=== PATIENT | male | born 1980 ===

== ENCOUNTER → 2020-05-09 08:34 | Outpatient (BNVA) | payer OTHER, SELFPAY | PROVIDERS: PCP Internal Medicine; Referring Provider Internal Medicine; Visit Provider Nurse Practitioner Gerontology | DX: E11.9 Type 2 diabetes mellitus without complications (principal); I10 Essential (primary) hypertension; E78.5 Hyperlipidemia, unspecified; E55.9 Vitamin D deficiency, unspecified; E66.01 Morbid (severe) obesity due to excess calories; Z79.4 Long term (current) use of insulin | CPT/HCPCS: 99213 ==

== ENCOUNTER 2020-05-10 13:53 | Outpatient (REF) | payer OTHER, SELFPAY | END 2020-05-10 13:54 | disposition home or self-care (01) | LOC: HO.LAB 13:53 | PROVIDERS: Visit Provider Internal Medicine | DX: Z20.828 Contact with and (suspected) exposure to other viral communicable diseases (principal) | CPT/HCPCS: 87635 ==

== ENCOUNTER 2020-05-15 15:30 | Outpatient (REF) | payer OTHER, SELFPAY ==
--- NOTE | 2020-05-15 16:27 | XR_ITS ---
EXAMINATION: XR CHEST CLINICAL INFORMATION: Bronchitis. COMPARISON: None TECHNIQUE: 2 views of the chest were obtained. FINDINGS: No significant abnormality is noted involving the heart, lungs, mediastinum, bony thorax or soft tissues. XR/XR chest 2V IMPRESSION: Unremarkable chest examination.
== END 2020-05-15 15:31 | disposition home or self-care (01) ==
LOC: HO.XRAY 15:30
PROVIDERS: PCP Internal Medicine; Visit Provider Hospitalist
DX: J40 Bronchitis, not specified as acute or chronic (principal); E55.9 Vitamin D deficiency, unspecified; E11.9 Type 2 diabetes mellitus without complications; I10 Essential (primary) hypertension
CPT/HCPCS: 71046; 99214

== ENCOUNTER → 2020-06-01 09:56 | Outpatient (BNVA) | payer OTHER, SELFPAY | PROVIDERS: PCP Internal Medicine; Referring Provider Internal Medicine; Visit Provider Hospitalist | DX: J45.40 Moderate persistent asthma, uncomplicated (principal); G47.33 Obstructive sleep apnea (adult) (pediatric); E66.01 Morbid (severe) obesity due to excess calories; Z68.42 Body mass index [BMI] 45.0-49.9, adult; R09.1 Pleurisy; Z99.89 Dependence on other enabling machines and devices; Z23 Encounter for immunization | CPT/HCPCS: 90686; 99212 ==

== ENCOUNTER 2020-06-14 09:43 | Outpatient (REF) | payer OTHER, SELFPAY ==
[2020-06-14 10:32] LABS: Estimated Average Glucose 171 mg/dL; Hemoglobin A1c % 7.6 %
[2020-06-14 11:04] LABS: Vitamin D 25-OH Total 29.9 ng/mL (>30)
== END 2020-06-14 09:44 | disposition home or self-care (01) ==
LOC: HO.LAB 09:43
PROVIDERS: PCP Internal Medicine; Visit Provider Nurse Practitioner Gerontology
DX: E55.9 Vitamin D deficiency, unspecified (principal); E11.9 Type 2 diabetes mellitus without complications; Z79.4 Long term (current) use of insulin
CPT/HCPCS: 82306; 83036

== ENCOUNTER 2020-07-26 09:34 | Outpatient (REF) | payer OTHER, SELFPAY ==
[2020-07-26 10:50] LABS: Hematocrit 44.2 % (42-52); Hemoglobin 13.9 g/dl (14.0-18.0); Mean Corpuscular HGB Conc 31.4 g/dl (31.0-36.0); Mean Corpuscular Hemoglobin 25.2 pg (27.0-33.0); Mean Corpuscular Volume 80.2 fL (80-98); Mean Platelet Volume 10.9 fL (9.4-12.4); Platelet Count 352 X10*3/uL (160-400); Red Blood Count 5.51 X10*6/uL (4.60-5.80); Red Cell Distribution Width 13.8 % (11.0-16.0); White Blood Count 10.3 X10*3/uL (4.8-10.8)
[2020-07-26 11:15] LABS: Iron 64 mcg/dL (45-160); Percent Iron Saturation 19 % (15-50); Total Iron Binding Capacity 344 mcg/dL (228-428); Unsaturated Iron Binding 280 ug/dL
[2020-07-26 11:37] LABS: Ferritin 228 ng/mL (20-250)
== END 2020-07-26 09:35 | disposition home or self-care (01) ==
LOC: HO.LAB 09:34
PROVIDERS: PCP Internal Medicine; Visit Provider Internal Medicine Gastroenterology
DX: D50.9 Iron deficiency anemia, unspecified (principal)
CPT/HCPCS: 36415; 82728; 83540; 85027

== ENCOUNTER → 2020-08-07 13:51 | Outpatient (BNVA) | payer OTHER, SELFPAY | PROVIDERS: PCP Internal Medicine; Visit Provider Internal Medicine Gastroenterology ==

== ENCOUNTER 2020-08-30 10:56 | Outpatient (REF) | payer OTHER, SELFPAY | END 2020-08-30 10:57 | disposition home or self-care (01) | LOC: HO.LAB 10:56 | PROVIDERS: Visit Provider Internal Medicine | DX: Z20.822 Contact with and (suspected) exposure to COVID-19 (principal) | CPT/HCPCS: 36415; C9803; U0003; U0005 ==

== ENCOUNTER → 2020-09-01 10:38 | Outpatient (BNVA) | payer OTHER, SELFPAY | PROVIDERS: PCP Internal Medicine; Visit Provider Hospitalist ==

== ENCOUNTER 2020-11-01 09:29 | Outpatient (REF) | payer OTHER, SELFPAY ==
[2020-11-01 10:32] LABS: Glucose Urine UA 250 MG/DL (NEG); Leukocyte Esterase Urine NEG (NEG); Nitrite Urine NEG (NEG); Specific Gravity - Urine 1.025 (1.005-1.025); Urine Blood NEG (NEG); Urine Ketones NEG (NEG); Urine Protein TRACE MG/DL (NEG-TRACE)
[2020-11-01 10:36] LABS: Appearance Urine CLEAR; Color Urine YELLOW
[2020-11-01 10:46] LABS: RBC Urine 0 /HPF (0); Squamous Epithelial Cell Urine 2+ /LPF; WBC Urine 0-2 /HPF (0-4)
[2020-11-01 11:09] LABS: Estimated Average Glucose 154 mg/dL
[2020-11-01 11:14] LABS: Basophils Percent Auto 0.3 % (0-2); Eosinophils Absolute Auto 0.3 X10*3/uL (0.0-0.4); Eosinophils Percent Auto 3.1 % (0-4); Hematocrit 43.9 % (42-52); Hemoglobin 13.5 g/dl (14.0-18.0); Imm Gran Abs Auto 0.04 X10*3/uL (0.00-0.03); Imm Gran Pct Auto 0.4 % (0.0-0.4); Immature Retic Fraction 19.2 % (2.3-13.4); Lymphocytes Absolute Auto 1.7 X10*3/uL (1.2-4.9); Lymphocytes Percent Auto 18.9 % (20-40); MANUAL DIFF FLAG SCAN; Mean Corpuscular HGB Conc 30.8 g/dl (31.0-36.0); Mean Corpuscular Hemoglobin 24.7 pg (27.0-33.0); Mean Corpuscular Volume 80.4 fL (80-98); Mean Platelet Volume 11.4 fL (9.4-12.4); Monocytes Absolute Auto 0.8 X10*3/uL (0.1-1.2); Monocytes Percent Auto 8.3 % (2-11); Neutrophils Absolute Auto 6.3 X10*3/uL (2.0-8.3); PLT CLUMP 1; Red Blood Count 5.46 X10*6/uL (4.60-5.80); Red Cell Distribution Width 13.8 % (11.0-16.0); Retic HGB Equivalent 29.9 pg (30.0-35.0); Reticulocyte Percent 1.9 % (0.5-1.8); Reticulocytes Absolute 0.105 X10*6/uL (0.026-0.095); SCAN SMEAR FLAG 1
[2020-11-01 11:33] LABS: White Blood Count 9.1 X10*3/uL (4.8-10.8)
[2020-11-01 11:34] LABS: Platelet Count 270 X10*3/uL (160-400); SLIDE REVIEW VERIFIED
[2020-11-01 11:47] LABS: Vitamin B12 266 pg/mL (200-900)
[2020-11-01 12:01] LABS: Alanine Aminotransferase 24 U/L (0-40); Alkaline Phosphatase 68 U/L (39-117); Anion Gap 15 (12-20); Aspartate Amino Transferase 16 U/L (5-37); Bilirubin Total 0.3 mg/dL (0.0-1.0); Blood Urea Nitrogen 15 mg/dL (9-16); Calcium 9.1 mg/dL (8.4-10.2); Carbon Dioxide 24 mmol/L (22-29); Chloride 105 mmol/L (96-108); Cholesterol 153 mg/dL; Estimated Glomerular Filt Rate > 60; Glucose Random 109 mg/dL (60-115); HDL Cholesterol 38 mg/dL; Iron 35 mcg/dL (45-160); LDL Cholesterol Calculated 97 mg/dl; Percent Iron Saturation 10 % (15-50); Potassium 4.6 mmol/L (3.3-5.1); Sodium 139 mmol/L (135-145); Total Iron Binding Capacity 337 mcg/dL (228-428); Total Protein 7.2 g/dL (6.5-8.0); Triglycerides 93 mg/dL; Unsaturated Iron Binding 302 ug/dL
[2020-11-01 12:22] LABS: Ferritin 173 ng/mL (20-250); Free T4 (Free Thyroxine) 0.88 ng/dL (0.71-1.85); Thyroid Stimulating Hormone 0.68 uIU/mL (0.32-4.0)
== END 2020-11-01 09:30 | disposition home or self-care (01) ==
LOC: HO.LAB 09:29
PROVIDERS: PCP Internal Medicine; Visit Provider Internal Medicine
DX: E78.00 Pure hypercholesterolemia, unspecified (principal); E78.5 Hyperlipidemia, unspecified; E11.9 Type 2 diabetes mellitus without complications; D50.9 Iron deficiency anemia, unspecified; R30.0 Dysuria; Z79.4 Long term (current) use of insulin
CPT/HCPCS: 36415; 80053; 80061; 81001; 82607; 82728; 82746; 83036; 83540; 84439; 84443; 85025; 85045

== ENCOUNTER → 2020-11-17 08:51 | Outpatient (BNVA) | payer OTHER, SELFPAY | PROVIDERS: PCP Internal Medicine; Visit Provider Nurse Practitioner Gerontology | DX: E11.9 Type 2 diabetes mellitus without complications (principal); E78.5 Hyperlipidemia, unspecified; E55.9 Vitamin D deficiency, unspecified; E66.01 Morbid (severe) obesity due to excess calories; Z68.43 Body mass index [BMI] 50.0-59.9, adult; I10 Essential (primary) hypertension; Z79.4 Long term (current) use of insulin; Z87.891 Personal history of nicotine dependence; Z71.3 Dietary counseling and surveillance | CPT/HCPCS: 82947; 99212 ==

== ENCOUNTER → 2021-01-31 08:23 | Outpatient (BNVA) | payer OTHER, SELFPAY | PROVIDERS: Visit Provider Nurse Practitioner Gerontology | DX: E11.9 Type 2 diabetes mellitus without complications (principal); E78.5 Hyperlipidemia, unspecified; E55.9 Vitamin D deficiency, unspecified; E66.01 Morbid (severe) obesity due to excess calories; I10 Essential (primary) hypertension; Z79.4 Long term (current) use of insulin; Z68.43 Body mass index [BMI] 50.0-59.9, adult | CPT/HCPCS: 82947; 99212 ==

== ENCOUNTER → 2021-02-08 11:13 | Outpatient (BNVA) | payer OTHER, SELFPAY | PROVIDERS: PCP Internal Medicine; Referring Provider Internal Medicine; Visit Provider Internal Medicine Gastroenterology ==

== ENCOUNTER 2021-03-02 12:48 | Outpatient (REF) | payer OTHER, SELFPAY ==
--- NOTE | 2021-03-02 16:49 | PFT_ITS ---
Forced vital capacity and FEV1 are both slightly decreased. [id number] and MVV also slightly decreased. Post bronchodilator therapy, there is a slight improvement in [id number]. Total lung capacity, slightly decreased. Residual volume is normal. Diffusion capacity normal. CONCLUSION: Mild degree of restrictive pulmonary disorder is noted. The patient probably has a very mild degree of obstructive airway disorder involving smaller airways with some improvement after bronchodilator therapy. Clinical correlation is recommended. MD JANUARY [place]/MODL / [id number]
== END 2021-03-02 12:49 | disposition home or self-care (01) ==
LOC: HO.RESP 12:48
PROVIDERS: PCP Internal Medicine; Visit Provider Hospitalist
DX: J45.40 Moderate persistent asthma, uncomplicated (principal); R06.00 Dyspnea, unspecified
CPT/HCPCS: 94060; 94727; 94729; 99212

== ENCOUNTER → 2021-05-07 11:09 | Outpatient (BNVA) | payer OTHER, SELFPAY | PROVIDERS: PCP Internal Medicine; Referring Provider Internal Medicine; Visit Provider Internal Medicine Gastroenterology | DX: D50.8 Other iron deficiency anemias (principal); E53.8 Deficiency of other specified B group vitamins; E66.01 Morbid (severe) obesity due to excess calories; Z68.43 Body mass index [BMI] 50.0-59.9, adult | CPT/HCPCS: 99212 ==

== ENCOUNTER → 2021-05-29 07:17 | Outpatient (BNVA) | payer OTHER, SELFPAY | PROVIDERS: PCP Internal Medicine; Visit Provider Nurse Practitioner Gerontology | DX: E11.9 Type 2 diabetes mellitus without complications (principal); E78.5 Hyperlipidemia, unspecified; E55.9 Vitamin D deficiency, unspecified; E66.01 Morbid (severe) obesity due to excess calories; I10 Essential (primary) hypertension; Z68.43 Body mass index [BMI] 50.0-59.9, adult; Z79.4 Long term (current) use of insulin | CPT/HCPCS: 82947; 99212 ==

== ENCOUNTER 2021-06-20 08:08 | Outpatient (REF) | payer OTHER, SELFPAY ==
[2021-06-20 08:16] LABS: MANUAL DIFF FLAG NO
[2021-06-20 08:38] LABS: Basophils Percent Auto 0.4 % (0-2); Eosinophils Absolute Auto 0.3 X10*3/uL (0.0-0.4); Eosinophils Percent Auto 3.3 % (0-4); Hematocrit 43.6 % (42.0-52.0); Hemoglobin 13.9 g/dl (14.0-18.0); Imm Gran Abs Auto 0.03 X10*3/uL (0.00-0.03); Imm Gran Pct Auto 0.3 % (0.0-0.4); Immature Retic Fraction 16.3 % (2.3-13.4); Lymphocytes Absolute Auto 1.9 X10*3/uL (1.2-4.9); Lymphocytes Percent Auto 21.3 % (20-40); Mean Corpuscular HGB Conc 31.9 g/dl (31.0-36.0); Mean Corpuscular Hemoglobin 25.2 pg (27.0-33.0); Mean Corpuscular Volume 79.1 fL (80.0-98.0); Mean Platelet Volume 10.5 fL (9.4-12.4); Monocytes Absolute Auto 0.6 X10*3/uL (0.1-1.2); Monocytes Percent Auto 6.7 % (2-11); Neutrophils Absolute Auto 6.2 x10*3/uL (2.0-8.3); Platelet Count 335 X10*3/uL (160-400); Red Blood Count 5.51 X10*6/uL (4.60-5.80); Red Cell Distribution Width 13.8 % (11.0-16.0); Retic HGB Equivalent 28.9 pg (30.0-35.0); Reticulocyte Percent 1.7 % (0.5-1.8); Reticulocytes Absolute 0.092 X10*6/uL (0.026-0.095); White Blood Count 9.1 X10*3/uL (4.8-10.8)
[2021-06-20 09:02] LABS: Iron 36 mcg/dL (45-160); Percent Iron Saturation 10 % (15-50); Total Iron Binding Capacity 348 mcg/dL (228-428); Unsaturated Iron Binding 312 ug/dL
[2021-06-20 09:03] LABS: Alanine Aminotransferase 20 U/L (0-40); Albumin Level 4.1 g/dL (3.5-5.0); Alkaline Phosphatase 67 U/L (39-117); Aspartate Amino Transferase 12 U/L (5-37); Bilirubin Direct < 0.2 mg/dL (0.0-0.5); Bilirubin Total 0.3 mg/dL (0.0-1.0); Total Protein 7.3 g/dL (6.5-8.0)
[2021-06-20 09:35] LABS: Folate 9.9 ng/mL (> or = 4.0); Vitamin B12 287 pg/mL (200-900)
[2021-06-20 09:54] LABS: Ferritin 193 ng/mL (20-250)
[2021-06-24 23:56] LABS: FIB-ALT 17 U/L (9-46); FIB-Alpha-2-Macroglobulin 120 mg/dL (106-279); FIB-Apolipoprotein A1 107 mg/dL (94-176); FIB-GGT 27 U/L (3-95); FIB-Haptoglobin 301 mg/dL (43-212); FIB-Total Bilirubin 0.3 mg/dL (0.2-1.2); Liver Fibrosis Score 0.05; Liver Fibrosis Stage F0; Nec Inflam Act Grade A0; Nec Inflam Act Score 0.04
== END 2021-06-20 08:09 | disposition home or self-care (01) ==
LOC: HO.LAB 08:08
PROVIDERS: PCP Internal Medicine; Referring Provider Nurse Practitioner Gerontology; Visit Provider Internal Medicine Gastroenterology
DX: E66.01 Morbid (severe) obesity due to excess calories (principal); Z68.43 Body mass index [BMI] 50.0-59.9, adult; E53.8 Deficiency of other specified B group vitamins; D50.8 Other iron deficiency anemias
CPT/HCPCS: 36415; 80076; 81596; 82607; 82728; 82746; 83540; 85025; 85045

== ENCOUNTER → 2021-09-06 11:12 | Outpatient (BNVA) | payer OTHER, SELFPAY | PROVIDERS: PCP Internal Medicine; Visit Provider Hospitalist | DX: J45.40 Moderate persistent asthma, uncomplicated (principal); J31.0 Chronic rhinitis; G47.33 Obstructive sleep apnea (adult) (pediatric) | CPT/HCPCS: 99212 ==

== ENCOUNTER 2021-11-10 05:17 | Emergency (ER) | payer OTHER, SELFPAY ==
[2021-11-10 05:29] VITALS: BP 144/76; PULSE 68; RESP 16; TEMP 36.2; O2SAT 98; BMI 59.0
--- NOTE | 2021-11-10 05:51 | ED_ITS ---
HPI - Headache General Chief Complaint: Headache Stated Complaint: Migraine Time Seen by Provider: 11/10/21 05:45 Source: patient Mode of arrival: ambulatory Limitations: no limitations History of Present Illness HPI Narrative: Patient comes to the emergency room complaining of 5 days of a headache And photophobia. Patient states that he has no history of migraines, has been taking ibuprofen and Tylenol without any relief. Mild nausea, no vomiting or diarrhea, no fever chills. No neck pain or neck stiffness. Patient denies any head trauma. Related Data Home Medications Medication Instructions Recorded Confirmed doxepin 75 mg capsule 75 mg PO BEDTIME 04/17/20 05/07/21 duloxetine 30 mg capsule,delayed 30 mg PO QAM 04/17/20 05/29/21 release hydroxyzine HCl 25 mg tablet 25 mg PO TID 04/17/20 05/29/21 trazodone 100 mg tablet 100 - 200 mg PO BEDTIME 04/17/20 05/29/21 lancets 28 gauge #100 ea 05/09/20 05/29/21 Previous Rx's Medication Instructions Recorded fluticasone propionate 50 1 spray INTRANASAL DAILY #16 ml 09/01/20 mcg/actuation nasal spray,suspension montelukast 10 mg tablet 10 mg PO BEDTIME 30 Days #30 tab 09/01/20 (Singulair) clonazepam 0.5 mg tablet 0.5 mg PO DAILY #14 tab 11/27/20 cpap #1 ea 11/27/20 aspirin 81 mg chewable tablet 1 tab PO DAILY 90 Days #90 tab 12/05/20 Shower Chair #1 ea 12/07/20 detachable shower Head #1 ea 12/07/20 flash glucose scanning reader #1 ea 01/31/21 (FreeStyle Spenser 2 [place]) flash glucose sensor (FreeStyle #2 ea 01/31/21 Spenser 2 Sensor) cane #1 ea 03/07/21 Quad cane #1 ea 03/09/21 albuterol sulfate 2.5 mg (3 mL) INHALATION Q8H PRN 06/05/21 #150 ml empagliflozin 25 mg tablet 25 mg PO QAM #30 tab 06/27/21 (Jardiance) ferrous sulfate 324 mg (65 mg 324 mg PO BID #60 tab 07/01/21 iron) tablet,delayed release atorvastatin 10 mg tablet 10 mg PO BEDTIME #30 tab 07/06/21 irbesartan 150 1 tab PO DAILY #90 tab 07/06/21 mg-hydrochlorothiazide 12.5 mg tablet cholecalciferol (vitamin D3) 25 25 mcg PO DAILY #30 tab 07/10/21 mcg (1,000 unit) tablet (Vitamin D3) insulin glargine 100 unit/mL (3 34 unit (0.34 mL) SUBCUT QPM #15 ml 07/18/21 mL) subcutaneous pen (Lantus Solostar U-100 Insulin) pen needle, diabetic 32 gauge x 1 ea SUBCUT DAILY #30 ea 08/10/21 (BD Ultra-Fine Yanely Pen Needle) fluocinonide 0.05 % topical 1 appl TOPICAL BID 7 Days #30 g 08/19/21 ointment metformin 500 mg tablet 1,000 mg PO BID #120 tab 08/20/21 tramadol 50 mg tablet 50 mg PO Q8H PRN 30 Days #90 tab 08/30/21 fluticasone 232 mcg-salmeterol 14 1 inh INHALATION BID #1 insert 10/04/21 mcg/actuation breath activated powdr sennosides 8.6 mg-docusate sodium 2 tab-cap PO BEDTIME 30 Days #60 10/12/21 50 mg tablet (Senna-S) tab hydrocortisone 2.5 % topical cream 1 appl [place] BID-QID PRN #30 g 10/18/21 with perineal applicator (Proctosol HC) famotidine 20 mg tablet 20 mg PO BEDTIME 30 Days #30 tab 10/19/21 triamcinolone acetonide 0.5 % 1 appl TOPICAL DAILY 15 Days #15 g 10/19/21 topical ointment dulaglutide 3 mg/0.5 mL 3 mg (0.5 mL) SUBCUT QWEEK 28 Days 11/06/21 subcutaneous pen injector #2 ml (Trulicity) gabapentin 300 mg capsule 600 mg PO BEDTIME #180 cap 11/06/21 ketorolac 10 mg tablet 10 mg PO TID PRN #7 tab 11/10/21 metoclopramide HCl 5 mg tablet 5 mg PO DAILY #7 tab 11/10/21 (Reglan) Allergies Allergy/AdvReac Type Severity Reaction Status Date / Time Flexeril AdvReac Mild nausea, Verified 11/10/21 05:29 sleepiness glipizide AdvReac Mild hypoglycemi Verified 11/10/21 05:29 a Review of Systems Review of Systems: Constitutional : No Weight loss, No Fever, No Chills, No Night Sweats, No Fatigue, No Malaise ENT/Mouth : No Hearing loss, No Ear Pain, No Nasal Congestion, No Sinus Pain, No Hoarseness, No sore throat, No Rhinorrhea, No Swallowing Difficulty Eyes: No Eye Pain, No Swelling, No Redness, No Foreign Body, No Discharge, No Vision Changes, complaining of photophobia Cardiovascular : No Chest Pain, No SOB, No Dyspnea on Exertion, No Orthopnea, No Edema, No Palpitations Respiratory : No Cough, No Sputum, No Wheezing, No Smoke Exposure, No Dyspnea Gastrointestinal : No Nausea, No Vomiting, No Diarrhea, No Constipation, No abdominal Pain, No Hematochezia, No Melena Genitourinary : no irregular bleeding, No Dysuria, No Urinary Frequency, No Hematuria, No Urinary Incontinence, No Urgency, No Flank Pain, No Urinary Flow Changes, No Hesitancy Musculoskeletal : No joint pain, No Myalgias, No Joint Swelling Skin : No Skin Lesions, No rash Neuro : No Weakness, No Numbness, No Paresthesias, No Loss of Consciousness, No Dizziness, complaining Headache Psych : No Anxiety/Panic, No Depression, No SI/HI/AH/VH, No Social Issues, Heme/Lymph: No Bruising, No Bleeding,No Lymphadenopathy Endocrine : No Polyuria, No Polydipsia, No Temperature Intolerance [facility] Past Medical History Medical History Asthma Back pain with sciatica Chronic rhinitis Depression Essential hypertension Hemorrhoids History of colon polyps Hyperlipidemia LDL goal <100 Obesity Obesity due to excess calories SHERRI (obstructive sleep apnea) Peripheral neuropathy Proteinuria Vitamin D deficiency Surgical History History of esophagogastroduodenoscopy (EGD) Hx of colonoscopy Loculated empyema Loculated pleural effusion Family History Family History Father Cirrhosis Diabetes Mother Colon cancer, Onset Age: 83 Brother Prostate cancer CVA (cerebral vascular accident) Social History Social History (Updated 09/06/21 @ 11:23 by Lakisha Pascual [facility]) Household Members: Family Housing: Apartment Alcohol intake: never Patient Tobacco Use Status: Former Tobacco user Tobacco use type: Cigarette Years Smoked: 8yrs e-Cigarette/Vaping Use: Never Used Second Hand Smoke Exposure: No Advance Directives: No Advance Directives Information Provided: Yes service: No Current occupational status: disabled Cognitive needs: No Hearing needs: No Vision needs: No Physical Exam Vital Signs: Vital Signs: Last Vital Signs Temp 97.2 F 11/10/21 05:29 Pulse 68 11/10/21 05:29 Resp 16 11/10/21 05:29 BP 144/76 H 11/10/21 05:29 Pulse Ox 98 11/10/21 05:29 BMI result Body Mass Index 59.0 Const: Other: Appearance: Alert. Oriented X3. No acute distress. Well-appearing, morbidly obese Eyes: Pupils equal, round and reactive to light. ENT: Pharynx normal. Neck: Normal inspection. Neck supple. No lymph nodes noted. No crepitus, patient has normal flexion and extension and rotation, no stiffness, no pain with movement. CVS: Normal heart rate and rhythm. Pulses normal. Normal S1 and S2 Respiratory: No respiratory distress. Breath sounds normal. No Wheezing. No rales Abdomen: Soft and nontender. No rigidity. No distention. Skin: Skin warm and dry. Normal skin color. Normal skin turgor. Extremities: No lower extremity edema. No Lacerations. No Rash Neuro: Oriented X 3. No motor deficit. No sensory deficit. Moving all extremities. No slurred speech. CN 2 through 12 grossly intact Psych: calm, cooperative, normal affect Course Course Course Narrative: Patient is getting now IV fluids, Toradol, Benadryl and Reglan. At this time, 634,IV line was established, Medication being given. Sign out given to Dr. Lin. Discharge Plan Discharge Clinical Impression: Migraine Patient Disposition: Home, Self-Care Instructions: Migraine Headache (ED) Additional Instructions: Please follow-up with your primary care physician tomorrow. If you have any worsening or new symptoms, please return to the emergency room or call 911 Prescriptions: New ketorolac 10 mg tablet 10 mg PO TID PRN (Reason: pain) Qty: 7 0RF Rx Instructions: Do not use NSAIDs with this medication, only Tylenol if needed metoclopramide HCl [Reglan] 5 mg tablet 5 mg PO DAILY Qty: 7 0RF Rx Instructions: Take together with Toradol p.r.n. severe headache No Action aspirin 81 mg tablet,chewable 1 tab PO DAILY 90 Days Qty: 90 3RF (DME) Shower Chair Misc See Rx Instructions .ROUTE .MEDSUPPLY Qty: 1 0RF Rx Instructions: As directed (DME) detachable shower Head See Rx Instructions .Route .MEDSUPPLY Qty: 1 0RF Rx Instructions: As directed (DME) cane Device See Rx Instructions .ROUTE .MEDSUPPLY Qty: 1 0RF Rx Instructions: As directed HEAVY DUTY (DME) Quad cane See Rx Instructions .Route .MEDSUPPLY Qty: 1 0RF Rx Instructions: As directed albuterol sulfate 2.5 mg /3 mL (0.083 %) solution for nebulization 2.5 mg inhalation Q8H PRN (Reason: for wheezing) Qty: 150 11RF Jardiance 25 mg tablet 25 mg PO QAM Qty: 30 5RF atorvastatin 10 mg tablet 10 mg PO BEDTIME Qty: 30 6RF irbesartan-hydrochlorothiazide 150-12.5 mg tablet 1 tab PO DAILY Qty: 90 3RF cholecalciferol (vitamin D3) [Vitamin D3] 25 mcg (1,000 unit) tablet 25 mcg PO DAILY Qty: 30 5RF Lantus Solostar U-100 Insulin 100 unit/mL (3 mL) insulin pen 34 unit subcut QPM Qty: 15 6RF pen needle, diabetic [BD Ultra-Fine Yanely Pen Needle] 32 gauge x 5/32 needle 1 ea subcut DAILY Qty: 30 11RF fluocinonide 0.05 % ointment 1 appl topical BID 7 Days Qty: 30 0RF metformin 500 mg tablet 1,000 mg PO BID Qty: 120 3RF tramadol 50 mg tablet 50 mg PO Q8H PRN (Reason: pain) 30 Days Qty: 90 1RF fluticasone propion-salmeterol 232-14 mcg/actuation aerosol powdr breath activated 1 inh inhalation BID Qty: 1 11RF hydrocortisone [Proctosol HC] 2.5 % cream with perineal applicator 1 appl WA BID-QID PRN (Reason: hemorrhoids) Qty: 30 1RF famotidine 20 mg tablet 20 mg PO BEDTIME 30 Days Qty: 30 3RF triamcinolone acetonide 0.5 % ointment 1 appl topical DAILY 15 Days Qty: 15 2RF Trulicity 3 mg/0.5 mL pen injector 3 mg subcut QWEEK 28 Days Qty: 2 4RF gabapentin 300 mg capsule 600 mg PO BEDTIME Qty: 180 1RF clonazepam 0.5 mg tablet 0.5 mg PO DAILY Qty: 14 0RF Rx Instructions: psychiatry is giving rx (DME) cpap See Rx Instructions .Route .MEDSUPPLY Qty: 1 0RF Rx Instructions: As directed sennosides-docusate sodium [Senna-S] 8.6-50 mg tablet 2 tab-cap PO BEDTIME 30 Days Qty: 60 8RF (DME) lancets 28 gauge misc See Rx Instructions ea topical TID-QID Qty: 100 0RF Rx Instructions: As directed hydroxyzine HCl 25 mg tablet 25 mg PO TID 0RF trazodone 100 mg tablet 100 - 200 mg PO BEDTIME 0RF duloxetine 30 mg capsule,delayed release(DR/EC) 30 mg PO QAM 0RF doxepin 75 mg capsule 75 mg PO BEDTIME 0RF fluticasone propionate 50 mcg/actuation spray,suspension 1 spray intranasal DAILY Qty: 16 11RF montelukast [Singulair] 10 mg tablet 10 mg PO BEDTIME 30 Days Qty: 30 11RF ferrous sulfate 324 mg (65 mg iron) tablet,delayed release (DR/EC) 324 mg PO BID Qty: 60 4RF (DME) FreeStyle Spneser 2 [place] Misc See Rx Instructions .ROUTE .MEDSUPPLY Qty: 1 0RF Rx Instructions: As directed (DME) FreeStyle Spenser 2 Sensor Kit See Rx Instructions .ROUTE .MEDSUPPLY Qty: 2 11RF Rx Instructions: every 2 weeks
[2021-11-10] MEDS: diphenhydrAMINE HCL 50 MG/ML VIAL 25 MG IVPUSH (06:27)
[2021-11-10] MEDS: 0.9 % Sodium Chloride 1,000 ML 999 ML IVCONT (06:27)
[2021-11-10] MEDS: Metoclopramide HCl 10 MG/2 ML VIAL IVPUSH (06:28)
[2021-11-10] MEDS: Ketorolac Tromethamine 30 MG/ML VIAL IVPUSH (06:28)
[2021-11-10 07:14] VITALS: BP 105/48; PULSE 61; RESP 16; TEMP 525.5; TEMP 978; O2SAT 98
== END 2021-11-10 08:07 | disposition home or self-care (01) ==
PROVIDERS: Emergency Provider Emergency Medicine
DX: G43.909 Migraine, unspecified, not intractable, without status migrainosus (principal); H53.143 Visual discomfort, bilateral; Z87.891 Personal history of nicotine dependence; Z79.899 Other long term (current) drug therapy
CPT/HCPCS: 96361; 96374; 96375; 99284; 99285; J1200; J1885; J2765

== ENCOUNTER → 2021-11-27 07:21 | Outpatient (BNVA) | payer OTHER, SELFPAY | PROVIDERS: PCP Internal Medicine; Visit Provider Nurse Practitioner Gerontology | DX: E11.9 Type 2 diabetes mellitus without complications (principal); E78.5 Hyperlipidemia, unspecified; E66.01 Morbid (severe) obesity due to excess calories; I10 Essential (primary) hypertension; Z79.4 Long term (current) use of insulin; Z68.43 Body mass index [BMI] 50.0-59.9, adult; Z79.84 Long term (current) use of oral hypoglycemic drugs | CPT/HCPCS: 82947; 99212 ==

== ENCOUNTER → 2022-01-03 11:42 | Outpatient (BNVA) | payer OTHER, SELFPAY | PROVIDERS: PCP Internal Medicine; Visit Provider Internal Medicine Gastroenterology | DX: D50.8 Other iron deficiency anemias (principal); K59.00 Constipation, unspecified; K64.9 Unspecified hemorrhoids; E53.8 Deficiency of other specified B group vitamins; E66.01 Morbid (severe) obesity due to excess calories; Z68.43 Body mass index [BMI] 50.0-59.9, adult | CPT/HCPCS: 99212 ==

== ENCOUNTER 2022-01-16 08:46 | Outpatient (REF) | payer OTHER, SELFPAY ==
[2022-01-16 09:04] LABS: MANUAL DIFF FLAG NO
[2022-01-16 10:32] LABS: Basophils Percent Auto 0.4 % (0-2); Eosinophils Absolute Auto 0.2 X10*3/uL (0.0-0.4); Eosinophils Percent Auto 2.8 % (0-4); Hematocrit 44.9 % (42.0-52.0); Imm Gran Abs Auto 0.03 X10*3/uL (0.00-0.03); Imm Gran Pct Auto 0.4 % (0.0-0.4); Immature Retic Fraction 13.2 % (2.3-13.4); Lymphocytes Absolute Auto 2.1 X10*3/uL (1.2-4.9); Mean Corpuscular HGB Conc 31.2 g/dl (31.0-36.0); Mean Platelet Volume 10.8 fL (9.4-12.4); Monocytes Absolute Auto 0.5 X10*3/uL (0.1-1.2); Monocytes Percent Auto 6.4 % (2-11); Neutrophils Absolute Auto 5.3 x10*3/uL (2.0-8.3); Platelet Count 332 X10*3/uL (160-400); Red Blood Count 5.61 X10*6/uL (4.60-5.80); Retic HGB Equivalent 31.5 pg (30.0-35.0); Reticulocyte Percent 1.5 % (0.5-1.8); Reticulocytes Absolute 0.084 X10*6/uL (0.026-0.095); White Blood Count 8.2 X10*3/uL (4.8-10.8)
[2022-01-16 10:44] LABS: Estimated Average Glucose 137 mg/dL; Hemoglobin A1c % 6.4 %
[2022-01-16 10:59] LABS: Alanine Aminotransferase 22 U/L (0-40); Albumin Level 4.1 g/dL (3.5-5.0); Alkaline Phosphatase 71 U/L (39-117); Anion Gap 14 (12-20); Aspartate Amino Transferase 15 U/L (5-37); Bilirubin Total 0.4 mg/dL (0.0-1.0); Blood Urea Nitrogen 15 mg/dL (9-16); Carbon Dioxide 26 mmol/L (22-29); Chloride 103 mmol/L (96-108); Cholesterol 122 mg/dL; Estimated Glomerular Filt Rate > 60; Glucose Fasting 105 mg/dL (60-99); HDL Cholesterol 34 mg/dL; Iron 71 mcg/dL (45-160); LDL Cholesterol Calculated 74 mg/dl; Percent Iron Saturation 20 % (15-50); Potassium 4.6 mmol/L (3.3-5.1); Sodium 138 mmol/L (135-145); Total Iron Binding Capacity 349 mcg/dL (228-428); Total Protein 7.4 g/dL (6.5-8.0); Triglycerides 74 mg/dL; Unsaturated Iron Binding 278 ug/dL
[2022-01-16 11:03] LABS: Creatinine Urine 100.85 mg/dL; Microalbum/Creatinine Ratio Ur 23.7 ug/mg cr
[2022-01-16 11:25] LABS: Ferritin 191 ng/mL (20-250); Free T4 (Free Thyroxine) 0.91 ng/dL (0.71-1.85)
[2022-01-16 11:34] LABS: Folate 6.7 ng/mL (> or = 4.0); Vitamin B12 246 pg/mL (200-900)
[2022-01-18 01:32] LABS: LDL Cholesterol Direct 80 mg/dL (<100)
== END 2022-01-16 08:47 | disposition home or self-care (01) ==
LOC: HO.LAB 08:46
PROVIDERS: Absent Provider Internal Medicine; PCP Internal Medicine; Visit Provider Nurse Practitioner Gerontology
DX: E11.65 Type 2 diabetes mellitus with hyperglycemia (principal); D50.8 Other iron deficiency anemias; I10 Essential (primary) hypertension; E78.00 Pure hypercholesterolemia, unspecified; E78.5 Hyperlipidemia, unspecified; E55.9 Vitamin D deficiency, unspecified
CPT/HCPCS: 36415; 80053; 80061; 82043; 82306; 82607; 82728; 82746; 83036; 83540; 83721; 84439; 84443; 85025; 85045

== ENCOUNTER → 2022-03-13 09:42 | Outpatient (REF) | payer OTHER, SELFPAY ==
--- NOTE | ~2022-03-13 | XR_ITS ---
EXAMINATION: XR CHEST CLINICAL INFORMATION: Chest pain COMPARISON: None TECHNIQUE: 2 views of the chest were obtained. FINDINGS: No significant abnormality is noted involving the heart, lungs, mediastinum, bony thorax or soft tissues. XR/XR chest 2V IMPRESSION: Unremarkable chest examination.
--- NOTE | 2022-03-13 09:48 | ECG_ITS ---
Test Reason : copd Blood Pressure : / mmHG Vent. Rate : 074 BPM Atrial Rate : 074 BPM P-R Int : 132 ms QRS Dur : 110 ms QT Int : 370 ms P-R-T Axes : 062 -40 013 degrees QTc Int : 410 ms Normal sinus rhythm Left axis deviation Abnormal ECG When compared with ECG of 22-JUL-2017 17:29, QRS axis Shifted left Referred By: Aiden Ambriz Electronically Signed By:MAR CASIANO
== END ==
LOC: HO.CARD 09:42
PROVIDERS: PCP Internal Medicine; Visit Provider Hospitalist
DX: R07.9 Chest pain, unspecified (principal); J44.9 Chronic obstructive pulmonary disease, unspecified; J45.40 Moderate persistent asthma, uncomplicated
CPT/HCPCS: 71046; 93005; 99212

== ENCOUNTER → 2022-04-19 11:20 | Outpatient (BNVA) | payer OTHER, SELFPAY | PROVIDERS: PCP Internal Medicine; Visit Provider Dietitian, Registered | DX: E66.01 Morbid (severe) obesity due to excess calories (principal); Z68.43 Body mass index [BMI] 50.0-59.9, adult; E11.9 Type 2 diabetes mellitus without complications; Z71.3 Dietary counseling and surveillance | CPT/HCPCS: 97803 ==

== ENCOUNTER → 2022-06-27 11:47 | Outpatient (BNVA) | payer OTHER, SELFPAY | PROVIDERS: PCP Internal Medicine; Visit Provider Internal Medicine Gastroenterology | DX: K59.00 Constipation, unspecified (principal); K64.9 Unspecified hemorrhoids; E53.8 Deficiency of other specified B group vitamins; D50.8 Other iron deficiency anemias | CPT/HCPCS: 99212 ==

== ENCOUNTER 2022-07-31 14:28 | Outpatient (REF) | payer OTHER, SELFPAY ==
[2022-07-31 15:04] LABS: COVID-19 Test Negative (Negative); IDNOW Serial# BCCEAD1C
== END 2022-07-31 14:29 | disposition home or self-care (01) ==
LOC: HO.LAB 14:28
PROVIDERS: Visit Provider Internal Medicine
DX: Z20.822 Contact with and (suspected) exposure to COVID-19 (principal)
CPT/HCPCS: 87635; C9803

== ENCOUNTER 2022-08-01 12:18 | Outpatient (REF) | payer OTHER, SELFPAY ==
[2022-08-01 13:23] LABS: Influenza A PCR NEGATIVE (Negative); Influenza B PCR NEGATIVE (Negative); Resp Syncy Virus RNA Qual PCR NEGATIVE (Negative); SARS COV2 PCR INHOUSE NEGATIVE (Negative)
== END 2022-08-01 12:19 | disposition home or self-care (01) ==
LOC: HO.LAB 12:18
PROVIDERS: PCP Internal Medicine; Visit Provider Internal Medicine
DX: Z20.822 Contact with and (suspected) exposure to COVID-19 (principal)
CPT/HCPCS: 0241U; C9803

== ENCOUNTER → 2022-08-05 10:26 | Outpatient (BNVA) | payer OTHER, SELFPAY | PROVIDERS: PCP Internal Medicine; Visit Provider Hospitalist | DX: J45.40 Moderate persistent asthma, uncomplicated (principal); J31.0 Chronic rhinitis; G47.33 Obstructive sleep apnea (adult) (pediatric) | CPT/HCPCS: 99212 ==

== ENCOUNTER → 2022-08-20 08:56 | Outpatient (BNVA) | payer OTHER, SELFPAY | PROVIDERS: PCP Internal Medicine; Visit Provider Dietitian, Registered | DX: E66.01 Morbid (severe) obesity due to excess calories (principal); Z68.43 Body mass index [BMI] 50.0-59.9, adult | CPT/HCPCS: 97803 ==

== ENCOUNTER → 2022-10-28 10:35 | Outpatient (BNVA) | payer OTHER, SELFPAY | PROVIDERS: PCP Internal Medicine; Visit Provider Hospitalist | DX: J45.40 Moderate persistent asthma, uncomplicated (principal); J31.0 Chronic rhinitis; G47.33 Obstructive sleep apnea (adult) (pediatric) | CPT/HCPCS: 99212 ==

== ENCOUNTER → 2022-11-20 09:39 | Outpatient (BNVA) | payer OTHER, SELFPAY | PROVIDERS: PCP Internal Medicine; Visit Provider Dietitian, Registered | DX: E66.01 Morbid (severe) obesity due to excess calories (principal); Z68.43 Body mass index [BMI] 50.0-59.9, adult | CPT/HCPCS: 97803 ==

== ENCOUNTER 2022-12-11 09:12 | Outpatient (REF) | payer OTHER, SELFPAY ==
[2022-12-11 09:35] LABS: MANUAL DIFF FLAG NO
[2022-12-11 09:47] LABS: Basophils Percent Auto 0.5 % (0-2); Eosinophils Absolute Auto 0.3 X10*3/uL (0.0-0.4); Eosinophils Percent Auto 4.7 % (0-4); Hematocrit 44.8 % (42.0-52.0); Hemoglobin 14.3 g/dl (14.0-18.0); Imm Gran Abs Auto 0.03 X10*3/uL (0.00-0.03); Imm Gran Pct Auto 0.5 % (0.0-0.4); Immature Retic Fraction 22.1 % (2.3-13.4); Lymphocytes Absolute Auto 1.8 X10*3/uL (1.2-4.9); Lymphocytes Percent Auto 32.3 % (20-40); Mean Corpuscular HGB Conc 31.9 g/dl (31.0-36.0); Mean Corpuscular Hemoglobin 25.5 pg (27.0-33.0); Mean Platelet Volume 10.2 fL (9.4-12.4); Monocytes Absolute Auto 0.6 X10*3/uL (0.1-1.2); Neutrophils Absolute Auto 2.8 x10*3/uL (2.0-8.3); Platelet Count 253 X10*3/uL (160-400); Red Cell Distribution Width 13.4 % (11.0-16.0); Retic HGB Equivalent 31.1 pg (30.0-35.0); Reticulocyte Percent 1.7 % (0.5-1.8); Reticulocytes Absolute 0.094 X10*6/uL (0.026-0.095); White Blood Count 5.5 X10*3/uL (4.8-10.8)
[2022-12-11 10:37] LABS: Alanine Aminotransferase 64 U/L (0-40); Albumin Level 4.2 g/dL (3.5-5.0); Alkaline Phosphatase 63 U/L (39-117); Anion Gap 12 (12-20); Aspartate Amino Transferase 37 U/L (5-37); Bilirubin Total 0.5 mg/dL (0.0-1.0); Blood Urea Nitrogen 12 mg/dL (9-16); Calcium 9.7 mg/dL (8.4-10.2); Carbon Dioxide 28 mmol/L (22-29); Chloride 103 mmol/L (96-108); Cholesterol 131 mg/dL; Estimated Glomerular Filt Rate > 60; Glucose Random 110 mg/dL (60-115); HDL Cholesterol 26 mg/dL; Iron 42 mcg/dL (45-160); LDL Cholesterol Calculated 70 mg/dl; Percent Iron Saturation 14 % (15-50); Potassium 4.9 mmol/L (3.3-5.1); Sodium 138 mmol/L (135-145); Total Iron Binding Capacity 309 mcg/dL (228-428); Total Protein 7.4 g/dL (6.5-8.0); Triglycerides 179 mg/dL; Unsaturated Iron Binding 267 ug/dL
[2022-12-11 11:01] LABS: Estimated Average Glucose 143 mg/dL; Hemoglobin A1c % 6.6 %
[2022-12-11 11:06] LABS: Creatinine Urine 101.35 mg/dL
[2022-12-11 11:07] LABS: Ferritin 210 ng/mL (20-250); Folate 13.4 ng/mL (> or = 4.0); Free T4 (Free Thyroxine) 0.89 ng/dL (0.71-1.85); Thyroid Stimulating Hormone 1.28 uIU/mL (0.32-4.0); Vitamin B12 340 pg/mL (200-900)
== END 2022-12-11 09:13 | disposition home or self-care (01) ==
LOC: HO.LAB 09:12
PROVIDERS: PCP Internal Medicine; Visit Provider Internal Medicine
DX: E11.65 Type 2 diabetes mellitus with hyperglycemia (principal); E78.00 Pure hypercholesterolemia, unspecified
CPT/HCPCS: 36415; 80053; 80061; 82607; 82728; 82746; 83036; 83540; 84439; 84443; 85025; 85045

== ENCOUNTER 2022-12-12 12:25 | Emergency (ER) | payer OTHER, SELFPAY ==
[2022-12-12 12:34] VITALS: BP 147/76; PULSE 87; RESP 16; TEMP 36.8; O2SAT 97; BMI 57.0
--- NOTE | 2022-12-12 12:35 | ED_ITS ---
HPI - General Adult General Chief complaint: Headache Stated complaint: Migraine/Syncope/SOB Time Seen by Provider: 12/12/22 13:13 Source: patient Mode of arrival: ambulatory Limitations: no limitations History of Present Illness HPI narrative: 42-year-old male who presents emergency department for evaluation of headache. The patient states that the headache was present when he woke up 3 days prior. He states the headache is been constant since onset. The headache is 6/10 at its worst. He had associated nausea with no vomiting. He had photophobia and phonophobia. He had no change in his vision. He denied lightheadedness, dizziness, numbness or weakness. He denied fever, chills, rhinorrhea, sore throat, cough, chest pain, shortness of breath The patient had a similar headache in the past MCV in the emergency department on 11/10/2021 diagnosed with migraines treated with Toradol and Reglan. Related Data Home Medications Medication Instructions Recorded Confirmed doxepin 75 mg capsule 75 mg PO BEDTIME 04/17/20 02/20/22 duloxetine 30 mg capsule,delayed 30 mg PO QAM 04/17/20 02/20/22 release hydroxyzine HCl 25 mg tablet 25 mg PO TID 04/17/20 02/20/22 lancets 28 gauge #100 ea 05/09/20 02/20/22 cholecalciferol (vitamin D3) 25 25 mcg PO DAILY 06/27/22 mcg (1,000 unit) tablet Previous Rx's Medication Instructions Recorded fluticasone propionate 50 1 spray intranasal DAILY #16 mL 09/01/20 mcg/actuation nasal spray,suspension cpap #1 ea 11/27/20 Shower Chair #1 ea 12/07/20 detachable shower Head #1 ea 12/07/20 flash glucose scanning reader #1 ea 01/31/21 (FreeStyle Spenser 2 [place]) cane #1 ea 03/07/21 Quad cane #1 ea 03/09/21 fluocinonide 0.05 % topical 1 appl topical BID 7 days #30 grams 08/19/21 ointment hydrocortisone 2.5 % topical cream 1 appl LA BID-QID PRN hemorrhoids 10/18/21 with perineal applicator #30 grams (Proctosol HC) triamcinolone acetonide 0.5 % 1 appl topical DAILY 15 days #15 10/19/21 topical ointment grams gabapentin 300 mg capsule 600 mg PO BEDTIME #180 caps 04/22/22 albuterol sulfate 2.5 mg/3 mL 2.5 mg (3 mL) inhalation Q8H PRN 05/02/22 (0.083 %) solution for nebulization for wheezing #150 mL bisacodyl 5 mg tablet,delayed 10 mg PO ONCE colon prep 2 days #4 06/27/22 release (Dulcolax (bisacodyl)) tabs polyethylene glycol 3350 17 17 g PO DAILY Colon prep 1 day 06/27/22 gram/dose oral powder (Miralax) #238 grams irbesartan 150 1 tab PO DAILY #90 tabs 06/29/22 mg-hydrochlorothiazide 12.5 mg tablet clonazepam 0.5 mg tablet 0.5 mg PO DAILY #14 tabs 07/23/22 flash glucose sensor (FreeStyle #2 ea 08/28/22 Spenser 2 Sensor kit) insulin glargine 100 unit/mL (3 34 unit (0.34 mL) subcut QPM #15 mL 08/28/22 mL) subcutaneous pen (Lantus Solostar U-100 Insulin) metformin 500 mg tablet 1,000 mg PO BID #360 tabs 08/28/22 pen needle, diabetic 32 gauge x 1 ea subcut DAILY #30 ea 08/28/2232 (BD Ultra-Fine Yanely Pen Needle) famotidine 20 mg tablet 20 mg PO BEDTIME 30 days #30 tabs 08/30/22 tramadol 50 mg tablet 50 mg PO Q8H PRN pain 30 days #90 09/20/22 tabs trazodone 100 mg tablet 100 - 200 mg PO BEDTIME #60 tabs 09/20/22 sennosides 8.6 mg-docusate sodium 2 tab-cap PO BEDTIME 30 days #60 09/27/22 50 mg tablet (Senna-S) tabs atorvastatin 10 mg tablet 10 mg PO BEDTIME #90 tabs 10/03/22 ferrous sulfate 324 mg (65 mg 324 mg PO BID #60 tabs 10/03/22 iron) tablet,delayed release fluticasone 232 mcg-salmeterol 14 1 inh inhalation BID #1 insert 10/25/22 mcg/actuation breath activated powdr roflumilast 250 mcg tablet 250 mcg PO DAILY 30 days #30 tabs 10/28/22 (Daliresp) montelukast 10 mg tablet 10 mg PO BEDTIME 30 days #30 tabs 11/14/22 (Singulair) empagliflozin 25 mg tablet 25 mg PO QAM #90 tabs 11/19/22 (Jardiance) benzonatate 200 mg capsule 200 mg PO BID PRN for cough #60 11/20/22 caps dulaglutide 3 mg/0.5 mL 3 mg (0.5 mL) subcut QWEEK 30 days 11/27/22 subcutaneous pen injector #2 mL diphenhydramine HCl 25 mg capsule 50 mg PO Q6H PRN Headache, nausea, 12/12/22 vomiting #20 caps metoclopramide HCl 10 mg tablet 10 mg PO Q6H PRN nausea and 12/12/22 (Reglan) vomiting #14 tabs Allergies Allergy/AdvReac Type Severity Reaction Status Date / Time Flexeril AdvReac Mild nausea, Verified 10/28/22 10:55 sleepiness glipizide AdvReac Mild hypoglycemi Verified 10/28/22 10:55 a Review of Systems Review of Systems: Yes all other systems are reviewed and are negative [facility] Past Medical History [facility] Narrative: Social history: He denies tobacco use. He states he drinks alcohol every 2 months, he denies drug use. Medical History Asthma Back pain with sciatica Bronchitis Depression Essential hypertension Hemorrhoids History of colon polyps Hyperlipidemia LDL goal <100 Migraine Obesity Obesity due to excess calories SHERRI (obstructive sleep apnea) Peripheral neuropathy Pharyngitis Proteinuria Vitamin B12 deficiency Vitamin D deficiency Surgical History History of esophagogastroduodenoscopy (EGD) Hx of colonoscopy Loculated empyema Loculated pleural effusion Family History Family History Father Cirrhosis Diabetes Mother Colon cancer, Onset Age: 83 Brother Prostate cancer CVA (cerebral vascular accident) Social History Social History Household Members: Family Housing: Apartment Alcohol intake: current Alcohol intake frequency: holidays/special occasions only Patient Tobacco Use Status: Former Tobacco user Tobacco use type: Cigarette Years Smoked: quit 2017 Smoked in Last 30 Days: No e-Cigarette/Vaping Use: Never Used Second Hand Smoke Exposure: No Use of substances other than those prescribed or required for medical reasons: No Advance Directives: No Advance Directives Information Provided: No service: No Current occupational status: disabled Cognitive needs: No Hearing needs: No Vision needs: No Physical Exam ED Vital Signs: Vital Signs - 24 hr 12/12/22 12:34 12/12/22 13:17 12/12/22 14:16 Temperature 98.3 F 98.1 F Pulse Rate 87 64 77 Respiratory Rate 16 18 18 Blood Pressure 147/76 H 113/60 115/77 Pulse Oximetry 97 96 Oxygen Delivery Method Room Air Room Air Room Air BMI result Body Mass Index 57.0 Const Other: Awake, alert, male patient, very pleasant cooperative, no distress, elevated BMI 51.0 Course Course Course Narrative: This is a rapid medical exam. Deferred additional HPI, ROS, PE to primary provider. 42 yo with history of migraines, HTN, anemia, SHERRI, DM with OSMAN x 6 days with dizziness, nausea, photophobia unrelieved with motrin/tylenol at home. Had labs yesterday in the system. Will hold on labs. VSS Medications Administered Discontinued Medications Generic Name Dose Route Start Last Admin Trade Name Freq PRN Reason Stop Dose Admin Acetaminophen 975 mg 12/12/22 13:27 12/12/22 13:34 Acetaminophen 325 Mg Tablet PO 12/12/22 13:28 975 mg ONCE STA Administration Aspirin 325 mg 12/12/22 13:27 12/12/22 13:34 Aspirin 325 Mg Tablet PO 12/12/22 13:28 325 mg ONCE ONE Administration Diphenhydramine HCl 50 mg 12/12/22 13:27 12/12/22 13:33 Diphenhydramine Hcl 25 Mg Capsule PO 12/12/22 13:28 50 mg ONCE ONE Administration Metoclopramide HCl 10 mg 12/12/22 13:27 12/12/22 13:34 Metoclopramide Hcl 10 Mg Tablet PO 12/12/22 13:28 10 mg ONCE ONE Administration Medical Decision Making Medical Decision Making MDM Narrative: 42-year-old male who presents emergency department for evaluation of headache x6 days. The patient woke up with a headache. The headache is been constant and is 6/10 at its worst, the patient had associated nausea, photophobia, phonophobia. He had no other concerning systemic symptoms. He has had similar headaches in the past. He was here October 2022 with similar headache and was treated with Toradol and Reglan. I ordered Reglan 10 mg, Benadryl 50 mg, Tylenol 975 mg an aspirin 324 mg orally. 1543: Patient states that his pain is resolved. The patient will be started on regular and 10 mg, Benadryl 50 mg and Excedrin migraine 2 tabs every 6 hours as needed for migraine headaches. Differential Diagnosis Differential diagnosis includes but is not limited to migraine headache, nonspecific headache, subarachnoid hemorrhage Discharge Plan Discharge Clinical Impression: Migraine Qualifiers: Migraine type: without aura Status migrainosus presence: without status migrainosus Intractability: not intractable Qualified Code(s): G43.009 - Migraine without aura, not intractable, without status migrainosus Patient Disposition: Home, Self-Care Instructions: Migraine Headache (ED) Additional Instructions: Your symptoms are consistent with a migraine. I want you to take the following 3 medications together every 6 hours as needed for headache, nausea or vomiting. Reglan (metoclopramide) in 10 mg, 1 pill Benadryl 25 mg, 2 pills Excedrin migraine, 2 pills. After you take these medications, lie down in a dark quiet room and try to fall asleep. These medications will make you sleepy, do not drive or work after taking these medications. Follow-up with your doctor in 2 days. Please return to the emergency department if your symptoms get worse or if you develop any symptoms that are concerning to you. Prescriptions: New metoclopramide HCl [Reglan] 10 mg tablet 10 mg PO Q6H PRN (Reason: nausea and vomiting) Qty: 14 0RF diphenhydramine HCl 25 mg capsule 50 mg PO Q6H PRN (Reason: Headache, nausea, vomiting) Qty: 20 0RF No Action (DME) Shower Chair Misc See Rx Instructions .ROUTE .MEDSUPPLY Qty: 1 0RF Rx Instructions: As directed (DME) detachable shower Head See Rx Instructions .Route .MEDSUPPLY Qty: 1 0RF Rx Instructions: As directed (DME) cane Device See Rx Instructions .ROUTE .MEDSUPPLY Qty: 1 0RF Rx Instructions: As directed HEAVY DUTY (DME) Quad cane See Rx Instructions .Route .MEDSUPPLY Qty: 1 0RF Rx Instructions: As directed fluocinonide 0.05 % ointment 1 appl topical BID 7 Days Qty: 30 0RF hydrocortisone [Proctosol HC] 2.5 % cream with perineal applicator 1 appl LA BID-QID PRN (Reason: hemorrhoids) Qty: 30 1RF triamcinolone acetonide 0.5 % ointment 1 appl topical DAILY 15 Days Qty: 15 2RF gabapentin 300 mg capsule 600 mg PO BEDTIME Qty: 180 2RF albuterol sulfate 2.5 mg /3 mL (0.083 %) solution for nebulization 2.5 mg inhalation Q8H PRN (Reason: for wheezing) Qty: 150 11RF irbesartan-hydrochlorothiazide 150-12.5 mg tablet 1 tab PO DAILY Qty: 90 3RF clonazepam 0.5 mg tablet 0.5 mg PO DAILY Qty: 14 0RF Rx Instructions: psychiatry is giving rx (DME) FreeStyle Spenser 2 Sensor Kit See Rx Instructions .ROUTE .MEDSUPPLY Qty: 2 11RF Rx Instructions: every 2 weeks Lantus Solostar U-100 Insulin 100 unit/mL (3 mL) insulin pen 34 unit subcut QPM Qty: 15 3RF Rx Instructions: Further refills to pcp. metformin 500 mg tablet 1,000 mg PO BID Qty: 360 1RF pen needle, diabetic [BD Ultra-Fine Yanely Pen Needle] 32 gauge x 5/32 needle 1 ea subcut DAILY Qty: 30 3RF famotidine 20 mg tablet 20 mg PO BEDTIME 30 Days Qty: 30 3RF sennosides-docusate sodium [Senna-S] 8.6-50 mg tablet 2 tab-cap PO BEDTIME 30 Days Qty: 60 8RF atorvastatin 10 mg tablet 10 mg PO BEDTIME Qty: 90 2RF ferrous sulfate 324 mg (65 mg iron) tablet,delayed release (DR/EC) 324 mg PO BID Qty: 60 4RF fluticasone propion-salmeterol 232-14 mcg/actuation aerosol powdr breath activated 1 inh inhalation BID Qty: 1 11RF montelukast [Singulair] 10 mg tablet 10 mg PO BEDTIME 30 Days Qty: 30 11RF Jardiance 25 mg tablet 25 mg PO QAM Qty: 90 0RF Rx Instructions: Further refills to pcp. benzonatate 200 mg capsule 200 mg PO BID PRN (Reason: for cough) Qty: 60 0RF dulaglutide 3 mg/0.5 mL pen injector 3 mg subcut QWEEK 30 Days Qty: 2 11RF Rx Instructions: Further refills to pcp. (DME) cpap See Rx Instructions .Route .MEDSUPPLY Qty: 1 0RF Rx Instructions: As directed tramadol 50 mg tablet 50 mg PO Q8H PRN (Reason: pain) 30 Days Qty: 90 1RF trazodone 100 mg tablet 100 - 200 mg PO BEDTIME Qty: 60 4RF (DME) lancets 28 gauge misc See Rx Instructions topical TID-QID Qty: 100 Rx Instructions: As directed hydroxyzine HCl 25 mg tablet 25 mg PO TID duloxetine 30 mg capsule,delayed release(DR/EC) 30 mg PO QAM doxepin 75 mg capsule 75 mg PO BEDTIME fluticasone propionate 50 mcg/actuation spray,suspension 1 spray intranasal DAILY Qty: 16 11RF (DME) FreeStyle Spenser 2 [place] Misc See Rx Instructions .ROUTE .MEDSUPPLY Qty: 1 0RF Rx Instructions: As directed cholecalciferol (vitamin D3) 25 mcg (1,000 unit) tablet 25 mcg PO DAILY bisacodyl [Dulcolax (bisacodyl)] 5 mg tablet,delayed release (DR/EC) 10 mg PO ONCE 2 Days Qty: 4 0RF Rx Instructions: Take 2 tablets at 12 pm daily starting 2 days before colonoscopy appointment polyethylene glycol 3350 [Miralax] 17 gram/dose powder 17 g PO DAILY 1 Days Qty: 238 0RF Rx Instructions: Mix Miralax with 64 oz(8 cups) of Crystal light. Take 2 tablets of Dulcolax qt 12 pm. Wait to have your 1st bowel movement, then begin drinking Miralax. Drink a glass of Miralax every 10-15 minutes until you are finished. You will drink at least another 4 cups of clear liquid of your choice over the next 2 hours. Please drink as many clear liquids as possible You may have clear liquids up to four hours before your procedure roflumilast [Daliresp] 250 mcg tablet 250 mcg PO DAILY 30 Days Qty: 30 11RF Print Language: Scottish
[2022-12-12 13:17] VITALS: BP 113/60; PULSE 64; RESP 18; TEMP 36.7; O2SAT 96
--- NOTE | 2022-12-12 13:28 | PC.NURSE ---
Alert and oriented, mostly russian speaking. arrived fro home stating he had had a headache for 6 days. has tried excedrin for the first 3 days with no relief. Denies chest pain or sob. States only pain he has is in his head and that he had the same headache 8 months ago and was diagnosed with migraines.
[2022-12-12] MEDS: diphenhydrAMINE HCL 25 MG CAPSULE 50 MG PO (13:33)
[2022-12-12] MEDS: Metoclopramide HCl 10 MG TABLET PO (13:34)
[2022-12-12] MEDS: Aspirin 325 MG TABLET PO (13:34)
[2022-12-12] MEDS: Acetaminophen 325 MG TABLET 975 MG PO (13:34)
[2022-12-12 14:16] VITALS: BP 115/77; PULSE 77; RESP 18
--- NOTE | 2022-12-12 16:08 | PC.NURSE ---
Reviewed discharge information with patient who verbalized understanding
== END 2022-12-12 16:05 | disposition home or self-care (01) ==
PROVIDERS: Emergency Provider Emergency Medicine Emergency Medical Services; PCP Internal Medicine
DX: G43.909 Migraine, unspecified, not intractable, without status migrainosus (principal); R55 Syncope and collapse; R06.02 Shortness of breath; Z79.899 Other long term (current) drug therapy; Z87.891 Personal history of nicotine dependence
CPT/HCPCS: 99283; 99284

== ENCOUNTER 2022-12-18 07:24 | Emergency (ER) | payer OTHER, SELFPAY ==
--- NOTE | ~2022-12-18 | CT_ITS ---
EXAMINATION: CT HEAD WITHOUT CONTRAST CLINICAL INFORMATION: Headache COMPARISON: None available. TECHNIQUE: Contiguous axial imaging was performed from the skull base to vertex without intravenous administration of contrast. This CT examination was performed using dose optimization techniques as appropriate, variously including the following: *Automated exposure control *Adjustment of mA and/or kV according to patient size (this includes techniques or standardized protocols for targeted exams where dose is matched to indication/reason for exam; i.e. extremities or head) *Use of iterative reconstruction technique DLP: 819 mGy-cm FINDINGS: No intracranial hemorrhage is identified. No abnormal extra-axial fluid collection. No abnormal mass effect or midline structure shift. The ventricles, sulci, and cisterns appear unremarkable. Garcia-white matter interface is maintained. Visualized paranasal sinuses and mastoid air cells unremarkable. Pterygoid plates intact. Temporomandibular joints appear unremarkable. CT/CT head/brain wo IV con IMPRESSION: No acute intracranial pathology.
[2022-12-18 07:26] VITALS: BP 147/93; PULSE 89; RESP 18; TEMP 36.8; O2SAT 97; BMI 57.0
--- NOTE | 2022-12-18 07:55 | ED.HA ---
HPI - Headache General Chief Complaint: Headache Stated Complaint: Headache Time Seen by Provider: 12/18/22 07:41 Source: patient and old records reviewed History of Present Illness HPI Narrative: Patient complains of daily headaches for the past 2 weeks. He states he has a history of several migraines prior to this but has never had headaches daily. He was seen here 2 weeks ago and treated with diphenhydramine, metoclopramide, acetaminophen with temporary improvement. He was discharged with similar regimen which he states has been helping for several hours at a time but the headaches return. He describes it as a general frontal headache. No neck pain. He states he has been having fevers in the evenings with temperatures of 38 0.9 degrees C. Some nausea without vomiting. No photophobia He has never had brain imaging. He denies any respiratory symptoms such as cough or dyspnea. No abdominal pain. No diarrhea. No rash or skin infections. Related Data Home Medications Medication Instructions Recorded Confirmed doxepin 75 mg capsule 75 mg PO BEDTIME 04/17/20 02/20/22 duloxetine 30 mg capsule,delayed 30 mg PO QAM 04/17/20 02/20/22 release hydroxyzine HCl 25 mg tablet 25 mg PO TID 04/17/20 02/20/22 lancets 28 gauge #100 ea 05/09/20 02/20/22 cholecalciferol (vitamin D3) 25 25 mcg PO DAILY 06/27/22 mcg (1,000 unit) tablet Previous Rx's Medication Instructions Recorded fluticasone propionate 50 1 spray intranasal DAILY #16 mL 09/01/20 mcg/actuation nasal spray,suspension cpap #1 ea 11/27/20 Shower Chair #1 ea 12/07/20 detachable shower Head #1 ea 12/07/20 flash glucose scanning reader #1 ea 01/31/21 (FreeStyle Spenser 2 [place]) cane #1 ea 03/07/21 Quad cane #1 ea 03/09/21 fluocinonide 0.05 % topical 1 appl topical BID 7 days #30 grams 08/19/21 ointment hydrocortisone 2.5 % topical cream 1 appl SD BID-QID PRN hemorrhoids 10/18/21 with perineal applicator #30 grams (Proctosol HC) triamcinolone acetonide 0.5 % 1 appl topical DAILY 15 days #15 10/19/21 topical ointment grams gabapentin 300 mg capsule 600 mg PO BEDTIME #180 caps 04/22/22 albuterol sulfate 2.5 mg/3 mL 2.5 mg (3 mL) inhalation Q8H PRN 05/02/22 (0.083 %) solution for nebulization for wheezing #150 mL bisacodyl 5 mg tablet,delayed 10 mg PO ONCE colon prep 2 days #4 06/27/22 release (Dulcolax (bisacodyl)) tabs polyethylene glycol 3350 17 17 g PO DAILY Colon prep 1 day 06/27/22 gram/dose oral powder (Miralax) #238 grams irbesartan 150 1 tab PO DAILY #90 tabs 06/29/22 mg-hydrochlorothiazide 12.5 mg tablet clonazepam 0.5 mg tablet 0.5 mg PO DAILY #14 tabs 07/23/22 flash glucose sensor (FreeStyle #2 ea 08/28/22 Spenser 2 Sensor kit) insulin glargine 100 unit/mL (3 34 unit (0.34 mL) subcut QPM #15 mL 08/28/22 mL) subcutaneous pen (Lantus Solostar U-100 Insulin) metformin 500 mg tablet 1,000 mg PO BID #360 tabs 08/28/22 pen needle, diabetic 32 gauge x 1 ea subcut DAILY #30 ea 08/28/2232 (BD Ultra-Fine Yanely Pen Needle) famotidine 20 mg tablet 20 mg PO BEDTIME 30 days #30 tabs 08/30/22 tramadol 50 mg tablet 50 mg PO Q8H PRN pain 30 days #90 09/20/22 tabs trazodone 100 mg tablet 100 - 200 mg PO BEDTIME #60 tabs 09/20/22 sennosides 8.6 mg-docusate sodium 2 tab-cap PO BEDTIME 30 days #60 09/27/22 50 mg tablet (Senna-S) tabs atorvastatin 10 mg tablet 10 mg PO BEDTIME #90 tabs 10/03/22 ferrous sulfate 324 mg (65 mg 324 mg PO BID #60 tabs 10/03/22 iron) tablet,delayed release fluticasone 232 mcg-salmeterol 14 1 inh inhalation BID #1 insert 10/25/22 mcg/actuation breath activated powdr roflumilast 250 mcg tablet 250 mcg PO DAILY 30 days #30 tabs 10/28/22 (Daliresp) montelukast 10 mg tablet 10 mg PO BEDTIME 30 days #30 tabs 11/14/22 (Singulair) empagliflozin 25 mg tablet 25 mg PO QAM #90 tabs 11/19/22 (Jardiance) benzonatate 200 mg capsule 200 mg PO BID PRN for cough #60 11/20/22 caps dulaglutide 3 mg/0.5 mL 3 mg (0.5 mL) subcut QWEEK 30 days 11/27/22 subcutaneous pen injector #2 mL diphenhydramine HCl 25 mg capsule 50 mg PO Q6H PRN Headache, nausea, 12/12/22 vomiting #20 caps metoclopramide HCl 10 mg tablet 10 mg PO Q6H PRN nausea and 12/12/22 (Reglan) vomiting #14 tabs sumatriptan succinate 50 mg tablet 50 mg PO .QD prn PRN migraine 12/17/22 headache #10 tabs uafkolcrqv-vgszlztdxzsct-plctujlt 1 cap PO TID PRN pain #20 caps 12/18/22 50 mg-300 mg-40 mg capsule (Fioricet) Allergies Allergy/AdvReac Type Severity Reaction Status Date / Time Flexeril AdvReac Mild nausea, Verified 10/28/22 10:55 sleepiness glipizide AdvReac Mild hypoglycemi Verified 10/28/22 10:55 a Review of Systems Constitutional: Comments: Intermittent fevers as mentioned Eyes: Comments: No photophobia or vision changes Cardiovascular: Comments: No chest pain Respiratory: Comments: No dyspnea or cough Gastrointestinal: Comments: Nausea with the headache. No vomiting. No diarrhea. No abdominal pain Genitourinary: Comments: No urinary symptoms Integumentary/Breasts: Comments: No skin changes Neurologic: Comments: No focal weakness PMFSH Past Medical History Medical History Asthma Back pain with sciatica Bronchitis Depression Essential hypertension Hemorrhoids History of colon polyps Hyperlipidemia LDL goal <100 Migraine Obesity Obesity due to excess calories SHERRI (obstructive sleep apnea) Peripheral neuropathy Pharyngitis Proteinuria Vitamin B12 deficiency Vitamin D deficiency Surgical History History of esophagogastroduodenoscopy (EGD) Hx of colonoscopy Loculated empyema Loculated pleural effusion Family History Family History Father Cirrhosis Diabetes Mother Colon cancer, Onset Age: 83 Brother Prostate cancer CVA (cerebral vascular accident) Social History Social History Household Members: Family Housing: Apartment Alcohol intake: current Alcohol intake frequency: holidays/special occasions only Patient Tobacco Use Status: Former Tobacco user Tobacco use type: Cigarette Years Smoked: quit 2017 e-Cigarette/Vaping Use: Never Used Second Hand Smoke Exposure: No Advance Directives: No Advance Directives Information Provided: No service: No Current occupational status: disabled Cognitive needs: No Hearing needs: No Vision needs: No Physical Exam Vital Signs: Vital Signs: Last Vital Signs Temp 98.3 F 12/18/22 07:26 Pulse 89 12/18/22 07:26 Resp 18 12/18/22 07:26 BP 147/93 H 12/18/22 07:26 Pulse Ox 97 12/18/22 07:26 O2 Del Method Room Air 12/18/22 07:26 BMI result Body Mass Index 57.0 Const: Other: Awake and alert. No acute distress. Vital signs stable here in the emergency department, afebrile. Blood pressure 147/93 with normal heart rate HEENT: Other: Normocephalic atraumatic. Nontender. Eyes: Other: Pupils equal round reactive to light without photophobia Neck: Other: Neck nontender. Full range of motion without meningismus. Resp: Other: Clear and equal bilaterally without wheezes rales rhonchi. No respiratory distress Cardio: Other: Regular rate and rhythm without murmurs rubs or gallops GI: Other: Soft nontender nondistended Skin: Other: Warm pink and dry without obvious rash Neuro: Other: Nonfocal neuro exam Medications Administered Discontinued Medications Generic Name Dose Route Start Last Admin Trade Name Freq PRN Reason Stop Dose Admin Diphenhydramine HCl 50 mg 12/18/22 07:50 12/18/22 08:18 Diphenhydramine Hcl 50 Mg/Ml Vial IVPUSH 12/18/22 07:51 50 mg ONCE ONE Administration Sodium Chloride 1,000 mls @ 999 mls/hr 12/18/22 08:00 12/18/22 08:19 Ns IV 12/18/22 09:00 999 mls/hr .Q1H1M ROBE Administration Ketorolac Tromethamine 30 mg 12/18/22 07:50 12/18/22 08:18 Ketorolac Tromethamine 15 Mg/Ml Vial IVPUSH 12/18/22 07:51 30 mg ONCE ONE Administration Metoclopramide HCl 10 mg 12/18/22 07:50 12/18/22 08:18 Metoclopramide Hcl 10 Mg/2 Ml Vial IVPUSH 12/18/22 07:51 10 mg ONCE ONE Administration Medical Decision Making Medical Decision Making [facility] Narrative: Patient with new pattern of daily headaches. Also with intermittent fevers. He has no signs or symptoms of meningitis or encephalitis. Headaches could be secondary to the fever. Fever with multiple potential etiologies of. Patient has no respiratory symptoms so unlikely to be viral URI but could certainly be a viral syndrome. Will repeat blood work today. Will add on CT scan as he has never had brain imaging. Urinalysis, thyroid studies. Treat with IV fluids, IV Toradol, IV metoclopramide, IV diphenhydramine. Await results 09:13. CT scan is normal. Blood work shows normal CBC. Chemistries are normal with the exception of glucose which is 180. Patient is feeling better on reassessment. I explained the results to him. He feels reassured. I will send a prescription for Fioricet. His PCP is also prescribed sumatriptan but the pharmacy is been out of stock. He thinks they will have a today. In the meantime the prescription for Fioricet should cover him should his headaches recur. Lab Data 12/18/22 08:03 12/18/22 08:03 Labs: Lab Results 12/18/22 12/18/22 12/18/22 Range/Units 08:03 08:03 08:09 WBC 6.8 (4.8-10.8) X10*3/uL RBC 5.46 (4.60-5.80) X10*6/uL Hgb 14.1 (14.0-18.0) g/dl Hct 44.8 (42.0-52.0) % MCV 82.1 (80.0-98.0) fL MCH 25.8 L (27.0-33.0) pg MCHC 31.5 (31.0-36.0) g/dl RDW 13.7 (11.0-16.0) % Plt Count 237 (160-400) X10*3/uL MPV 10.3 (9.4-12.4) fL Immature Gran % (Auto) 0.4 (0.0-0.4) % Neut % (Auto) 44.6 L (45-73) % Lymph % (Auto) 44.1 H (20-40) % Irwin % (Auto) 7.5 (2-11) % Eos % (Auto) 2.7 (0-4) % Baso % (Auto) 0.7 (0-2) % Lymph # (Auto) 3.0 (1.2-4.9) X10*3/uL [place] # (Auto) 0.5 (0.1-1.2) X10*3/uL Eos # (Auto) 0.2 (0.0-0.4) X10*3/uL Baso # (Auto) 0.1 (0.0-0.2) X10*3/uL Abs Immat Gran (auto) 0.03 (0.00-0.03) X10*3/uL Absolute Neuts (auto) 3.0 (2.0-8.3) x10*3/uL Absolute Nucleated RBC 0.000 (0.0-0.012) X10*3/uL Nucleated RBC % (auto) 0.0 (0.0-0.2) /100WBC Smear Tech's Comments VERIFIED Sodium 139 (135-145) mmol/L Potassium 4.4 (3.3-5.1) mmol/L Chloride 103 (96-108) mmol/L Carbon Dioxide 27 (22-29) mmol/L Anion Gap 13 (12-20) BUN 14 (9-16) mg/dL Creatinine 0.86 (0.5-1.4) mg/dL Estim Creat Clear Calc 169.1 Estimated GFR > 60 Random Glucose 180 H (60-115) mg/dL Calcium 9.4 (8.4-10.2) mg/dL Total Bilirubin 0.5 (0.0-1.0) mg/dL AST 31 (5-37) U/L ALT 64 H (0-40) U/L Alkaline Phosphatase 67 (39-117) U/L Total Protein 7.2 (6.5-8.0) g/dL Albumin 3.9 (3.5-5.0) g/dL TSH 1.00 (0.32-4.0) uIU/mL Urine Color Yellow Urine Appearance Clear Urine pH 6.0 (5.0-9.0) Ur Specific [place] >= 1.030 H (1.005-1.025) Urine Protein Negative (Neg-Trace) mg/dL Urine Glucose (UA) >=1000 H (Negative) mg/dL Urine Ketones Negative (Negative) mg/dL Urine Blood Negative (Negative) Urine Nitrite Negative (Negative) Ur Leukocyte Esterase Negative (Negative) Urine RBC 0-2 (0-2) /HPF Urine WBC 0-5 (0-5) /HPF Ur Squamous Epith Cells 3-5 (0-2) /HPF Urine Bacteria None Seen (None Seen) Hyaline Casts 0-2 (0-2) /LPF Discharge Plan Discharge Clinical Impression: Migraine Patient Disposition: Home, Self-Care Instructions: Migraine Headache (ED) Prescriptions: New uejkcziaff-abnalpexcbisb-pljq [Fioricet] 50-300-40 mg capsule 1 cap PO TID PRN (Reason: pain) Qty: 20 0RF No Action (DME) Shower Chair Misc See Rx Instructions .ROUTE .MEDSUPPLY Qty: 1 0RF Rx Instructions: As directed (DME) detachable shower Head See Rx Instructions .Route .MEDSUPPLY Qty: 1 0RF Rx Instructions: As directed (DME) cane Device See Rx Instructions .ROUTE .MEDSUPPLY Qty: 1 0RF Rx Instructions: As directed HEAVY DUTY (DME) Quad cane See Rx Instructions .Route .MEDSUPPLY Qty: 1 0RF Rx Instructions: As directed fluocinonide 0.05 % ointment 1 appl topical BID 7 Days Qty: 30 0RF hydrocortisone [Proctosol HC] 2.5 % cream with perineal applicator 1 appl SD BID-QID PRN (Reason: hemorrhoids) Qty: 30 1RF triamcinolone acetonide 0.5 % ointment 1 appl topical DAILY 15 Days Qty: 15 2RF gabapentin 300 mg capsule 600 mg PO BEDTIME Qty: 180 2RF albuterol sulfate 2.5 mg /3 mL (0.083 %) solution for nebulization 2.5 mg inhalation Q8H PRN (Reason: for wheezing) Qty: 150 11RF irbesartan-hydrochlorothiazide 150-12.5 mg tablet 1 tab PO DAILY Qty: 90 3RF clonazepam 0.5 mg tablet 0.5 mg PO DAILY Qty: 14 0RF Rx Instructions: psychiatry is giving rx (DME) FreeStyle Spenser 2 Sensor Kit See Rx Instructions .ROUTE .MEDSUPPLY Qty: 2 11RF Rx Instructions: every 2 weeks Lantus Solostar U-100 Insulin 100 unit/mL (3 mL) insulin pen 34 unit subcut QPM Qty: 15 3RF Rx Instructions: Further refills to pcp. metformin 500 mg tablet 1,000 mg PO BID Qty: 360 1RF pen needle, diabetic [BD Ultra-Fine Yanely Pen Needle] 32 gauge x 5/32 needle 1 ea subcut DAILY Qty: 30 3RF famotidine 20 mg tablet 20 mg PO BEDTIME 30 Days Qty: 30 3RF sennosides-docusate sodium [Senna-S] 8.6-50 mg tablet 2 tab-cap PO BEDTIME 30 Days Qty: 60 8RF atorvastatin 10 mg tablet 10 mg PO BEDTIME Qty: 90 2RF ferrous sulfate 324 mg (65 mg iron) tablet,delayed release (DR/EC) 324 mg PO BID Qty: 60 4RF fluticasone propion-salmeterol 232-14 mcg/actuation aerosol powdr breath activated 1 inh inhalation BID Qty: 1 11RF montelukast [Singulair] 10 mg tablet 10 mg PO BEDTIME 30 Days Qty: 30 11RF Jardiance 25 mg tablet 25 mg PO QAM Qty: 90 0RF Rx Instructions: Further refills to pcp. benzonatate 200 mg capsule 200 mg PO BID PRN (Reason: for cough) Qty: 60 0RF dulaglutide 3 mg/0.5 mL pen injector 3 mg subcut QWEEK 30 Days Qty: 2 11RF Rx Instructions: Further refills to pcp. sumatriptan succinate 50 mg tablet 50 mg PO .QD prn PRN (Reason: migraine headache) Qty: 10 0RF metoclopramide HCl [Reglan] 10 mg tablet 10 mg PO Q6H PRN (Reason: nausea and vomiting) Qty: 14 0RF diphenhydramine HCl 25 mg capsule 50 mg PO Q6H PRN (Reason: Headache, nausea, vomiting) Qty: 20 0RF (DME) cpap See Rx Instructions .Route .MEDSUPPLY Qty: 1 0RF Rx Instructions: As directed tramadol 50 mg tablet 50 mg PO Q8H PRN (Reason: pain) 30 Days Qty: 90 1RF trazodone 100 mg tablet 100 - 200 mg PO BEDTIME Qty: 60 4RF (DME) lancets 28 gauge misc See Rx Instructions topical TID-QID Qty: 100 Rx Instructions: As directed hydroxyzine HCl 25 mg tablet 25 mg PO TID duloxetine 30 mg capsule,delayed release(DR/EC) 30 mg PO QAM doxepin 75 mg capsule 75 mg PO BEDTIME fluticasone propionate 50 mcg/actuation spray,suspension 1 spray intranasal DAILY Qty: 16 11RF (DME) FreeStyle Spenser 2 [place] Misc See Rx Instructions .ROUTE .MEDSUPPLY Qty: 1 0RF Rx Instructions: As directed cholecalciferol (vitamin D3) 25 mcg (1,000 unit) tablet 25 mcg PO DAILY bisacodyl [Dulcolax (bisacodyl)] 5 mg tablet,delayed release (DR/EC) 10 mg PO ONCE 2 Days Qty: 4 0RF Rx Instructions: Take 2 tablets at 12 pm daily starting 2 days before colonoscopy appointment polyethylene glycol 3350 [Miralax] 17 gram/dose powder 17 g PO DAILY 1 Days Qty: 238 0RF Rx Instructions: Mix Miralax with 64 oz(8 cups) of Crystal light. Take 2 tablets of Dulcolax qt 12 pm. Wait to have your 1st bowel movement, then begin drinking Miralax. Drink a glass of Miralax every 10-15 minutes until you are finished. You will drink at least another 4 cups of clear liquid of your choice over the next 2 hours. Please drink as many clear liquids as possible You may have clear liquids up to four hours before your procedure roflumilast [Daliresp] 250 mcg tablet 250 mcg PO DAILY 30 Days Qty: 30 11RF
[2022-12-18 08:13] LABS: Basophils Absolute Auto 0.1 X10*3/uL (0.0-0.2); Basophils Percent Auto 0.7 % (0-2); Eosinophils Absolute Auto 0.2 X10*3/uL (0.0-0.4); Eosinophils Percent Auto 2.7 % (0-4); Hematocrit 44.8 % (42.0-52.0); Hemoglobin 14.1 g/dl (14.0-18.0); Imm Gran Abs Auto 0.03 X10*3/uL (0.00-0.03); Imm Gran Pct Auto 0.4 % (0.0-0.4); Lymphocytes Percent Auto 44.1 % (20-40); MANUAL DIFF FLAG SCAN; Mean Corpuscular HGB Conc 31.5 g/dl (31.0-36.0); Mean Corpuscular Hemoglobin 25.8 pg (27.0-33.0); Mean Corpuscular Volume 82.1 fL (80.0-98.0); Mean Platelet Volume 10.3 fL (9.4-12.4); Monocytes Absolute Auto 0.5 X10*3/uL (0.1-1.2); Monocytes Percent Auto 7.5 % (2-11); Neutrophils Percent Auto 44.6 % (45-73); Platelet Count 237 X10*3/uL (160-400); Red Blood Count 5.46 X10*6/uL (4.60-5.80); Red Cell Distribution Width 13.7 % (11.0-16.0); SCAN SMEAR FLAG 1; White Blood Count 6.8 X10*3/uL (4.8-10.8)
[2022-12-18] MEDS: Ketorolac Tromethamine 15 MG/ML VIAL 30 MG IVPUSH (08:18)
[2022-12-18] MEDS: Metoclopramide HCl 10 MG/2 ML VIAL IVPUSH (08:18)
[2022-12-18] MEDS: diphenhydrAMINE HCL 50 MG/ML VIAL IVPUSH (08:18)
[2022-12-18] MEDS: 0.9 % Sodium Chloride 1,000 ML 999 ML IV (08:19)
[2022-12-18 08:22] LABS: Appearance Urine Clear; Color Urine Yellow; Glucose Urine UA >=1000 mg/dL (Negative); Leukocyte Esterase Urine Negative (Negative); Nitrite Urine Negative (Negative); Specific Gravity - Urine >= 1.030 (1.005-1.025); UMIC TRIGGER UACC YES; Urine Blood Negative (Negative); Urine Ketones Negative (Negative); Urine Protein Negative (Neg-Trace)
[2022-12-18 08:27] LABS: Bacteria Urine None Seen (None Seen); Hyaline Casts Urine 0-2 /LPF (0-2); RBC Urine 0-2 /HPF (0-2); WBC Urine 0-5 /HPF (0-5)
[2022-12-18 08:34] LABS: Alanine Aminotransferase 64 U/L (0-40); Albumin Level 3.9 g/dL (3.5-5.0); Alkaline Phosphatase 67 U/L (39-117); Anion Gap 13 (12-20); Aspartate Amino Transferase 31 U/L (5-37); Bilirubin Total 0.5 mg/dL (0.0-1.0); Blood Urea Nitrogen 14 mg/dL (9-16); Calcium 9.4 mg/dL (8.4-10.2); Carbon Dioxide 27 mmol/L (22-29); Chloride 103 mmol/L (96-108); Creatinine Clr Calc Pharmacy 169.1; Estimated Glomerular Filt Rate > 60; Glucose Random 180 mg/dL (60-115); Potassium 4.4 mmol/L (3.3-5.1); Sodium 139 mmol/L (135-145); Total Protein 7.2 g/dL (6.5-8.0)
[2022-12-18 08:39] LABS: SLIDE REVIEW VERIFIED
== END 2022-12-18 10:06 | disposition home or self-care (01) ==
PROVIDERS: Emergency Provider Emergency Medicine; PCP Internal Medicine
DX: G43.909 Migraine, unspecified, not intractable, without status migrainosus (principal); E11.9 Type 2 diabetes mellitus without complications; I10 Essential (primary) hypertension; E78.5 Hyperlipidemia, unspecified; Z79.4 Long term (current) use of insulin; Z79.02 Long term (current) use of antithrombotics/antiplatelets; Z79.899 Other long term (current) drug therapy
CPT/HCPCS: 36415; 70450; 80053; 81001; 84443; 85025; 96374; 96375; 99283; 99284; J1200; J1885; J2765

== ENCOUNTER 2022-12-24 09:08 | Outpatient (REF) | payer OTHER, SELFPAY ==
--- NOTE | ~2022-12-24 | XR_ITS ---
EXAMINATION: XR cervical spine 2V CLINICAL INFORMATION: Pain COMPARISON: None TECHNIQUE: 4 views of the cervical spine were obtained. FINDINGS: The cervical spine is visualized to the level of C6-C7 on the lateral view. Loss of the usual cervical spine lordosis which may be due to positioning or muscle spasm. Vertebral body heights are maintained. Disc space heights appear maintained. Lateral masses of C1 are well aligned on C2. Visualized portion of the dens is intact. No prevertebral soft tissue swelling. XR/XR cervical spine 2V IMPRESSION: Loss of the usual cervical spine lordosis which may be due to positioning or muscle spasm.
== END 2022-12-24 09:09 | disposition home or self-care (01) ==
LOC: HO.XRAY 09:08
PROVIDERS: PCP Internal Medicine; Visit Provider Nurse Practitioner Family
DX: M54.2 Cervicalgia (principal)
CPT/HCPCS: 72040

== ENCOUNTER → 2023-01-02 11:12 | Outpatient (BNVA) | payer OTHER, SELFPAY | PROVIDERS: Visit Provider Internal Medicine Gastroenterology | DX: K21.9 Gastro-esophageal reflux disease without esophagitis (principal); D50.8 Other iron deficiency anemias; E53.8 Deficiency of other specified B group vitamins | CPT/HCPCS: 99212 ==

== ENCOUNTER → 2023-01-09 10:58 | Outpatient (BNVA) | payer OTHER, SELFPAY | PROVIDERS: PCP Internal Medicine; Visit Provider Hospitalist | DX: J45.40 Moderate persistent asthma, uncomplicated (principal); J31.0 Chronic rhinitis; G47.33 Obstructive sleep apnea (adult) (pediatric) | CPT/HCPCS: 99212 ==

== ENCOUNTER 2023-01-27 11:00 | Outpatient (RCR) | payer OTHER, SELFPAY ==
--- NOTE | 2023-01-24 15:16 | MHC.PT.EP ---
[facility] [place] Office [place] Office [place] Office [address] [place] [place] [address] [phone] F: [phone] F: [phone] F: [phone] F: [phone] Physical Therapy Plan of Care Date of Evaluation: Date of Surgery: NA Diagnosis: CERVICALGIA Assessment: Pt IS 42 YO RHD M REFERRED TO PT FROM [facility] WITH CERVICALGIA. PRESENTS WITH C/O NECK PAIN STARTING WITH MIGRAINE. HAS HAD CT AND CERV XRAY (BOTH NEGATIVE). Pt WITH LIMITED CERVICAL ROM AND DECREASED UPPER BODY STRENGTH. SHOULD BENEFIT FROM PT TO ADDRESS THESE ISSUES Frequency and Duration: The patient will be seen 2X/WK X 6 WKS Short Term Goals: 1. INCREASED POSTURE AWARENESS AND AWARENESS NECK CARE 2. DECREASED END RANGE PAIN REPORTED WITH CERV ROM Alf Goals: 1. DECREASED NECK PAIN AT LEAST 50% WITH ADLS 2. I HEP WITH DC EX PLAN Treatment Plan: Modalities to reduce pain, spasms and effusion. Manual therapy to restore motion and function. Therapeutic exercise to improve strength and flexibility. Neuromuscular re-education for posture and balance. Therapeutic activities to return to functional activities of daily living. Electronically signed by: MIESHA GUEVARA PT Please sign and return to therapist. Thank you for your referral.
--- NOTE | 2023-02-25 13:47 | MHC.PT.DC ---
[facility] [place] Office [place] Office [place] Office [address] [place] [address] [phone] F: [phone] F: [phone] F: [phone] F: [phone] Physical Therapy Discharge Report Diagnosis: CERVICALGIA Date of Surgery: NA Date of Evaluation: 01/24/23 Date of Discharge: 02/25/2023 Treatments to Date: 2 Cancellations to Date: No Shows to Date: 4 Discharge Status: Pt did not follow up with any further treatment. Discharge Summary: Pt participated in 2 treatment sessions, and did not return for next 4 scheduled appointments. F/U call with pt reveals he did not think therapy was helping so he did not return. Recommend D/C at this time due to non-compliance with attendance policy, and f/u with MD. Electronically signed by: Please sign and return to therapist. Thank you for your referral.
== END 2023-02-25 13:54 | disposition home or self-care (01) ==
LOC: HO.PT 11:00
PROVIDERS: PCP Internal Medicine; Visit Provider Nurse Practitioner Family
DX: M54.2 Cervicalgia (principal)
CPT/HCPCS: 97110; 97140; 97161

== ENCOUNTER 2023-03-31 11:11 | Outpatient (AMB) | payer OTHER, SELFPAY ==
--- NOTE | 2023-03-31 11:57 | AM.OFFVISNUR ---
Intake Intake Visit Reasons: TB Allergies Flexeril Adverse Reaction (Mild, Verified 01/09/23 11:16) nausea, sleepiness glipizide Adverse Reaction (Mild, Verified 01/09/23 11:16) hypoglycemia Office Meds tuberculin PPD 5 tub. unit/0.1 mL intradermal injection solution Performing Provider: Nereida Llanos MD [facility] Administered by: Lisa Martínez RN on 03/31/23 11:57 Dose Route Admin Location Dispensed Lot Number Expiration Date NDC [employer] 0.1 mL intradermal right forearm 0.1 mL [id number] 05/19/23 38059-614-24 [employer] Coding Assessment & Plan Assessment & Plan Orders: Orders AMB PPD Planted Today Z11.1 - Encounter for screening for respiratory tuberculosis
== END 2023-03-31 11:59 | disposition home or self-care (01) ==
PROVIDERS: PCP Internal Medicine; Visit Provider Internal Medicine
DX: Z11.1 Encounter for screening for respiratory tuberculosis (principal)
CPT/HCPCS: 86580

== ENCOUNTER 2023-04-11 07:20 | Day surgery (SDC) | payer OTHER, SELFPAY ==
[2023-04-04 12:36] VITALS: BP 133/66; PULSE 82; RESP 20; O2SAT 96; BMI 57.0
--- NOTE | 2023-04-10 13:13 | HO.ANESPROP2 ---
Documented by User: Lela Figueroa NP 04/10/23 13:15 HPI - Anesthesia Eval Consult details Narrative: 43yo M for Colonoscopy Anxiety r/t anesthesia. Seen by Dr Lindsay in [facility] Active Problems Active Problems: All Active Problems (Updated 12/24/22 @ 09:04 by SERGE De Guzman) Migraine (Acute) Cervicalgia (Acute) GERD (gastroesophageal reflux disease) (Acute) Annual physical exam (Acute) Generalized anxiety disorder (Acute) Psoriasis (Acute) Constipation (Acute) Hemorrhoids (Acute) Vitamin B 12 deficiency (Acute) Type 2 diabetes mellitus with hyperglycemia (Acute) Annual physical exam (Acute) Eczema (Acute) Elbow pain, right (Acute) Dysuria (Acute) SHERRI (obstructive sleep apnea) (Acute) Obesity (Acute) Iron deficiency anemia (Acute) Back pain with sciatica (Acute) Pleurisy (Acute) Asthma (Acute) Hyperlipidemia LDL goal <100 (Acute) Essential hypertension (Acute) Vitamin D deficiency (Acute) Obesity due to excess calories (Acute) Past Medical History Medical History Pharyngitis Migraine Vitamin B12 deficiency Obesity due to excess calories Peripheral neuropathy Obesity History of colon polyps Asthma Bronchitis Depression Back pain with sciatica Proteinuria Hemorrhoids SHERRI (obstructive sleep apnea) Hyperlipidemia LDL goal <100 Essential hypertension Vitamin D deficiency Family History Family History Father Cirrhosis Diabetes Mother Colon cancer, Onset Age: 83 Brother Prostate cancer CVA (cerebral vascular accident) Surgical History Surgical History Hx of colonoscopy History of esophagogastroduodenoscopy (EGD) Loculated pleural effusion Loculated empyema Social History Social History Household Members: Family Housing: Apartment Are you a primary memory care program resident to a significant other at home: No Do you presently have visiting nurse or other home services: No Alcohol intake: current Alcohol intake frequency: does not drink Patient Tobacco Use Status: Former Tobacco user Quit Date: 2016 Tobacco use type: Cigarette Years Smoked: 6 e-Cigarette/Vaping Use: Never Used Second Hand Smoke Exposure: No Use of substances other than those prescribed or required for medical reasons: No Have you been hit, kicked, punched, or otherwise hurt by someone within the past year? If so, by whom?: No Are you DNR?: No Advance Directives: No (spouse is primary contact) Advance Directives Information Provided: Yes Advance Directives on File: No Recently lost weight without trying: No Nutrition Risks: No Nutritional Risk Poor oral hygiene: No (one crown-upper left) service: No Current occupational status: disabled Cognitive needs: Yes (cane) Hearing needs: No Vision needs: Yes (glasses) Meds Allergies Allergy/AdvReac Type Severity Reaction Status Date / Time Flexeril AdvReac Mild nausea, Verified 04/11/23 08:08 sleepiness glipizide AdvReac Mild hypoglycemi Verified 04/11/23 08:08 a Home Medications Medication Instructions Recorded Confirmed Last Taken Type doxepin 75 mg capsule 75 mg PO BEDTIME 04/17/20 04/03/23 Unknown History duloxetine 30 mg capsule,delayed 30 mg PO QAM 04/17/20 04/03/23 04/11/23 History release hydroxyzine HCl 25 mg tablet 25 mg PO TID 04/17/20 04/03/23 Unknown History lancets 28 gauge #100 ea 05/09/20 01/02/23 Unknown History insulin glargine 100 unit/mL (3 30 unit subcut QPM 04/04/23 04/04/23 Unknown History mL) subcutaneous pen (Lantus Solostar U-100 Insulin) Exam Exam Date and Time: April 10, 2023 1313 Height,Weight and Vital Signs: Height 5 ft 8 in Weight 170.097 kg Last Vital Signs Pulse 82 04/04/23 12:36 Resp 20 04/04/23 12:36 BP 133/66 04/04/23 12:36 Pulse Ox 96 04/04/23 12:36 O2 Del Method Room Air 04/04/23 12:36 Pertinent Lab Results Pertinent Lab Results: Laboratory Tests 12/18/22 08:03 WBC 6.8 Hgb 14.1 Hct 44.8 Plt Count 237 Sodium 139 Potassium 4.4 Chloride 103 Carbon Dioxide 27 BUN 14 Creatinine 0.86 Assessment and Plan Assessment Anesthesia Assessment: Chart Reviewed Documented by User: Denny Lindsay MD 04/11/23 08:33 [facility] Past Medical History Medical History Pharyngitis Migraine Vitamin B12 deficiency Obesity due to excess calories Peripheral neuropathy Obesity History of colon polyps Asthma Bronchitis Depression Back pain with sciatica Proteinuria Hemorrhoids SHERRI (obstructive sleep apnea) Hyperlipidemia LDL goal <100 Essential hypertension Vitamin D deficiency Family History Family History Father Cirrhosis Diabetes Mother Colon cancer, Onset Age: 83 Brother Prostate cancer CVA (cerebral vascular accident) Family history of problems with anesthesia: No Surgical History Surgical History Hx of colonoscopy History of esophagogastroduodenoscopy (EGD) Loculated pleural effusion Loculated empyema History of Problems with Anesthesia: No Social History Social History Household Members: Family Housing: Apartment Are you a primary memory care program resident to a significant other at home: No Do you presently have visiting nurse or other home services: No Alcohol intake: current Alcohol intake frequency: does not drink Patient Tobacco Use Status: Former Tobacco user Quit Date: 2016 Tobacco use type: Cigarette Years Smoked: 6 e-Cigarette/Vaping Use: Never Used Second Hand Smoke Exposure: No Use of substances other than those prescribed or required for medical reasons: No Have you been hit, kicked, punched, or otherwise hurt by someone within the past year? If so, by whom?: No Are you DNR?: No Advance Directives: No (spouse is primary contact) Advance Directives Information Provided: Yes Advance Directives on File: No Recently lost weight without trying: No Nutrition Risks: No Nutritional Risk Poor oral hygiene: No (one crown-upper left) service: No Current occupational status: disabled Cognitive needs: Yes (cane) Hearing needs: No Vision needs: Yes (glasses) Meds Allergies Allergy/AdvReac Type Severity Reaction Status Date / Time Flexeril AdvReac Mild nausea, Verified 04/11/23 08:08 sleepiness glipizide AdvReac Mild hypoglycemi Verified 04/11/23 08:08 a Home Medications Medication Instructions Recorded Confirmed Last Taken Type doxepin 75 mg capsule 75 mg PO BEDTIME 04/17/20 04/03/23 Unknown History duloxetine 30 mg capsule,delayed 30 mg PO QAM 04/17/20 04/03/23 04/11/23 History release hydroxyzine HCl 25 mg tablet 25 mg PO TID 04/17/20 04/03/23 Unknown History lancets 28 gauge #100 ea 05/09/20 01/02/23 Unknown History insulin glargine 100 unit/mL (3 30 unit subcut QPM 04/04/23 04/04/23 Unknown History mL) subcutaneous pen (Lantus Solostar U-100 Insulin) Exam Airway Mallampati Class: III TM Dist: <=3cm Neck ROM: Full Loose/Missing/Broken Teeth: No Heart: ok Lungs: ok Assessment and Plan Assessment Anesthesia Assessment: Anesthesia Plan Discussed Final Anesthetic Review Family History of Problems with Anesthesia: No History of Problems with Anesthesia: No NPO: Yes ASA Class: III Final Preanesthetic Review: No Changes in Pt Med Stat, Meds/Allgs Chart Reviewed, Consent Obtained/Reviewed and Anes Risks/Benef Reviewed Patient Risk: High Procedure Risk: Low Anesthetic Plan Anesthetic Plan: GA, MAC: and Agree w/ Assess. and Plan Disposition: Standard PACU
[2023-04-11 07:49] VITALS: BP 145/86; PULSE 82; RESP 18; TEMP 36.7; O2SAT 96
[2023-04-11] MEDS: Lactated Ringers 1,000 ML 100 ML IVCONT (07:49)
[2023-04-11 07:53] LABS: Glucose, Whole Blood 123 mg/dL (60-115)
--- NOTE | 2023-04-11 08:27 | MHC.SHP ---
Pre-Procedural Eval Section A Date of Service: 04/11/23 Section B Chief Complaint: Other iron deficiency anemias Relevant Family History (Specify if Yes): No Relevant Social History: None Present Medications: see Short Stay Collaborative assessment Medical History: Significant History (Pharyngitis Migraine Vitamin B12 deficiency Obesity due to excess calories Peripheral neuropathy Obesity History of colon polyps Asthma Bronchitis Depression Back pain with sciatica Proteinuria Hemorrhoids SHERRI (obstructive sleep apnea) Hyperlipidemia LDL goal <100 Essential hypertension Vitamin D de) History of Previous Operations: Relevant previous surgery/procedure and date(s) (Hx of colonoscopy History of esophagogastroduodenoscopy (EGD) Loculated pleural effusion Loculated empyema) Allergies: Allergies Allergy/AdvReac Type Severity Reaction Status Date / Time Flexeril AdvReac Mild nausea, Verified 04/11/23 08:08 sleepiness glipizide AdvReac Mild hypoglycemi Verified 04/11/23 08:08 a Review of Systems Sugical H&P ROS: Negative: Constitution, Cardiovascular, Respiratory, Neurological, Psychiatric, Hem-Onc, Allergic/Immunologic, Gastrointestinal, Genitourinary, Musculoskeletal, Integumentary, Endocrine and Eyes/Ears/Nose/Throat Exam Surgical H&P Exam: Normal: HEENT, Normal: Heart, Normal: Lungs, Normal: Extremities, Normal: Abdomen, Normal: Skin and Normal: Neurological Plan Diagnosis/Plan: Unchanged I have reviewed the history and physical and performed a pertinent physical examination on my patient. No changes have occurred unless specified. Time Spent With Patient Time: Total time managing care of this patient today ____ minutes.
--- NOTE | 2023-04-11 08:28 | P.OP_ITS ---
Operative Note Operative Note Date of Service: 04/11/23 Narrative: Operative Information Procedure Description: Colonoscopy Indication: screening, hx of colon polyps Anesthesia: MAC COLONOSCOPY Instrument: Olympus variable stiffness pediatric scope 190L Colonoscopy Monitoring: Vital signs and clinical assessment, continuous EKG monitoring, Pulse oximetry, Carbon Dioxide monitoring and blood pressure monitoring were done throughout the procedure. Colon withdrawal time was 10 minutes. Procedure: The patient was placed in the left lateral decubitis position and pre-procedure medications were administered. After a digital rectal examination of the ano-rectum, the video colonoscope was inserted into the rectum and advanced through the colon to the cecum/TI. The colonoscope was slowly withdrawn in a retrograde panoramic fashion and the colon mucosa was carefully examined including a retroflexed view of the rectum. Findings and interventions are described below. Procedure Difficulty: easy Findings: Terminal Ileum-normal Cecum:normal Ascending Colon: normal Transverse Colon -normal Descending Colon:normal Sigmoid Colon: normal Rectum: Retroflexion with small internal hemorrhoids, grade I Anorectum - normal Colon preparation: [place] Bowel Preparation Scale Right colon; 1-2 Transverse colon: 2 Left colon; 2 (0 = Unprepared colon segment with mucosa not seen due to solid stool that cannot be cleared. 1 = Portion of mucosa of the colon segment seen, but other areas of the colon segment not well seen due to staining, residual stool and/or opaque liquid. 2 = Minor amount of residual staining, small fragments of stool and/or opaque liquid, but mucosa of colon segment seen well. 3 = Entire mucosa of colon segment seen well with no residual staining, small fragments of stool or opaque liquid) Impression and Post Procedure Diagnosis: internal hemorrhoids Plan: High fiber diet leaflet Avoid straining at stool, epsom salts and sitz bath, anusol supps or cream Repeat Colonoscopy in 3-4 years due to prior hx of polyps and fair right sided prep or earlier if clinically indicated Above findings were reviewed with the patient and relevant handouts were provided if indicated.
[2023-04-11 09:25] VITALS: BP 125/63; PULSE 75; RESP 16; TEMP 36.7; O2SAT 95
[2023-04-11 09:38] VITALS: BP 126/58; PULSE 75; RESP 18; TEMP 36.6; O2SAT 97
== END 2023-04-11 10:09 | disposition home or self-care (01) ==
PROVIDERS: PCP Internal Medicine; Visit Provider Internal Medicine Gastroenterology
PROC: 0DJD8ZZ Inspection of Lower Intestinal Tract, Via Natural or Artificial Opening Endoscopic (ICD-10-PCS; CPT 45378; principal; 2023-04-11 08:30)
DX: Z12.11 Encounter for screening for malignant neoplasm of colon (principal); Z86.010 Personal history of colon polyps; Z80.0 Family history of malignant neoplasm of digestive organs; K64.0 First degree hemorrhoids; D50.8 Other iron deficiency anemias; I10 Essential (primary) hypertension; E11.9 Type 2 diabetes mellitus without complications; J45.909 Unspecified asthma, uncomplicated; E78.5 Hyperlipidemia, unspecified; E53.8 Deficiency of other specified B group vitamins; K29.50 Unspecified chronic gastritis without bleeding; G62.9 Polyneuropathy, unspecified; J02.9 Acute pharyngitis, unspecified; G43.909 Migraine, unspecified, not intractable, without status migrainosus; E66.01 Morbid (severe) obesity due to excess calories; Z68.43 Body mass index [BMI] 50.0-59.9, adult; Z79.51 Long term (current) use of inhaled steroids; Z79.1 Long term (current) use of non-steroidal anti-inflammatories (NSAID); Z79.4 Long term (current) use of insulin; Z79.899 Other long term (current) drug therapy; Z99.89 Dependence on other enabling machines and devices; Z88.8 Allergy status to other drugs, medicaments and biological substances; Z87.891 Personal history of nicotine dependence
CPT/HCPCS: 45378; 82947; J3010

== ENCOUNTER → 2023-04-11 07:20 | Outpatient (BNV) | payer OTHER, SELFPAY | PROVIDERS: PCP Internal Medicine; Visit Provider Internal Medicine Gastroenterology | DX: Z12.11 Encounter for screening for malignant neoplasm of colon (principal); Z86.010 Personal history of colon polyps; K64.0 First degree hemorrhoids | CPT/HCPCS: 45378 ==

== ENCOUNTER 2023-04-24 09:51 | Outpatient (AMB) | payer OTHER, SELFPAY ==
--- NOTE | 2023-04-24 09:54 | A.OFFVIS_ITS ---
Intake Vital Signs 04/24/23 10:05 Height 5 ft 8 in Weight 375 lb BMI 57.0 BP 107/53 L Blood Pressure Location Lt brachial Position Sitting Pulse 72 Intake Visit Reasons: S/P [place]; Dr. Hernandez Intake Note: Patient follow up for Colonoscopy results. Patient denies any GI issues. Building Components Designer Required: Yes Building Components Designer Name: [facility] Interpeter Allergies Flexeril Adverse Reaction (Mild, Verified 05/16/23 14:51) nausea, sleepiness glipizide Adverse Reaction (Mild, Verified 05/16/23 14:51) hypoglycemia Medication List - Last Reconciled 04/24/23 by Janell Hernandez MD albuterol sulfate 2.5 mg (3 mL) inhalation Q8H PRN atorvastatin 10 mg PO BEDTIME azelastine 2 sprays intranasal BID 30 days benzonatate 200 mg PO BID PRN [id number] 50-300-40 mg (Fioricet) 1 cap PO TID PRN cane As directed HEAVY DUTY cholecalciferol (vitamin D3) 25 mcg PO DAILY clonazepam 0.5 mg PO DAILY [cpap As directed] [detachable shower Head As directed] doxepin 75 mg PO BEDTIME dulaglutide 3 mg (0.5 mL) subcut QWEEK 30 days duloxetine 30 mg PO QAM empagliflozin (Jardiance) 25 mg PO QAM famotidine 20 mg PO BEDTIME 90 days flash glucose scanning reader (FreeStyle Spenser 2 [place]) As directed flash glucose sensor (FreeStyle Spenser 2 Sensor kit) every 2 weeks fluocinonide 0.05% 1 appl topical BID 7 days fluticasone propion-salmeterol 232-14 mcg/actuation 1 inh inhalation BID fluticasone propionate 50 mcg/actuation 1 spray intranasal DAILY fluticasone propionate 50 mcg/actuation 2 sprays intranasal DAILY 30 days gabapentin 600 mg (2 x 300 mg) PO BEDTIME hydrocortisone 2.5% (Proctosol HC) 1 appl [place] BID-QID PRN hydroxyzine HCl 25 mg PO TID ibuprofen 600 mg PO Q8H PRN insulin glargine (Lantus Solostar U-100 Insulin) 30 units subcut QPM irbesartan-hydrochlorothiazide 150-12.5 mg 1 tab PO DAILY lancets As directed metformin 1,000 mg (2 x 500 mg) PO BID methocarbamol 500 mg PO TID PRN montelukast (Singulair) 10 mg PO BEDTIME 30 days pen needle, diabetic (BD Ultra-Fine Yanely Pen Needle) 1 ea subcut DAILY polyethylene glycol 3350 (Miralax) 17 grams PO DAILY 1 day [Quad cane As directed] roflumilast (Daliresp) 250 mcg PO DAILY 30 days sennosides-docusate sodium 8.6-50 mg (Senna-S) 2 tab-caps (2 x 8.6-50 mg) PO BEDTIME 30 days Shower Chair As directed sumatriptan succinate 50 mg PO .QD prn PRN tramadol 50 mg PO Q8H PRN 30 days trazodone 100 - 200 mg (1 - 2 x 100 mg) PO BEDTIME triamcinolone acetonide 0.5% 1 appl topical DAILY 15 days HPI S/P [place]; Dr. Hernandez HPI Details GI CLINIC VISIT FOR THIS 43-YEAR-OLD BURMESE-SPEAKING MALE FOR FOLLOW- UP OF IRON DEFICIENCY ANEMIA. ? CHRONIC ILLNESSES:?He has morbid obesity, DM, asthma and SHERRI. He is planning to do weight management surgery. ? He had to go to [place] and now has to start all over with Bariatric Surgery Clinic. ?LABS IN [facility]: On 08/16/19 REVIEWED showed mild anemia with microcytosis and hypochromia, nl plt count and RDW. INR was 1.4 in 07/06, ? 05/18/19 Iron studies showed iron of 38, TIBC 328, iron sat 12%, ? Past labs showed Negative celiac panel and Normal LFTs ? IMAGING STUDIES:?Abd CT on 05/27/19 showed: ? No evidence for acute abdominal or pelvic inflammatory or infectious processes. ? Grade 1 anterolisthesis of L5 in relation to S1 secondary to bilateral L5 pars defects. ?ENDOSCOPIC STUDIES: 04/11/23 [address] LOPEZ: internal hemorrhoids Plan: High fiber diet leaflet Avoid straining at stool, epsom salts and sitz bath, anusol supps or cream Repeat Colonoscopy in 3-4 years due to prior hx of polyps and fair right sided prep or earlier if clinically indicated 07/23/2019 EGD AND COLONOSCOPY SHOWED: ? STOMACH: Mild gastritis with erosions ? DUODENUM: Normal ? Colonoscopy Findings: ? Four polyps removed ? Small hemorrhoids on retroflexed exam. ? Plan:? Repeat Colonoscopy interval based on path results - in 3-5 years if ? polyps are adenomatous and due to positive FH of colon polyps and cancer. ?BIOPSIES SHOWED: ? A. Stomach, biopsies: Gastric mucosa with mild chronic, inactive gastritis; ? negative for Helicobacter pylori organisms; negative for intestinal metaplasia; negative for dysplasia. ? B. Small bowel, biopsies: Small bowel mucosa within normal limits; no active inflammation; no granulomas; negative for malignancy. ? C. Colon, transverse polyp, polypectomy: Fragments of tubular adenoma. ? D. Colon, descending polyps, polypectomy: Fragments of tubular adenoma and fragments of hyperplastic polyp. ? E. Rectum, polyp, polypectomy: Fragments of tubular adenoma. ? LETTER WAS SENT TO THE PATIENT ADVISING REPEAT COLONOSCOPY IN 3 YEARS. ? TODAY'S VISIT ? [facility] Measuring Machine OperatorRocio Colonoscopy results reviewed and FU colon advised in 3-4 yrs Having a OSMAN for the past 1 month. Denies abd pain, constipation or diarrhea, Stool are dark due to oral iron PAST VISITS: Lab results reviewed - anemia has improved. Has been doing well. ? Not planning to FU with bariatric surgery due to anxiety about having Gastric Bypass surgery at present. ? Taking iron pills once a day. ? Stool is dark due to iron - takes an iron tablet once a day. ? Patient denies rectal bleeding ? Mom had colon cancer at age 83 yrs. ? A brother and a sister had colon polyps removed in their 50's. ? Weight gain of 30 lbs over the past year. ?PAST GI HISTORY BY REVIEW OF MEDICAL RECORDS: Seen on 09/01/19: ? Assessments ? 1. Iron deficiency anemia, unspecified iron deficiency anemia type - D50.9 (Primary) ? 2. History of adenomatous polyp of colon - Z86.010 ? 3. Family history of colon cancer - Z80.0 ? 4. Body mass index (BMI) 60.0-69.9, adult - Z68.44 ? 5. Morbid (severe) obesity due to excess calories - E66.01 ? 6. Chronic gastritis without bleeding, unspecified gastritis type - K29.50 ? 39 year old morbidly obese male with htn, hyperlipidemia, Type 2 DM, asthma, SHERRI on CPAP with iron def anemia without significant upper of lower GI symptoms. Pt is at average risk for colon cancer (positive FH of colon cancer in his mother at an advanced age). Evaluation with EGD and Colonoscopy has completed and findings as noted above ? Morbid (severe) obesity due to excess calories ? Notes: Pt is scheduled to see the Emt B on 12/10/19 and plans to return to Bariatric Surgery clinic after endoscopic evaluation is completed. ? Treatment ? 1. Iron deficiency anemia, unspecified iron deficiency anemia type ? LAB: LIVER PROFILE ? LAB: FERRITIN ? LAB: CBC w/o DIFF ? LAB: PROTHROMBIN TIME (PT, INR) ? 2. History of adenomatous polyp of colon ? Notes: 07/23/19 three to four adenomatous polyps were removed during colonoscopy and repeat colonoscopy is advised in 3 yrs - action set in [facility]. ? 3. Chronic gastritis without bleeding, unspecified gastritis type ? Start Famotidine Tablet, 20 mg, 1 tablet at bedtime, Orally, once a day, 30 days, 30 Tablet, Refills 3 ? Follow Up ? 3 Months- have labs checked 1 week before appt (Reason: FU of iorn def anemia and obesity PFSH Medical History Pharyngitis Migraine Vitamin B12 deficiency Obesity due to excess calories Peripheral neuropathy Obesity History of colon polyps Asthma Bronchitis Depression Back pain with sciatica Proteinuria Hemorrhoids SHERRI (obstructive sleep apnea) Hyperlipidemia LDL goal <100 Essential hypertension Vitamin D deficiency Surgical History Hx of colonoscopy History of esophagogastroduodenoscopy (EGD) Loculated pleural effusion Loculated empyema Family History Father Cirrhosis Diabetes Mother Colon cancer, Onset Age: 83 Brother Prostate cancer CVA (cerebral vascular accident) Social History (Updated 05/16/23 @ 15:38 by Nereida Llanos MD) Household Members: Family Housing: Apartment Are you a primary home care provider to a significant other at home: No Do you presently have visiting nurse or other home services: No Alcohol intake: current Alcohol intake frequency: does not drink Patient Tobacco Use Status: Former Tobacco user Quit Date: 2016 Tobacco use type: Cigarette Years Smoked: 6- stopped 2016 e-Cigarette/Vaping Use: Never Used Second Hand Smoke Exposure: No service: No Current occupational status: disabled Cognitive needs: Yes (cane) Hearing needs: No Vision needs: Yes (glasses) Review of Systems Const All systems reviewed & are unremarkable except as noted in HPI and below Physical Exam Vital Signs: Last Vital Signs Pulse 72 04/24/23 10:05 BP 107/53 L 04/24/23 10:05 BMI result Body Mass Index 57.0 Const General: healthy appearing and no acute distress Nutritional Appearance: obese (morbidly obese) Orientation/consciousness: patient oriented x3 Limitations: language barrier HEENT Head: Yes normal to inspection Ears: hearing grossly normal bilaterally Mouth: Normal oral and palatal mucosa present Eyes Sclerae: sclerae normal Pupils: Equal, round and reactive pupils present Neck Neck: Yes normal visual inspection Chest Chest palpation & inspection: normal inspection of the chest Resp Effort & Inspection: normal respiratory effort Auscultation: clear to auscultation bilaterally Cardio Palpation: normal PMI Rate: regular rate Rhythm: regular rhythm Heart sounds: S1 normal heart sound present, S2 normal heart sound present and no murmurs GI Palpation (GI): Soft to palpation, nontender and No hepatosplenomegaly present Auscultation: normal bowel sounds Rectal Exam - Male: Yes deferred Skin General skin exam: no rashes or lesions noted Neuro General: patient oriented x3, gait normal and moves all extremities Cranial nerves: Yes Equal, round and reactive pupils present Psych Appearance: grossly normal Mental Status: mental status grossly normal Assessment & Plan Assessment & Plan (1) GERD (gastroesophageal reflux disease): Code(s): K21.9 - Gastro-esophageal reflux disease without esophagitis (2) Constipation: Code(s): K59.00 - Constipation, unspecified (3) Hemorrhoids: Code(s): K64.9 - Unspecified hemorrhoids (4) Vitamin B 12 deficiency: Code(s): E53.8 - Deficiency of other specified B group vitamins (5) Iron deficiency anemia: Code(s): D50.9 - Iron deficiency anemia, unspecified Qualifiers: Iron deficiency anemia type: inadequate dietary iron intake Qualified Code(s): D50.8 - Other iron deficiency anemias (6) Vitamin D deficiency: Code(s): E55.9 - Vitamin D deficiency, unspecified Plan 43 year old morbidly obese male with htn, hyperlipidemia, Type 2 DM, asthma, SHERRI on CPAP with iron def anemia without significant upper or lower GI symptoms. Pt is at average risk for colon cancer (positive FH of colon cancer in his mother at an advanced age). Evaluation with EGD and Colonoscopy was completed and findings as noted above Morbid (severe) obesity due to excess calories Recent labs show resolution of anemia.? Patient was advised to stop taking iron supplements and have repeat labs in 3 months. Notes: Not planning to FU with bariatric surgery due to anxiety about having Gastric Bypass surgery at present. Patient was advised to continue working on losing weight. 04/11/23 colonoscopy was performed by Dr. Lopez and results as noted above.? Repeat Colonoscopy in 3-4 years due to prior hx of polyps and fair right sided prep or earlier if clinically indicated (Pt was advised to bring his CPAP machine for the procedure (he has anxiety about anesthesia and does not want to be intubated since his had complications from GA) Follow-up appointment in the GI clinic in 6 months Coding Level of Care Code Est Pt Level 4 (40213) Diagnoses GERD (gastroesophageal reflux disease) K21.9 Constipation K59.00 Hemorrhoids K64.9 Vitamin B 12 deficiency E53.8 Iron deficiency anemia secondary to inadequate dietary iron intake D50.8 Iron deficiency anemia type: inadequate dietary iron intake Vitamin D deficiency E55.9 Time Spent (min) 22
[2023-04-24 10:05] VITALS: BP 107/53; PULSE 72; BMI 57.0
== END 2023-04-24 10:21 | disposition home or self-care (01) ==
PROVIDERS: PCP Internal Medicine; Visit Provider Internal Medicine Gastroenterology
DX: K21.9 Gastro-esophageal reflux disease without esophagitis (principal); K59.00 Constipation, unspecified; K64.9 Unspecified hemorrhoids; E53.8 Deficiency of other specified B group vitamins; D50.8 Other iron deficiency anemias; E55.9 Vitamin D deficiency, unspecified
CPT/HCPCS: 99214

== ENCOUNTER → 2023-04-24 09:51 | Outpatient (BNVA) | payer OTHER, SELFPAY | PROVIDERS: PCP Internal Medicine; Visit Provider Internal Medicine Gastroenterology | DX: D50.9 Iron deficiency anemia, unspecified (principal); E66.01 Morbid (severe) obesity due to excess calories; K21.9 Gastro-esophageal reflux disease without esophagitis; K59.00 Constipation, unspecified; K64.9 Unspecified hemorrhoids; E11.9 Type 2 diabetes mellitus without complications; G47.33 Obstructive sleep apnea (adult) (pediatric); E53.8 Deficiency of other specified B group vitamins; E55.9 Vitamin D deficiency, unspecified; Z68.43 Body mass index [BMI] 50.0-59.9, adult; Z79.4 Long term (current) use of insulin; Z99.89 Dependence on other enabling machines and devices | CPT/HCPCS: 99212 ==

== ENCOUNTER 2023-04-25 10:43 | Outpatient (AMB) | payer OTHER, SELFPAY ==
[2023-04-25 11:16] VITALS: PULSE 73; O2SAT 97; BMI 57.0
--- NOTE | 2023-04-25 11:16 | MHC.OFFVIS ---
Intake Vital Signs 04/25/23 11:16 Height 5 ft 8 in Weight 374 lb 12.573 oz BMI 57.0 Pulse 73 Pulse Source Pulse Oximeter Pulse Oximetry (%) 97 Oxygen Delivery Method Room Air Intake Visit Reasons: Asthma Collar Tacker Required: No Allergies Flexeril Adverse Reaction (Mild, Verified 04/25/23 11:17) nausea, sleepiness glipizide Adverse Reaction (Mild, Verified 04/25/23 11:17) hypoglycemia HPI HPI Comments History of Present Illness Details The patient is a 43-year-old gentleman known asthma in addition to obstructive sleep apnea on CPAP and morbid obesity. He states that he was in his usual state health until about 5 days ago when he started developing worsening cough and congestion. He went to see his primary care doctor with prescribed Augmentin. The patient has not been any better. He has complaints of shortness of breath and frequent coughing with mucus. He is concerned because he has been admitted in the past with pneumonia. He has not been using his nebulizer. He has been using his short-acting beta agonists MDI several times a day. It is only socially helpful. He denies any fevers or chills. No one else is sick at home. He starting to feel better. He is using his CPAP every night for more than 4 hours a night. The CPAP therapy is effective and beneficial. He needs to get new supplies. Will resend order to his [employer]. 08/05/2022 the patient is here for a pulmonary follow-up visit. Recently he had a trip to [place]. There he was exposed to COVID-19. He did test for COVID-19 multiple times any was negative. He had some difficulty breathing. He came back to the [facility]. He tested again for COVID 19 and also the flu last week. The patient also started a Z-Jamarcus and also prednisone. He is starting to feel better although he still has a cough. Sometimes difficult to expectorate. He is always concerned because he had a very traumatic admission to the hospital with severe pneumonia. He has been using his nebulizer twice a day and with the prednisone his symptoms are improving. He also continues uses CPAP. The CPAP therapy continues to be affecting beneficial. He did get a bill on lines from his [employer] company. I did recommend that he get in touch with the [employer] company and not to reply to any e-mail messages that may not be realistic. Otherwise CPAP therapy has been affecting beneficial. He does use the cpap more than 4 hours a night. 10/28/2022 the patient is here for a pulmonary follow-up visit. The patient overall is doing well. He has been doing better at this time. He had another bout of worsening cough and likely viral syndrome. He did require to take his inhalers more often and has been reluctant to use the prednisone because of his weight gain. He had multiple courses the prednisone back in July when he was very sick with his asthma. At this point he does have chronic bronchitis does bring up phlegm on a regular basis. With his need for prednisone will be a good candidate for Daliresp. I will send Daliresp to the pharmacy to see if this helps to decrease his need for prednisone and improve his chronic bronchitis. She he continues uses CPAP at nighttime. He is getting supplies regularly. He did get the new dream station 2 machine from [employer] finally. He can always bring it in to the next visit for us to be able to adjusted for him accordingly. Otherwise follow-up in 6 months if he has any issues, which call. If he wants to increase the Daliresp from 250-500 mcg he can always call neck in someone at that point as well. 01/09/2023 the patient is here for pulmonary follow-up visit. The patient overall is doing well. Although he started having severe headaches. He ended up going to the ER because of severe headaches. The only difference was that his CPAP machine was changed to a new 1. We did look at the data and download the machine. His AHI was slightly elevated at 5.4. His mean pressure was 9 cm. Therefore we treat the machine a little bit to allow him to have a higher minimum pressure in a lower maximum pressure to minimize on the pressure a. The patient also is having significant sinus congestion which I believe this was going on with the headaches. Therefore will start her on fluticasone and Astelin nasal spray. He also knows to use saline rinses at nighttime before putting on the CPAP to see if this helps. If this is not helpful we can try some pseudoephedrine to see if this helps decrease the congestion. Hopefully he tolerates it without needing the Sudafed however. He also needs a chinstrap that will help minimize on the air leakage and also minimize on the apneic episodes and minimize on the pressure needed to treat his sleep apnea. The patient will come back in a couple but couple months 04/25/2023 the patient is here for a pulmonary follow-up visit. Overall the patient is doing much better. He continues on his respiratory therapy with good effect. Has not required any prednisone which is reassuring. Typically does not use his rescue inhaler more than twice a week. The patient feels that he is doing well on the AirDuo inhaler. In regards the CPAP the CPAP therapy continues to be affecting beneficial. He does uses CPAP the whole night more than 4 hours. He does feel rested in the morning. Cardiovascular alonso he is stable which is reassuring. He is also working on weight loss which is also helping his overall health. He is doing this with lifestyle changes. Will continue with current respiratory medications. His Daliresp for the reason was not approved will go ahead and send it again to the pharmacy. He should stand now daily basis. [facility] Medical History Pharyngitis Migraine Vitamin B12 deficiency Obesity due to excess calories Peripheral neuropathy Obesity History of colon polyps Asthma Bronchitis Depression Back pain with sciatica Proteinuria Hemorrhoids SHERRI (obstructive sleep apnea) Hyperlipidemia LDL goal <100 Essential hypertension Vitamin D deficiency Surgical History Hx of colonoscopy History of esophagogastroduodenoscopy (EGD) Loculated pleural effusion Loculated empyema Family History Father Cirrhosis Diabetes Mother Colon cancer, Onset Age: 83 Brother Prostate cancer CVA (cerebral vascular accident) Social History Household Members: Family Housing: Apartment Are you a primary aged or disabled carer to a significant other at home: No Do you presently have visiting nurse or other home services: No Alcohol intake: current Alcohol intake frequency: does not drink Patient Tobacco Use Status: Former Tobacco user Quit Date: 2016 Tobacco use type: Cigarette Years Smoked: 6 e-Cigarette/Vaping Use: Never Used Second Hand Smoke Exposure: No service: No Current occupational status: disabled Cognitive needs: Yes (cane) Hearing needs: No Vision needs: Yes (glasses) Review of Systems Const Denies fatigue, Denies headache(s) and Reports weight loss Eyes Denies blurry vision ENT Reports Normal hearing present, Denies headache(s), Reports nasal congestion, Reports nasal discharge and Reports nasal obstruction Card Denies chest pain, Denies irregular heart rhythm, Denies dyspnea and Reports dyspnea on exertion Resp Denies chest congestion, Reports cough, Denies dyspnea, Reports dyspnea on exertion and Reports wheezing GI Denies constipation and Denies diarrhea Denies dysuria and Denies urinary frequency Musc Reports muscle cramps, Denies muscle weakness, Denies numbness and Denies tingling Neuro Reports Normal hearing present, Denies Abnormal speech present, Denies headache(s), Denies numbness and Denies tingling Psych Reports abnormal sleep pattern and Denies depression Endo Denies fatigue Gianfranco/Lymph Denies easy bruising Aller/Immun Reports wheezing Physical Exam Vital Signs: Last Vital Signs Pulse 73 04/25/23 11:16 Pulse Ox 97 04/25/23 11:16 Oxygen Delivery Method Room Air 04/25/23 11:16 BMI result Body Mass Index 57.0 Const General: healthy appearing and no acute distress Orientation/consciousness: patient oriented x3 HEENT Head: Yes normal to inspection Ears: hearing grossly normal bilaterally Eyes Sclerae: sclerae normal Pupils: Equal, round and reactive pupils present Neck Neck: Yes normal visual inspection Chest Chest palpation & inspection: normal inspection of the chest Resp Effort & Inspection: normal respiratory effort Auscultation: no crackles, no rales, no rhonchi, no wheezes and diminished lung sounds Cardio Palpation: normal PMI Rate: regular rate Rhythm: regular rhythm Heart sounds: S1 normal heart sound present, S2 normal heart sound present and no murmurs GI Palpation (GI): Soft to palpation, nontender and No hepatosplenomegaly present Auscultation: normal bowel sounds Rectal Exam - Male: Yes deferred Skin General skin exam: no rashes or lesions noted Neuro General: patient oriented x3, gait normal and moves all extremities Cranial nerves: Yes Equal, round and reactive pupils present and Yes Normal hearing present Speech: No Abnormal speech present Psych Appearance: grossly normal Mental Status: mental status grossly normal Assessment & Plan Assessment & Plan (1) Asthma: Comment: PFT restrictive March 2019 Code(s): J45.909 - Unspecified asthma, uncomplicated Qualifiers: Asthma complication type: unspecified Asthma persistence: persistent Asthma severity: moderate Qualified Code(s): J45.40 - Moderate persistent asthma, uncomplicated (2) SHERRI (obstructive sleep apnea): Comment: Continue with the CPAP every night and benefits from this more than 4 hours a night Code(s): G47.33 - Obstructive sleep apnea (adult) (pediatric) (3) Chronic rhinitis: Code(s): J31.0 - Chronic rhinitis Plan Continue respitaory therapy with Airduo continuen Daliresp 500mcg Continue APAP, p10. Has his new Respironics Dreamstation 2, adjusted APAP 7-12 Nasal rinsing Allergy therapy: singulair continue Fluticasone daily continue Astelin weight management F/U 6-8 months Coding Level of Care Code Est Pt Level 4 (08933) Diagnoses Moderate persistent asthma, unspecified whether complicated J45.40 Asthma complication type: unspecified Asthma persistence: persistent Asthma severity: moderate SHERRI (obstructive sleep apnea) G47.33 Chronic rhinitis J31.0 Time Spent (min) 16
== END 2023-04-25 11:31 | disposition home or self-care (01) ==
PROVIDERS: PCP Internal Medicine; Visit Provider Hospitalist
DX: J45.40 Moderate persistent asthma, uncomplicated (principal); G47.33 Obstructive sleep apnea (adult) (pediatric); J31.0 Chronic rhinitis
CPT/HCPCS: 99214

== ENCOUNTER → 2023-04-25 10:43 | Outpatient (BNVA) | payer OTHER, SELFPAY | PROVIDERS: PCP Internal Medicine; Visit Provider Hospitalist | DX: J45.40 Moderate persistent asthma, uncomplicated (principal); J31.0 Chronic rhinitis; G47.33 Obstructive sleep apnea (adult) (pediatric) | CPT/HCPCS: 99212 ==

== ENCOUNTER 2023-05-16 14:40 | Outpatient (AMB) | payer OTHER, SELFPAY ==
[2023-05-16 14:51] VITALS: BP 145/90; PULSE 85; O2SAT 98; BMI 55.5
--- NOTE | 2023-05-16 14:51 | A.OFFPC_ITS ---
Vital Signs 05/16/23 14:51 05/16/23 15:32 Height 5 ft 8 in Weight 365 lb BMI 55.5 BP 145/90 H 110/70 Blood Pressure Location Lt brachial Lt brachial Position Sitting Sitting Pulse 85 Pulse Source Pulse Oximeter Pulse Oximetry (%) 98 Oxygen Delivery Method Room Air Intake Visit Reasons: PE Allergies Flexeril Adverse Reaction (Mild, Verified 05/16/23 14:51) nausea, sleepiness glipizide Adverse Reaction (Mild, Verified 05/16/23 14:51) hypoglycemia Medication List - Last Reconciled 05/16/23 by Nereida Llanos MD albuterol sulfate 2.5 mg (3 mL) inhalation Q8H PRN atorvastatin 10 mg PO BEDTIME azelastine 2 sprays intranasal BID 30 days cane As directed HEAVY DUTY cholecalciferol (vitamin D3) 25 mcg PO DAILY clonazepam 0.5 mg PO DAILY [cpap As directed] [detachable shower Head As directed] doxepin 75 mg PO BEDTIME dulaglutide 3 mg (0.5 mL) subcut QWEEK 30 days duloxetine 30 mg PO QAM empagliflozin (Jardiance) 25 mg PO QAM famotidine 20 mg PO BEDTIME 90 days flash glucose scanning reader ([employer] Spenser 2 [place]) As directed flash glucose sensor ([employer]Style Spenser 2 Sensor kit) every 2 weeks fluocinonide 0.05% 1 appl topical BID 7 days fluticasone propion-salmeterol 232-14 mcg/actuation 1 inh inhalation BID fluticasone propionate 50 mcg/actuation 2 sprays intranasal DAILY 30 days gabapentin 600 mg (2 x 300 mg) PO BEDTIME hydrocortisone 2.5% (Proctosol HC) [address] BID-QID PRN hydroxyzine HCl 25 mg PO TID ibuprofen 600 mg PO Q8H PRN insulin glargine (Lantus Solostar U-100 Insulin) 30 units subcut QPM irbesartan-hydrochlorothiazide 150-12.5 mg 1 tab PO DAILY lancets As directed metformin 1,000 mg (2 x 500 mg) PO BID methocarbamol 500 mg PO TID PRN montelukast (Singulair) 10 mg PO BEDTIME 30 days pen needle, diabetic (BD Ultra-Fine Yanely Pen Needle) 1 ea subcut DAILY polyethylene glycol 3350 (Miralax) 17 grams PO DAILY 1 day [Quad cane As directed] roflumilast (Daliresp) 250 mcg PO DAILY 30 days sennosides-docusate sodium 8.6-50 mg (Senna-S) 2 tab-caps (2 x 8.6-50 mg) PO BEDTIME 30 days Shower Chair As directed sumatriptan succinate 50 mg PO .QD prn PRN tramadol 50 mg PO Q8H PRN 30 days trazodone 100 - 200 mg (1 - 2 x 100 mg) PO BEDTIME triamcinolone acetonide 0.5% 1 appl topical DAILY 15 days Tobacco use date assessed: 09/20/22 Dental Screening Dental Screen Date: 05/16/23 Did you have a dental visit in the last 12 months?: Yes Did you have a dental problem in the last 6 months where you did not have access to dental care?: No Was dental information given to patient?: Patient has dentist HPI PE HPI Details [age] Year old morbidly obese male with diabetes mellitus controlled sleep apnea asthma hypercholesterolemia Lindsay anxiety disorder GERD coming in for physical exam. Last seen in December 2022. Patient's colonoscopy is up-to-date March 2023. Flu shot . Patient follows up with Pulmonary continuing with Erin Crump as for the sleep apnea continue with APAP 7-12 Singulair Flonase Astelin patient also follows up with Gastroenterology post colonoscopy. Cindy [id number] interpret [facility] Medical History Pharyngitis Migraine Vitamin B12 deficiency Obesity due to excess calories Peripheral neuropathy Obesity History of colon polyps Asthma Bronchitis Depression Back pain with sciatica Proteinuria Hemorrhoids SHERRI (obstructive sleep apnea) Hyperlipidemia LDL goal <100 Essential hypertension Vitamin D deficiency Surgical History Hx of colonoscopy History of esophagogastroduodenoscopy (EGD) Loculated pleural effusion Loculated empyema Family History Father Cirrhosis Diabetes Mother Colon cancer, Onset Age: 83 Brother Prostate cancer CVA (cerebral vascular accident) Social History (Updated 05/16/23 @ 15:38 by Nereida Llanos MD) Household Members: Family Housing: Apartment Are you a primary career development counselor to a significant other at home: No Do you presently have visiting nurse or other home services: No Alcohol intake: never Patient Tobacco Use Status: Former Tobacco user Quit Date: 2016 Tobacco use type: Cigarette Years Smoked: 6- stopped 2016 e-Cigarette/Vaping Use: Never Used Second Hand Smoke Exposure: No service: No Current occupational status: disabled Cognitive needs: Yes (cane) Hearing needs: No Vision needs: Yes (glasses) Questionnaire PHQ-9 Over the last 2 weeks, how often have you been bothered by any of the following problems? 1. Little interest or pleasure in doing things: not at all 2. Feeling down, depressed, or hopeless: not at all 3. Trouble falling or staying asleep, or sleeping too much: not at all 4. Feeling tired or having little energy: not at all 5. Poor appetite or overeating: not at all 6. Feeling bad about yourself - or that you are a failure or have let yourself or your family down: not at all 7. Trouble concentrating on things, such as reading the newspaper or watching television: not at all 8. Moving or speaking so slowly that other people could have noticed. Or the opposite - being so fidgety or restless that you have been moving around a lot more than usual: not at all 9. Thoughts that you would be better off or of hurting yourself in some way: not at all Total score: 0 Depression Screening Interpretation: Negative Depression Screening Done: Yes Source: Developed by Drs. Ambrosio Rivas, Lanette Escobedo, Vinayak Marks and colleagues, with an educational joselyn from [employer]. Thrive Questionnaire Date Thrive assessed: 09/20/22 AUDIT C Alcohol Use Questionnaire (AUDIT-C) 1. How often do you have a drink containing alcohol?: Never 2. How many drinks containing alcohol do you have on a typical day when you are drinking?: 1 or 2 (none) 3. How often do you have six or more drinks on one occasion?: Never Total Score: 0 MARK ANTHONY-7 AMB Questionnaire MARK ANTHONY-7 Date MARK ANTHONY - 7 assessed: 09/20/22 Source: Developed by Drs. Ambrosio Rivas, Vinayak Quick and colleagues, with an educational joselyn from [employer]. Review of Systems Const Denies poor appetite and Denies weakness Eyes Denies no additional complaints ENT Reports Normal hearing present, Denies dizziness, Denies nasal congestion, Denies tinnitus and Denies sore throat Card Denies chest pain, Denies syncope, Denies rapid heart rate and Denies dyspnea Resp Denies cough and Denies dyspnea GI Denies change in stool character, Reports constipation, Denies diarrhea, Denies nausea and Denies vomiting Denies dysuria and Denies urinary frequency Neuro Reports Normal hearing present, Denies confusion, Denies dizziness, Denies syncope and Denies weakness Psych Denies confusion Physical exam (Primary Care) Vital Signs: Last Vital Signs Pulse 85 05/16/23 14:51 BP 145/90 H 05/16/23 14:51 Pulse Ox 98 05/16/23 14:51 Oxygen Delivery Method Room Air 05/16/23 14:51 BMI result Body Mass Index 55.5 Tobacco/Smoking Status: Tobacco use Status Tobacco use date assessed 09/20/22 05/16/23 14:52 Patient Tobacco Use Status Former Tobacco user 05/16/23 14:52 Tobacco use type Cigarette 05/16/23 14:52 e-Cigarette/Vaping Use Never Used 05/16/23 14:52 PHQ-9: PHQ-9 Score PHQ-9: Total score 0 05/16/23 15:04 Depression Screening Interpretation: Negative Thrive Assessment: Date of Thrive Assessment Date Thrive assessed 09/20/22 05/16/23 14:52 Const General: alert and awake; No confusion Orientation/consciousness: No confusion HENME Head: Yes normocephalic Ears: external ears normal and TM's normal bilaterally Face and sinus: Yes normal facial exam Mouth: moist mucous membranes Throat: Yes tonsils normal Eyes Conjunctivae: conjunctivae normal Pupils: Equal, round and reactive pupils present and Pupil accommodation reflex normal Direct Ophthalmoscopy: normal light reflex Neck Neck: No lymphadenopathy Thyroid: Thyroid normal Chest Chest palpation & inspection: normal inspection of the chest Resp Effort & Inspection: normal respiratory effort and no audible wheezes Auscultation: clear to auscultation bilaterally, no crackles, no wheezes and lung sounds not diminished Cardio Rate: regular rate Rhythm: regular rhythm Peripheral pulses: radial pulses present and dorsalis pedis present GI Other: visual negative Palpation (GI): no masses Auscultation: normal bowel sounds and normoactive bowel sounds Rectal Exam - Male: Yes deferred Male General Exam: Yes normal external exam Skin General skin exam: no rashes or lesions noted Rashes: no rashes Neuro General: deep tendon reflexes 2+ bilaterally and No confusion Cranial nerves: Yes Equal, round and reactive pupils present, Yes Midline tongue present, Yes Normal hearing present and Yes Ability to bilaterally elevate shoulders present Cognition (Neuro): normal cognition Gait exam (Neuro): Normal gait present Motor exam (neuro): 5/5 motor strength present throughout Deep tendon reflexes (DTR's): Right brachioradialis reflex intensity grade: 2+, Left brachioradialis reflex intensity grade: 2+, Right patellar reflex intensity grade: 2+ and Left patellar reflex intensity grade: 2+ Extrem Other: pedal pulses good pin prick good General: No edema Results AMB Hemoglobin A1c AMB Hemoglobin A1c 6.4 % Last Edit by CHEO Varghese on 05/16/23 15:04 Results Reviewed Results Reviewed: Laboratory Last Values Hgb A1c (Clinic) 6.4 % (4.0-6.0) H 05/16/23 14:52 Assessment and Plan Assessment & Plan (1) Type 2 diabetes mellitus with hyperglycemia: Comment: EYE and LASIK Code(s): E11.65 - Type 2 diabetes mellitus with hyperglycemia Plan: Decrease the amount of carbohydrate intake, pasta, bread, rice and potatoes are all sugar and that is aside from all the sweet stuff, remember that fruits are good but they are Sweet also. Hemoglobin A1c goal of less than 6.5. Patient takes Trulicity 3 mg once a week Jardiance 25 mg once a day Lantus 30 units once a day metformin a 1000 mg twice a day (2) Annual physical exam: Code(s): Z00.00 - Encounter for general adult medical examination without abnormal findings (3) SHERRI (obstructive sleep apnea): Comment: Continue with the CPAP every night and benefits from this more than 4 hours a night Code(s): G47.33 - Obstructive sleep apnea (adult) (pediatric) Plan: Continue to use the CPAP more than 4 hours a night and benefits from this (4) Obesity: Code(s): E66.9 - Obesity, unspecified Qualifiers: Obesity type: due to excess calories Obesity classification: adult class 3 (BMI >= 40) Serious obesity comorbidity presence: with serious comorbidity Body mass index: BMI 50.0-59.9 Qualified Code(s): E66.01 - Morbid (severe) obesity due to excess calories; Z68.43 - Body mass index [BMI] 50.0- 59.9, adult Plan: Diet and exercise (5) Asthma: Comment: PFT restrictive March 2019 Code(s): J45.909 - Unspecified asthma, uncomplicated Qualifiers: Asthma severity: moderate Asthma persistence: persistent Asthma complication type: unspecified Qualified Code(s): J45.40 - Moderate persistent asthma, uncomplicated Plan: Patient follows up with Pulmonary on albuterol placed on AirDuo, Dupixent and montelukast (6) Hyperlipidemia LDL goal <100: Code(s): E78.5 - Hyperlipidemia, unspecified Plan: Avoid fried foods, chicken skin, eggs, butter margarine, pastries and meat. Be it pork or beef they have a lot of cholesterol on atorvastatin 10 mg once a day LDL goal of less than 100 and triglyceride of less than 1/5 (7) Essential hypertension: Code(s): I10 - Essential (primary) hypertension Plan: Continue with blood pressure medication. Decrease salt intake and exercise continue with irbesartan hydrochlorothiazide 150/12.5 mg once a day (8) Generalized anxiety disorder: Code(s): F41.1 - Generalized anxiety disorder Plan: Continue with medication (9) GERD (gastroesophageal reflux disease): Code(s): K21.9 - Gastro-esophageal reflux disease without esophagitis Plan: Avoid the foods that causes that usually spicy foods, tomato products, juices, coffee, soda and foods that your sensitive to. After eating do not lie down, allow 3-4 hours before in lie down. And keep the head of bed above 30 degrees to avoid the acid from going up. Orders: Orders AMB Hemoglobin A1c Today E11.65 - Type 2 diabetes mellitus with hyperglycemia Referrals Dermatology Referral L40.9 - Psoriasis, unspecified Medications: New betamethasone dipropionate 0.05% 1 appl topical BID PRN 45 grams 0RF skin irritation L40.9 - Psoriasis, unspecified Refilled clonazepam psychiatry is giving rx 0.5 mg PO DAILY 14 tabs 0RF L40.9 - Psoriasis, unspecified Coding Level of Care Code Est Pt Prev Care 40-64y(93674) Diagnoses Type 2 diabetes mellitus with hyperglycemia E11.65 Annual physical exam Z00.00 SHERRI (obstructive sleep apnea) G47.33 Class 3 severe obesity due to excess calories with serious comorbidity and body mass index (BMI) of 50.0 to 59.9 in adult E66.01; Z68.43 Obesity type: due to excess calories Obesity classification: adult class 3 (BMI >= 40) Serious obesity comorbidity presence: with serious comorbidity Body mass index: BMI 50.0-59.9 Moderate persistent asthma, unspecified whether complicated J45.40 Asthma severity: moderate Asthma persistence: persistent Asthma complication type: unspecified Hyperlipidemia LDL goal <100 E78.5 Essential hypertension I10 Generalized anxiety disorder F41.1 GERD (gastroesophageal reflux disease) K21.9 Additional Codes PHQ-9 - 51507 - PHQ-9 Billing: ([id number])
[2023-05-16 15:32] VITALS: BP 110/70
== END 2023-05-16 16:07 | disposition home or self-care (01) ==
PROVIDERS: Visit Provider Internal Medicine
DX: Z00.00 Encounter for general adult medical examination without abnormal findings (principal); E11.65 Type 2 diabetes mellitus with hyperglycemia; E66.01 Morbid (severe) obesity due to excess calories; Z68.43 Body mass index [BMI] 50.0-59.9, adult; G47.33 Obstructive sleep apnea (adult) (pediatric); J45.40 Moderate persistent asthma, uncomplicated; E78.5 Hyperlipidemia, unspecified; I10 Essential (primary) hypertension; F41.1 Generalized anxiety disorder; K21.9 Gastro-esophageal reflux disease without esophagitis
CPT/HCPCS: 83036; 99396

== ENCOUNTER 2023-06-16 16:15 | Outpatient (REF) | payer OTHER, SELFPAY ==
[2023-06-16 17:04] LABS: Influenza A PCR NEGATIVE (Negative); Influenza B PCR NEGATIVE (Negative); Resp Syncy Virus RNA Qual PCR NEGATIVE (Negative); SARS COV2 PCR INHOUSE NEGATIVE (Negative)
== END 2023-06-16 16:16 | disposition home or self-care (01) ==
LOC: HO.LAB 16:15
PROVIDERS: PCP Internal Medicine; Visit Provider Internal Medicine
DX: Z11.52 Encounter for screening for COVID-19 (principal); R09.89 Other specified symptoms and signs involving the circulatory and respiratory systems
CPT/HCPCS: 0241U

== ENCOUNTER 2023-06-19 11:04 | Outpatient (AMB) | payer OTHER, SELFPAY ==
[2023-06-19 11:26] VITALS: BP 110/74; PULSE 86; O2SAT 96; BMI 56.1
--- NOTE | 2023-06-19 11:26 | A.OFFVIS_ITS ---
Intake Vital Signs 06/19/23 11:26 Height 5 ft 8 in Weight 369 lb BMI 56.1 BP 110/74 Pulse 86 Pulse Oximetry (%) 96 Intake Visit Reasons: asthma Allergies Flexeril Adverse Reaction (Mild, Verified 06/19/23 11:30) nausea, sleepiness glipizide Adverse Reaction (Mild, Verified 06/19/23 11:30) hypoglycemia HPI HPI Comments History of Present Illness Details The patient is a 43-year-old gentleman known asthma in addition to obstructive sleep apnea on CPAP and morbid obesity. He states that he was in his usual state health until about 5 days ago when he started developing worsening cough and congestion. He went to see his primary care doctor with prescribed Augmentin. The patient has not been any better. He has complaints of shortness of breath and frequent coughing with mucus. He is concerned because he has been admitted in the past with pneumonia. He has not been using his nebulizer. He has been using his short-acting beta agonists MDI several times a day. It is only socially helpful. He denies any fevers or chills. No one else is sick at home. He starting to feel better. He is using his CPAP every night for more than 4 jesse rs a night. The CPAP therapy is effective and beneficial. He needs to get new supplies. Will resend order to his [facility]. 04/25/2023 the patient is here for a pulm onary follow-up visit. Overall the patient is doing much better. He continues on his respiratory therapy with good effect. Has not required any prednisone which is reassuring. Typically does not use his rescue inhaler more than twice a week. The patient feels that he is doing well on the AirDuo inhaler. In regards the CPAP the CPAP therapy continues to be affecting beneficial. He does uses CPAP the whole night more than 4 hours. He does feel rested in the morning. Cardiovascular alonso he is stable which is reassuring. He is also working on weight loss which is also helping his overall health. He is doing this with lifestyle changes. Will continue with current respiratory medications. His Daliresp for the reason was not approved will go ahead and send it again to the pharmacy. He should stand now daily basis. 06/19/2023 the patient is here for sick visit. Apparently he was in his usual state health until that he was exposed to a sick contact. He did call because of increasing chest tightness coughing it and chest congestion. He was given a course of azithromycin and also prednisone. Although after several days he was not seen any significant improvement. Now he has a cough that is been had he moderate severity. Affecting sleep. Hard to expectorate. His respiratory exam is fairly clear although diminished. Does have some post exhalation coughing. Will go ahead and place him on another course of prednisone and try him on doxycycline instead. He when he does need his cough suppressant therapy so will provide with cough suppressants in order for him to be able to avoid the coughing spells while he recovers from likely a viral syndrome. He will continue with scar Respiratory therapy. Also continues with the CPAP at nighttime. If the patient is no better he will have an x-ray next week. Otherwise will follow-up in the spring. [facility] Medical History Pharyngitis Migraine Vitamin B12 deficiency Obesity due to excess calories Peripheral neuropathy Obesity History of colon polyps Asthma Bronchitis Depression Back pain with sciatica Proteinuria Hemorrhoids SHERRI (obstructive sleep apnea) Hyperlipidemia LDL goal <100 Essential hypertension Vitamin D deficiency Surgical History Hx of colonoscopy History of esophagogastroduodenoscopy (EGD) Loculated pleural effusion Loculated empyema Family History Father Cirrhosis Diabetes Mother Colon cancer, Onset Age: 83 Brother Prostate cancer CVA (cerebral vascular accident) Social History (Updated 05/16/23 @ 15:38 by Nereida Llanos MD) Household Members: Family Housing: Apartment Are you a primary healthcare social worker to a significant other at home: No Do you presently have visiting nurse or other home services: No Alcohol intake: current Alcohol intake frequency: does not drink Patient Tobacco Use Status: Former Tobacco user Quit Date: 2016 Tobacco use type: Cigarette Years Smoked: 6- stopped 2016 e-Cigarette/Vaping Use: Never Used Second Hand Smoke Exposure: No service: No Current occupational status: disabled Cognitive needs: Yes (cane) Hearing needs: No Vision needs: Yes (glasses) Review of Systems Const Denies fatigue, Denies headache(s) and Reports weight loss Eyes Denies blurry vision ENT Reports Normal hearing present, Denies headache(s), Reports nasal congestion, Reports nasal discharge and Reports nasal obstruction Card Denies chest pain, Denies irregular heart rhythm, Denies dyspnea and Reports dyspnea on exertion Resp Denies chest congestion, Reports cough, Denies dyspnea, Reports dyspnea on exertion and Reports wheezing GI Denies constipation and Denies diarrhea Denies dysuria and Denies urinary frequency Musc Reports muscle cramps, Denies muscle weakness, Denies numbness and Denies tingling Neuro Reports Normal hearing present, Denies Abnormal speech present, Denies headache(s), Denies numbness and Denies tingling Psych Reports abnormal sleep pattern and Denies depression Endo Denies fatigue Gianfranco/Lymph Denies easy bruising Aller/Immun Reports wheezing Physical Exam Vital Signs: Last Vital Signs Pulse 86 06/19/23 11:26 BP 110/74 06/19/23 11:26 Pulse Ox 96 06/19/23 11:26 BMI result Body Mass Index 56.1 Const General: healthy appearing and no acute distress Orientation/consciousness: patient oriented x3 HEENT Head: Yes normal to inspection Ears: hearing grossly normal bilaterally Eyes Sclerae: sclerae normal Pupils: Equal, round and reactive pupils present Neck Neck: Yes normal visual inspection Chest Chest palpation & inspection: normal inspection of the chest Resp Effort & Inspection: normal respiratory effort and Actively coughing Quality: actively coughing Auscultation: no crackles, no rales, no rhonchi, no wheezes and diminished lung sounds Cardio Palpation: normal PMI Rate: regular rate Rhythm: regular rhythm Heart sounds: S1 normal heart sound present, S2 normal heart sound present and no murmurs GI Palpation (GI): Soft to palpation, nontender and No hepatosplenomegaly present Auscultation: normal bowel sounds Rectal Exam - Male: Yes deferred Skin General skin exam: no rashes or lesions noted Neuro General: patient oriented x3, gait normal and moves all extremities Cranial nerves: Yes Equal, round and reactive pupils present and Yes Normal hearing present Speech: No Abnormal speech present Psych Appearance: grossly normal Mental Status: mental status grossly normal Assessment & Plan Assessment & Plan (1) Asthma: Comment: PFT restrictive March 2019 Code(s): J45.909 - Unspecified asthma, uncomplicated Qualifiers: Asthma complication type: with acute exacerbation Asthma persistence: persistent Asthma severity: moderate Qualified Code(s): J45.41 - Moderate persistent asthma with (acute) exacerbation (2) SHERRI (obstructive sleep apnea): Comment: Continue with the CPAP every night and benefits from this more than 4 hours a night Code(s): G47.33 - Obstructive sleep apnea (adult) (pediatric) (3) Chronic rhinitis: Code(s): J31.0 - Chronic rhinitis Plan start Doxycycline start Prednisone start cough medicine Continue respitaory therapy with Airduo continuen Daliresp 500mcg Continue APAP, p10. Has his new Respironics Dreamstation 2, adjusted APAP 7-12 Nasal rinsing Allergy therapy: singulair continue Fluticasone daily continue Astelin weight management F/U 6-8 months Orders: Orders XR chest 2V Today J45.909 - Unspecified asthma, uncomplicated Medications: New codeine-guaifenesin 10-100 mg/5 mL 10 mL PO Q6H 10 days PRN 300 mL 0RF cough doxycycline hyclate 100 mg PO BID 10 days 20 caps 0RF prednisone PO daily; Take 3 tabs daily x 5 days, then 2 tabs daily x 5 days, 1 tab x 5 days 15 days 30 tabs 0RF Coding Level of Care Code Est Pt Level 4 (69434) Diagnoses Moderate persistent asthma with acute exacerbation J45.41 Asthma complication type: with acute exacerbation Asthma persistence: persistent Asthma severity: moderate SHERRI (obstructive sleep apnea) G47.33 Chronic rhinitis J31.0 Time Spent (min) 16
== END 2023-06-19 11:40 | disposition home or self-care (01) ==
PROVIDERS: PCP Internal Medicine; Visit Provider Hospitalist
DX: J45.41 Moderate persistent asthma with (acute) exacerbation (principal); G47.33 Obstructive sleep apnea (adult) (pediatric); J31.0 Chronic rhinitis
CPT/HCPCS: 99214

== ENCOUNTER → 2023-06-19 11:04 | Outpatient (BNVA) | payer OTHER, SELFPAY | PROVIDERS: PCP Internal Medicine; Visit Provider Hospitalist | DX: J45.41 Moderate persistent asthma with (acute) exacerbation (principal); J31.0 Chronic rhinitis; G47.33 Obstructive sleep apnea (adult) (pediatric); E66.01 Morbid (severe) obesity due to excess calories; Z87.891 Personal history of nicotine dependence; Z68.43 Body mass index [BMI] 50.0-59.9, adult; Z99.89 Dependence on other enabling machines and devices | CPT/HCPCS: 99212 ==

== ENCOUNTER 2023-08-19 14:06 | Outpatient (AMB) | payer OTHER, SELFPAY ==
[2023-08-19 14:08] VITALS: BP 128/80; PULSE 96; O2SAT 98; BMI 55.0
--- NOTE | 2023-08-19 14:08 | MHC.PC.OV ---
Vital Signs 08/19/23 14:08 Height 5 ft 8 in Weight 362 lb BMI 55.0 BP 128/80 Blood Pressure Location Lt brachial Position Sitting Pulse 96 Pulse Source Pulse Oximeter Pulse Oximetry (%) 98 Oxygen Delivery Method Room Air Intake Visit Reasons: DM Intake Note: Patient is here to follow up on DM Radar Repairer Required: Yes Radar Repairer Language: Kenyan Allergies Flexeril Adverse Reaction (Mild, Verified 08/19/23 14:08) nausea, sleepiness glipizide Adverse Reaction (Mild, Verified 08/19/23 14:08) hypoglycemia Tobacco use date assessed: 08/19/23 Dental Screening Dental Screen Date: 08/19/23 Did you have a dental visit in the last 12 months?: Yes Did you have a dental problem in the last 6 months where you did not have access to dental care?: No Was dental information given to patient?: Patient has dentist HPI DM HPI Details 43-year-old morbidly obese male with a history of diabetes mellitus obstructive sleep apnea asthma hypercholesterolemia hypertension GERD and generalized anxiety disorder last seen in April 2023. Patient is up-to-date with colonoscopy March 2023 and was advised to follow-up in 3-4 years. Review of the notes has seen the eye doctor recently and no diabetic retinopathy but has some cataracts forming patient did get the COVID shot. Patient also follows up with Pulmonary for the asthma had an exacerbation and was prescribed doxycycline and prednisone. Has sleep apnea and continue to use this APAP MELISA [id number] interpret [facility] Medical History Pharyngitis Migraine Vitamin B12 deficiency Obesity due to excess calories Peripheral neuropathy Obesity History of colon polyps Asthma Bronchitis Depression Back pain with sciatica Proteinuria Hemorrhoids SHERRI (obstructive sleep apnea) Hyperlipidemia LDL goal <100 Essential hypertension Vitamin D deficiency Surgical History Hx of colonoscopy History of esophagogastroduodenoscopy (EGD) Loculated pleural effusion Loculated empyema Family History Father Cirrhosis Diabetes Mother Colon cancer, Onset Age: 83 Brother Prostate cancer CVA (cerebral vascular accident) Social History (Updated 05/16/23 @ 15:38 by Nereida Llanos MD) Household Members: Family Housing: Apartment Are you a primary professional healthcare representative to a significant other at home: No Do you presently have visiting nurse or other home services: No Alcohol intake: never Patient Tobacco Use Status: Former Tobacco user Quit Date: 2016 Tobacco use type: Cigarette Years Smoked: 6- stopped 2016 e-Cigarette/Vaping Use: Never Used Second Hand Smoke Exposure: No service: No Current occupational status: disabled Cognitive needs: Yes (cane) Hearing needs: No Vision needs: Yes (glasses) Questionnaire Thrive Questionnaire Date Thrive assessed: 08/19/23 I am a: Patient What is your living situation today?: I have a steady place to live Within the past 12 months, did the food you bought not last and you didn't have the money to get more?: Never true Within the past 12 months, did you worry whether your food would run out before you got money to buy more?: Never true Do you have trouble paying for medicines?: No Do you have trouble getting transportation to medical appointments?: No Do you have trouble paying your heating and electricity bill?: No Do you have trouble taking care of your child, family member or friend?: No Do you have trouble with day-to-day activities such as bathing, preparing meals, shopping, managing finances, etc.?: No Are you currently unemployed and looking for a job?: No Are you interested in more education?: No Please select the resources that you would like help with: None THRIVE Score: 0 AUDIT C Alcohol Use Questionnaire (AUDIT-C) 1. How often do you have a drink containing alcohol?: Never 2. How many drinks containing alcohol do you have on a typical day when you are drinking?: 1 or 2 (none) 3. How often do you have six or more drinks on one occasion?: Never Total Score: 0 MARK ANTHONY-7 AMB Questionnaire MARK ANTHONY-7 Date MARK ANTHONY - 7 assessed: 08/19/23 Source: Developed by Drs. Ambrosio Rivas, Lanette Escobedo, Vinayak Marks and colleagues, with an educational joselyn from [employer] Physical exam (Primary Care) Vital Signs: Last Vital Signs Pulse 96 08/19/23 14:08 BP 128/80 08/19/23 14:08 Pulse Ox 98 08/19/23 14:08 Oxygen Delivery Method Room Air 08/19/23 14:08 BMI result Body Mass Index 55.0 Tobacco/Smoking Status: Tobacco use Status Tobacco use date assessed 08/19/23 08/19/23 14:10 Patient Tobacco Use Status Former Tobacco user 08/19/23 14:10 Tobacco use type Cigarette 08/19/23 14:10 e-Cigarette/Vaping Use Never Used 08/19/23 14:10 Thrive Assessment: Date of Thrive Assessment Date Thrive assessed 08/19/23 08/19/23 14:10 Const General: alert and awake HENMT Head: Yes normocephalic Ears: external ears normal and TM's normal bilaterally Face and sinus: Yes normal facial exam Mouth: moist mucous membranes Throat: Yes tonsils normal Eyes Conjunctivae: conjunctivae normal Pupils: Equal, round and reactive pupils present and Pupil accommodation reflex normal Direct Ophthalmoscopy: normal light reflex Neck Neck: No lymphadenopathy Thyroid: Thyroid normal Chest Chest palpation & inspection: normal inspection of the chest Resp Effort & Inspection: normal respiratory effort and no audible wheezes Auscultation: clear to auscultation bilaterally, no crackles, no wheezes and lung sounds not diminished Cardio Rate: regular rate Rhythm: regular rhythm Peripheral pulses: radial pulses present and dorsalis pedis present GI Palpation (GI): no masses Auscultation: normal bowel sounds and normoactive bowel sounds Rectal Exam - Male: Yes deferred Skin General skin exam: no rashes or lesions noted Rashes: no rashes Neuro General: deep tendon reflexes 2+ bilaterally Cranial nerves: Yes Equal, round and reactive pupils present, Yes Midline tongue present and Yes Ability to bilaterally elevate shoulders present Cognition (Neuro): normal cognition Gait exam (Neuro): Normal gait present Motor exam (neuro): 5/5 motor strength present throughout Deep tendon reflexes (DTR's): Right brachioradialis reflex intensity grade: 2+, Left brachioradialis reflex intensity grade: 2+, Right patellar reflex intensity grade: 2+ and Left patellar reflex intensity grade: 2+ Extrem General: No edema Results AMB Hemoglobin A1c AMB Hemoglobin A1c 6.3 % Last Edit by CHEO Dumont on 08/19/23 14:25 Assessment and Plan Assessment & Plan (1) SHERRI (obstructive sleep apnea): Comment: Continue with the CPAP every night and benefits from this more than 4 hours a night Code(s): G47.33 - Obstructive sleep apnea (adult) (pediatric) Plan: Continue to use the CPAP/APAP four hours a night and benefits from this (2) Type 2 diabetes mellitus with hyperglycemia: Comment: YOHANA and MURIEL Code(s): E11.65 - Type 2 diabetes mellitus with hyperglycemia Plan: Decrease the amount of carbohydrate intake, pasta, bread, rice and potatoes are all sugar and that is aside from all the sweet stuff, remember that fruits are good but they are Sweet also. Hemoglobin A1c goal of less than 6.5. Patient takes Trulicity at 3 mg once a week Jardiance 25 mg once a day Lantus at 30 units once a day metformin a 1000 mg twice a day (3) GERD (gastroesophageal reflux disease): Code(s): K21.9 - Gastro-esophageal reflux disease without esophagitis Plan: Avoid the foods that causes that usually spicy foods, tomato products, juices, coffee, soda and foods that your sensitive to. After eating do not lie down, allow 3-4 hours before in lie down. And keep the head of bed above 30 degrees to avoid the acid from going up. (4) Essential hypertension: Code(s): I10 - Essential (primary) hypertension Plan: Continue with blood pressure medication. Decrease salt intake and exercise patient is on irbesartan hydrochlorothiazide 150/12.5 (5) Hyperlipidemia LDL goal <100: Code(s): E78.5 - Hyperlipidemia, unspecified Plan: Avoid fried foods, chicken skin, eggs, butter margarine, pastries and meat. Be it pork or beef they have a lot of cholesterol LDL goal of less than 100 and triglyceride of less than 150. Patient's last blood work was November 2022. (6) Asthma: Comment: PFT restrictive March 2019 Code(s): J45.909 - Unspecified asthma, uncomplicated Qualifiers: Asthma complication type: with acute exacerbation Asthma persistence: persistent Asthma severity: moderate Qualified Code(s): J45.41 - Moderate persistent asthma with (acute) exacerbation Plan: Patient follows up with Pulmonary had an exacerbation at that time and was given an antibiotic and steroids. Otherwise presently continue with the inhalers (7) Obesity due to excess calories: Code(s): E66.09 - Other obesity due to excess calories Qualifiers: Body mass index: BMI 50.0-59.9 Obesity classification: adult class 3 (BMI >= 40) Serious obesity comorbidity presence: with serious comorbidity Qualified Code(s): E66.01 - Morbid (severe) obesity due to excess calories; Z68.43 - Body mass index [BMI] 50.0-59.9, adult Plan: Continue with diet and exercise noted weight loss (8) Cataract: Code(s): H26.9 - Unspecified cataract Plan: Patient follows up with Ophthalmology and will continue to monitor Orders: Orders AMB Hemoglobin A1c Today E11.65 - Type 2 diabetes mellitus with hyperglycemia Referrals Dermatology Referral L20.84 - Intrinsic (allergic) eczema Coding Level of Care Code Est Pt Level 4 (93563) Diagnoses SHERRI (obstructive sleep apnea) G47.33 Type 2 diabetes mellitus with hyperglycemia E11.65 GERD (gastroesophageal reflux disease) K21.9 Essential hypertension I10 Hyperlipidemia LDL goal <100 E78.5 Moderate persistent asthma with acute exacerbation J45.41 Asthma complication type: with acute exacerbation Asthma persistence: persistent Asthma severity: moderate Class 3 severe obesity due to excess calories with serious comorbidity and body mass index (BMI) of 50.0 to 59.9 in adult E66.01; Z68.43 Body mass index: BMI 50.0-59.9 Obesity classification: adult class 3 (BMI >= 40) Serious obesity comorbidity presence: with serious comorbidity Cataract H26.9
== END 2023-08-19 14:42 | disposition home or self-care (01) ==
PROVIDERS: PCP Internal Medicine; Visit Provider Internal Medicine
DX: E11.65 Type 2 diabetes mellitus with hyperglycemia (principal); E66.01 Morbid (severe) obesity due to excess calories; Z68.43 Body mass index [BMI] 50.0-59.9, adult; G47.33 Obstructive sleep apnea (adult) (pediatric); K21.9 Gastro-esophageal reflux disease without esophagitis; I10 Essential (primary) hypertension; E78.5 Hyperlipidemia, unspecified; J45.41 Moderate persistent asthma with (acute) exacerbation; H26.9 Unspecified cataract
CPT/HCPCS: 83036; 99214

== ENCOUNTER 2023-09-18 10:17 | Outpatient (AMB) | payer OTHER, SELFPAY ==
--- NOTE | 2023-09-18 10:23 | MHC.OFFVIS ---
Intake Vital Signs 09/18/23 10:28 Height 5 ft 9 in Weight 364 lb BMI 53.7 BP 117/55 L Blood Pressure Location Lt brachial Position Sitting Pulse 75 Intake Visit Reasons: Constipation Intake Note: Patient follow up for Constipation. Patient last week he was with Nauseas and abdominal pain. Today he complain about having smelly burping with some bad taste and after he become with diarrhea. Raker Buffing Wheel Required: Yes Raker Buffing Wheel Name: [facility] Accompanied by: Self / Same As Patient Allergies Flexeril Adverse Reaction (Mild, Verified 09/18/23 10:22) nausea, sleepiness glipizide Adverse Reaction (Mild, Verified 09/18/23 10:22) hypoglycemia Medication List - Last Reconciled 09/18/23 by Janell Hernandez MD albuterol sulfate 2.5 mg (3 mL) inhalation Q8H PRN atorvastatin 10 mg PO BEDTIME azelastine 2 sprays intranasal BID 30 days betamethasone dipropionate 0.05% 1 appl topical BID PRN cane As directed HEAVY DUTY cholecalciferol (vitamin D3) 25 mcg PO DAILY clonazepam 0.5 mg PO DAILY codeine-guaifenesin 10-100 mg/5 mL 10 mL PO Q6H PRN 10 days [cpap As directed] [detachable shower Head As directed] doxepin 75 mg PO BEDTIME doxycycline hyclate 100 mg PO BID 10 days dulaglutide 3 mg (0.5 mL) subcut QWEEK 30 days duloxetine 30 mg PO QAM empagliflozin (Jardiance) 25 mg PO QAM famotidine 20 mg PO BEDTIME 90 days flash glucose scanning reader (FreeStyle Spenser 2 Deridder) As directed flash glucose sensor (FreeStyle Spenser 2 Sensor kit) every 2 weeks fluocinonide 0.05% 1 appl topical BID 7 days fluticasone propion-salmeterol 232-14 mcg/actuation 1 inh inhalation BID fluticasone propionate 50 mcg/actuation 2 sprays intranasal DAILY 30 days gabapentin 600 mg (2 x 300 mg) PO BEDTIME hydrocortisone 2.5% (Proctosol HC) 1 appl [place] BID-QID PRN hydroxyzine HCl 25 mg PO TID ibuprofen 600 mg PO Q8H PRN insulin glargine (Lantus Solostar U-100 Insulin) 30 units subcut QPM irbesartan-hydrochlorothiazide 150-12.5 mg 1 tab PO DAILY lancets As directed metformin 1,000 mg (2 x 500 mg) PO BID methocarbamol 500 mg PO TID PRN montelukast (Singulair) 10 mg PO BEDTIME 30 days pen needle, diabetic (BD Ultra-Fine Yanely Pen Needle) 1 ea subcut DAILY polyethylene glycol 3350 (Miralax) 17 grams PO DAILY 1 day [Quad cane As directed] roflumilast (Daliresp) 250 mcg PO DAILY 30 days sennosides-docusate sodium 8.6-50 mg (Senna-S) 2 tab-caps (2 x 8.6-50 mg) PO BEDTIME 30 days Shower Chair As directed sumatriptan succinate 50 mg PO .QD prn PRN tramadol 50 mg PO Q8H PRN 30 days trazodone 100 - 200 mg (1 - 2 x 100 mg) PO BEDTIME triamcinolone acetonide 0.5% 1 appl topical DAILY 15 days HPI Constipation HPI Details GI CLINIC VISIT FOR THIS 43-YEAR-OLD SLOVENIAN-SPEAKING MALE FOR FOLLOW-UP OF IRON DEFICIENCY ANEMIA. ? CHRONIC ILLNESSES:?He has morbid obesity, DM, asthma and SHERRI. He is planning to do weight management surgery. ? He had to go to [place] and now has to start all over with Bariatric Surgery Clinic. ?LABS IN [facility]: On 08/16/19 REVIEWED showed mild anemia with microcytosis and hypochromia, nl plt count and RDW. INR was 1.4 in 07/06, ? 05/18/19 Iron studies showed iron of 38, TIBC 328, iron sat 12%, ? Past labs showed Negative celiac panel and Normal LFTs ? IMAGING STUDIES:?Abd CT on 05/27/19 showed: ? No evidence for acute abdominal or pelvic inflammatory or infectious processes. ? Grade 1 anterolisthesis of L5 in relation to S1 secondary to bilateral L5 pars defects. ?ENDOSCOPIC STUDIES: 04/11/[address] LOPEZ: internal hemorrhoids Plan: High fiber diet leaflet Avoid straining at stool, epsom salts and sitz bath, anusol supps or cream Repeat Colonoscopy in 3-4 years due to prior hx of polyps and fair right sided prep or earlier if clinically indicated 07/23/2019 EGD AND COLONOSCOPY SHOWED:? STOMACH: Mild gastritis with erosions ? DUODENUM: Normal ? Colonoscopy Findings: ? Four polyps removed ? Small hemorrhoids on retroflexed exam. ? Plan:? Repeat Colonoscopy interval based on path results - in 3-5 years if ? polyps are adenomatous and due to positive FH of colon polyps and cancer. ?BIOPSIES SHOWED: ? A. Stomach, biopsies: Gastric mucosa with mild chronic, inactive gastritis; ? negative for Helicobacter pylori organisms; negative for intestinal metaplasia; negative for dysplasia. ? B. Small bowel, biopsies: Small bowel mucosa within normal limits; no active inflammation; no granulomas; negative for malignancy. ? C. Colon, transverse polyp, polypectomy: Fragments of tubular adenoma. ? D. Colon, descending polyps, polypectomy: Fragments of tubular adenoma and fragments of hyperplastic polyp. ? E. Rectum, polyp, polypectomy: Fragments of tubular adenoma. ? LETTER WAS SENT TO THE PATIENT ADVISING REPEAT COLONOSCOPY IN 3 YEARS. ? 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 Patient last week he was with Nauseas and abdominal pain - thinks he had a virus. Today he complain about having smelly burping with some strong taste and odor and would have diarrhea in the evening - 2-3 episodes in the past few months. Denies recent changes in his diet. Usually has rice, beans with either chicken or pork. Pt has lost 40 lbs over the past 4-5 years ? PAST VISITS: Colonoscopy results reviewed and FU colon advised in 3-4 yrs Having a OSMAN for the past 1 month. Denies abd pain, constipation or diarrhea, Stool are dark due to oral iron Lab results reviewed - anemia has improved. Has been doing well. ? Not planning to FU with bariatric surgery due to anxiety about having Gastric Bypass surgery at present. ? Taking iron pills once a day. ? Stool is dark due to iron - takes an iron tablet once a day. ? Patient denies rectal bleeding ? Mom had colon cancer at age 83 yrs. ? A brother and a sister had colon polyps removed in their 50's. ? Weight gain of 30 lbs over the past year. ?PAST GI HISTORY BY REVIEW OF MEDICAL RECORDS: Seen on 09/01/19: ? Assessments ? 1. Iron deficiency anemia, unspecified iron deficiency anemia type - D50.9 (Primary) ? 2. History of adenomatous polyp of colon - Z86.010 ? 3. Family history of colon cancer - Z80.0 ? 4. Body mass index (BMI) 60.0-69.9, adult - Z68.44 ? 5. Morbid (severe) obesity due to excess calories - E66.01 ? 6. Chronic gastritis without bleeding, unspecified gastritis type - K29.50 ? 39 year old morbidly obese male with htn, hyperlipidemia, Type 2 DM, asthma, SHERRI on CPAP with iron def anemia without significant upper of lower GI symptoms. Pt is at average risk for colon cancer (positive FH of colon cancer in his mother at an advanced age). Evaluation with EGD and Colonoscopy has completed and findings as noted above ? Morbid (severe) obesity due to excess calories ? Notes: Pt is scheduled to see the [employer] [facility] [employer] [facility] on 12/10/19 and plans to return to Bariatric Surgery clinic after endoscopic evaluation is completed. ? Treatment ? 1. Iron deficiency anemia, unspecified iron deficiency anemia type ? LAB: LIVER PROFILE ? LAB: FERRITIN ? LAB: CBC w/o DIFF ? LAB: PROTHROMBIN TIME (PT, INR) ? 2. History of adenomatous polyp of colon ? Notes: 07/23/19 three to four adenomatous polyps were removed during colonoscopy and repeat colonoscopy is advised in 3 yrs - action set in [facility]. ? 3. Chronic gastritis without bleeding, unspecified gastritis type ? Start Famotidine Tablet, 20 mg, 1 tablet at bedtime, Orally, once a day, 30 days, 30 Tablet, Refills 3 ? Follow Up ? 3 Months- have labs checked 1 week before appt (Reason: FU of iorn def anemia and obesity [facility] Medical History Pharyngitis Migraine Vitamin B12 deficiency Obesity due to excess calories Peripheral neuropathy Obesity History of colon polyps Asthma Bronchitis Depression Back pain with sciatica Proteinuria Hemorrhoids SHERRI (obstructive sleep apnea) Hyperlipidemia LDL goal <100 Essential hypertension Vitamin D deficiency Surgical History Hx of colonoscopy History of esophagogastroduodenoscopy (EGD) Loculated pleural effusion Loculated empyema Family History Father Cirrhosis Diabetes Mother Colon cancer, Onset Age: 83 Brother Prostate cancer CVA (cerebral vascular accident) Social History Household Members: Family Housing: Apartment Are you a primary patient care technician to a significant other at home: No Do you presently have visiting nurse or other home services: No Alcohol intake: never Patient Tobacco Use Status: Former Tobacco user Quit Date: 2016 Tobacco use type: Cigarette Years Smoked: 6- stopped 2016 e-Cigarette/Vaping Use: Never Used Second Hand Smoke Exposure: No service: No Current occupational status: disabled Cognitive needs: Yes (cane) Hearing needs: No Vision needs: Yes (glasses) Review of Systems Const All systems reviewed & are unremarkable except as noted in HPI and below Physical Exam Vital Signs: Last Vital Signs Pulse 75 09/18/23 10:28 BP 117/55 L 09/18/23 10:28 BMI result Body Mass Index 53.7 Const General: healthy appearing and no acute distress Nutritional Appearance: obese Orientation/consciousness: patient oriented x3 Limitations: language barrier HEENT Head: Yes normal to inspection Ears: hearing grossly normal bilaterally Eyes Sclerae: sclerae normal Pupils: Equal, round and reactive pupils present Neck Neck: Yes normal visual inspection Chest Chest palpation & inspection: normal inspection of the chest Resp Effort & Inspection: normal respiratory effort Auscultation: clear to auscultation bilaterally Cardio Palpation: normal PMI Rate: regular rate Rhythm: regular rhythm Heart sounds: S1 normal heart sound present, S2 normal heart sound present and no murmurs GI Palpation (GI): Soft to palpation, nontender and No hepatosplenomegaly present Auscultation: normal bowel sounds Rectal Exam - Male: Yes deferred Skin General skin exam: no rashes or lesions noted Neuro General: patient oriented x3, gait normal and moves all extremities Cranial nerves: Yes Equal, round and reactive pupils present Psych Appearance: grossly normal Mental Status: mental status grossly normal Assessment & Plan Assessment & Plan (1) GERD (gastroesophageal reflux disease): Code(s): K21.9 - Gastro-esophageal reflux disease without esophagitis (2) Constipation: Code(s): K59.00 - Constipation, unspecified (3) Hemorrhoids: Code(s): K64.9 - Unspecified hemorrhoids (4) Vitamin B 12 deficiency: Code(s): E53.8 - Deficiency of other specified B group vitamins (5) Vitamin D deficiency: Code(s): E55.9 - Vitamin D deficiency, unspecified (6) Abdominal bloating: Code(s): R14.0 - Abdominal distension (gaseous) Plan 43 year old morbidly obese male with htn, hyperlipidemia, Type 2 DM, asthma, SHERRI on CPAP with iron def anemia without significant upper or lower GI symptoms. Pt is at average risk for colon cancer (positive FH of colon cancer in his mother at an advanced age). Evaluation with EGD and Colonoscopy was completed and findings as noted above Morbid (severe) obesity due to excess calories Recent labs show resolution of anemia.? Patient was advised to stop taking iron supplements and have repeat labs in 3 months. Notes: Not planning to FU with bariatric surgery due to anxiety about having Gastric Bypass surgery at present. Patient was advised to continue working on losing weight. 04/11/23 colonoscopy was performed by Dr. Lopez and results as noted above.? Repeat Colonoscopy in 3-4 years due to prior hx of polyps and fair right sided prep or earlier if clinically indicated (Pt was advised to bring his CPAP machine for the procedure (he has anxiety about anesthesia and does not want to be intubated since his had complications from GA) 09/18/23 Patient last week he was with Nauseas and abdominal pain - thinks he had a virus. Today he complain about having smelly burping with some strong taste and odor and would have diarrhea in the evening - 2-3 episodes in the past few months. Denies recent changes in his diet. Usually has rice, beans with either chicken or pork. Pt has lost 40 lbs over the past 4-5 years Pt was advised to schedule an Abd US and increase Famotidine to twice a day. Follow-up appointment in the GI clinic in 3 months Orders: Orders US abdomen complete Today R14.0 - Abdominal distension (gaseous) Medications: Changed From famotidine 20 mg PO BEDTIME 90 days 90 tabs 3RF K21.9 - Gastro-esophageal reflux disease without esophagitis To famotidine 20 mg PO BID 90 days 180 tabs 3RF K21.9 - Gastro-esophageal reflux disease without esophagitis Coding Level of Care Code Est Pt Level 4 (17419) Diagnoses GERD (gastroesophageal reflux disease) K21.9 Constipation K59.00 Hemorrhoids K64.9 Vitamin B 12 deficiency E53.8 Vitamin D deficiency E55.9 Abdominal bloating R14.0 Time Spent (min) 22
[2023-09-18 10:28] VITALS: BP 117/55; PULSE 75; BMI 53.7
== END 2023-09-18 10:54 | disposition home or self-care (01) ==
PROVIDERS: PCP Internal Medicine; Visit Provider Internal Medicine Gastroenterology
DX: K21.9 Gastro-esophageal reflux disease without esophagitis (principal); K59.00 Constipation, unspecified; K64.9 Unspecified hemorrhoids; E53.8 Deficiency of other specified B group vitamins; E55.9 Vitamin D deficiency, unspecified; R14.0 Abdominal distension (gaseous)
CPT/HCPCS: 99214

== ENCOUNTER → 2023-09-18 10:17 | Outpatient (BNVA) | payer OTHER, SELFPAY | PROVIDERS: PCP Internal Medicine; Visit Provider Internal Medicine Gastroenterology | DX: K59.00 Constipation, unspecified (principal); K21.9 Gastro-esophageal reflux disease without esophagitis; K64.9 Unspecified hemorrhoids; E53.8 Deficiency of other specified B group vitamins; E55.9 Vitamin D deficiency, unspecified; R14.0 Abdominal distension (gaseous) | CPT/HCPCS: 99212 ==

== ENCOUNTER 2023-10-09 09:04 | Outpatient (REF) | payer OTHER, SELFPAY ==
--- NOTE | ~2023-10-09 | US_ITS ---
EXAMINATION: US ABDOMEN COMPLETE CLINICAL INFORMATION: Abdominal distension (gaseous). COMPARISON: CT abdomen and pelvis 05/27/2019. Ultrasound abdomen limited 05/07/2017. TECHNIQUE: Real-time imaging of the abdominal viscera. FINDINGS: PANCREAS: Largely obscured by overlapping bowel gas. ABDOMINAL AORTA: The proximal, mid, and distal segments are normal in caliber. INFERIOR VENA CAVA: Visualized portions are normal. LIVER: There is hepatomegaly, with a longitudinal span of 22.0 cm. The liver contour is normal. There is diffuse increased liver parenchymal echogenicity. No focal hepatic lesion. There is no intrahepatic biliary duct dilatation seen. GALLBLADDER: Normal. The gallbladder is physiologically distended without evidence of stones, sludge, polyps, wall thickening or pericholecystic fluid. COMMON BILE DUCT: Normal in caliber measuring 0.3 cm in diameter. RIGHT KIDNEY: Normal. No hydronephrosis. No renal calculi or focal parenchymal lesions. The kidney measures 13.0 cm in maximum dimension. LEFT KIDNEY: Normal. No hydronephrosis. No renal calculi or focal parenchymal lesions. The kidney measures 12.8 cm in maximum dimension. SPLEEN: No focal finding. The spleen measures 13.1 cm in maximum dimension. FREE FLUID: None. US/US abdomen complete IMPRESSION: 1. There is hepatosplenomegaly. 2. There is generalized increase in hepatic echotexture, consistent with fatty infiltration or hepatocellular disease. Please correlate clinically. No focal hepatic mass or intrahepatic biliary dilatation is seen. 3. Technically limited ultrasound examination of the pancreas.
== END 2023-10-09 09:05 | disposition home or self-care (01) ==
LOC: HO.US 09:04
PROVIDERS: PCP Internal Medicine; Visit Provider Internal Medicine Gastroenterology
DX: R14.0 Abdominal distension (gaseous) (principal)
CPT/HCPCS: 76700

== ENCOUNTER 2023-10-20 14:52 | Outpatient (AMB) | payer OTHER, SELFPAY ==
--- NOTE | 2023-10-20 15:10 | A.OFFVIS_ITS ---
Intake Vital Signs 10/20/23 15:12 Height 5 ft 9 in Weight 360 lb BMI 53.2 BP 132/72 Blood Pressure Location Rt brachial Position Sitting Respiration 16 Pulse 74 Pulse Source Pulse Oximeter Pulse Oximetry (%) 96 Oxygen Delivery Method Room Air Intake Visit Reasons: INP-Migraines- CONF Intake Note: Pt presents for new pt evaluation for migraines. Pt reports he has been seen twice in ED for headaches that can last up to a month. He states they are temporal headaches and the pain is constant. Allergies Flexeril Adverse Reaction (Mild, Verified 10/23/23 10:11) nausea, sleepiness glipizide Adverse Reaction (Mild, Verified 10/23/23 10:11) hypoglycemia Medication List - Last Reconciled 10/20/23 by SERGE Chandra albuterol sulfate 2.5 mg (3 mL) inhalation Q8H PRN alprazolam 0.25 - 0.5 mg orally 1 tab 30 minutes prior to MRI, may repeat ix's 1; 1 day atorvastatin 10 mg PO BEDTIME azelastine 2 sprays intranasal BID 30 days betamethasone dipropionate 0.05% 1 appl topical BID PRN cane As directed HEAVY DUTY cholecalciferol (vitamin D3) 25 mcg PO DAILY clonazepam 0.5 mg PO DAILY [cpap As directed] [detachable shower Head As directed] doxepin 75 mg PO BEDTIME dulaglutide 3 mg (0.5 mL) subcut QWEEK 30 days duloxetine 30 mg PO QAM empagliflozin (Jardiance) 25 mg PO QAM famotidine 20 mg PO BID 90 days flash glucose scanning reader (FreeStyle Spenser 2 Elmer) As directed flash glucose sensor (FreeStyle Spenser 2 Sensor kit) every 2 weeks fluocinonide 0.05% 1 appl topical BID 7 days fluticasone propion-salmeterol 232-14 mcg/actuation 1 inh inhalation BID fluticasone propionate 50 mcg/actuation 2 sprays intranasal DAILY 30 days gabapentin 600 mg (2 x 300 mg) PO BEDTIME hydrocortisone 2.5% (Proctosol HC) 1 appl VT BID-QID PRN hydroxyzine HCl 25 mg PO TID ibuprofen 600 mg PO Q8H PRN insulin glargine (Lantus Solostar U-100 Insulin) 30 units (0.3 mL) subcut QPM irbesartan-hydrochlorothiazide 150-12.5 mg 1 tab PO DAILY lancets As directed metformin 1,000 mg (2 x 500 mg) PO BID methocarbamol 500 mg PO TID PRN montelukast (Singulair) 10 mg PO BEDTIME 30 days pen needle, diabetic (BD Ultra-Fine Yanely Pen Needle) 1 ea subcut DAILY polyethylene glycol 3350 (Miralax) 17 grams PO DAILY 1 day [Quad cane As directed] rizatriptan 5 - 10 mg (0.5 - 1 x 10 mg) PO Q2H PRN 21 days roflumilast (Daliresp) 250 mcg PO DAILY 30 days sennosides-docusate sodium 8.6-50 mg (Senna-S) 2 tab-caps (2 x 8.6-50 mg) PO BEDTIME 30 days Shower Chair As directed tramadol 50 mg PO Q8H PRN 30 days trazodone 100 - 200 mg (1 - 2 x 100 mg) PO BEDTIME triamcinolone acetonide 0.5% 1 appl topical DAILY 15 days HPI HPI Comments History of Present Illness Details Right-handed 43-yr-old male presents for new pt evaluation of headache. Pt reports he started having headache approx 1.5 years ago. He had had 3 headcahe attacks, which lasted apporx 1 month, the last attack lasted the radha gest. Pt was told the headaches are migraine. He denies any preceding infections or accidents. Pt reports PMH is significant for: diabetes, MARK ANTHONY, psoriasis, vit B12 def, JESUS MANUEL, obesity, HTN, HLD, vit d def, asthma, SHERRI on CPAP. Pertinent denials include: recent weight changes, vision changes, history of neck injuries, neck pain, leg cramps, h/o seizure d/o, clotting d/o. Headache questionnaire: Previous work-up? Head CT- unremarkable. Typical headache characteristics: Prodrome symptoms? None Aura? Denies Pain intensity? 4-5/10 Location, quality, characteristics? Pressure in Bilateral eyes and frontal/temporal regions. Associated symptoms? photopnphobia, phonophobia, difficulty concentrating, activity intolerance. Focal weakness, Parethesias, Autonomic s/s? Denies red, watery eyes, rhin orhea, facial weakness, facial redness. Postdrome? Unsure Triggers? No known triggers Any positional, valsalva, exertional, sexual activity triggers? denies Time of day? Wakes up w/ the headache Duration and Frequency? Has had 3 attacks, each lasting 1 month. How does headache impact your life? He is able to work, but not to his full capacity. Current acute medication use/interventions: Excedrin and Sumatriptan 50mg- not very effective. Benadryl- helps some. Current preventative medication use: None Non-pharmacological interventions: ice helps Family history of migraine or other headache disorder? Denies PFSH Medical History Pharyngitis Migraine Vitamin B12 deficiency Obesity due to excess calories Peripheral neuropathy Obesity History of colon polyps Asthma Bronchitis Depression Back pain with sciatica Proteinuria Hemorrhoids SHERRI (obstructive sleep apnea) Hyperlipidemia LDL goal <100 Essential hypertension Vitamin D deficiency Surgical History Hx of colonoscopy History of esophagogastroduodenoscopy (EGD) Loculated pleural effusion Loculated empyema Family History Father Cirrhosis Diabetes Mother Colon cancer, Onset Age: 83 Brother Prostate cancer CVA (cerebral vascular accident) Social History Household Members: Family Housing: Apartment Are you a primary medicare nurse to a significant other at home: No Do you presently have visiting nurse or other home services: No Alcohol intake: current Alcohol intake frequency: does not drink Patient Tobacco Use Status: Former Tobacco user Quit Date: 2016 Tobacco use type: Cigarette Years Smoked: 6- stopped 2016 e-Cigarette/Vaping Use: Never Used Second Hand Smoke Exposure: No service: No Current occupational status: disabled Cognitive needs: Yes (cane) Hearing needs: No Vision needs: Yes (glasses) Physical Exam Vital Signs: Last Vital Signs Pulse 74 10/20/23 15:12 Resp 16 10/20/23 15:12 BP 132/72 10/20/23 15:12 Pulse Ox 96 10/20/23 15:12 Oxygen Delivery Method Room Air 10/20/23 15:12 BMI result Body Mass Index 53.2 Const Orientation/consciousness: patient oriented x3 HEENT Other: No palpable scalp tenderness. Head: Yes normocephalic Resp Effort & Inspection: normal respiratory effort and able to speak in complete sentences Neuro Other: Mildly limited cervical ROM w/ negative Spurling test. DTRs dulled throughout. General: patient oriented x3 Cranial nerves: Yes CN's II-XII intact bilaterally Cognition (Neuro): normal cognition Gait exam (Neuro): Normal gait present Motor exam (neuro): 5/5 motor strength present throughout Coordination: [id number] test normal, tandem gait normal and Romberg test negative Pupils: Normal pupillary reactivity/response: bilateral Psych Appearance: grossly normal Mental Status: mental status grossly normal Speech and movement: Normal speech and movement present Affect: normal affect Attitude: cooperative Thought process: Normal thought process present Assessment & Plan Assessment & Plan (1) New onset headache: Code(s): R51.9 - Headache, unspecified (2) Generalized anxiety disorder: Code(s): F41.1 - Generalized anxiety disorder (3) Obesity due to excess calories: Code(s): E66.09 - Other obesity due to excess calories Qualifiers: Body mass index: BMI 50.0-59.9 Obesity classification: adult class 3 (BMI >= 40) Serious obesity comorbidity presence: with serious comorbidity Qualified Code(s): E66.01 - Morbid (severe) obesity due to excess calories; Z68 .43 - Body mass index [BMI] 50.0-59.9, adult Plan Pt advised to undergo Brain MRI w/wo to assess for intracranial secondary etiologies of new headache that is atypical for migraine headache (new onset headache w/ 3 attacks lasting approx 1 month each would not be typical for new onset migraine). Patient requests Open MRI w/ pre-medication for claustrophobia. Check labs. For overall headache management: Discussed importance of good self-care, including but not limited to maintaining a healthy diet, adequate fluid intake, adequate sleep, and engaging in regular physical activity. For headache triggers: Track headaches. For acute headache treatment: Discussed importance of taking acute medications at the first sign of headache. Trial Rizatriptan prn. May take w/ Tylenol or Ibuprofen or Naproxen. Hold Sumatriptan- not fully effective, Hold Excedrin. Previous acute migraine medication trials: Indomethacin prn- not effective. Acute migraine medication contraindications: None at this time. For headache prevention medication: Hold starting preventative tx at this time. Pt advised to notify clinic if he develops any headache s/s- and will reconsider. Previous migraine prevention medication trials: None Migraine prevention medication contraindications: BBs d/t asthma dx. Follow-up upon review of above and in clinic follow-up in 4-6 months or sooner prn. Orders: Orders MR head/brain wo/w con 10/20/23 R51.9 - Headache, unspecified, I10 - Essential (primary) hypertension, E78.5 - Hyperlipidemia, unspecified PATY Reflex Titer and Pattern 10/23/23 R51.9 - Headache, unspecified, E53.8 - Deficiency of other specified B group vitamins, E11.65 - Type 2 diabetes mellitus with hyperglycemia, E66.9 - Obesity, unspecified, D50.9 - Iron deficiency anemia, unspecified, I10 - Essential (primary) hypertension, E55.9 - Vitamin D deficiency, unspecified Rheumatoid Factor 10/23/23 R51.9 - Headache, unspecified, E53.8 - Deficiency of other specified B group vitamins, E11.65 - Type 2 diabetes mellitus with hyperglycemia, E66.9 - Obesity, unspecified, D50.9 - Iron deficiency anemia, unspecified, I10 - Essential (primary) hypertension, E55.9 - Vitamin D deficiency, unspecified Vitamin A 10/23/23 R51.9 - Headache, unspecified, E53.8 - Deficiency of other specified B group vitamins, E11.65 - Type 2 diabetes mellitus with hyperglycemia, E66.9 - Obesity, unspecified, D50.9 - Iron deficiency anemia, unspecified, I10 - Essential (primary) hypertension, E55.9 - Vitamin D deficiency, unspecified Vitamin B1 10/23/23 R51.9 - Headache, unspecified, E53.8 - Deficiency of other specified B group vitamins, E11.65 - Type 2 diabetes mellitus with hyperglycemia, E66.9 - Obesity, unspecified, D50.9 - Iron deficiency anemia, unspecified, I10 - Essential (primary) hypertension, E55.9 - Vitamin D deficiency, unspecified Vitamin B2 (Riboflavin) 10/23/23 R51.9 - Headache, unspecified, E53.8 - Deficiency of other specified B group vitamins, E11.65 - Type 2 diabetes mellitus with hyperglycemia, E66.9 - Obesity, unspecified, D50.9 - Iron deficiency anemia, unspecified, I10 - Essential (primary) hypertension, E55.9 - Vitamin D deficiency, unspecified Vitamin B3 (Niacin) 10/23/23 R51.9 - Headache, unspecified, E53.8 - Deficiency of other specified B group vitamins, E11.65 - Type 2 diabetes mellitus with hyperglycemia, E66.9 - Obesity, unspecified, D50.9 - Iron deficiency anemia, unspecified, I10 - Essential (primary) hypertension, E55.9 - Vitamin D deficiency, unspecified Vitamin B5 (Pantothenic Acid) 10/23/23 R51.9 - Headache, unspecified, E53.8 - Deficiency of other specified B group vitamins, E11.65 - Type 2 diabetes mellitus with hyperglycemia, E66.9 - Obesity, unspecified, D50.9 - Iron deficiency anemia, unspecified, I10 - Essential (primary) hypertension, E55.9 - Vitamin D deficiency, unspecified Vitamin E 10/23/23 R51.9 - Headache, unspecified, E53.8 - Deficiency of other specified B group vitamins, E11.65 - Type 2 diabetes mellitus with hyperglycemia, E66.9 - Obesity, unspecified, D50.9 - Iron deficiency anemia, unspecified, I10 - Essential (primary) hypertension, E55.9 - Vitamin D deficiency, unspecified CRP High Sensitivity 10/23/23 R51.9 - Headache, unspecified, E53.8 - Deficiency of other specified B group vitamins, E11.65 - Type 2 diabetes mellitus with hyperglycemia, E66.9 - Obesity, unspecified, D50.9 - Iron deficiency anemia, unspecified, I10 - Essential (primary) hypertension, E55.9 - Vitamin D deficiency, unspecified Erythrocyte Sedimentation Rate 10/23/23 R51.9 - Headache, unspecified, E53.8 - Deficiency of other specified B group vitamins, E11.65 - Type 2 diabetes mellitus with hyperglycemia, E66.9 - Obesity, unspecified, D50.9 - Iron deficiency anemia, unspecified, I10 - Essential (primary) hypertension, E55.9 - Vitamin D deficiency, unspecified Vitamin B6 10/23/23 R51.9 - Headache, unspecified, E53.8 - Deficiency of other specified B group vitamins, E11.65 - Type 2 diabetes mellitus with hypergly cemia, E66.9 - Obesity, unspecified, D50.9 - Iron deficiency anemia, unspecified, I10 - Essential (primary) hypertension, E55.9 - Vitamin D deficiency, unspecified Vitamin C 10/23/23 R51.9 - Headache, unspecified, E53.8 - Deficiency of other specified B group vitamins, E11.65 - Type 2 diabetes mellitus with hyperglycemia, E66.9 - Obesity, unspecified, D50.9 - Iron deficiency anemia, unspecified, I10 - Essential (primary) hypertension, E55.9 - Vitamin D deficiency, unspecified Vitamin D 25-OH (D2 and D3) 10/23/23 R51.9 - Headache, unspecified, E53.8 - Deficiency of other specified B group vitamins, E11.65 - Type 2 diabetes mellitus with hyperglycemia, E66.9 - Obesity, unspecified, D50.9 - Iron deficiency anemia, unspecified, I10 - Essential (primary) hypertension, E55.9 - Vitamin D deficiency, unspecified Vitamin K1 10/23/23 R51.9 - Headache, unspecified, E53.8 - Deficiency of other specified B group vitamins, E11.65 - Type 2 diabetes mellitus with hyperglycemia, E66.9 - Obesity, unspecified, D50.9 - Iron deficiency anemia, unspecified, I10 - Essential (primary) hypertension, E55.9 - Vitamin D deficienc y, unspecified Medications: New alprazolam 0.25 - 0.5 mg orally 1 tab 30 minutes prior to MRI, november repeat ix's 1; 4 tabs 0RF 1 day rizatriptan max 2 tabs per day or 4 tabs per week 5 - 10 mg (0.5 - 1 x 10 mg) PO Q2H PRN 12 tabs 3RF migraine headache 21 days Discontinued roflumilast Discontinued Reason: Doctor's Order 250 mcg PO DAILY 30 days 30 tabs 11RF J44.9 - Chronic obstructive pulmonary disease, unspecified Coding Level of Care Code New Pt Level 4 (88144) Diagnoses New onset headache R51.9 Generalized anxiety disorder F41.1 Class 3 severe obesity due to excess calories with serious comorbidity and body mass index (BMI) of 50.0 to 59.9 in adult E66.01; Z68.43 Body mass index: BMI 50.0-59.9 Obesity classification: adult class 3 (BMI >= 40) Serious obesity comorbidity presence: with serious comorbidity
[2023-10-20 15:12] VITALS: BP 132/72; PULSE 74; RESP 16; O2SAT 96; BMI 53.2
== END 2023-10-20 16:35 | disposition home or self-care (01) ==
PROVIDERS: PCP Internal Medicine; Visit Provider Nurse Practitioner Family
DX: R51.9 Headache, unspecified (principal); F41.1 Generalized anxiety disorder; E66.01 Morbid (severe) obesity due to excess calories; Z68.43 Body mass index [BMI] 50.0-59.9, adult
CPT/HCPCS: 99204

== ENCOUNTER → 2023-10-20 14:52 | Outpatient (BNVA) | payer OTHER, SELFPAY | PROVIDERS: PCP Internal Medicine; Visit Provider Nurse Practitioner Family | DX: R51.9 Headache, unspecified (principal); F41.1 Generalized anxiety disorder; E66.09 Other obesity due to excess calories; Z68.43 Body mass index [BMI] 50.0-59.9, adult | CPT/HCPCS: 99202 ==

== ENCOUNTER 2023-10-23 09:35 | Outpatient (REF) | payer OTHER, SELFPAY ==
[2023-10-23 10:52] LABS: Erythrocyte Sedimentation Rate 9 MM/HR (0-15)
[2023-10-23 11:03] LABS: Rheumatoid Factor < 13.0 IU/mL (<15.0)
[2023-10-25 17:13] LABS: Anti Nuclear Antibody Screen NEGATIVE (NEGATIVE)
[2023-10-28 02:18] LABS: Vitamin K1 195 pg/mL (130-1500)
[2023-10-28 16:14] LABS: Nicotinamide <20 ng/mL; Vit B3 - Nicotinic Acid <20 ng/mL
[2023-10-28 16:39] LABS: Alpha-Tocopherol 9.8 mg/L (5.7-19.9); Beta-Gamma Tocopherol 1.8 mg/L (<=4.3)
[2023-10-28 17:02] LABS: Vitamin B2 (Riboflavin) 39.1 nmol/L (6.2-39.0)
[2023-10-28 18:49] LABS: Vitamin B5 (Pantothenic Acid) <40 ng/mL (<275)
[2023-10-28 20:43] LABS: Vitamin A 43 mcg/dL (38-98)
[2023-10-29 15:59] LABS: Vitamin B6 7.8 ng/mL (2.1-21.7)
[2023-10-30 11:03] LABS: Vitamin C 0.8 mg/dL (0.2-2.1)
[2023-10-30 14:37] LABS: Vitamin B1 12 nmol/L (8-30)
[2023-11-02 14:39] LABS: Vitamin D 25-OH, D2 <4 ng/mL; Vitamin D 25-OH, D3 33 ng/mL; Vitamin D 25-OH, Total 33 ng/mL (30-100)
== END 2023-10-23 09:36 | disposition home or self-care (01) ==
LOC: HO.LAB 09:35
PROVIDERS: PCP Internal Medicine; Visit Provider Nurse Practitioner Family
DX: E55.9 Vitamin D deficiency, unspecified (principal); D50.8 Other iron deficiency anemias; K64.9 Unspecified hemorrhoids; K52.9 Noninfective gastroenteritis and colitis, unspecified; K59.00 Constipation, unspecified; K21.9 Gastro-esophageal reflux disease without esophagitis; R14.0 Abdominal distension (gaseous); R51.9 Headache, unspecified; E53.8 Deficiency of other specified B group vitamins; E11.65 Type 2 diabetes mellitus with hyperglycemia; E66.9 Obesity, unspecified; D50.9 Iron deficiency anemia, unspecified; I10 Essential (primary) hypertension; Z79.899 Other long term (current) drug therapy
CPT/HCPCS: 36415; 82180; 82306; 84207; 84252; 84425; 84446; 84590; 84591; 84597; 85652; 86038; 86141; 86431; 99212

== ENCOUNTER 2023-10-23 10:04 | Outpatient (AMB) | payer OTHER, SELFPAY ==
--- NOTE | 2023-10-23 10:12 | MHC.OFFVIS ---
Intake Vital Signs 10/23/23 10:13 Height 5 ft 9 in Weight 352 lb BMI 52.0 BP 116/61 Blood Pressure Location Lt brachial Position Sitting Pulse 83 Intake Visit Reasons: 6 month f/u Intake Note: Patient follow up for abdominal bloating and US results. Patient cc: a lot of burping with diarrhea every week and he is loosing weight, abdominal discomfort with bloating, denies any other GI issues. Retail Stock Clerk Required: Yes Retail Stock Clerk Name: [facility] interpeter Accompanied by: Self / Same As Patient Allergies Flexeril Adverse Reaction (Mild, Verified 10/23/23 10:11) nausea, sleepiness glipizide Adverse Reaction (Mild, Verified 10/23/23 10:11) hypoglycemia Medication List - Last Reconciled 10/23/23 by Janell Hernandez MD albuterol sulfate 2.5 mg (3 mL) inhalation Q8H PRN alprazolam 0.25 - 0.5 mg orally 1 tab 30 minutes prior to MRI, november repeat ix's 1; 1 day atorvastatin 10 mg PO BEDTIME azelastine 2 sprays intranasal BID 30 days betamethasone dipropionate 0.05% 1 appl topical BID PRN cane As directed HEAVY DUTY cholecalciferol (vitamin D3) 25 mcg PO DAILY clonazepam 0.5 mg PO DAILY [cpap As directed] [detachable shower Head As directed] doxepin 75 mg PO BEDTIME dulaglutide 3 mg (0.5 mL) subcut QWEEK 30 days duloxetine 30 mg PO QAM empagliflozin (Jardiance) 25 mg PO QAM famotidine 20 mg PO BID 90 days flash glucose scanning reader (FreeStyle Spenser 2 Meredith) As directed flash glucose sensor (FreeStyle Spenser 2 Sensor kit) every 2 weeks fluocinonide 0.05% 1 appl topical BID 7 days fluticasone propion-salmeterol 232-14 mcg/actuation 1 inh inhalation BID fluticasone propionate 50 mcg/actuation 2 sprays intranasal DAILY 30 days gabapentin 600 mg (2 x 300 mg) PO BEDTIME hydrocortisone 2.5% (Proctosol HC) 1 appl RI BID-QID PRN hydroxyzine HCl 25 mg PO TID ibuprofen 600 mg PO Q8H PRN insulin glargine (Lantus Solostar U-100 Insulin) 30 units (0.3 mL) subcut QPM irbesartan-hydrochlorothiazide 150-12.5 mg 1 tab PO DAILY lancets As directed metformin 1,000 mg (2 x 500 mg) PO BID methocarbamol 500 mg PO TID PRN montelukast (Singulair) 10 mg PO BEDTIME 30 days pen needle, diabetic (BD Ultra-Fine Yanely Pen Needle) 1 ea subcut DAILY polyethylene glycol 3350 (Miralax) 17 grams PO DAILY 1 day [Quad cane As directed] rizatriptan 5 - 10 mg (0.5 - 1 x 10 mg) PO Q2H PRN 21 days roflumilast (Daliresp) 250 mcg PO DAILY 30 days sennosides-docusate sodium 8.6-50 mg (Senna-S) 2 tab-caps (2 x 8.6-50 mg) PO BEDTIME 30 days Shower Chair As directed tramadol 50 mg PO Q8H PRN 30 days trazodone 100 - 200 mg (1 - 2 x 100 mg) PO BEDTIME triamcinolone acetonide 0.5% 1 appl topical DAILY 15 days HPI 6 month f/u HPI Details GI CLINIC VISIT FOR THIS 43-YEAR-OLD MONGOLIAN-SPEAKING MALE FOR FOLLOW-UP OF ABD BLOATING AND DIARRHEA. PATIENT HAD IRON-DEFICIENCY ANEMIA WHICH HAS RESOLVED.. ? CHRONIC ILLNESSES:?He has morbid obesity, DM, asthma and SHERRI. He is planning to do weight management surgery. ? He had to go to [place] and now has to start all over with Bariatric Surgery Clinic. ?LABS IN [facility]: On 08/16/19 REVIEWED showed mild anemia with microcytosis and hypochromia, nl plt count and RDW. INR was 1.4 in 07/06, ? 05/18/19 Iron studies showed iron of 38, TIBC 328, iron sat 12%, ? Past labs showed Negative celiac panel and Normal LFTs ? IMAGING STUDIES:?Abd CT on 05/27/19 showed: ? No evidence for acute abdominal or pelvic inflammatory or infectious processes. ? Grade 1 anterolisthesis of L5 in relation to S1 secondary to bilateral L5 pars defects. ?ENDOSCOPIC STUDIES: 04/11/23 COL[address] WAS PERORMED BY [address] LOPEZ: internal hemorrhoids Plan: High fiber diet leaflet Avoid straining at stool, epsom salts and sitz bath, anusol supps or cream Repeat Colonoscopy in 3-4 years due to prior hx of polyps and fair right sided prep or earlier if clinically indicated 07/23/2019 EGD AND COLONOSCOPY SHOWED:? STOMACH: Mild gastritis with erosions? DUODENUM: Normal ? Colonoscopy Findings: ? Four polyps removed ? Small hemorrhoids on retroflexed exam. ? Plan:? Repeat Colonoscopy interval based on path results - in 3-5 years if ? polyps are adenomatous and due to positive FH of colon polyps and cancer. ?BIOPSIES SHOWED: ? A. Stomach, biopsies: Gastric mucosa with mild chronic, inactive gastritis; ? negative for Helicobacter pylori organisms; negative for intestinal metaplasia; negative for dysplasia. ? B. Small bowel, biopsies: Small bowel mucosa within normal limits; no active inflammation; no granulomas; negative for malignancy. ? C. Colon, transverse polyp, polypectomy: Fragments of tubular adenoma. ? D. Colon, descending polyps, polypectomy: Fragments of tubular adenoma and fragments of hyperplastic polyp. ? E. Rectum, polyp, polypectomy: Fragments of tubular adenoma. ? LETTER WAS SENT TO THE PATIENT ADVISING REPEAT COLONOSCOPY IN 3 YEARS. ? TODAY'S VISIT [facility] Cover CreaserAlbertina Patient follow up for abdominal bloating and US results. Patient cc: a lot of burping with diarrhea every week and he is loosing weight, abdominal discomfort with bloating, denies any other GI issues. Having symptoms of bloating and diarrhea for a week. Has diarrhea in the afternoon and is better the next morning. Stopped eating meat and pork and taking salads. Tried other foods and continues to have the same symptoms Wakes up with bloating Has a lot of burping. After 3-4 hrs he notes watery diarrhea 6-7 times in a day Takes coffee in the morning if he does not have bloating. Takes cheese once a week and ice cream once a month. Denies diarrhea with milk products. Went to [place] in Jun and symptoms started around then - unable to recall if symptoms started before the trip or after. 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 Patient last week he was with Nauseas and abdominal pain - thinks he had a virus. Today he complain about having smelly burping with some strong taste and odor and would have diarrhea in the evening - 2-3 episodes in the past few months. Denies recent changes in his diet. Usually has rice, beans with either chicken or pork. Pt has lost 50 lbs over the past 4-5 years ? Colonoscopy results reviewed and FU colon advised in 3-4 yrs Having a OSMAN for the past 1 month. Denies abd pain, constipation or diarrhea, Stool are dark due to oral iron Lab results reviewed - anemia has improved. Has been doing well. ? Not planning to FU with bariatric surgery due to anxiety about having Gastric Bypass surgery at present. ? Taking iron pills once a day. ? Stool is dark due to iron - takes an iron tablet once a day. ? Patient denies rectal bleeding ? Mom had colon cancer at age 83 yrs. ? A brother and a sister had colon polyps removed in their 50's. ? Weight gain of 30 lbs over the past year. ?PAST GI HISTORY BY REVIEW OF MEDICAL RECORDS: Seen on 09/01/19: ? Assessments ? 1. Iron deficiency anemia, unspecified iron deficiency anemia type - D50.9 (Primary) ? 2. History of adenomatous polyp of colon - Z86.010 ? 3. Family history of colon cancer - Z80.0 ? 4. Body mass index (BMI) 60.0-69.9, adult - Z68.44 ? 5. Morbid (severe) obesity due to excess calories - E66.01 ? 6. Chronic gastritis without bleeding, unspecified gastritis type - K29.50 ? 39 year old morbidly obese male with htn, hyperlipidemia, Type 2 DM, asthma, SHERRI on CPAP with iron def anemia without significant upper of lower GI symptoms. Pt is at average risk for colon cancer (positive FH of colon cancer in his mother at an advanced age). Evaluation with EGD and Colonoscopy has completed and findings as noted above ? Morbid (severe) obesity due to excess calories ? Notes: Pt is scheduled to see the Glue Mounter Operator on 12/10/19 and plans to return to Bariatric Surgery clinic after endoscopic evaluation is completed. ? Treatment ? 1. Iron deficiency anemia, unspecified iron deficiency anemia type ? LAB: LIVER PROFILE ? LAB: FERRITIN ? LAB: CBC w/o DIFF ? LAB: PROTHROMBIN TIME (PT, INR) ? 2. History of adenomatous polyp of colon ? Notes: 07/23/19 three to four adenomatous polyps were removed during colonoscopy and repeat colonoscopy is advised in 3 yrs - action set in [facility]W. ? 3. Chronic gastritis without bleeding, unspecified gastritis type ? Start Famotidine Tablet, 20 mg, 1 tablet at bedtime, Orally, once a day, 30 days, 30 Tablet, Refills 3 ? Follow Up ? 3 Months- have labs checked 1 week before appt (Reason: FU of iorn def anemia and obesity PFSH Medical History Pharyngitis Migraine Vitamin B12 deficiency Obesity due to excess calories Peripheral neuropathy Obesity History of colon polyps Asthma Bronchitis Depression Back pain with sciatica Proteinuria Hemorrhoids SHERRI (obstructive sleep apnea) Hyperlipidemia LDL goal <100 Essential hypertension Vitamin D deficiency Surgical History Hx of colonoscopy History of esophagogastroduodenoscopy (EGD) Loculated pleural effusion Loculated empyema Family History Father Cirrhosis Diabetes Mother Colon cancer, Onset Age: 83 Brother Prostate cancer CVA (cerebral vascular accident) Social History Household Members: Family Housing: Apartment Are you a primary aged or disabled care worker to a significant other at home: No Do you presently have visiting nurse or other home services: No Alcohol intake: current Alcohol intake frequency: does not drink Patient Tobacco Use Status: Former Tobacco user Quit Date: 2016 Tobacco use type: Cigarette Years Smoked: 6- stopped 2016 e-Cigarette/Vaping Use: Never Used Second Hand Smoke Exposure: No service: No Current occupational status: disabled Cognitive needs: Yes (cane) Hearing needs: No Vision needs: Yes (glasses) Review of Systems Const All systems reviewed & are unremarkable except as noted in HPI and below Physical Exam Vital Signs: Last Vital Signs Pulse 83 10/23/23 10:13 BP 116/61 10/23/23 10:13 BMI result Body Mass Index 52.0 Const General: no acute distress Nutritional Appearance: obese Orientation/consciousness: patient oriented x3 Limitations: language barrier HEENT Head: Yes normal to inspection Ears: hearing grossly normal bilaterally Eyes Sclerae: sclerae normal Pupils: Equal, round and reactive pupils present Neck Neck: Yes normal visual inspection Chest Chest palpation & inspection: normal inspection of the chest Resp Effort & Inspection: normal respiratory effort Auscultation: clear to auscultation bilaterally Cardio Palpation: normal PMI Rate: regular rate Rhythm: regular rhythm Heart sounds: S1 normal heart sound present, S2 normal heart sound present and no murmurs GI Palpation (GI): Soft to palpation, nontender and No hepatosplenomegaly present Auscultation: normal bowel sounds Rectal Exam - Male: Yes deferred Skin General skin exam: no rashes or lesions noted Neuro General: patient oriented x3, gait normal and moves all extremities Cranial nerves: Yes Equal, round and reactive pupils present Psych Appearance: grossly normal Mental Status: mental status grossly normal Assessment & Plan Assessment & Plan (1) Vitamin D deficiency: Code(s): E55.9 - Vitamin D deficiency, unspecified (2) Iron deficiency anemia: Code(s): D50.9 - Iron deficiency anemia, unspecified Qualifiers: Iron deficiency anemia type: inadequate dietary iron intake Qualified Code(s): D50.8 - Other iron deficiency anemias (3) Vitamin B 12 deficiency: Code(s): E53.8 - Deficiency of other specified B group vitamins (4) Hemorrhoids: Code(s): K64.9 - Unspecified hemorrhoids (5) Constipation: Code(s): K59.00 - Constipation, unspecified (6) GERD (gastroesophageal reflux disease): Code(s): K21.9 - Gastro-esophageal reflux disease without esophagitis (7) Abdominal bloating: Code(s): R14.0 - Abdominal distension (gaseous) (8) Chronic diarrhea: Code(s): K52.9 - Noninfective gastroenteritis and colitis, unspecified Plan 43 year old morbidly obese male with htn, hyperlipidemia, Type 2 DM, asthma, SHERRI on CPAP with iron def anemia without significant upper or lower GI symptoms. Pt is at average risk for colon cancer (positive FH of colon cancer in his mother at an advanced age). Evaluation with EGD and Colonoscopy was completed and findings as noted above Morbid (severe) obesity due to excess calories Recent labs show resolution of anemia.? Patient was advised to stop taking iron supplements and have repeat labs in 3 months. Notes: Not planning to FU with bariatric surgery due to anxiety about having Gastric Bypass surgery at present. Patient was advised to continue working on losing weight. 04/11/23 colonoscopy was performed by Dr. Lopez and results as noted above.? Repeat Colonoscopy in 3-4 years due to prior hx of polyps and fair right sided prep or earlier if clinically indicated (Pt was advised to bring his CPAP machine for the procedure (he has anxiety about anesthesia and does not want to be intubated since his had complications from GA) 09/18/23 Patient last week he was with Nauseas and abdominal pain - thinks he had a virus. Today he complain about having smelly burping with some strong taste and odor and would have diarrhea in the evening - 2-3 episodes in the past few months. Denies recent changes in his diet. Usually has rice, beans with either chicken or pork. Pt has lost 50 lbs over the past 4-5 years Pt was advised to schedule an Abd US and increase Famotidine to twice a day. 10/23/23 Having symptoms of bloating and diarrhea for a week. Has diarrhea in the afternoon and is better the next morning. Denies diarrhea with milk products. Went to [place] in Jun and symptoms started around then - unable to recall if symptoms started before the trip or after. Pt advised to have H pylori breath test and stool studies to check for infectious diarrhea Follow-up appointment in the GI clinic in 6 weeks Orders: Orders H Pylori Breath Test Today GI Panel Today K52.9 - Noninfective gastroenteritis and colitis, unspecified Fecal Fat Qualitative Today K52.9 - Noninfective gastroenteritis and colitis, unspecified Lactoferrin, Fecal, Quant. Today K52.9 - Noninfective gastroenteritis and colitis, unspecified Coding Level of Care Code Est Pt Level 4 (86884) Diagnoses Vitamin D deficiency E55.9 Iron deficiency anemia secondary to inadequate dietary iron intake D50.8 Iron deficiency anemia type: inadequate dietary iron intake Vitamin B 12 deficiency E53.8 Hemorrhoids K64.9 Constipation K59.00 GERD (gastroesophageal reflux disease) K21.9 Abdominal bloating R14.0 Chronic diarrhea K52.9 Time Spent (min) 21
[2023-10-23 10:13] VITALS: BP 116/61; PULSE 83; BMI 52.0
== END 2023-10-23 11:53 | disposition home or self-care (01) ==
PROVIDERS: PCP Internal Medicine; Visit Provider Internal Medicine Gastroenterology
DX: E55.9 Vitamin D deficiency, unspecified (principal); D50.8 Other iron deficiency anemias; E53.8 Deficiency of other specified B group vitamins; K64.9 Unspecified hemorrhoids; K59.00 Constipation, unspecified; K21.9 Gastro-esophageal reflux disease without esophagitis; R14.0 Abdominal distension (gaseous); K52.9 Noninfective gastroenteritis and colitis, unspecified
CPT/HCPCS: 99214

== ENCOUNTER 2023-10-23 10:36 | Outpatient (REF) | payer OTHER, SELFPAY ==
[2023-10-26 12:45] LABS: H Pylori Breath Test Negative (Negative)
== END 2023-10-23 10:37 | disposition home or self-care (01) ==
LOC: HO.LNP 10:36
PROVIDERS: Visit Provider Internal Medicine Gastroenterology
DX: K52.9 Noninfective gastroenteritis and colitis, unspecified (principal); Z11.0 Encounter for screening for intestinal infectious diseases
CPT/HCPCS: 83013

== ENCOUNTER 2023-11-10 10:48 | Outpatient (AMB) | payer OTHER, SELFPAY ==
[2023-11-10 10:54] VITALS: PULSE 72; O2SAT 97; BMI 51.8
--- NOTE | 2023-11-10 10:54 | MHC.OFFVIS ---
Vital Signs 11/10/23 10:54 Height 5 ft 9 in Weight 350 lb 12.087 oz BMI 51.8 Pulse 72 Pulse Source Pulse Oximeter Pulse Oximetry (%) 97 Oxygen Delivery Method Room Air Intake Visit Reasons: asthma:6 month f/u Supervisor Personnel Clerks Required: No Allergies Flexeril Adverse Reaction (Mild, Verified 11/10/23 10:56) nausea, sleepiness glipizide Adverse Reaction (Mild, Verified 11/10/23 10:56) hypoglycemia HPI Comments Details: The patient is a 43-year-old gentleman known asthma in addition to obstructive sleep apnea on CPAP and morbid obesity. He states that he was in his usual state health until about 5 days ago when he started developing worsening cough and congestion. He went to see his primary care doctor with prescribed Augmentin. The patient has not been any better. He has complaints of shortness of breath and frequent coughing with mucus. He is concerned because he has been admitted in the past with pneumonia. He has not been using his nebulizer. He has been using his short-acting beta agonists MDI several times a day. It is only socially helpful. He denies any fevers or chills. No one else is sick at home. He starting to feel better. He is using his CPAP every night for more than 4 hours a night. The CPAP therapy is effective and beneficial. He needs to get new supplies. Will resend order to his [facility]. 04/25/2023 the patient is here for a pulmonary follow-up visit. Overall the patient is doing much better. He continues on his respiratory therapy with good effect. Has not required any prednisone which is reassuring. Typically does not use his rescue inhaler more than twice a week. The patient feels that he is doing well on the AirDuo inhaler. In regards the CPAP the CPAP therapy continues to be affecting beneficial. He does uses CPAP the whole night more than 4 hours. He does feel rested in the morning. Cardiovascular alonso he is stable which is reassuring. He is also working on weight loss which is also helping his overall health. He is doing this with lifestyle changes. Will continue with current respiratory medications. His Daliresp for the reason was not approved will go ahead and send it again to the pharmacy. He should stand now daily basis. 06/19/2023 the patient is here for sick visit. Apparently he was in his usual state health until that he was exposed to a sick contact. He did call because of increasing chest tightness coughing it and chest congestion. He was given a course of azithromycin and also prednisone. Although after several days he was not seen any significant improvement. Now he has a cough that is been had he moderate severity. Affecting sleep. Hard to expectorate. His respiratory exam is fairly clear although diminished. Does have some post exhalation coughing. Will go ahead and place him on another course of prednisone and try him on doxycycline instead. He when he does need his cough suppressant therapy so will provide with cough suppressants in order for him to be able to avoid the coughing spells while he recovers from likely a viral syndrome. He will continue with scar Respiratory therapy. Also continues with the CPAP at nighttime. If the patient is no better he will have an x-ray next week. Otherwise will follow-up in the spring. 11/10/2023 the patient is here for a pulmonary follow-up visit. He is feeling better. During the last visit he was sick and required prednisone antibiotics however he has not required any since the fall. the patient continues on his maintenance therapy with good adherence. He has not required his rescue. In addition to that he has been using his CPAP therapy. The CPAP therapy has been affecting beneficial. I do not have access to his machine since it is a dream Station 2. he can always take it to his [facility] for download. In the meantime he has been sleeping well and therapy has been effective for him so at this point I do not think he needs to be adjusted. He does need to get new supplies I will send a script to his [facility] [employer] [facility] at this time. Otherwise patient is without any other complaints. Will follow-up in 6 months. [facility] Medical History Pharyngitis Migraine Vitamin B12 deficiency Obesity due to excess calories Peripheral neuropathy Obesity History of colon polyps Asthma Bronchitis Depression Back pain with sciatica Proteinuria Hemorrhoids SHERRI (obstructive sleep apnea) Hyperlipidemia LDL goal <100 Essential hypertension Vitamin D deficiency Surgical History Hx of colonoscopy History of esophagogastroduodenoscopy (EGD) Loculated pleural effusion Loculated empyema Family History Father Cirrhosis Diabetes Mother Colon cancer, Onset Age: 83 Brother Prostate cancer CVA (cerebral vascular accident) Social History Household Members: Family Housing: Apartment Are you a primary intensive care anaesthetist to a significant other at home: No Do you presently have visiting nurse or other home services: No Alcohol intake: current Alcohol intake frequency: does not drink Patient Tobacco Use Status: Former Tobacco user Quit Date: 2016 Tobacco use type: Cigarette Years Smoked: 6- stopped 2016 e-Cigarette/Vaping Use: Never Used Second Hand Smoke Exposure: No service: No Current occupational status: disabled Cognitive needs: Yes (cane) Hearing needs: No Vision needs: Yes (glasses) Review of Systems Const Denies fatigue, Denies headache(s) and Reports weight loss Eyes Denies blurry vision ENT Reports Normal hearing present, Denies headache(s), Reports nasal congestion, Reports nasal discharge and Reports nasal obstruction Card Denies chest pain, Denies irregular heart rhythm, Denies dyspnea and Denies dyspnea on exertion Resp Denies chest congestion, Denies cough, Denies dyspnea, Denies dyspnea on exertion and Denies wheezing GI Denies constipation and Denies diarrhea Denies dysuria and Denies urinary frequency Musc Reports muscle cramps, Denies muscle weakness, Denies numbness and Denies tingling Neuro Reports Normal hearing present, Denies Abnormal speech present, Denies headache(s), Denies numbness and Denies tingling Psych Reports abnormal sleep pattern and Denies depression Endo Denies fatigue Gianfranco/Lymph Denies easy bruising Aller/Immun Denies wheezing Physical Exam Vital Signs: Last Vital Signs Pulse 72 11/10/23 10:54 Pulse Ox 97 11/10/23 10:54 Oxygen Delivery Method Room Air 11/10/23 10:54 BMI result Body Mass Index 51.8 Const General: healthy appearing and no acute distress Orientation/consciousness: patient oriented x3 HEENT Head: Yes normal to inspection Ears: hearing grossly normal bilaterally Eyes Sclerae: sclerae normal Pupils: Equal, round and reactive pupils present Neck Neck: Yes normal visual inspection Chest Chest palpation & inspection: normal inspection of the chest Resp Effort & Inspection: normal respiratory effort and no cough Auscultation: no crackles, no rales, no rhonchi, no wheezes and diminished lung sounds Cardio Palpation: normal PMI Rate: regular rate Rhythm: regular rhythm Heart sounds: S1 normal heart sound present, S2 normal heart sound present and no murmurs GI Palpation (GI): Soft to palpation, nontender and No hepatosplenomegaly present Auscultation: normal bowel sounds Rectal Exam - Male: Yes deferred Skin General skin exam: no rashes or lesions noted Neuro General: patient oriented x3, gait normal and moves all extremities Cranial nerves: Yes Equal, round and reactive pupils present and Yes Normal hearing present Speech: No Abnormal speech present Psych Appearance: grossly normal Mental Status: mental status grossly normal Assessment & Plan Assessment & Plan (1) Asthma: Comment: PFT restrictive March 2019 Code(s): J45.909 - Unspecified asthma, uncomplicated Category: Medical Qualifiers: Asthma complication type: uncomplicated Asthma persistence: persistent Asthma severity: moderate Qualified Code(s): J45.40 - Moderate persistent asthma, uncomplicated (2) SHERRI (obstructive sleep apnea): Comment: Continue with the CPAP every night and benefits from this more than 4 hours a night Code(s): G47.33 - Obstructive sleep apnea (adult) (pediatric) Category: Medical (3) Chronic rhinitis: Code(s): J31.0 - Chronic rhinitis Category: Medical Plan Continue respitaory therapy with Airduo continuen Daliresp 500mcg Continue APAP, p10. Has his new Respironics Dreamstation 2, adjusted APAP 7- (JL)12 Nasal rinsing Allergy therapy: singulair continue Fluticasone daily continue Astelin weight management F/U 6-8 months
== END 2023-11-10 11:23 | disposition home or self-care (01) ==
LOC: HO.HPS 10:49
PROVIDERS: PCP Internal Medicine; Visit Provider Hospitalist
DX: J45.40 Moderate persistent asthma, uncomplicated (principal); G47.33 Obstructive sleep apnea (adult) (pediatric); J31.0 Chronic rhinitis
CPT/HCPCS: 99214

== ENCOUNTER → 2023-11-10 10:49 | Outpatient (BNVA) | payer OTHER, SELFPAY | PROVIDERS: PCP Internal Medicine; Visit Provider Hospitalist | DX: J45.40 Moderate persistent asthma, uncomplicated (principal); G47.33 Obstructive sleep apnea (adult) (pediatric); J31.0 Chronic rhinitis | CPT/HCPCS: 99212 ==

== ENCOUNTER 2023-11-17 06:15 | Outpatient (REF) | payer OTHER, SELFPAY ==
[2023-11-17 06:34] LABS: MANUAL DIFF FLAG NO
[2023-11-17 07:12] LABS: Basophils Percent Auto 0.4 % (0-2); Eosinophils Absolute Auto 0.3 X10*3/uL (0.0-0.4); Eosinophils Percent Auto 3.7 % (0-4); Hematocrit 43.3 % (42.0-52.0); Hemoglobin 14.1 g/dl (14.0-18.0); Imm Gran Abs Auto 0.04 X10*3/uL (0.00-0.03); Imm Gran Pct Auto 0.5 % (0.0-0.4); Immature Retic Fraction 13.2 % (2.3-13.4); Lymphocytes Absolute Auto 2.6 X10*3/uL (1.2-4.9); Lymphocytes Percent Auto 34.1 % (20-40); Mean Corpuscular HGB Conc 32.6 g/dl (31.0-36.0); Mean Corpuscular Hemoglobin 26.7 pg (27.0-33.0); Mean Platelet Volume 10.4 fL (9.4-12.4); Monocytes Absolute Auto 0.6 X10*3/uL (0.1-1.2); Monocytes Percent Auto 7.6 % (2-11); Neutrophils Percent Auto 53.7 % (45-73); Platelet Count 272 X10*3/uL (160-400); Red Blood Count 5.28 X10*6/uL (4.60-5.80); Red Cell Distribution Width 13.5 % (11.0-16.0); Retic HGB Equivalent 31.1 pg (30.0-35.0); Reticulocyte Percent 1.8 % (0.5-1.8); Reticulocytes Absolute 0.094 X10*6/uL (0.026-0.095); White Blood Count 7.5 X10*3/uL (4.8-10.8)
[2023-11-17 09:08] LABS: Ferritin 163 ng/mL (20-250); Free T4 (Free Thyroxine) 0.81 ng/dL (0.71-1.85); Thyroid Stimulating Hormone 1.24 uIU/mL (0.32-4.0)
[2023-11-17 09:17] LABS: Estimated Average Glucose 128 mg/dL; Hemoglobin A1c % 6.1 % (<6.0)
[2023-11-17 09:29] LABS: Folate 8.8 ng/mL (> or = 4.0); Vitamin B12 268 pg/mL (200-900)
[2023-11-17 11:41] LABS: Anion Gap 16 (12-20)
[2023-11-17 11:44] LABS: Alanine Aminotransferase 19 U/L (0-40); Albumin Level 4.1 g/dL (3.5-5.0); Alkaline Phosphatase 63 U/L (39-117); Aspartate Amino Transferase 14 U/L (5-37); Bilirubin Total 0.5 mg/dL (0.0-1.0); Blood Urea Nitrogen 17 mg/dL (9-16); Calcium 9.4 mg/dL (8.4-10.2); Carbon Dioxide 22 mmol/L (22-29); Chloride 106 mmol/L (96-108); Cholesterol 128 mg/dL (<200); Estimated Glomerular Filt Rate > 60; Glucose Random 87 mg/dL (60-115); HDL Cholesterol 31 mg/dL (>40); Iron 59 mcg/dL (45-160); LDL Cholesterol Calculated 79 mg/dL (<100); Percent Iron Saturation 20 % (15-50); Potassium 4.1 mmol/L (3.3-5.1); Sodium 140 mmol/L (135-145); Total Iron Binding Capacity 295 mcg/dL (228-428); Total Protein 7.7 g/dL (6.5-8.0); Triglycerides 94 mg/dL (<150); Unsaturated Iron Binding 236 ug/dL
== END 2023-11-17 06:16 | disposition home or self-care (01) ==
LOC: HO.LAB 06:15
PROVIDERS: PCP Internal Medicine; Visit Provider Internal Medicine
DX: E11.65 Type 2 diabetes mellitus with hyperglycemia (principal); E78.00 Pure hypercholesterolemia, unspecified
CPT/HCPCS: 36415; 80053; 80061; 82043; 82570; 82607; 82728; 82746; 83036; 83540; 84439; 84443; 85025; 85045

== ENCOUNTER 2023-11-18 14:48 | Outpatient (AMB) | payer OTHER, SELFPAY ==
[2023-11-18 14:56] VITALS: BP 116/66; PULSE 84; O2SAT 97; BMI 51.8
--- NOTE | 2023-11-18 14:56 | MHC.PC.OV ---
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 Qualitative Researcher: Not Required per policy Accompanied by: Self / Same As Patient Allergies Flexeril Adverse Reaction (Mild, Verified 11/18/23 14:56) nausea, sleepiness glipizide Adverse Reaction (Mild, Verified 11/18/23 14:56) hypoglycemia Medication List - Last Reconciled 11/18/23 by Nereida Llanos MD albuterol sulfate 2.5 mg (3 mL) inhalation Q8H PRN alprazolam 0.25 - 0.5 mg orally 1 tab 30 minutes prior to MRI, may repeat ix's 1; 1 day atorvastatin 10 mg PO BEDTIME azelastine 2 sprays intranasal BID 30 days betamethasone dipropionate 0.05% 1 appl topical BID PRN cane As directed HEAVY DUTY cholecalciferol (vitamin D3) 25 mcg PO DAILY clonazepam 0.5 mg PO DAILY [cpap As directed] [detachable shower Head As directed] doxepin 75 mg PO BEDTIME dulaglutide 3 mg (0.5 mL) subcut QWEEK 30 days duloxetine 30 mg PO QAM empagliflozin (Jardiance) 25 mg PO QAM famotidine 20 mg PO BID 90 days flash glucose scanning reader (FreeStyle Spenser 2 [place]) As directed flash glucose sensor (FreeStyle Spenser 2 Sensor kit) every 2 weeks fluocinonide 0.05% 1 appl topical BID 7 days fluticasone propion-salmeterol 232-14 mcg/actuation 1 inh inhalation BID fluticasone propionate 50 mcg/actuation 2 sprays intranasal DAILY 30 days gabapentin 600 mg (2 x 300 mg) PO BEDTIME hydrocortisone 2.5% (Proctosol HC) 1 appl MI BID-QID PRN hydroxyzine HCl 25 mg PO TID ibuprofen 600 mg PO Q8H PRN insulin glargine (Lantus Solostar U-100 Insulin) 30 units (0.3 mL) subcut QPM irbesartan-hydrochlorothiazide 150-12.5 mg 1 tab PO DAILY lancets As directed metformin 1,000 mg (2 x 500 mg) PO BID montelukast (Singulair) 10 mg PO BEDTIME 30 days pen needle, diabetic (BD Ultra-Fine Yanely Pen Needle) 1 ea subcut DAILY polyethylene glycol 3350 (Miralax) 17 grams PO DAILY 1 day [Quad cane As directed] rizatriptan 5 - 10 mg (0.5 - 1 x 10 mg) PO Q2H PRN 21 days roflumilast (Daliresp) 500 mcg PO DAILY 30 days sennosides-docusate sodium 8.6-50 mg (Senna-S) 2 tab-caps (2 x 8.6-50 mg) PO BEDTIME 30 days Shower Chair As directed tramadol 50 mg PO Q8H PRN 30 days trazodone 100 - 200 mg (1 - 2 x 100 mg) PO BEDTIME triamcinolone acetonide 0.5% 1 appl topical DAILY 15 days Tobacco use date assessed: 08/19/23 Dental Screening Dental Screen Date: 08/19/23 HPI DM ,HTN HPI Details 43-year-old morbidly obese male BMI of 51 controlled diabetes mellitus. with obstructive sleep apnea GERD hypertension hypercholesterolemia and asthma last seen in July 2023 patient is here for physical exam. Colonoscopy is up-to-date March 2023 patient follows up with Pulmonary seen in October Erin Crump patient also follows up with Gastroenterology. Patient also follows up with Neurology for the migraines advised MRI of the brain placed on rizatriptan Caitie [id number] interpret [facility] Medical History Pharyngitis Migraine Vitamin B12 deficiency Obesity due to excess calories Peripheral neuropathy Obesity History of colon polyps Asthma Bronchitis Depression Back pain with sciatica Proteinuria Hemorrhoids SHERRI (obstructive sleep apnea) Hyperlipidemia LDL goal <100 Essential hypertension Vitamin D deficiency Surgical History Hx of colonoscopy History of esophagogastroduodenoscopy (EGD) Loculated pleural effusion Loculated empyema Family History Father Cirrhosis Diabetes Mother Colon cancer, Onset Age: 83 Brother Prostate cancer CVA (cerebral vascular accident) Social History (Updated 11/18/23 @ 15:48 by Nereida Llanos MD) Household Members: Family Housing: Apartment Are you a primary adult day care worker to a significant other at home: No Do you presently have visiting nurse or other home services: No Alcohol intake: never Patient Tobacco Use Status: Former Tobacco user Quit Date: 2016 Tobacco use type: Cigarette Years Smoked: 6- stopped 2016 e-Cigarette/Vaping Use: Never Used Second Hand Smoke Exposure: No service: No Current occupational status: disabled Cognitive needs: Yes (cane) Hearing needs: No Vision needs: Yes (glasses) Questionnaire PHQ-9 Over the last 2 weeks, how often have you been bothered by any of the following problems? 1. Little interest or pleasure in doing things: not at all 2. Feeling down, depressed, or hopeless: not at all 3. Trouble falling or staying asleep, or sleeping too much: not at all 4. Feeling tired or having little energy: not at all 5. Poor appetite or overeating: not at all 6. Feeling bad about yourself - or that you are a failure or have let yourself or your family down: not at all 7. Trouble concentrating on things, such as reading the newspaper or watching television: not at all 8. Moving or speaking so slowly that other people could have noticed. Or the opposite - being so fidgety or restless that you have been moving around a lot more than usual: not at all 9. Thoughts that you would be better off or of hurting yourself in some way: not at all Total score: 0 Depression Screening Interpretation: Negative Depression Screening Done: Yes Source: Developed by Drs. Ambrosio Rivas, Lanette Escobedo, Vinayak Marks and colleagues, with an educational joselyn from [employer]. Thrive Questionnaire Date Thrive assessed: 08/19/23 MARK ANTHONY-7 AMB Questionnaire MARK ANTHONY-7 Date MARK ANTHONY - 7 assessed: 08/19/23 Source: Developed by Drs. Ambrosio Rivas, Lanette Escobedo, Vinayak Marks and colleagues, with an educational joselyn from [employer]. Review of Systems Const Denies poor appetite and Denies weakness Eyes Denies no additional complaints ENT Reports Normal hearing present, Denies dizziness, Denies nasal congestion, Denies tinnitus and Denies sore throat Card Denies chest pain, Denies syncope, Denies rapid heart rate and Denies dyspnea Resp Denies cough and Denies dyspnea GI Denies change in stool character, Reports constipation, Denies diarrhea, Denies nausea and Denies vomiting Denies dysuria and Denies urinary frequency Neuro Reports Normal hearing present, Denies confusion, Denies dizziness, Denies syncope and Denies weakness Psych Denies confusion Physical exam (Primary Care) Vital Signs: Last Vital Signs Pulse 84 11/18/23 14:56 BP 116/66 11/18/23 14:56 Pulse Ox 97 11/18/23 14:56 Oxygen Delivery Method Room Air 11/18/23 14:56 BMI result Body Mass Index 51.8 Tobacco/Smoking Status: Tobacco use Status Tobacco use date assessed 08/19/23 11/18/23 14:57 Patient Tobacco Use Status Former Tobacco user 11/18/23 14:57 Tobacco use type Cigarette 11/18/23 14:57 e-Cigarette/Vaping Use Never Used 11/18/23 14:57 PHQ-9: PHQ-9 Score PHQ-9: Total score 0 11/18/23 14:57 Depression Screening Interpretation: Negative Thrive Assessment: Date of Thrive Assessment Date Thrive assessed 08/19/23 11/18/23 14:57 Const General: No confusion Orientation/consciousness: No confusion HENMT Head: Yes normocephalic Ears: external ears normal and TM's normal bilaterally Face and sinus: Yes normal facial exam Mouth: moist mucous membranes Throat: Yes tonsils normal Eyes Conjunctivae: conjunctivae normal Pupils: Equal, round and reactive pupils present and Pupil accommodation reflex normal Direct Ophthalmoscopy: normal light reflex Neck Neck: No lymphadenopathy Thyroid: Thyroid normal Chest Chest palpation & inspection: normal inspection of the chest Resp Effort & Inspection: normal respiratory effort and no audible wheezes Auscultation: clear to auscultation bilaterally, no crackles, no wheezes and lung sounds not diminished Cardio Rate: regular rate Rhythm: regular rhythm Peripheral pulses: radial pulses present and dorsalis pedis present GI Palpation (GI): no masses Auscultation: normal bowel sounds and normoactive bowel sounds Rectal Exam - Male: Yes deferred Male General Exam: Yes normal external exam Skin General skin exam: no rashes or lesions noted Rashes: no rashes Neuro General: No confusion Cranial nerves: Yes Equal, round and reactive pupils present and Yes Normal hearing present Cognition (Neuro): normal cognition Gait exam (Neuro): Normal gait present Motor exam (neuro): 5/5 motor strength present throughout Deep tendon reflexes (DTR's): Right brachioradialis reflex intensity grade: 2+, Left brachioradialis reflex intensity grade: 2+, Right patellar reflex intensity grade: 2+ and Left patellar reflex intensity grade: 2+ Extrem General: No edema Assessment and Plan Assessment & Plan (1) Annual physical exam: Code(s): Z00.00 - Encounter for general adult medical examination without abnormal findings (2) SHERRI (obstructive sleep apnea): Comment: Continue with the CPAP every night and benefits from this more than 4 hours a night Code(s): G47.33 - Obstructive sleep apnea (adult) (pediatric) Plan: Continue to use the CPAP more than 4 hours a night and benefits from this (3) Morbid obesity: Code(s): E66.01 - Morbid (severe) obesity due to excess calories Plan: Diet and exercise (4) Essential hypertension: Code(s): I10 - Essential (primary) hypertension Plan: Continue with blood pressure medication. Decrease salt intake and exercise continue with irbesartan hydrochlorothiazide 150/12.5 mg once a day (5) Hyperlipidemia LDL goal <100: Code(s): E78.5 - Hyperlipidemia, unspecified (6) Asthma: Comment: PFT restrictive March 2019 Code(s): J45.909 - Unspecified asthma, uncomplicated Qualifiers: Asthma severity: moderate Asthma persistence: persistent Asthma complication type: uncomplicated Qualified Code(s): J45.40 - Moderate persistent asthma, uncomplicated Plan: Continue with the inhaler and sees pulmonary (7) Type 2 diabetes mellitus with hyperglycemia: Comment: EYE and LASIK Code(s): E11.65 - Type 2 diabetes mellitus with hyperglycemia Plan: Decrease the amount of carbohydrate intake, pasta, bread, rice and potatoes are all sugar and that is aside from all the sweet stuff, remember that fruits are good but they are Sweet also. Hemoglobin A1c goal under control goal of less than 6.5 on metformin a 1000 mg twice a day Lantus and Trulicity 3 mg once a week (8) GERD (gastroesophageal reflux disease): Code(s): K21.9 - Gastro-esophageal reflux disease without esophagitis Plan: Avoid the foods that causes that usually spicy foods, tomato products, juices, coffee, soda and foods that your sensitive to. After eating do not lie down, allow 3-4 hours before in lie down. And keep the head of bed above 30 degrees to avoid the acid from going up. (9) Hearing difficulty: Code(s): H91.90 - Unspecified hearing loss, unspecified ear Orders: Referrals Speech and Hearing Referral H91.90 - Unspecified hearing loss, unspecified ear Coding Level of Care Code Est Pt Prev Care 40-64y(25179) Diagnoses Annual physical exam Z00.00 SHERRI (obstructive sleep apnea) G47.33 Morbid obesity E66.01 Essential hypertension I10 Hyperlipidemia LDL goal <100 E78.5 Moderate persistent asthma without complication J45.40 Asthma severity: moderate Asthma persistence: persistent Asthma complication type: uncomplicated Type 2 diabetes mellitus with hyperglycemia E11.65 GERD (gastroesophageal reflux disease) K21.9 Hearing difficulty H91.90 Additional Codes PHQ-9 - 18017 - PHQ-9 Billing: ([id number])
== END 2023-11-18 16:12 | disposition home or self-care (01) ==
PROVIDERS: PCP Internal Medicine; Visit Provider Internal Medicine
DX: Z00.00 Encounter for general adult medical examination without abnormal findings (principal); E66.01 Morbid (severe) obesity due to excess calories; E11.65 Type 2 diabetes mellitus with hyperglycemia; Z68.43 Body mass index [BMI] 50.0-59.9, adult; G47.33 Obstructive sleep apnea (adult) (pediatric); I10 Essential (primary) hypertension; E78.5 Hyperlipidemia, unspecified; J45.40 Moderate persistent asthma, uncomplicated; K21.9 Gastro-esophageal reflux disease without esophagitis
CPT/HCPCS: 99396

== ENCOUNTER 2023-11-25 10:05 | Outpatient (AMB) | payer OTHER, SELFPAY ==
--- NOTE | 2023-11-25 10:11 | A.OFFVIS_ITS ---
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 He states that he was in his usual state health until about 5 days ago when he started developing worsening cough and congestion. He went to see his primary care doctor with prescribed Augmentin. The patient has not been any better. He has complaints of shortness of breath and frequent coughing with mucus. He is concerned because he has been admitted in the past with pneumonia. He has not been using his nebulizer. He has been using his short-acting beta agonists MDI several times a day. It is only socially helpful. He denies any fevers or chills. No one else is sick at home. He starting to feel better. He is using his CPAP every night for more than 4 hours a night. The CPAP therapy is effective and beneficial. He needs to get new supplies. [place] [facility] [place]25/[place]23 the patient is here for a pulmonary follow-up visit. Overall the patient is doing much better. He continues on his respiratory therapy with good effect. Has not required any prednisone which is reassuring. Typically does not use his rescue inhaler more than twice a week. The patient feels that he is doing well on the AirDuo inhaler. In regards the CPAP the CPAP therapy continues to be affecting beneficial. He does uses CPAP the whole night more than 4 hours. He does feel rested in the morning. Cardiovascular alonso he is stable which is reassuring. He is also working on weight loss which is also helping his overall health. He is doing this with lifestyle changes. Will continue with current respiratory medications. His Daliresp for the reason was not approved will go ahead and send it again to the pharmacy. He should stand now daily basis. 06/19/2023 the patient is here for sick visit. Apparently he was in his usual state health until that he was exposed to a sick contact. He did call because of increasing chest tightness coughing it and chest congestion. He was given a course of azithromycin and also prednisone. Although after several days he was not seen any significant improvement. Now he has a cough that is been had he moderate severity. Affecting sleep. Hard to expectorate. His respiratory exam is fairly clear although diminished. Does have some post exhalation coughing. Will go ahead and place him on another course of prednisone and try him on doxycycline instead. He when he does need his cough suppressant therapy so will provide with cough suppressants in order for him to be able to avoid the coughing spells while he recovers from likely a viral syndrome. He will continue with scar Respiratory therapy. Also continues with the CPAP at nighttime. If the patient is no better he will have an x-ray next week. Otherwise will follow-up in the spring. 11/10/2023 the patient is here for a pulmonary follow-up visit. He is feeling better. During the last visit he was sick and required prednisone antibiotics however he has not required any since the fall. the patient continues on his maintenance therapy with good adherence. He has not required his rescue. In addition to that he has been using his CPAP therapy. The CPAP therapy has been affecting beneficial. I do not have access to his machine since it is a dream Station 2. he can always take it to his [employer] for download. In the meantime he has been sleeping well and therapy has been effective for him so at this point I do not think he needs to be adjusted. He does need to get new supplies I will send a script to his [employer] company at this time. Otherwise patient is without any other complaints. Will follow-up in 6 months. 11/25/2023 the patient is here for sick visit. Apparently took a trip down to [place] and he was exposed to a lot of people cancer. It was also call and he was not prepared for the temperature change. The patient is started developing some URI like symptoms and subsequently went into the chest and started developing a cough. Moderate severity hacky nature although he is bringing up some phlegm at times. The patient does have significant chest tightness and wheezing. He has been using the nebulizer every 6 hours. He did have 30 mg of prednisone available and he took yesterday did help. Therefore, I will send some prednisone for the pharmacy for an asthma exacerbation and also have him start a Z-Jamarcus. The patient also needs cough medication. If he has no better he will call the office but hopefully he feels better in the next few days. The patient has already a follow-up. Otherwise will call for further evaluation and recommendations. [facility] Medical History Pharyngitis Migraine Vitamin B12 deficiency Obesity due to excess calories Peripheral neuropathy Obesity History of colon polyps Asthma Bronchitis Depression Back pain with sciatica Proteinuria Hemorrhoids SHERRI (obstructive sleep apnea) Hyperlipidemia LDL goal <100 Essential hypertension Vitamin D deficiency Surgical History Hx of colonoscopy History of esophagogastroduodenoscopy (EGD) Loculated pleural effusion Loculated empyema Family History Father Cirrhosis Diabetes Mother Colon cancer, Onset Age: 83 Brother Prostate cancer CVA (cerebral vascular accident) Social History (Updated 11/18/23 @ 15:48 by Nereida Llanos MD) Household Members: Family Housing: Apartment Are you a primary post acute care nurse practitioner to a significant other at home: No Do you presently have visiting nurse or other home services: No Alcohol intake: never Patient Tobacco Use Status: Former Tobacco user Quit Date: 2016 Tobacco use type: Cigarette Years Smoked: 6- stopped 2016 e-Cigarette/Vaping Use: Never Used Second Hand Smoke Exposure: No service: No Current occupational status: disabled Cognitive needs: Yes (cane) Hearing needs: No Vision needs: Yes (glasses) Review of Systems Const Denies fatigue, Denies headache(s) and Reports weight loss Eyes Denies blurry vision ENT Reports Normal hearing present, Denies headache(s), Reports nasal congestion, Reports nasal discharge and Reports nasal obstruction Card Denies chest pain, Denies irregular heart rhythm, Denies dyspnea and Denies dyspnea on exertion Resp Reports chest congestion, Reports cough, Denies dyspnea, Denies dyspnea on exertion and Reports wheezing GI Denies constipation and Denies diarrhea Denies dysuria and Denies urinary frequency Musc Reports muscle cramps, Denies muscle weakness, Denies numbness and Denies tingling Neuro Reports Normal hearing present, Denies Abnormal speech present, Denies headache(s), Denies numbness and Denies tingling Psych Reports abnormal sleep pattern and Denies depression Endo Denies fatigue Gianfranco/Lymph Denies easy bruising Aller/Immun Reports wheezing Physical Exam Vital Signs: Last Vital Signs Pulse 90 11/25/23 10:13 Pulse Ox 96 11/25/23 10:13 Oxygen Delivery Method Room Air 11/25/23 10:13 BMI result Body Mass Index 51.8 Const General: healthy appearing and no acute distress Orientation/consciousness: patient oriented x3 HEENT Head: Yes normal to inspection Ears: hearing grossly normal bilaterally Eyes Sclerae: sclerae normal Pupils: Equal, round and reactive pupils present Neck Neck: Yes normal visual inspection Chest Chest palpation & inspection: normal inspection of the chest Resp Effort & Inspection: normal respiratory effort, Actively coughing and prolonged expiratory phase Auscultation: no crackles, no rales, no rhonchi, wheezes and diminished lung sounds Cardio Palpation: normal PMI Rate: regular rate Rhythm: regular rhythm Heart sounds: S1 normal heart sound present, S2 normal heart sound present and no murmurs GI Palpation (GI): Soft to palpation, nontender and No hepatosplenomegaly present Auscultation: normal bowel sounds Rectal Exam - Male: Yes deferred Skin General skin exam: no rashes or lesions noted Neuro General: patient oriented x3, gait normal and moves all extremities Cranial nerves: Yes Equal, round and reactive pupils present and Yes Normal hearing present Speech: No Abnormal speech present Psych Appearance: grossly normal Mental Status: mental status grossly normal Assessment & Plan Assessment & Plan (1) Asthma: Comment: PFT restrictive March 2019 Code(s): J45.909 - Unspecified asthma, uncomplicated Category: Medical Qualifiers: Asthma complication type: with acute exacerbation Asthma persistence: persistent Asthma severity: moderate Qualified Code(s): J45.41 - Moderate persistent asthma with (acute) exacerbation (2) SHERRI (obstructive sleep apnea): Comment: Continue with the CPAP every night and benefits from this more than 4 hours a night Code(s): G47.33 - Obstructive sleep apnea (adult) (pediatric) Category: Medical (3) Chronic rhinitis: Code(s): J31.0 - Chronic rhinitis Category: Medical (4) URI (upper respiratory infection): Code(s): J06.9 - Acute upper respiratory infection, unspecified Category: Medical Plan start prednisone taper start zpack cough medicine Continue respitaory therapy with Airduo continuen Daliresp 500mcg Continue APAP, p10. Has his new Respironics Dreamstation 2, adjusted APAP 7- (JL)12 Nasal rinsing Allergy therapy: singulair continue Fluticasone daily continue Astelin weight management F/U 6-8 months Medications: New prednisone PO daily; Take 6 tabs daily x 3 days, then 5 tabs x 3 days, then 4 tabs x 3 days, then 3 tabs x 3 days, then 2 tabs daily x 3 days, then 1 tab x 3 days to complete. 63 tabs 0RF 18 days codeine-guaifenesin 10-100 mg/5 mL 10 mL PO Q6H PRN 300 mL 0RF cough 10 days azithromycin 500 mg PO DAILY 5 tabs 0RF 5 days Refilled fluticasone propion-salmeterol 232-14 mcg/actuation 1 inh inhalation BID 1 insert 11RF Coding Level of Care Code Est Pt Level 4 (35249) Diagnoses Moderate persistent asthma with acute exacerbation J45.41 Asthma complication type: with acute exacerbation Asthma persistence: persistent Asthma severity: moderate SHERRI (obstructive sleep apnea) G47.33 Chronic rhinitis J31.0 URI (upper respiratory infection) J06.9 Time Spent (min) 16
[2023-11-25 10:13] VITALS: PULSE 90; O2SAT 96; BMI 51.8
== END 2023-11-25 10:37 | disposition home or self-care (01) ==
PROVIDERS: PCP Internal Medicine; Visit Provider Hospitalist
DX: J45.41 Moderate persistent asthma with (acute) exacerbation (principal); G47.33 Obstructive sleep apnea (adult) (pediatric); J31.0 Chronic rhinitis; J06.9 Acute upper respiratory infection, unspecified
CPT/HCPCS: 99214

== ENCOUNTER → 2023-11-25 10:05 | Outpatient (BNVA) | payer OTHER, SELFPAY | PROVIDERS: PCP Internal Medicine; Visit Provider Hospitalist | DX: J45.41 Moderate persistent asthma with (acute) exacerbation (principal); G47.33 Obstructive sleep apnea (adult) (pediatric); J31.0 Chronic rhinitis; J06.9 Acute upper respiratory infection, unspecified; Z79.899 Other long term (current) drug therapy; Z99.89 Dependence on other enabling machines and devices | CPT/HCPCS: 99212 ==

== ENCOUNTER 2023-12-04 09:07 | Outpatient (AMB) | payer OTHER, SELFPAY ==
--- NOTE | 2023-12-04 09:14 | A.OFFVIS_ITS ---
Vital Signs 12/04/23 09:18 Height 5 ft 9 in Weight 350 lb BMI 51.7 BP 117/68 Blood Pressure Location Lt brachial Position Sitting Pulse 85 Intake Visit Reasons: bloating Intake Note: Patient follow up for abdominal bloating Patient cc: acid reflex with burning sensation on and off. Denies any other GI issues. Patient was taking antibiotics and that helped him with others GI issues. Digital Solution Architect Required: Yes Digital Solution Architect Name: [facility] Interpeter Accompanied by: Self / Same As Patient Allergies Flexeril Adverse Reaction (Mild, Verified 12/19/23 15:04) nausea, sleepiness glipizide Adverse Reaction (Mild, Verified 12/19/23 15:04) hypoglycemia Medication List - Last Reconciled 12/04/23 by Janell Hernandez MD albuterol sulfate 2.5 mg (3 mL) inhalation Q8H PRN alprazolam 0.25 - 0.5 mg orally 1 tab 30 minutes prior to MRI, november repeat ix's 1; 1 day atorvastatin 10 mg PO BEDTIME azelastine 2 sprays intranasal BID 30 days azithromycin 500 mg PO DAILY 5 days betamethasone dipropionate 0.05% 1 appl topical BID PRN cane As directed HEAVY DUTY cholecalciferol (vitamin D3) 25 mcg PO DAILY clonazepam 0.5 mg PO DAILY codeine-guaifenesin 10-100 mg/5 mL 10 mL PO Q6H PRN 10 days [cpap As directed] [detachable shower Head As directed] doxepin 75 mg PO BEDTIME duloxetine 30 mg PO QAM empagliflozin (Jardiance) 25 mg PO QAM famotidine 20 mg PO BID 90 days flash glucose scanning reader (FreeStyle Spenser 2 [place]) As directed flash glucose sensor (FreeStyle Spenser 2 Sensor kit) every 2 weeks fluocinonide 0.05% 1 appl topical BID 7 days fluticasone propion-salmeterol 232-14 mcg/actuation 1 inh inhalation BID fluticasone propionate 50 mcg/actuation 2 sprays intranasal DAILY 30 days gabapentin 600 mg (2 x 300 mg) PO BEDTIME hydrocortisone 2.5% (Proctosol HC) 1 appl [place] BID-QID PRN hydroxyzine HCl 25 mg PO TID ibuprofen 600 mg PO Q8H PRN insulin glargine (Lantus Solostar U-100 Insulin) 30 units (0.3 mL) subcut QPM irbesartan-hydrochlorothiazide 150-12.5 mg 1 tab PO DAILY lancets As directed metformin 1,000 mg (2 x 500 mg) PO BID montelukast 10 mg PO BEDTIME nebulizers As directed pen needle, diabetic (BD Ultra-Fine Yanely Pen Needle) 1 ea subcut DAILY polyethylene glycol 3350 (Miralax) 17 grams PO DAILY 1 day prednisone PO daily; Take 6 tabs daily x 3 days, then 5 tabs x 3 days, then 4 tabs x 3 days, then 3 tabs x 3 days, then 2 tabs daily x 3 days, then 1 tab x 3 days to complete. 18 days [Quad cane As directed] rizatriptan 5 - 10 mg (0.5 - 1 x 10 mg) PO Q2H PRN 21 days roflumilast (Daliresp) 500 mcg PO DAILY 30 days sennosides-docusate sodium 8.6-50 mg (Senna-S) 2 tab-caps (2 x 8.6-50 mg) PO BEDTIME 30 days Shower Chair As directed tramadol 50 mg PO Q8H PRN 30 days trazodone 100 - 200 mg (1 - 2 x 100 mg) PO BEDTIME triamcinolone acetonide 0.5% 1 appl topical DAILY 15 days HPI HPI bloating: Details: GI CLINIC VISIT FOR THIS 43-YEAR-OLD HUNGARIAN-SPEAKING MALE FOR FOLLOW-UP OF ABD BLOATING AND DIARRHEA. PATIENT HAD IRON-DEFICIENCY ANEMIA WHICH HAS RESOLVED.. ? CHRONIC ILLNESSES:?He has morbid obesity, DM, asthma and SHERRI. He is planning to do weight management surgery. ? He had to go to [place] and now has to start all over with Bariatric Surgery Clinic. ?LABS IN [facility]: On 08/16/19 REVIEWED showed mild anemia with microcytosis and hypochromia, nl plt count and RDW. INR was 1.4 in 07/06, ? 05/18/19 Iron studies showed iron of 38, TIBC 328, iron sat 12%, ? Past labs showed Negative celiac panel and Normal LFTs ? IMAGING STUDIES:?09/2023 ABD US SHOWED: 1. There is hepatosplenomegaly. 2. There is generalized increase in hepatic echotexture, consistent with fatty infiltration or hepatocellular disease. Please correlate clinically. No focal hepatic mass or intrahepatic biliary dilatation is seen. Abd CT on 05/27/19 showed: ? No evidence for acute abdominal or pelvic inflammatory or infectious processes. ? Grade 1 anterolisthesis of L5 in relation to S1 secondary to bilateral L5 pars defects. ?ENDOSCOPIC STUDIES: 04/11/[address] LOPEZ: internal hemorrhoids Plan: High fiber diet leaflet Avoid straining at stool, epsom salts and sitz bath, anusol supps or cream Repeat Colonoscopy in 3-4 years due to prior hx of polyps and fair right sided prep or earlier if clinically indicated 07/23/2019 EGD AND COLONOSCOPY SHOWED:? STOMACH: Mild gastritis with erosions? DUODENUM: Normal ? Colonoscopy Findings: ? Four polyps removed ? Small hemorrhoids on retroflexed exam. ? Plan:? Repeat Colonoscopy interval based on path results - in 3-5 years if ? polyps are adenomatous and due to positive FH of colon polyps and cancer. ?BIOPSIES SHOWED: ? A. Stomach, biopsies: Gastric mucosa with mild chronic, inactive gastritis; ? negative for Helicobacter pylori organisms; negative for intestinal metaplasia; negative for dysplasia. ? B. Small bowel, biopsies: Small bowel mucosa within normal limits; no active inflammation; no granulomas; negative for malignancy. ? C. Colon, transverse polyp, polypectomy: Fragments of tubular adenoma. ? D. Colon, descending polyps, polypectomy: Fragments of tubular adenoma and fragments of hyperplastic polyp. ? E. Rectum, polyp, polypectomy: Fragments of tubular adenoma. ? LETTER WAS SENT TO THE PATIENT ADVISING REPEAT COLONOSCOPY IN 3 YEARS. ? TODAY'S VISIT [facility] [employer], Alber Patient cc: acid reflex with burning sensation on and off, denies any other GI issues. Denies diarrhea over the past week. Prescribed antibiotics and Trulicity was discontinued by his PCP 2 weeks ago. PAST VISITS: Patient follow up for abdominal bloating and US results. Patient cc: a lot of burping with diarrhea every week and he is loosing weight, abdominal discomfort with bloating, denies any other GI issues. Having symptoms of bloating and diarrhea for a week. Has diarrhea in the afternoon and is better the next morning. Stopped eating meat and pork and taking salads. Tried other foods and continues to have the same symptoms Wakes up with bloating Has a lot of burping. After 3-4 hrs he notes watery diarrhea 6-7 times in a day Takes coffee in the morning if he does not have bloating. Takes cheese once a week and ice cream once a month. Denies diarrhea with milk products. Went to [place] in Jun and symptoms started around then - unable to recall if symptoms started before the trip or after. 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 Patient last week he was with Nauseas and abdominal pain - thinks he had a virus. Today he complain about having smelly burping with some strong taste and odor and would have diarrhea in the evening - 2-3 episodes in the past few months. Denies recent changes in his diet. Usually has rice, beans with either chicken or pork. Pt has lost 50 lbs over the past 4-5 years ? Colonoscopy results reviewed and FU colon advised in 3-4 yrs Having a OSMAN for the past 1 month. Denies abd pain, constipation or diarrhea, Stool are dark due to oral iron Lab results reviewed - anemia has improved. Has been doing well. ? Not planning to FU with bariatric surgery due to anxiety about having Gastric Bypass surgery at present. ? Taking iron pills once a day. ? Stool is dark due to iron - takes an iron tablet once a day. ? Patient denies rectal bleeding ? Mom had colon cancer at age 83 yrs. ? A brother and a sister had colon polyps removed in their 50's. ? Weight gain of 30 lbs over the past year. ?PAST GI HISTORY BY REVIEW OF MEDICAL RECORDS: Seen on 09/01/19: ? Assessments ? 1. Iron deficiency anemia, unspecified iron deficiency anemia type - D50.9 (Primary) ? 2. History of adenomatous polyp of colon - Z86.010 ? 3. Family history of colon cancer - Z80.0 ? 4. Body mass index (BMI) 60.0-69.9, adult - Z68.44 ? 5. Morbid (severe) obesity due to excess calories - E66.01 ? 6. Chronic gastritis without bleeding, unspecified gastritis type - K29.50 ? 39 year old morbidly obese male with htn, hyperlipidemia, Type 2 DM, asthma, SHERRI on CPAP with iron def anemia without significant upper of lower GI symptoms. Pt is at average risk for colon cancer (positive FH of colon cancer in his mother at an advanced age). Evaluation with EGD and Colonoscopy has completed and findings as noted above ? Morbid (severe) obesity due to excess calories ? Notes: Pt is scheduled to see the Dental Laboratory Supervisor on 12/10/19 and plans to return to Bariatric Surgery clinic after endoscopic evaluation is completed. ? Treatment ? 1. Iron deficiency anemia, unspecified iron deficiency anemia type ? LAB: LIVER PROFILE ? LAB: FERRITIN ? LAB: CBC w/o DIFF ? LAB: PROTHROMBIN TIME (PT, INR) ? 2. History of adenomatous polyp of colon ? Notes: 07/23/19 three to four adenomatous polyps were removed during colonoscopy and repeat colonoscopy is advised in 3 yrs - action set in [facility]. ? 3. Chronic gastritis without bleeding, unspecified gastritis type ? Start Famotidine Tablet, 20 mg, 1 tablet at bedtime, Orally, once a day, 30 days, 30 Tablet, Refills 3 ? Follow Up ? 3 Months- have labs checked 1 week before appt (Reason: FU of iorn def anemia and obesity PFSH Medical History Pharyngitis Migraine Vitamin B12 deficiency Obesity due to excess calories Peripheral neuropathy Obesity History of colon polyps Asthma Bronchitis Depression Back pain with sciatica Proteinuria Hemorrhoids SHERRI (obstructive sleep apnea) Hyperlipidemia LDL goal <100 Essential hypertension Vitamin D deficiency Surgical History Hx of colonoscopy History of esophagogastroduodenoscopy (EGD) Loculated pleural effusion Loculated empyema Family History Father Cirrhosis Diabetes Mother Colon cancer, Onset Age: 83 Brother Prostate cancer CVA (cerebral vascular accident) Social History Household Members: Family Housing: Apartment Are you a primary acute care nursing assistant to a significant other at home: No Do you presently have visiting nurse or other home services: No Alcohol intake: never Patient Tobacco Use Status: Former Tobacco user Tobacco use type: Cigarette Years Smoked: 6- stopped 2016 e-Cigarette/Vaping Use: Never Used Second Hand Smoke Exposure: No service: No Current occupational status: disabled Cognitive needs: Yes (cane) Hearing needs: No Vision needs: Yes (glasses) Review of Systems Const All systems reviewed & are unremarkable except as noted in HPI and below Physical Exam Vital Signs: Last Vital Signs Pulse 85 12/04/23 09:18 BP 117/68 12/04/23 09:18 BMI result Body Mass Index 51.7 Const General: healthy appearing and no acute distress Nutritional Appearance: obese Orientation/consciousness: patient oriented x3 Limitations: language barrier HEENT Head: Yes normal to inspection Ears: hearing grossly normal bilaterally Eyes Sclerae: sclerae normal Pupils: Equal, round and reactive pupils present Neck Neck: Yes normal visual inspection Chest Chest palpation & inspection: normal inspection of the chest Resp Effort & Inspection: normal respiratory effort Auscultation: clear to auscultation bilaterally Cardio Palpation: normal PMI Rate: regular rate Rhythm: regular rhythm Heart sounds: S1 normal heart sound present, S2 normal heart sound present and no murmurs GI Inspection: Yes obesity Palpation (GI): Soft to palpation, nontender and No hepatosplenomegaly present Auscultation: normal bowel sounds Rectal Exam - Male: Yes deferred Skin General skin exam: no rashes or lesions noted Neuro General: patient oriented x3, gait normal and moves all extremities Cranial nerves: Yes Equal, round and reactive pupils present Psych Appearance: grossly normal Mental Status: mental status grossly normal Assessment & Plan Assessment & Plan (1) Vitamin D deficiency: Code(s): E55.9 - Vitamin D deficiency, unspecified Category: Medical (2) Iron deficiency anemia: Code(s): D50.9 - Iron deficiency anemia, unspecified Category: Medical Qualifiers: Iron deficiency anemia type: inadequate dietary iron intake Qualified Code(s): D50.8 - Other iron deficiency anemias (3) Vitamin B 12 deficiency: Code(s): E53.8 - Deficiency of other specified B group vitamins Category: Medical (4) Hemorrhoids: Code(s): K64.9 - Unspecified hemorrhoids Category: Medical (5) Constipation: Code(s): K59.00 - Constipation, unspecified Category: Medical (6) GERD (gastroesophageal reflux disease): Code(s): K21.9 - Gastro-esophageal reflux disease without esophagitis Category: Medical (7) Abdominal bloating: Code(s): R14.0 - Abdominal distension (gaseous) Category: Medical (8) Chronic diarrhea: Code(s): K52.9 - Noninfective gastroenteritis and colitis, unspecified Category: Medical Plan 43 year old morbidly obese male with htn, hyperlipidemia, Type 2 DM, asthma, SHERRI on CPAP with iron def anemia without significant upper or lower GI symptoms. Pt is at average risk for colon cancer (positive FH of colon cancer in his mother at an advanced age). Evaluation with EGD and Colonoscopy was completed and findings as noted above Morbid (severe) obesity due to excess calories Recent labs show resolution of anemia.? Patient was advised to stop taking iron supplements and have repeat labs in 3 months. Notes: Not planning to FU with bariatric surgery due to anxiety about having Gastric Bypass surgery at present. Patient was advised to continue working on losing weight. 04/11/23 colonoscopy was performed by Dr. Lopez and results as noted above.? Repeat Colonoscopy in 3-4 years due to prior hx of polyps and fair right sided prep or earlier if clinically indicated (Pt was advised to bring his CPAP machine for the procedure (he has anxiety about anesthesia and does not want to be intubated since his had complications from GA) 09/18/23 Patient last week he was with Nauseas and abdominal pain - thinks he had a virus. Today he complain about having smelly burping with some strong taste and odor and would have diarrhea in the evening - 2-3 episodes in the past few months. Denies recent changes in his diet. Usually has rice, beans with either chicken or pork. Pt has lost 50 lbs over the past 4-5 years Pt was advised to schedule an Abd US and increase Famotidine to twice a day. 10/23/23 Having symptoms of bloating and diarrhea for a week. Has diarrhea in the afternoon and is better the next morning. Denies diarrhea with milk products. Went to [place] in Dec and symptoms started around then - unable to recall if symptoms started before the trip or after. Pt advised to have H pylori breath test and stool studies to check for infectious diarrhea 12/04/23 Denies diarrhea over the past week. Prescribed antibiotics and Trulicity was discontinued by his PCP 2 weeks ago. He has been feeling better since stopping Trulicity Follow-up appointment in the GI clinic in 3 weeks (Scheduled 12/25/23) Medications: New omeprazole 20 mg PO DAILY 60 caps 3RF 60 days K21.9 - Gastro-esophageal reflux disease without esophagitis Discontinued famotidine Discontinued Reason: Ancillary Entered New Order 20 mg PO BID 90 days 180 tabs 3RF K21.9 - Gastro-esophageal reflux disease without esophagitis Coding Level of Care Code Est Pt Level 3 (04314) Diagnoses Vitamin D deficiency E55.9 Iron deficiency anemia secondary to inadequate dietary iron intake D50.8 Iron deficiency anemia type: inadequate dietary iron intake Vitamin B 12 deficiency E53.8 Hemorrhoids K64.9 Constipation K59.00 GERD (gastroesophageal reflux disease) K21.9 Abdominal bloating R14.0 Chronic diarrhea K52.9 Time Spent (min) 24
[2023-12-04 09:18] VITALS: BP 117/68; PULSE 85; BMI 51.7
== END 2023-12-04 10:27 | disposition home or self-care (01) ==
PROVIDERS: PCP Internal Medicine; Visit Provider Internal Medicine Gastroenterology
DX: E55.9 Vitamin D deficiency, unspecified (principal); D50.8 Other iron deficiency anemias; E53.8 Deficiency of other specified B group vitamins; K64.9 Unspecified hemorrhoids; K59.00 Constipation, unspecified; K21.9 Gastro-esophageal reflux disease without esophagitis; R14.0 Abdominal distension (gaseous); K52.9 Noninfective gastroenteritis and colitis, unspecified
CPT/HCPCS: 99213

== ENCOUNTER → 2023-12-04 09:07 | Outpatient (BNVA) | payer OTHER, SELFPAY | PROVIDERS: PCP Internal Medicine; Visit Provider Internal Medicine Gastroenterology | DX: R14.0 Abdominal distension (gaseous) (principal); K21.9 Gastro-esophageal reflux disease without esophagitis; K52.9 Noninfective gastroenteritis and colitis, unspecified; K64.9 Unspecified hemorrhoids; K59.00 Constipation, unspecified; E55.9 Vitamin D deficiency, unspecified; E53.8 Deficiency of other specified B group vitamins; D50.8 Other iron deficiency anemias | CPT/HCPCS: 99212 ==

== ENCOUNTER 2023-12-12 10:49 | Outpatient (AMB) | payer OTHER, SELFPAY ==
--- NOTE | 2023-12-12 11:06 | MHC.OFFWIV ---
Intake Vital Signs 12/12/23 11:08 Height 5 ft 9 in Weight 358 lb BMI 52.9 BP 130/80 Blood Pressure Location Rt brachial Position Sitting Pulse 88 Pulse Source Pulse Oximeter Pulse Oximetry (%) 94 Oxygen Delivery Method Room Air Intake Visit Reasons: EST/left eye irritation 9lobby) Patient Tobacco Use Status: Former Tobacco user Quit Date: 2016 Allergies Flexeril Adverse Reaction (Mild, Verified 12/12/23 11:08) nausea, sleepiness glipizide Adverse Reaction (Mild, Verified 12/12/23 11:08) hypoglycemia Medication List - Last Reconciled 12/12/23 by Tianna Garcia MD albuterol sulfate 2.5 mg (3 mL) inhalation Q8H PRN alprazolam 0.25 - 0.5 mg orally 1 tab 30 minutes prior to MRI, november repeat ix's 1; 1 day atorvastatin 10 mg PO BEDTIME azelastine 2 sprays intranasal BID 30 days betamethasone dipropionate 0.05% 1 appl topical BID PRN cane As directed HEAVY DUTY cholecalciferol (vitamin D3) 25 mcg PO DAILY clonazepam 0.5 mg PO DAILY [cpap As directed] [detachable shower Head As directed] doxepin 75 mg PO BEDTIME duloxetine 30 mg PO QAM empagliflozin (Jardiance) 25 mg PO QAM flash glucose scanning reader (InsideViewStyle Spenser 2 [place]) As directed flash glucose sensor (FreeStyle Spenser 2 Sensor kit) every 2 weeks fluocinonide 0.05% 1 appl topical BID 7 days fluticasone propion-salmeterol 232-14 mcg/actuation 1 inh inhalation BID fluticasone propionate 50 mcg/actuation 2 sprays intranasal DAILY 30 days gabapentin 600 mg (2 x 300 mg) PO BEDTIME hydrocortisone 2.5% (Proctosol HC) 1 appl [place] BID-QID PRN hydroxyzine HCl 25 mg PO TID ibuprofen 600 mg PO Q8H PRN insulin glargine (Lantus Solostar U-100 Insulin) 30 units (0.3 mL) subcut QPM irbesartan-hydrochlorothiazide 150-12.5 mg 1 tab PO DAILY lancets As directed metformin 1,000 mg (2 x 500 mg) PO BID montelukast 10 mg PO BEDTIME nebulizers As directed omeprazole 20 mg PO DAILY 60 days pen needle, diabetic (BD Ultra-Fine Yanely Pen Needle) 1 ea subcut DAILY polyethylene glycol 3350 (Miralax) 17 grams PO DAILY 1 day [Quad cane As directed] sennosides-docusate sodium 8.6-50 mg (Senna-S) 2 tab-caps (2 x 8.6-50 mg) PO BEDTIME 30 days Shower Chair As directed tramadol 50 mg PO Q8H PRN 30 days trazodone 100 - 200 mg (1 - 2 x 100 mg) PO BEDTIME triamcinolone acetonide 0.5% 1 appl topical DAILY 15 days Do you need a note to return to daycare/school/sports/work: No HPI EST/left eye irritation 9lobby) HPI Details Patient is a 43-year-old gentleman came in today to be evaluated for redness left eye for the past 3 days Patient says that he was feeling itchy so he dropped it 3 days ago Followed by redness and cloudy discharge He is feeling irritated for there is no pain, there is no photophobia On examination patient has developed conjunctivitis I am treating him with Polytrim eyedrops q.4 hour If no improvement within 24-48 hours patient is to notify his doctor or return here Review system is negative for fever chills headaches cough shortness a breath PFSH Medical History Pharyngitis Migraine Vitamin B12 deficiency Obesity due to excess calories Peripheral neuropathy Obesity History of colon polyps Asthma Bronchitis Depression Back pain with sciatica Proteinuria Hemorrhoids SHERRI (obstructive sleep apnea) Hyperlipidemia LDL goal <100 Essential hypertension Vitamin D deficiency Surgical History Hx of colonoscopy History of esophagogastroduodenoscopy (EGD) Loculated pleural effusion Loculated empyema Family History Father Cirrhosis Diabetes Mother Colon cancer, Onset Age: 83 Brother Prostate cancer CVA (cerebral vascular accident) Social History Household Members: Family Housing: Apartment Are you a primary manager respiratory care to a significant other at home: No Do you presently have visiting nurse or other home services: No Alcohol intake: never Patient Tobacco Use Status: Former Tobacco user Quit Date: 2016 Tobacco use type: Cigarette Years Smoked: 6- stopped 2017 e-Cigarette/Vaping Use: Never Used Second Hand Smoke Exposure: No service: No Current occupational status: disabled Cognitive needs: Yes (cane) Hearing needs: No Vision needs: Yes (glasses) Review of Systems Const All systems reviewed & are unremarkable except as noted in HPI and below Physical Exam Vital Signs: Last Vital Signs Pulse 88 12/12/23 11:08 BP 130/80 12/12/23 11:08 Pulse Ox 94 12/12/23 11:08 Oxygen Delivery Method Room Air 12/12/23 11:08 BMI result Body Mass Index 52.9 Const General: no acute distress Orientation/consciousness: patient oriented x3 Eyes Other: Left eye with injected conjunctivae, MOIZ, EOMI, no photophobia, cornea clear Resp Effort & Inspection: normal respiratory effort and able to speak in complete sentences Neuro General: patient oriented x3 Psych Mental Status: mental status grossly normal Assessment & Plan Assessment & Plan (1) Acute conjunctivitis, left eye: Code(s): H10.32 - Unspecified acute conjunctivitis, left eye Qualifiers: Acute conjunctivitis type: unspecified Qualified Code(s): H10.32 - Unspecified acute conjunctivitis, left eye Plan Patient is a 43-year-old gentleman came in today to be evaluated for redness left eye for the past 3 days Patient says that he was feeling itchy so he dropped it 3 days ago Followed by redness and cloudy discharge He is feeling irritated for there is no pain, there is no photophobia On examination patient has developed conjunctivitis I am treating him with Polytrim eyedrops q.4 hour If no improvement within 24-48 hours patient is to notify his doctor or return here Review system is negative for fever chills headaches cough shortness a breath Medications: New polymyxin B sulf-trimethoprim 10,000 unit- 1 mg/mL while awake; do not exceed 6 doses in 24 hours 1 drp ophthalmic (eye) .Q 4 H 10 mL 0RF 7 days Coding Level of Care Code Est Pt Level 3 (88820) Diagnoses Acute conjunctivitis of left eye, unspecified acute conjunctivitis type H10.32 Acute conjunctivitis type: unspecified
[2023-12-12 11:08] VITALS: BP 130/80; PULSE 88; O2SAT 94; BMI 52.9
== END 2023-12-12 11:38 | disposition home or self-care (01) ==
PROVIDERS: PCP Internal Medicine; Visit Provider Internal Medicine
DX: H10.32 Unspecified acute conjunctivitis, left eye (principal)
CPT/HCPCS: 99213

== ENCOUNTER 2023-12-16 10:06 | Outpatient (AMB) | payer OTHER, SELFPAY ==
[2023-12-16 10:44] VITALS: BP 122/80; PULSE 81; TEMP 36.4; O2SAT 96; BMI 53.3
--- NOTE | 2023-12-16 10:44 | MHC.OFFWIV ---
Intake Vital Signs 12/16/23 10:44 Height 5 ft 9 in Weight 361 lb BMI 53.3 BP 122/80 Blood Pressure Location Lt brachial Position Sitting Pulse 81 Pulse Source Pulse Oximeter Temp 97.6 F Temp Source Temporal Artery Scan Pulse Oximetry (%) 96 Oxygen Delivery Method Room Air Intake Visit Reasons: EST/ eye irritation not getting better (lobby) Intake Note: pt is here today for eye irritation started Patient Tobacco Use Status: Former Tobacco user Quit Date: 2016 Allergies Flexeril Adverse Reaction (Mild, Verified 12/16/23 11:19) nausea, sleepiness glipizide Adverse Reaction (Mild, Verified 12/16/23 11:19) hypoglycemia Medication List - Last Reconciled 12/16/23 by SERGE Hussein albuterol sulfate 2.5 mg (3 mL) inhalation Q8H PRN alprazolam 0.25 - 0.5 mg orally 1 tab 30 minutes prior to MRI, may repeat ix's 1; 1 day atorvastatin 10 mg PO BEDTIME azelastine 2 sprays intranasal BID 30 days betamethasone dipropionate 0.05% 1 appl topical BID PRN cane As directed HEAVY DUTY cholecalciferol (vitamin D3) 25 mcg PO DAILY clonazepam 0.5 mg PO DAILY [cpap As directed] [detachable shower Head As directed] doxepin 75 mg PO BEDTIME duloxetine 30 mg PO QAM empagliflozin (Jardiance) 25 mg PO QAM erythromycin 0.5 inches ophthalmic (eye) BID flash glucose scanning reader ([employer] Spenser 2 [place]) As directed flash glucose sensor (FreeStyle Spenser 2 Sensor kit) every 2 weeks fluocinonide 0.05% 1 appl topical BID 7 days fluticasone propion-salmeterol 232-14 mcg/actuation 1 inh inhalation BID fluticasone propionate 50 mcg/actuation 2 sprays intranasal DAILY 30 days gabapentin 600 mg (2 x 300 mg) PO BEDTIME hydrocortisone 2.5% (Proctosol HC) 1 appl MS BID-QID PRN hydroxyzine HCl 25 mg PO TID ibuprofen 600 mg PO Q8H PRN insulin glargine (Lantus Solostar U-100 Insulin) 30 units (0.3 mL) subcut QPM irbesartan-hydrochlorothiazide 150-12.5 mg 1 tab PO DAILY lancets As directed metformin 1,000 mg (2 x 500 mg) PO BID montelukast 10 mg PO BEDTIME nebulizers As directed olopatadine 0.1% 1 drp ophthalmic (eye) BID omeprazole 20 mg PO DAILY 60 days pen needle, diabetic (BD Ultra-Fine Yanely Pen Needle) 1 ea subcut DAILY polyethylene glycol 3350 (Miralax) 17 grams PO DAILY 1 day prednisone 40 mg (2 x 20 mg) PO DAILY [Quad cane As directed] sennosides-docusate sodium 8.6-50 mg (Senna-S) 2 tab-caps (2 x 8.6-50 mg) PO BEDTIME 30 days Shower Chair As directed tramadol 50 mg PO Q8H PRN 30 days trazodone 100 - 200 mg (1 - 2 x 100 mg) PO BEDTIME triamcinolone acetonide 0.5% 1 appl topical DAILY 15 days Do you need a note to return to daycare/school/sports/work: No HPI HPI Comments History of Present Illness Details Patient is a 43-year-old male in today for sick visit He was seen in our walk-in clinic 4 days prior for issues of eye redness, discharge, itchiness. Patient was diagnosed with conjunctivitis and given Polytrim. Patient returns today with similar complaint. Also feels that his right eye is now starting to a chin turn red as well. Patient states his eyes are sometimes stuck clothes in the morning. Denies pain, denies photophobia. Denies any trauma to the eyes. Denies vision changes. [facility] Medical History Pharyngitis Migraine Vitamin B12 deficiency Obesity due to excess calories Peripheral neuropathy Obesity History of colon polyps Asthma Bronchitis Depression Back pain with sciatica Proteinuria Hemorrhoids SHERRI (obstructive sleep apnea) Hyperlipidemia LDL goal <100 Essential hypertension Vitamin D deficiency Surgical History Hx of colonoscopy History of esophagogastroduodenoscopy (EGD) Loculated pleural effusion Loculated empyema Family History Father Cirrhosis Diabetes Mother Colon cancer, Onset Age: 83 Brother Prostate cancer CVA (cerebral vascular accident) Social History Household Members: Family Housing: Apartment Are you a primary healthcare economics manager to a significant other at home: No Do you presently have visiting nurse or other home services: No Alcohol intake: never Patient Tobacco Use Status: Former Tobacco user Quit Date: 2016 Tobacco use type: Cigarette Years Smoked: 6- stopped 2016 e-Cigarette/Vaping Use: Never Used Second Hand Smoke Exposure: No service: No Current occupational status: disabled Cognitive needs: Yes (cane) Hearing needs: No Vision needs: Yes (glasses) Review of Systems Const All systems reviewed & are unremarkable except as noted in HPI and below Physical Exam Vital Signs: Last Vital Signs Temp 97.6 F 12/16/23 10:44 Pulse 81 12/16/23 10:44 BP 122/80 12/16/23 10:44 Pulse Ox 96 12/16/23 10:44 Oxygen Delivery Method Room Air 12/16/23 10:44 BMI result Body Mass Index 53.3 Const Other: Appearance: Alert.? Oriented X3.? No acute distress.? Head: Normocephalic, Eyes: Pupils equal, round and reactive to light.?Sclera erythema. +drainage. No vision changes. EOMI. ENT: Pharynx normal.? CVS: Normal heart rate and rhythm.? Pulses normal.? Respiratory: No respiratory distress.? Breath sounds normal.? Neuro: Oriented X 3.? No motor deficit.? No sensory deficit. CN 2-12 intact Assessment & Plan Assessment & Plan (1) Conjunctivitis: Comment: Will stop Polytrim. Patient will be started on erythromycin ointment and olopatadine. Patient will also be given prednisone and be instructed to take Zyrtec. Patient should follow-up and 24-48 hours if no improvement. Patient has been educated on signs of worsening symptoms and when to report to the walk-in or when to present to the ED. Code(s): H10.9 - Unspecified conjunctivitis Qualifiers: Acute conjunctivitis type: unspecified Conjunctivitis type: acute Laterality: bilateral Qualified Code(s): H10.33 - Unspecified acute conjunctivitis, bilateral Plan: Take your medications as prescribed. If you were prescribed antibiotics today, it is important that you take your medication to their entirety, do not skip any doses, do not finish them early. Follow-up with your primary care provider this week. Return to the emergency department with new or worsening symptoms. Such as fevers, chills, chest pain, shortness of breath, nausea, vomiting, dizziness, headache, vision changes, lethargy In case of emergency call 911 Plan Follow up with PCP. Medications: New erythromycin 0.5 inches ophthalmic (eye) BID 3.5 grams 0RF prednisone 40 mg (2 x 20 mg) PO DAILY 10 tabs 0RF olopatadine 0.1% separate doses by at least 6-8 hours 1 drp ophthalmic (eye) BID 5 mL 0RF Discontinued polymyxin B sulf-trimethoprim 10,000 unit- 1 mg/mL while awake; do not exceed 6 doses in 24 hours Discontinued Reason: Doctor's Order 1 drp ophthalmic (eye) .Q 4 H 7 days 10 mL 0RF Coding Level of Care Code Est Pt Level 3 (10918) Diagnoses Acute conjunctivitis of both eyes, unspecified acute conjunctivitis type H10.33 Acute conjunctivitis type: unspecified Conjunctivitis type: acute Laterality: bilateral Time Spent (min) 27
== END 2023-12-16 11:29 | disposition home or self-care (01) ==
PROVIDERS: PCP Internal Medicine; Visit Provider Nurse Practitioner Primary Care
DX: H10.33 Unspecified acute conjunctivitis, bilateral (principal)
CPT/HCPCS: 99213

== ENCOUNTER 2023-12-19 14:51 | Outpatient (AMB) | payer OTHER, SELFPAY ==
--- NOTE | 2023-12-19 14:53 | A.OFFPC_ITS ---
Vital Signs 12/19/23 14:54 Height 5 ft 9 in Weight 366 lb BMI 54.0 BP 126/80 Blood Pressure Location Rt brachial Position Sitting Pulse 76 Pulse Source Pulse Oximeter Pulse Oximetry (%) 97 Oxygen Delivery Method Room Air Intake Visit Reasons: Follow up from walk in per john Intake Note: pt is here for f/u conjunctivitis Cardiographer Required: Yes Allergies Flexeril Adverse Reaction (Mild, Verified 12/19/23 15:04) nausea, sleepiness glipizide Adverse Reaction (Mild, Verified 12/19/23 15:04) hypoglycemia Medication List - Last Reconciled 12/19/23 by SERGE Hussein albuterol sulfate 2.5 mg (3 mL) inhalation Q8H PRN alprazolam 0.25 - 0.5 mg orally 1 tab 30 minutes prior to MRI, november repeat ix's 1; 1 day atorvastatin 10 mg PO BEDTIME azelastine 2 sprays intranasal BID 30 days betamethasone dipropionate 0.05% 1 appl topical BID PRN cane As directed HEAVY DUTY cholecalciferol (vitamin D3) 25 mcg PO DAILY clonazepam 0.5 mg PO DAILY [cpap As directed] [detachable shower Head As directed] doxepin 75 mg PO BEDTIME duloxetine 30 mg PO QAM empagliflozin (Jardiance) 25 mg PO QAM flash glucose scanning reader ([employer]Style Spenser 2 [place]) As directed flash glucose sensor (FreeStyle Spenser 2 Sensor kit) every 2 weeks fluocinonide 0.05% 1 appl topical BID 7 days fluticasone propion-salmeterol 232-14 mcg/actuation 1 inh inhalation BID fluticasone propionate 50 mcg/actuation 2 sprays intranasal DAILY 30 days gabapentin 600 mg (2 x 300 mg) PO BEDTIME hydrocortisone 2.5% (Proctosol HC) 1 appl [place] BID-QID PRN hydroxyzine HCl 25 mg PO TID ibuprofen 600 mg PO Q8H PRN insulin glargine (Lantus Solostar U-100 Insulin) 30 units (0.3 mL) subcut QPM irbesartan-hydrochlorothiazide 150-12.5 mg 1 tab PO DAILY lancets As directed metformin 1,000 mg (2 x 500 mg) PO BID montelukast 10 mg PO BEDTIME nebulizers As directed olopatadine 0.1% 1 drp ophthalmic (eye) BID omeprazole 20 mg PO DAILY 60 days pen needle, diabetic (BD Ultra-Fine Yanely Pen Needle) 1 ea subcut DAILY polyethylene glycol 3350 (Miralax) 17 grams PO DAILY 1 day prednisone 40 mg (2 x 20 mg) PO DAILY [Quad cane As directed] sennosides-docusate sodium 8.6-50 mg (Senna-S) 2 tab-caps (2 x 8.6-50 mg) PO BE DTIME 30 days Shower Chair As directed tobramycin-dexamethasone 0.3-0.1 % (TobraDex) 1 drp ophthalmic (eye) QID tramadol 50 mg PO Q8H PRN 30 days trazodone 100 - 200 mg (1 - 2 x 100 mg) PO BEDTIME triamcinolone acetonide 0.5% 1 appl topical DAILY 15 days Tobacco use date assessed: 12/19/23 Dental Screening Dental Screen Date: 12/19/23 Did you have a dental visit in the last 12 months?: Yes Was dental information given to patient?: Patient has dentist HPI HPI Comments History of Present Illness Details Patient is a 43-year-old male in for a follow-up from a walk-in visit where he had bilateral allergic rhinitis and conjunctivitis of his eyes. Patient was initially utilizing Polytrim but then had medications changed to erythromycin base and olopatadine. Patient reports that he was able to get in and see his eye doctor yesterday, he discontinued the erythromycin base and started the patient on tobramycin dexamethasone eyedrops for the next 2 weeks, patient will then resume taking his olopatadine. On physical exam patient erythema and swelling of eyes has reduced drastically since his appointment 3 days prior. Patient states he does have follow-up with utilization review coordinator in the next few weeks. Patient has been educated he should continue the regimen he is currently on. [facility] Medical History Pharyngitis Migraine Vitamin B12 deficiency Obesity due to excess calories Peripheral neuropathy Obesity History of colon polyps Asthma Bronchitis Depression Back pain with sciatica Proteinuria Hemorrhoids SHERRI (obstructive sleep apnea) Hyperlipidemia LDL goal <100 Essential hypertension Vitamin D deficiency Surgical History Hx of colonoscopy History of esophagogastroduodenoscopy (EGD) Loculated pleural effusion Loculated empyema Family History Father Cirrhosis Diabetes Mother Colon cancer, Onset Age: 83 Brother Prostate cancer CVA (cerebral vascular accident) Social History Household Members: Family Housing: Apartment Are you a primary healthcare administrative assistant to a significant other at home: No Do you presently have visiting nurse or other home services: No Alcohol intake: never Patient Tobacco Use Status: Former Tobacco user Tobacco use type: Cigarette Years Smoked: 6- stopped 2016 e-Cigarette/Vaping Use: Never Used Second Hand Smoke Exposure: No service: No Current occupational status: disabled Cognitive needs: Yes (cane) Hearing needs: No Vision needs: Yes (glasses) Questionnaire Thrive Questionnaire Date Thrive assessed: 08/19/23 MARK ANTHONY-7 AMB Questionnaire MARK ANTHONY-7 Date MARK ANTHONY - 7 assessed: 08/19/23 Source: Developed by Drs. Ambrosio Rivas, Lanette Escobedo, Vinayak Marks and colleagues, with an educational joselyn from [employer]. Review of Systems Const All systems reviewed & are unremarkable except as noted in HPI and below Denies chills and Denies fever(s) Eyes Denies blurry vision, Denies change in vision, Denies eye discharge, Reports irritation and Reports other (redness.) Physical exam (Primary Care) Vital Signs: Last Vital Signs Pulse 76 12/19/23 14:54 BP 126/80 12/19/23 14:54 Pulse Ox 97 12/19/23 14:54 Oxygen Delivery Method Room Air 12/19/23 14:54 Care Plan Goal for BP management: BP controlled. BMI result Body Mass Index 54.0 Tobacco/Smoking Status: Tobacco use Status Tobacco use date assessed 08/19/23 12/19/23 14:54 Patient Tobacco Use Status Former Tobacco user 12/19/23 14:54 Tobacco use type Cigarette 12/19/23 14:54 e-Cigarette/Vaping Use Never Used 12/19/23 14:54 Thrive Assessment: Date of Thrive Assessment Date Thrive assessed 08/19/23 12/19/23 14:54 Const Other: Appearance: Alert.? Oriented X3.? No acute distress.? Head: Normocephalic, atraumatic, no step-offs or deformities Eyes: Pupils equal, round and reactive to light.?EOMI. No change in vision. Scant erythema of sclera, no blepharal swelling noted. Neck: Normal inspection.? Neck supple.? Respiratory: No respiratory distress.? Neuro: Oriented X 3.? Assessment and Plan Assessment & Plan (1) Conjunctivitis: Comment: Patient recently saw utilization review coordinator. And erythromycin base and prednisone discontinue now. He was started on tobramycin/dexamethasone eye drops that he will take for the next 2 weeks and then will resume taking olopatadine. Patient has follow-up with utilization review coordinator. Has been educated on signs of worsening symptoms and when to report to the office or when to present to the emergency room Code(s): H10.9 - Unspecified conjunctivitis Qualifiers: Conjunctivitis type: acute Acute conjunctivitis type: unspecified Laterality: bilateral Qualified Code(s): H10.33 - Unspecified acute conjunctivitis, bilateral Plan: take medications as directed. Plan follow up with pcp. Medications: Discontinued erythromycin Discontinued Reason: Doctor's Order 0.5 inches ophthalmic (eye) BID 3.5 grams 0RF Coding Level of Care Code Est Pt Level 3 (50366) Diagnoses Acute conjunctivitis of both eyes, unspecified acute conjunctivitis type H10.33 Conjunctivitis type: acute Acute conjunctivitis type: unspecified Laterality: bilateral Time Spent (min) 21
[2023-12-19 14:54] VITALS: BP 126/80; PULSE 76; O2SAT 97; BMI 54.0
== END 2023-12-19 15:56 | disposition home or self-care (01) ==
PROVIDERS: PCP Internal Medicine; Visit Provider Nurse Practitioner Primary Care
DX: H10.33 Unspecified acute conjunctivitis, bilateral (principal)
CPT/HCPCS: 99213

== ENCOUNTER 2024-01-05 14:10 | Outpatient (AMB) | payer OTHER, SELFPAY ==
[2024-01-05 14:51] VITALS: BP 126/84; PULSE 98; TEMP 37.2; O2SAT 97; BMI 52.7
--- NOTE | 2024-01-05 14:51 | AM.OFFWIN_ITS ---
Intake Vital Signs 01/05/24 14:51 Height 5 ft 9 in Weight 357 lb BMI 52.7 BP 126/84 Blood Pressure Location Rt radial Position Sitting Pulse 98 Pulse Source Pulse Oximeter Temp 98.9 F Temp Source Oral Pulse Oximetry (%) 97 Oxygen Delivery Method Room Air Intake Visit Reasons: EP Sore Throat, ear pain Intake Note: pt here c/o sore throat, chills, fever, headache. Started Monday 01/01. Patient Tobacco Use Status: Former Tobacco user Allergies Flexeril Adverse Reaction (Mild, Verified 01/05/24 14:57) nausea, sleepiness glipizide Adverse Reaction (Mild, Verified 01/05/24 14:57) hypoglycemia HPI HPI Comments History of Present Illness Details Patient presents to the walk-in today for sick visit Endorses sore throat and headache for last 2 days Denies known sick contacts Pain with swallowing Tolerating p.o., denies nausea, vomiting Denies fevers, chest pain, syncope, dizziness, weakness or difficulty managing secretions PFSH Medical History Pharyngitis Migraine Vitamin B12 deficiency Obesity due to excess calories Peripheral neuropathy Obesity History of colon polyps Asthma Bronchitis Depression Back pain with sciatica Proteinuria Hemorrhoids SHERRI (obstructive sleep apnea) Hyperlipidemia LDL goal <100 Essential hypertension Vitamin D deficiency Surgical History Hx of colonoscopy History of esophagogastroduodenoscopy (EGD) Loculated pleural effusion Loculated empyema Family History Father Cirrhosis Diabetes Mother Colon cancer, Onset Age: 83 Brother Prostate cancer CVA (cerebral vascular accident) Social History Household Members: Family Housing: Apartment Are you a primary intensive care unit nurse to a significant other at home: No Do you presently have visiting nurse or other home services: No Alcohol intake: never Patient Tobacco Use Status: Former Tobacco user Tobacco use type: Cigarette Years Smoked: 6- stopped 2016 e-Cigarette/Vaping Use: Never Used Second Hand Smoke Exposure: No service: No Current occupational status: disabled Cognitive needs: Yes (cane) Hearing needs: No Vision needs: Yes (glasses) Review of Systems Const All systems reviewed & are unremarkable except as noted in HPI and below Physical Exam Vital Signs: Last Vital Signs Temp 98.9 F 01/05/24 14:51 Pulse 98 01/05/24 14:51 BP 126/84 01/05/24 14:51 Pulse Ox 97 01/05/24 14:51 Oxygen Delivery Method Room Air 01/05/24 14:51 BMI result Body Mass Index 52.7 General: awake, alert, oriented. Answers questions appropriately. Fully engaged in examination. Skin: warm, dry, intact HEENT: TMs intact bilaterally, no redness. Posterior pharynx erythematous with whiteout exudate. Moist oral mucosa. Sclera without icterus or injection. Cardiac: External chest normal in appearance. Respiratory: LSCTAB. Abdomen: without gross distension. Neurological: Oriented to person, place, time and situation. Thought process intact. Psychiatric: Appropriate mood and affect. Good judgment and insight. Results AMB Rapid Strep AMB Rapid Strep Positive Last Edit by Sixto Khan CMA on 01/05/24 15:02 Results Reviewed Results Reviewed: Laboratory Last Values Strep Scn Rapid Clinic Positive 01/05/24 15:01 Assessment & Plan Assessment & Plan (1) Strep pharyngitis: Code(s): J02.0 - Streptococcal pharyngitis Plan Patient presented to the walk-in today with complaints of sore throat Rapid strep positive Amoxicillin 500 mg twice daily for 10 days Rest, drink plenty of fluids. Tylenol or Motrin as needed Discussed preventative measures including no sharing of drinks, utensils or kissing. Dispose of tooth brush every 3 days and at completion of the antibiotics. All questions and concerns were answered, patient agrees with plan Follow with primary care or return to the clinic for any new or worsening symptoms Orders: Orders AMB Rapid Strep Screen Today Z13.9 - Encounter for screening, unspecified Medications: New ibuprofen 600 mg PO TID PRN 20 tabs 0RF pain amoxicillin 500 mg PO TID 10 days 30 caps 0RF Coding Level of Care Code Est Pt Level 3 (59025) Diagnoses Strep pharyngitis J02.0
== END 2024-01-05 15:15 | disposition home or self-care (01) ==
PROVIDERS: PCP Internal Medicine; Visit Provider Registered Nurse Emergency
DX: J02.0 Streptococcal pharyngitis (principal)
CPT/HCPCS: 87880; 99213

== ENCOUNTER 2024-01-19 14:42 | Outpatient (REF) | payer OTHER, SELFPAY | END 2024-01-19 14:43 | disposition home or self-care (01) | LOC: HO.SH 14:42 | PROVIDERS: Visit Provider Internal Medicine | DX: Z01.118 Encounter for examination of ears and hearing with other abnormal findings (principal); H93.293 Other abnormal auditory perceptions, bilateral | CPT/HCPCS: 92557 ==

== ENCOUNTER 2024-02-12 10:22 | Outpatient (AMB) | payer OTHER, SELFPAY ==
[2024-02-12 10:30] VITALS: PULSE 60; O2SAT 98; BMI 52.5
--- NOTE | 2024-02-12 10:30 | A.OFFVIS_ITS ---
Vital Signs 02/12/24 10:30 Height 5 ft 9 in Weight 355 lb 9.69 oz BMI 52.5 Pulse 60 Pulse Source Pulse Oximeter Pulse Oximetry (%) 98 Oxygen Delivery Method Room Air Intake Visit Reasons: Asthma [employer] Required: No Allergies Flexeril Adverse Reaction (Mild, Verified 02/12/24 10:32) nausea, sleepiness glipizide Adverse Reaction (Mild, Verified 02/12/24 10:32) hypoglycemia HPI Comments Details: The patient is a 43-year-old gentleman known asthma in addition to obstructive sleep apnea on CPAP and morbid obesity. He states that he was in his usual state health until about 5 days ago when he started developing worsening cough and congestion. He went to see his primary care doctor with prescribed Augmentin. The patient has not been any better. He has complaints of shortness of breath and frequent coughing with mucus. He is concerned because he has been admitted in the past with pneumonia. He has not been using his nebulizer. He has been using his short-acting beta agonists MDI several times a day. It is only socially helpful. He denies any fevers or chills. No one else is sick at home. He starting to feel better. He is using his CPAP every night for more than 4 ho urs a night. The CPAP therapy is effective and beneficial. He needs to get new supplies. Will resend order to his DME. 11/10/2023 the patient is here for a pulmonary follow-up visit. He is feeling better. During the last visit he was sick and required prednisone antibiotics however he has not required any since the fall. the patient continues on his maintenance therapy with good adherence. He has not required his rescue. In addition to that he has been using his CPAP therapy. The CPAP therapy has been affecting beneficial. I do not have access to his machine since it is a [facility] [place] [place] [facility]. he can always take it to his [employer] company for download. In the meantime he has been sleeping well and therapy has been effective for him so at this point I do not think he needs to be adjusted. He does need to get new supplies I will send a script to his [employer] company at this time. Otherwise patient is without any other complaints. Will follow-up in 6 months. 11/25/2023 the patient is here for sick visit. Apparently took a trip down to [place] and he was exposed to a lot of people cancer. It was also call and he was not prepared for the temperature change. The patient is started developing some URI like symptoms and subsequently went into the chest and started developing a cough. Moderate severity hacky nature although he is bringing up some phlegm at times. The patient does have significant chest tightness and wheezing. He has been using the nebulizer every 6 hours. He did have 30 mg of prednisone available and he took yesterday did help. Therefore, I will send some prednisone for the pharmacy for an asthma exacerbation and also have him start a Z-Jamarcus. The patient also needs cough medication. If he has no better he will call the office but hopefully he feels better in the next few days. The patient has already a follow-up. Otherwise will call for further evaluation and recommendations. 02/12/2024 The patient is here for a pulmonary follow-up visit. Overall the patient is doing much better. He continues on his respiratory therapy with good effect. completed prednisone. Also had completed a couple course of antibiotics in the spring. But better now. Typically does not use his rescue inhaler more than twice a week. The patient feels that he is doing well on the AirDuo inhaler. In regards the CPAP the CPAP therapy continues to be affecting beneficial. He does uses CPAP the whole night more than 4 hours. He does feel rested in the morning. Cardiovascular alonso he is stable which is reassuring. He is also working on weight loss which is also helping his overall health. He is doing this with lifestyle changes. Will continue with current respiratory medications. [facility] Medical History Pharyngitis Migraine Vitamin B12 deficiency Obesity due to excess calories Peripheral neuropathy Obesity History of colon polyps Asthma Bronchitis Depression Back pain with sciatica Proteinuria Hemorrhoids SHERRI (obstructive sleep apnea) Hyperlipidemia LDL goal <100 Essential hypertension Vitamin D deficiency Surgical History Hx of colonoscopy History of esophagogastroduodenoscopy (EGD) Loculated pleural effusion Loculated empyema Family History Father Cirrhosis Diabetes Mother Colon cancer, Onset Age: 83 Brother Prostate cancer CVA (cerebral vascular accident) Social History Household Members: Family Housing: Apartment Are you a primary congregational care pastor to a significant other at home: No Do you presently have visiting nurse or other home services: No Alcohol intake: never Patient Tobacco Use Status: Former Tobacco user Tobacco use type: Cigarette Years Smoked: 6- stopped 2016 e-Cigarette/Vaping Use: Never Used Second Hand Smoke Exposure: No service: No Current occupational status: disabled Cognitive needs: Yes (cane) Hearing needs: No Vision needs: Yes (glasses) Review of Systems Const Denies fatigue, Denies headache(s) and Reports weight loss Eyes Denies blurry vision ENT Reports Normal hearing present, Denies headache(s), Reports nasal congestion, Reports nasal discharge and Reports nasal obstruction Card Denies chest pain, Denies irregular heart rhythm, Denies dyspnea and Denies dyspnea on exertion Resp Denies chest congestion, Reports cough, Denies dyspnea, Denies dyspnea on exertion and Denies wheezing GI Denies constipation and Denies diarrhea Denies dysuria and Denies urinary frequency Musc Reports muscle cramps, Denies muscle weakness, Denies numbness and Denies tingling Neuro Reports Normal hearing present, Denies Abnormal speech present, Denies headache(s), Denies numbness and Denies tingling Psych Reports abnormal sleep pattern and Denies depression Endo Denies fatigue Gianfranco/Lymph Denies easy bruising Aller/Immun Denies wheezing Physical Exam Vital Signs: Last Vital Signs Pulse 60 02/12/24 10:30 Pulse Ox 98 02/12/24 10:30 Oxygen Delivery Method Room Air 02/12/24 10:30 BMI result Body Mass Index 52.5 Const General: healthy appearing and no acute distress Orientation/consciousness: patient oriented x3 HEENT Head: Yes normal to inspection Ears: hearing grossly normal bilaterally Eyes Sclerae: sclerae normal Pupils: Equal, round and reactive pupils present Neck Neck: Yes normal visual inspection Chest Chest palpation & inspection: normal inspection of the chest Resp Effort & Inspection: normal respiratory effort Auscultation: no crackles, no rales, no rhonchi, wheezes and diminished lung sounds Cardio Palpation: normal PMI Rate: regular rate Rhythm: regular rhythm Heart sounds: S1 normal heart sound present, S2 normal heart sound present and no murmurs GI Palpation (GI): Soft to palpation, nontender and No hepatosplenomegaly present Auscultation: normal bowel sounds Rectal Exam - Male: Yes deferred Skin General skin exam: no rashes or lesions noted Neuro General: patient oriented x3, gait normal and moves all extremities Cranial nerves: Yes Equal, round and reactive pupils present and Yes Normal hearing present Speech: No Abnormal speech present Extrem General: No clubbing and No cyanosis Psych Appearance: grossly normal Mental Status: mental status grossly normal Assessment & Plan Assessment & Plan (1) Asthma: Comment: PFT restrictive March 2019 Code(s): J45.909 - Unspecified asthma, uncomplicated Category: Medical Qualifiers: Asthma complication type: uncomplicated Asthma persistence: persistent Asthma severity: moderate Qualified Code(s): J45.40 - Moderate persistent asthma, uncomplicated (2) SHERRI (obstructive sleep apnea): Comment: Continue with the CPAP every night and benefits from this more than 4 hours a night Code(s): G47.33 - Obstructive sleep apnea (adult) (pediatric) Category: Medical (3) Chronic rhinitis: Code(s): J31.0 - Chronic rhinitis Category: Medical Plan Continue respitaory therapy with Airduo continuen Daliresp 500mcg Continue APAP, p10. Has his new Respironics Dreamstation 2, adjusted APAP 7- (JL)12 Nasal rinsing Allergy therapy: singulair continue Fluticasone daily continue Astelin weight management F/U 4 months Orders: Orders Pneumococcal 20 Immunization 02/12/24 Z23 - Encounter for immunization Coding Level of Care Code Est Pt Level 4 (77943) Diagnoses Moderate persistent asthma without complication J45.40 Asthma complication type: uncomplicated Asthma persistence: persistent Asthma severity: moderate SHERRI (obstructive sleep apnea) G47.33 Chronic rhinitis J31.0 Time Spent (min) 15
== END 2024-02-12 10:54 | disposition home or self-care (01) ==
PROVIDERS: PCP Internal Medicine; Visit Provider Hospitalist
DX: J45.40 Moderate persistent asthma, uncomplicated (principal); G47.33 Obstructive sleep apnea (adult) (pediatric); J31.0 Chronic rhinitis
CPT/HCPCS: 99214

== ENCOUNTER → 2024-02-12 10:22 | Outpatient (BNVA) | payer OTHER, SELFPAY | PROVIDERS: PCP Internal Medicine; Visit Provider Hospitalist | DX: J45.40 Moderate persistent asthma, uncomplicated (principal); J31.0 Chronic rhinitis; G47.33 Obstructive sleep apnea (adult) (pediatric) | CPT/HCPCS: 90471; 90677; 99212 ==

== ENCOUNTER 2024-04-02 15:17 | Outpatient (AMB) | payer OTHER, SELFPAY ==
--- NOTE | 2024-04-02 15:23 | MHC.PC.OV ---
Vital Signs 04/02/24 15:24 Height 5 ft 9 in Weight 363 lb BMI 53.6 BP 126/76 Blood Pressure Location Lt brachial Position Sitting Pulse 79 Pulse Source Pulse Oximeter Pulse Oximetry (%) 97 Oxygen Delivery Method Room Air Intake Visit Reasons: DM [employer] Work[employer] Required: No Accompanied by: Self / Same As Patient Allergies dulaglutide [From Trulicity] Adverse Reaction (Intermediate, Unverified 04/02/24 16:21) Diarrhea Flexeril Adverse Reaction (Mild, Verified 04/02/24 15:26) nausea, sleepiness glipizide Adverse Reaction (Mild, Verified 04/02/24 15:26) hypoglycemia Tobacco use date assessed: 12/19/23 Dental Screening Dental Screen Date: 12/19/23 HPI DM HPI Details 44-year-old morbidly obese male with obstructive sleep apnea hypertension hypercholesterolemia diabetes mellitus asthma GERD last seen in 11/08/2023 patient is here for follow-up patient's colonoscopy is up-to-date 04/09/2023. Review of the notes follows up with Pulmonary continue to be on the CPAP for the obstructive sleep apnea on AirDuo Daliresp [facility] in December 2023 for sore throat treated with amoxicillin. Patient also was seen in December for conjunctivitis placed on erythromycin. 12/08/2023 seen gastroenterology for bloating advised to increase famotidine twice a day Bob [id number] PAtient states inhalers are used when needed state Q 2-3 month? TRULICITY stopped already due to diarrhea PFSH Medical History Pharyngitis Migraine Vitamin B12 deficiency Obesity due to excess calories Peripheral neuropathy Obesity History of colon polyps Asthma Bronchitis Depression Back pain with sciatica Proteinuria Hemorrhoids SHERRI (obstructive sleep apnea) Hyperlipidemia LDL goal <100 Essential hypertension Vitamin D deficiency Surgical History Hx of colonoscopy History of esophagogastroduodenoscopy (EGD) Loculated pleural effusion Loculated empyema Family History Father Cirrhosis Diabetes Mother Colon cancer, Onset Age: 83 Brother Prostate cancer CVA (cerebral vascular accident) Social History Household Members: Family Housing: Apartment Are you a primary home care coordinator to a significant other at home: No Do you presently have visiting nurse or other home services: No Alcohol intake: never Patient Tobacco Use Status: Former Tobacco user Tobacco use type: Cigarette Years Smoked: 6- 2016 e-Cigarette/Vaping Use: Never Used Second Hand Smoke Exposure: No service: No Current occupational status: disabled Cognitive needs: Yes (cane) Hearing needs: No Vision needs: Yes (glasses) Questionnaire PHQ-9 Over the last 2 weeks, how often have you been bothered by any of the following problems? 1. Little interest or pleasure in doing things: not at all 2. Feeling down, depressed, or hopeless: not at all 3. Trouble falling or staying asleep, or sleeping too much: not at all 4. Feeling tired or having little energy: not at all 5. Poor appetite or overeating: not at all 6. Feeling bad about yourself - or that you are a failure or have let yourself or your family down: not at all 7. Trouble concentrating on things, such as reading the newspaper or watching television: not at all 8. Moving or speaking so slowly that other people could have noticed. Or the opposite - being so fidgety or restless that you have been moving around a lot more than usual: not at all 9. Thoughts that you would be better off or of hurting yourself in some way: not at all Total score: 0 Depression Screening Interpretation: Negative Depression Screening Done: Yes Source: Developed by Drs. Ambrosio Rivas, Lanette Escobedo, Vinayak Marks and colleagues, with an educational joselyn from [employer]. Thrive Questionnaire Date Thrive assessed: 08/19/23 AUDIT C Alcohol Use Questionnaire (AUDIT-C) 1. How often do you have a drink containing alcohol?: Never 2. How many drinks containing alcohol do you have on a typical day when you are drinking?: 1 or 2 (none) 3. How often do you have six or more drinks on one occasion?: Never Total Score: 0 MARK ANTHONY-7 AMB Questionnaire MARK ANTHONY-7 Date MARK ANTHONY - 7 assessed: 08/19/23 Source: Developed by Drs. Ambrosio Rivas, Vinayak Quick Kroenke and colleagues, with an educational joselyn from [employer]. Physical exam (Primary Care) Vital Signs: Last Vital Signs Pulse 79 04/02/24 15:24 BP 126/76 04/02/24 15:24 Pulse Ox 97 04/02/24 15:24 Oxygen Delivery Method Room Air 04/02/24 15:24 BMI result Body Mass Index 53.6 Tobacco/Smoking Status: Tobacco use Status Tobacco use date assessed 12/19/23 04/02/24 15:24 Patient Tobacco Use Status Former Tobacco user 04/02/24 15:24 Tobacco use type Cigarette 04/02/24 15:24 e-Cigarette/Vaping Use Never Used 04/02/24 15:24 PHQ-9: PHQ-9 Score PHQ-9: Total score 0 04/02/24 15:33 Depression Screening Interpretation: Negative Thrive Assessment: Date of Thrive Assessment Date Thrive assessed 08/19/23 04/02/24 15:24 Const General: alert; No acute distress Eyes Conjunctivae: conjunctivae normal Resp Auscultation: clear to auscultation bilaterally Cardio Rate: regular rate Rhythm: regular rhythm GI Inspection: Yes normal to inspection Extrem General: Yes normal to inspection and No edema Results AMB Hemoglobin A1c AMB Hemoglobin A1c 7.3 % Last Edit by Albertina Brody CMA on 04/02/24 15:34 Results Reviewed Results Reviewed: Laboratory Last Values Hgb A1c (Clinic) 7.3 % (4.0-6.0) H 04/02/24 15:33 Assessment and Plan Assessment & Plan (1) SHERRI (obstructive sleep apnea): Comment: Continue with the CPAP every night and benefits from this more than 4 hours a night Code(s): G47.33 - Obstructive sleep apnea (adult) (pediatric) Plan: Patient follows up with Pulmonary and continue with the CPAP more than 4 hours a night and benefits from this (2) Type 2 diabetes mellitus with hyperglycemia: Comment: EYE and LASIK Code(s): E11.65 - Type 2 diabetes mellitus with hyperglycemia Plan: Decrease the amount of carbohydrate intake, pasta, bread, rice and potatoes are all sugar and that is aside from all the sweet stuff, remember that fruits are good but they are Sweet also. Hemoglobin A1c goal of less than 6.5 on Jardiance Lantus at 30 units metformin is a 1000 mg twice a day. cannot take trulicity due to diarrhea- will try a different once a week injection (3) GERD (gastroesophageal reflux disease): Code(s): K21.9 - Gastro-esophageal reflux disease without esophagitis Plan: Avoid the foods that causes that usually spicy foods, tomato products, juices, coffee, soda and foods that your sensitive to. After eating do not lie down, allow 3-4 hours before in lie down. And keep the head of bed above 30 degrees to avoid the acid from going up. (4) Morbid obesity: Code(s): E66.01 - Morbid (severe) obesity due to excess calories Plan: Diet and exercise (5) Asthma: Comment: PFT restrictive March 2019 Code(s): J45.909 - Unspecified asthma, uncomplicated Qualifiers: Asthma severity: moderate Asthma persistence: persistent Asthma complication type: uncomplicated Qualified Code(s): J45.40 - Moderate persistent asthma, uncomplicated Plan: Continue with inhalers patient follows up with Pulmonary and placed on Daliresp also, AirDuo (6) Hyperlipidemia LDL goal <100: Code(s): E78.5 - Hyperlipidemia, unspecified Plan: Avoid fried foods, chicken skin, eggs, butter margarine, pastries and meat. Be it pork or beef they have a lot of cholesterol LDL goal of less than 100 and triglyceride of less than 150 on atorvastatin 10 mg once a day (7) Essential hypertension: Code(s): I10 - Essential (primary) hypertension Plan: Continue with blood pressure medication. Decrease salt intake and exercise continue with irbesartan hydrochlorothiazide Orders: Orders AMB Hemoglobin A1c Today E11.65 - Type 2 diabetes mellitus with hyperglycemia Medications: New semaglutide (Ozempic) for 4 weeks 0.25 mg (0.368 mL) subcut QWEEK 3 mL 2RF E11.65 - Type 2 diabetes mellitus with hyperglycemia Coding Level of Care Code Est Pt Level 4 (88198) Complex EM visit Add On G2211 Diagnoses SHERRI (obstructive sleep apnea) G47.33 Type 2 diabetes mellitus with hyperglycemia E11.65 GERD (gastroesophageal reflux disease) K21.9 Morbid obesity E66.01 Moderate persistent asthma without complication J45.40 Asthma severity: moderate Asthma persistence: persistent Asthma complication type: uncomplicated Hyperlipidemia LDL goal <100 E78.5 Essential hypertension I10 Additional Codes PHQ-9 - 51083 - PHQ-9 Billing: ([id number])
[2024-04-02 15:24] VITALS: BP 126/76; PULSE 79; O2SAT 97; BMI 53.6
== END 2024-04-02 16:29 | disposition home or self-care (01) ==
PROVIDERS: PCP Internal Medicine; Visit Provider Internal Medicine
DX: G47.33 Obstructive sleep apnea (adult) (pediatric) (principal); E11.65 Type 2 diabetes mellitus with hyperglycemia; K21.9 Gastro-esophageal reflux disease without esophagitis; J45.40 Moderate persistent asthma, uncomplicated; E78.5 Hyperlipidemia, unspecified; I10 Essential (primary) hypertension
CPT/HCPCS: 83036; 99214; G2211

== ENCOUNTER 2024-04-19 14:32 | Outpatient (AMB) | payer OTHER, SELFPAY ==
--- NOTE | 2024-04-19 14:40 | A.OFFVIS_ITS ---
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 He states that he was in his usual state health until about 5 days ago when he started developing worsening cough and congestion. He went to see his primary care doctor with prescribed Augmentin. The patient has not been any better. He has complaints of shortness of breath and frequent coughing with mucus. He is concerned because he has been admitted in the past with pneumonia. He has not been using his nebulizer. He has been using his short-acting beta agonists MDI several times a day. It is only socially helpful. He denies any fevers or chills. No one else is sick at home. He starting to feel better. He is using his CPAP every night for more than 4 hours a night. The CPAP therapy is effective and beneficial. He needs to get new supplies. Will resend order to his [employer]. 11/10/2023 the patient is here for a pulmonary follow-up visit. He is feeling better. During the last visit he was sick and required prednisone antibiotics however he has not required any since the fall of 2022. the patient continues on his maintenance therapy with good adherence. He has not required his rescue. In addition to that he has been using his CPAP therapy. The CPAP therapy has been affecting beneficial. I do not have access to his machine since it is a dream Station 2. he can always take it to his [employer] company for download. In the meantime he has been sleeping well and therapy has been effective for him so at this point I do not think he needs to be adjusted. He does need to get new supplies I will send a script to his [employer] company at this time. Otherwise patient is without any other complaints. Will follow-up in 6 months. 11/25/2023 the patient is here for sick visit. Apparently took a trip down to [place] and he was exposed to a lot of people cancer. It was also call and he was not prepared for the temperature change. The patient is started developing some URI like symptoms and subsequently went into the chest and started developing a cough. Moderate severity hacky nature although he is bringing up some phlegm at times. The patient does have significant chest tightness and wheezing. He has been using the nebulizer every 6 hours. He did have 30 mg of prednisone available and he took yesterday did help. Therefore, I will send some prednisone for the pharmacy for an asthma exacerbation and also have him start a Z-Jamarcus. The patient also needs cough medication. If he has no better he will call the office but hopefully he feels better in the next few days. The patient has already a follow-up. Otherwise will call for further evaluation and recommendations. 02/12/2024 The patient is here for a pulmonary follow-up visit. Overall the patient is doing much better. He continues on his respiratory therapy with good effect. completed prednisone. Also had completed a couple course of antibiotics in the spring. But better now. Typically does not use his rescue inhaler more than twice a week. The patient feels that he is doing well on the AirDuo inhaler. In regards the CPAP the CPAP therapy continues to be affecting beneficial. He does uses CPAP the whole night more than 4 hours. He does feel rested in the morning. Cardiovascular alonso he is stable which is reassuring. He is also working on weight loss which is also helping his overall health. He is doing this with lifestyle changes. Will continue with current respiratory medications. 04/19/2024 the patient is here for a pulmonary follow-up visit. The patient overall has been doing okay. Unfortunately has not been able to get the maintenance inhaler, AirDuo. Will go ahead and send him generic Symbicort instead at this time. I think Symbicort is going to work better for him anyway. He has been feeling well from the asthma. He has not required his rescue inhaler often which is reassuring. He is concerned about the winter in the fall because that is when he would get colds and activate his asthma. We did talk about pre emptied therapy with vitamin-C and zinc and other herbal therapies. He is going to look into those. In the meantime he continues uses CPAP. CPAP therapy continues to be affecting beneficial. He does use it more than 4 hours. He was having issues with bills coming from the [employer]. We then he called them and he changed the insurance information that they had in now seems to be better. He will let us know if he runs into any more difficulties. Will follow -up in 4 months. [facility]LY [facility], [facility] Medical History Pharyngitis Migraine Vitamin B12 deficiency Obesity due to excess calories Peripheral neuropathy Obesity History of colon polyps Asthma Bronchitis Depression Back pain with sciatica Proteinuria Hemorrhoids SHERRI (obstructive sleep apnea) Hyperlipidemia LDL goal <100 Essential hypertension Vitamin D deficiency Surgical History Hx of colonoscopy History of esophagogastroduodenoscopy (EGD) Loculated pleural effusion Loculated empyema Family History Father Cirrhosis Diabetes Mother Colon cancer, Onset Age: 83 Brother Prostate cancer CVA (cerebral vascular accident) Social History Household Members: Family Housing: Apartment Are you a primary manager primary care to a significant other at home: No Do you presently have visiting nurse or other home services: No Alcohol intake: never Patient Tobacco Use Status: Former Tobacco user Tobacco use type: Cigarette Years Smoked: 6- stopped 2016 e-Cigarette/Vaping Use: Never Used Second Hand Smoke Exposure: No service: No Current occupational status: disabled Cognitive needs: Yes (cane) Hearing needs: No Vision needs: Yes (glasses) Review of Systems Const Denies fatigue, Denies headache(s) and Reports weight loss Eyes Denies blurry vision ENT Reports Normal hearing present, Denies headache(s), Reports nasal congestion, Reports nasal discharge and Reports nasal obstruction Card Denies chest pain, Denies irregular heart rhythm, Denies dyspnea and Denies dyspnea on exertion Resp Denies chest congestion, Reports cough, Denies dyspnea, Denies dyspnea on exertion and Denies wheezing GI Denies constipation and Denies diarrhea Denies dysuria and Denies urinary frequency Musc Reports muscle cramps, Denies muscle weakness, Denies numbness and Denies tingling Neuro Reports Normal hearing present, Denies Abnormal speech present, Denies headache(s), Denies numbness and Denies tingling Psych Reports abnormal sleep pattern and Denies depression Endo Denies fatigue Gianfranco/Lymph Denies easy bruising Aller/Immun Denies wheezing Physical Exam Vital Signs: Last Vital Signs Pulse 88 04/19/24 14:41 BP 126/70 04/19/24 14:41 Pulse Ox 97 04/19/24 14:41 Oxygen Delivery Method Room Air 04/19/24 14:41 BMI result Body Mass Index 53.5 Const General: healthy appearing and no acute distress Orientation/consciousness: patient oriented x3 HEENT Head: Yes normal to inspection Ears: hearing grossly normal bilaterally Eyes Sclerae: sclerae normal Pupils: Equal, round and reactive pupils present Neck Neck: Yes normal visual inspection Chest Chest palpation & inspection: normal inspection of the chest Resp Effort & Inspection: normal respiratory effort Auscultation: clear to auscultation bilaterally, no crackles, no rales, no rhonchi and wheezes Cardio Palpation: normal PMI Rate: regular rate Rhythm: regular rhythm Heart sounds: S1 normal heart sound present, S2 normal heart sound present and no murmurs GI Palpation (GI): Soft to palpation, nontender and No hepatosplenomegaly present Auscultation: normal bowel sounds Rectal Exam - Male: Yes deferred Skin General skin exam: no rashes or lesions noted Neuro General: patient oriented x3, gait normal and moves all extremities Cranial nerves: Yes Equal, round and reactive pupils present and Yes Normal hearing present Speech: No Abnormal speech present Extrem General: No clubbing and No cyanosis Psych Appearance: grossly normal Mental Status: mental status grossly normal Assessment & Plan Assessment & Plan (1) Asthma: Comment: PFT restrictive March 2019 Code(s): J45.909 - Unspecified asthma, uncomplicated Category: Medical Qualifiers: Asthma complication type: uncomplicated Asthma persistence: persistent Asthma severity: moderate Qualified Code(s): J45.40 - Moderate persistent asthma, uncomplicated (2) SHERRI (obstructive sleep apnea): Comment: Continue with the CPAP every night and benefits from this more than 4 hours a night Code(s): G47.33 - Obstructive sleep apnea (adult) (pediatric) Category: Medical (3) Chronic rhinitis: Code(s): J31.0 - Chronic rhinitis Category: Medical Plan stop Airduo start Symbicort continuen Daliresp 500mcg Continue APAP, p10. Has his new Respironics Dreamstation 2, adjusted APAP 7- (JL)12 Nasal rinsing Allergy therapy: singulair continue Fluticasone daily continue Astelin weight management F/U 4-6 months Medications: New budesonide-formoterol 160-4.5 mcg/actuation 2 puffs inhalation BID 10.2 grams 11RF 30 days J44.89 - Other specified chronic obstructive pulmonary disease Discontinued fluticasone propion-salmeterol 232-14 mcg/actuation Discontinued Reason: Doctor's Order 1 inh inhalation BID 1 insert 11RF Coding Level of Care Code Est Pt Level 4 (54933) Diagnoses Moderate persistent asthma without complication J45.40 Asthma complication type: uncomplicated Asthma persistence: persistent Asthma severity: moderate SHERRI (obstructive sleep apnea) G47.33 Chronic rhinitis J31.0 Time Spent (min) 16
[2024-04-19 14:41] VITALS: BP 126/70; PULSE 88; O2SAT 97; BMI 53.5
== END 2024-04-19 15:09 | disposition home or self-care (01) ==
PROVIDERS: PCP Internal Medicine; Visit Provider Hospitalist
DX: J45.40 Moderate persistent asthma, uncomplicated (principal); G47.33 Obstructive sleep apnea (adult) (pediatric); J31.0 Chronic rhinitis
CPT/HCPCS: 99214

== ENCOUNTER → 2024-04-19 14:32 | Outpatient (BNVA) | payer OTHER, SELFPAY | PROVIDERS: PCP Internal Medicine; Visit Provider Hospitalist | DX: J45.40 Moderate persistent asthma, uncomplicated (principal); J31.0 Chronic rhinitis; G47.33 Obstructive sleep apnea (adult) (pediatric) | CPT/HCPCS: 99212 ==

== ENCOUNTER 2024-06-29 14:48 | Outpatient (AMB) | payer OTHER, SELFPAY ==
--- NOTE | 2024-06-29 14:52 | A.OFFVIS_ITS ---
Vital Signs 06/29/24 15:00 Height 5 ft 9 in Weight 371 lb 0.607 oz BMI 54.8 BP 130/68 Blood Pressure Location Rt radial Position Sitting Pulse 82 Pulse Source Pulse Oximeter Intake Visit Reasons: T2DM/CONF Intake Note: New patient present today for T2DM Last Diabetic eye exam: approx 2 months ago, [facility]. No problems has yearly appointments. Last Podiatry Visit: Does not see a Retail Event Coordinator Random Glucose: 149 mg/dl HgA1C: 7.6% 06/29/2024 Writing Center Director Required: Yes Writing Center Director Language: Electric Meter Tester Helper Services: Writing Center Director Present Writing Center Director Name: Jacob [id number] Information Interpreted: non-clinical & clinical Accompanied by: Self / Same As Patient Allergies dulaglutide [From Trulicity] Adverse Reaction (Intermediate, Verified 06/29/24 15:05) Diarrhea Flexeril Adverse Reaction (Mild, Verified 06/29/24 15:05) nausea, sleepiness glipizide Adverse Reaction (Mild, Verified 06/29/24 15:05) hypoglycemia HPI Comments Details: This is a 44-year-old male with a past medical history of type 2 diabetes, vitamin B12 deficiency, hyperlipidemia, hypertension, asthma, psoriasis, GERD, morbid obesity and anxiety presenting for a consult for diabetic management. He was last seen in our Endocrinology Department on 11/27/2021. Thai video sign language interpreter used for part of the visit until the tablet stopped working and then sign language interpreter was present for visit. He was diagnosed with prediabetes in [place], and he was diagnosed with Type II diabetes about 7 years ago in the [place]. Patient has been pain for the Spenser 2 sensors [id number]. Hemoglobin a1c 7.6% 06/29/2024. Time in range 97% high 3% Average glucose 136 2 scans per day Current medication regimen: Ozempic 0.25 mg weekly, metformin 1000 mg twice daily, Lantus 30 units at bedtime, Jardiance 25 mg q.a.m. Past medications: Glipizide discontinued due to hypoglycemia. Trulicity discontinued due to diarrhea. Compliance issues: None Diet: Breakfast- ham and cheese sandwich and coffee with milk Lunch-He brings lunch to work. It is usually rice, baked potato or other foods. He drinks juice. Dinner-Rice and beans, pork, chicken. Snacks/desserts: coffee with milk at night No alcohol Nonsmoker Exercise: None He was pursuing bariatric surgery, but he decided not to proceed with it because he was concerned about the risks of the procedure. He is still interested in losing weight. He has seen a medical technology engineer in 2022. Hypoglycemia symptoms: None Hyperglycemia symptoms: None Eye exam: Up-to-date at [facility]. Microvascular complications: none Macrovascular complications: none Hypertension: treated with your irbesartan-hydrochlorothiazide 150-12.5 mg daily Hyperlipidemia: treated with atorvastatin 10 mg. ROS: Constitutional: No unexplained weight loss, fever, chills Eyes: No vision changes, blurry vision, double vision Cardiovascular: No chest pain, chest pressure or chest discomfort. No palpitations Gastrointestinal: No anorexia, nausea, vomiting or diarrhea. No abdominal pain or blood in stool. Neurologic: No headache, dizziness, syncope, unilateral weakness, ataxia, numbness or tingling in the extremities. Physical exam: Constitutional: Alert, in no distress. Head: Normocephalic. Neck: Supple, Full range of motion. No lymphadenopathy. No palpable thyroid masses. Respiratory: Clear to auscultation. Cardiovascular: S1 S2 regular. No murmurs. [facility] Medical History Pharyngitis Migraine Vitamin B12 deficiency Obesity due to excess calories Peripheral neuropathy Obesity History of colon polyps Asthma Bronchitis Depression Back pain with sciatica Proteinuria Hemorrhoids SHERRI (obstructive sleep apnea) Hyperlipidemia LDL goal <100 Essential hypertension Vitamin D deficiency Surgical History Hx of colonoscopy History of esophagogastroduodenoscopy (EGD) Loculated pleural effusion Loculated empyema Family History Father Cirrhosis Diabetes Mother Colon cancer, Onset Age: 83 Brother Prostate cancer CVA (cerebral vascular accident) Social History Household Members: Family Housing: Apartment Are you a primary family day care worker to a significant other at home: No Do you presently have visiting nurse or other home services: No Alcohol intake: never Patient Tobacco Use Status: Former Tobacco user Tobacco use type: Cigarette Years Smoked: 6- stopped 2017 e-Cigarette/Vaping Use: Never Used Second Hand Smoke Exposure: No service: No Current occupational status: disabled Cognitive needs: Yes (cane) Hearing needs: No Vision needs: Yes (glasses) Physical Exam Vital Signs: Last Vital Signs Pulse 82 06/29/24 15:00 BP 130/68 06/29/24 15:00 BMI result Body Mass Index 54.8 Results AMB Hemoglobin A1c AMB Hemoglobin A1c 7.6 % Last Edit by CHEO King on 06/29/24 15:21 Results Reviewed Results Reviewed: Laboratory Last Values Glucose (Clinic) 149 mg/dL (60-115) H 06/29/24 15:11 Laboratory Tests 11/17/23 11/17/23 04/02/24 06:25 06:32 15:33 Creatinine 0.75 Estimated GFR > 60 Hgb A1c (Clinic) 7.3 H AST 14 ALT 19 Triglycerides 94 Cholesterol 128 LDL Cholesterol, Calc 79 HDL Cholesterol 31 L Urine Creatinine 181.10 Urine Microalbumin 40.0 Microalb/Creat Ratio 22.0 Laboratory Tests 11/17/23 06:32 Vitamin B12 268 06/29/24 15:20 Creatinine Estimated GFR Hgb A1c (Clinic) 7.6 H AST ALT Triglycerides Cholesterol LDL Cholesterol, Calc HDL Cholesterol Urine Creatinine Urine Microalbumin Microalb/Creat Ratio Assessment & Plan Assessment & Plan (1) 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 He will increase Ozempic to 0.5 mg weekly and continue his other antidiabetic medications. Check screening BNP level, repeat B12 level (patient on metformin and has B12 deficiency treated with supplement) and creatinine level. Discussed pathophysiology of Type II Diabetes Mellitus with the patient in detail.? I explained the equipment operator intermodal yard risks and complications associated with uncontrolled diabetes including nephropathy, neuropathy, peripheral vascular disease, retinopathy, increased risk of heart disease and stroke.? Discussed lifestyle modification with the patient. The patient is prescribed a CGM and will consider referral to the healthcare educator. He is motivated to lose weight and hopeful he would be able to decrease some of his medications in the future. Instructions were provided in Thai for the patient: [email or web address] (handout given) Reminders: Watch all video tutorials, read all text messages and click on any features hidden messages to understand the margarita better. Accurately enter your weight in pounds and height in feet and inches. Accurately?select what time you wake up and sleep and be careful to select am/pm properly. Save your username and password somewhere. The margarita meets all HIPAA requirements. You must select shakes or bars or both and in the following?pages a specific brand. If you don't select a brand, the plan won't be accurate. You can use a regular?scale but buying the $23 BlueParkooth AppGyvero scale from [employer] is recommended. For any issues you can hit technical support. If you take anti-diabetic and/or anti-hypertensive medications you must monitor blood sugars and blood pressure and alert the office if blood sugars are below 90 and blood pressures are below 110/60 so we can adjust medications if appropriate. The margarita will send you automatic?reminders to do that if you enter in the margarita that you have diabetes and/or hypertension and take medications for these conditions. Follow up in 4 weeks for type II diabetes. Orders: Orders AMB Hemoglobin A1c Today E11.65 - Type 2 diabetes mellitus with hyperglycemia B Type Natriuretic Peptide Today E11.9 - Type 2 diabetes mellitus without complications, E53.8 - Deficiency of other specified B group vitamins, Z79.4 - continuous churn [employer] (current) use of insulin Vitamin B12 Today E11.9 - Type 2 diabetes mellitus without complications, E53.8 - Deficiency of other specified B group vitamins, Z79.4 - [facility] (current) use of insulin Creatinine Today E11.9 - Type 2 diabetes mellitus without complications, E53.8 - Deficiency of other specified B group vitamins, Z79.4 - continuous churn [employer] (current) use of insulin Medications: New blood-glucose meter,continuous (FreeStyle Spenser 3 [place]) Use daily to monitor blood glucose levels continuously. 1 ea 0RF E11.9 - Type 2 diabetes mellitus without complications, Z79.4 - [facility] (current) use of insulin semaglutide (Ozempic) 0.5 mg (0.736 mL) subcut QWEEK 3 mL 3RF blood-glucose sensor (FreeStyle Spenser 3 Sensor device) apply new sensor every 14 days 2 ea 11RF E11.9 - Type 2 diabetes mellitus without complications, Z79.4 - [facility] (current) use of insulin glucose (Dex4 Glucose) until blood sugar is >70 (hasta que el nivel de azucar en candice sea superior a 70) 16 grams (4 x 4 gram) PO Q15M PRN 10 tabs 3RF hypoglycemia (hipoglucemia) Discontinued semaglutide (Ozempic) for 4 weeks Discontinued Reason: Doctor's Order 0.25 mg (0.368 mL) subcut QWEEK 3 mL 2RF E11.65 - Type 2 diabetes mellitus with hyperglycemia Patient Instructions: Cloudy Days (handout given) Reminders: Watch all video tutorials, read all text messages and click on any features hidden messages to understand the margarita better. Accurately enter your weight in pounds and height in feet and inches. Accurately?select what time you wake up and sleep and be careful to select am/pm properly. Save your username and password somewhere. The margarita meets all HIPAA requirements. You must select shakes or bars or both and in the following?pages a specific brand. If you don't select a brand, the plan won't be accurate. You can use a regular?scale but buying the $23 Bluetooth Renpho scale from [employer] is recommended. For any issues you can hit technical support. If you take anti-diabetic and/or anti-hypertensive medications you must monitor blood sugars and blood pressure and alert the office if blood sugars are below 90 and blood pressures are below 110/60 so we can adjust medications if appropriate. The margarita will send you automatic?reminders to do that if you enter in the margarita that you have diabetes and/or hypertension and take medications for these conditions. [email or web address].Ring (filemoneto entregado) Recordatorios: Keeley todos los tutoriales en video, leobardo todos los mensajes de texto y phyllis clic en los mensajes ocultos de las funciones para comprender mejor la aplicaci?n. Ingrese con precisi?n burch peso en libras y burch altura en pies y pulgadas. Selecciona con precisi?n la hora a la que te despiertas y duermes y ten cuidado de seleccionar am/pm correctamente. Guarde burch nombre de usuario y contrase?a en alg?n lugar. La aplicaci?n cumple con todos los requisitos de HIPAA. Debes seleccionar batidos o barras o ambos y en las siguientes p?ginas catalina tim espec?fica. Si no selecciona catalina tim, el plan no ser? preciso. Puede utilizar catalina b?scula normal, ame se recomienda comprar la b?scula Bluetooth Renpho de $23 en [employer]. Para cualquier problema, puede presionar soporte t?cnico . Si deborah medicamentos antidiab?ticos y/o antihipertensivos, debe controlar los niveles de az?car en la candice y la presi?n arterial y alertar al consultorio si los niveles de az?car en la candice est?n por debajo de 90 y la presi?n arterial por debajo de 110/60 para que podamos ajustar los medicamentos si corresponde. La aplicaci?n le enviar? recordatorios autom?ticos para que lo phyllis si ingresa en la aplicaci?n que tiene diabetes y/o hipertensi?n y deborah medicamentos para estas afecciones. 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
[2024-06-29 15:00] VITALS: BP 130/68; PULSE 82; BMI 54.8
[2024-06-29 15:16] LABS: Glucose, Whole Blood 149 mg/dL (60-115)
== END 2024-06-29 16:02 | disposition home or self-care (01) ==
PROVIDERS: PCP Internal Medicine; Visit Provider Physician Assistant Medical
DX: E11.9 Type 2 diabetes mellitus without complications (principal); Z79.4 Long term (current) use of insulin; E66.01 Morbid (severe) obesity due to excess calories; E11.65 Type 2 diabetes mellitus with hyperglycemia

== ENCOUNTER → 2024-06-29 14:48 | Outpatient (BNVA) | payer OTHER, SELFPAY | PROVIDERS: PCP Internal Medicine; Visit Provider Physician Assistant Medical | DX: E11.9 Type 2 diabetes mellitus without complications (principal); E66.01 Morbid (severe) obesity due to excess calories; Z68.43 Body mass index [BMI] 50.0-59.9, adult; Z79.4 Long term (current) use of insulin | CPT/HCPCS: 82947; 83036; 99212 ==

== ENCOUNTER 2024-07-13 06:05 | Outpatient (REF) | payer OTHER, SELFPAY ==
[2024-07-13 06:21] LABS: MANUAL DIFF FLAG NO
[2024-07-13 08:01] LABS: Basophils Percent Auto 0.4 % (0-2); Eosinophils Absolute Auto 0.2 X10*3/uL (0.0-0.4); Eosinophils Percent Auto 2.7 % (0-4); Hematocrit 46.4 % (42.0-52.0); Hemoglobin 14.8 g/dl (14.0-18.0); Imm Gran Abs Auto 0.07 X10*3/uL (0.00-0.03); Imm Gran Pct Auto 0.8 % (0.0-0.4); Lymphocytes Percent Auto 32.9 % (20-40); Mean Corpuscular HGB Conc 31.9 g/dl (31.0-36.0); Mean Corpuscular Hemoglobin 26.4 pg (27.0-33.0); Mean Corpuscular Volume 82.9 fL (80.0-98.0); Mean Platelet Volume 10.2 fL (9.4-12.4); Monocytes Absolute Auto 0.8 X10*3/uL (0.1-1.2); Monocytes Percent Auto 8.3 % (2-11); Neutrophils Absolute Auto 4.9 x10*3/uL (2.0-8.3); Neutrophils Percent Auto 54.9 % (45-73); Platelet Count 265 X10*3/uL (160-400); Red Cell Distribution Width 13.2 % (11.0-16.0)
[2024-07-13 08:10] LABS: Estimated Average Glucose 146 mg/dL; Hemoglobin A1C 185.2564 umol/L; Hemoglobin A1c % 6.7 % (<6.0); Total Hemoglobin (HGBA1C) 3724.9036 umol/L
[2024-07-13 08:23] LABS: Uric Acid 4.6 mg/dL (3.4-7.0)
[2024-07-13 08:24] LABS: Anion Gap 14 (12-20); Aspartate Amino Transferase 32 U/L (5-37); Bilirubin Total 0.4 mg/dL (0.0-1.0); Blood Urea Nitrogen 15 mg/dL (9-16); Calcium 9.3 mg/dL (8.4-10.2); Carbon Dioxide 24 mmol/L (22-29); Chloride 104 mmol/L (96-108); Cholesterol 113 mg/dL (<200); Estimated Glomerular Filt Rate > 60; Glucose Random 100 mg/dL (60-115); HDL Cholesterol 32 mg/dL (>40); LDL Cholesterol Calculated 55 mg/dL (<100); Sodium 138 mmol/L (135-145); Total Protein 7.6 g/dL (6.5-8.0); Triglycerides 131 mg/dL (<150)
[2024-07-13 08:30] LABS: Creatinine Urine 112.87 mg/dL; Microalbum/Creatinine Ratio Ur 21.2 ug/mg cr (<30)
[2024-07-13 08:38] LABS: Free T4 (Free Thyroxine) 0.81 ng/dL (0.71-1.85)
[2024-07-13 08:48] LABS: Thyroid Stimulating Hormone 1.71 uIU/mL (0.32-4.0)
[2024-07-13 09:10] LABS: Folate 10.8 ng/mL (> or = 4.0); Vitamin B12 302 pg/mL (200-900)
[2024-07-13 09:15] LABS: Alanine Aminotransferase 23 U/L (0-40); Alkaline Phosphatase 68 U/L (39-117)
[2024-07-15 15:17] LABS: HBS Num1 3.29 mIU/mL (0-7.99); HBsAGNum1 0.41 S/CO (0.00-0.99); Hepatitis B Core Antibody Nonreactive (Nonreactive); Hepatitis B Surface Antigen Negative (Negative); ~HepC Num1 0.13 S/CO (0.00-0.79); ~Hepatitis B Surface Antibody NONREACTIVE (Nonreactive); ~Hepatitis C Antibody Nonreactive (Nonreactive)
[2024-07-15 15:59] LABS: Mumps Virus IgG Antibody >300.00 AU/mL; Rubella IgG Antibody 1.31 Index
== END 2024-07-13 06:06 | disposition home or self-care (01) ==
LOC: HO.LAB 06:05
PROVIDERS: Absent Provider Physician Assistant Medical; PCP Internal Medicine; Visit Provider Internal Medicine
DX: Z02.0 Encounter for examination for admission to educational institution (principal); E11.65 Type 2 diabetes mellitus with hyperglycemia; Z79.4 Long term (current) use of insulin; E53.8 Deficiency of other specified B group vitamins; R79.89 Other specified abnormal findings of blood chemistry; E78.00 Pure hypercholesterolemia, unspecified
CPT/HCPCS: 36415; 80053; 80061; 82043; 82570; 82607; 82746; 83036; 83880; 84439; 84443; 84550; 85025; 86704; 86706; 86735; 86762; 86765; 86787; 86803; 87340

== ENCOUNTER 2024-07-15 15:41 | Outpatient (AMB) | payer OTHER, SELFPAY ==
--- NOTE | 2024-07-15 15:53 | A.OFFPC_ITS ---
Vital Signs 07/15/24 15:54 Height 5 ft 9 in Weight 365 lb BMI 53.9 BP 120/70 Blood Pressure Location Lt brachial Position Sitting Pulse 95 Pulse Source Pulse Oximeter Pulse Oximetry (%) 96 Oxygen Delivery Method Room Air Intake Visit Reasons: DM Intake Note: Patient here for a follow up DM Tube Carrier Required: Yes Tube Carrier Language: Occitan Accompanied by: Self / Same As Patient Allergies dulaglutide [From Trulicity] Adverse Reaction (Intermediate, Verified 07/15/24 15:57) Diarrhea Flexeril Adverse Reaction (Mild, Verified 07/15/24 15:57) nausea, sleepiness glipizide Adverse Reaction (Mild, Verified 07/15/24 15:57) hypoglycemia Tobacco use date assessed: 12/19/23 Dental Screening Dental Screen Date: 07/15/24 Did you have a dental visit in the last 12 months?: Yes Did you have a dental problem in the last 6 months where you did not have access to dental care?: No Was dental information given to patient?: Patient has dentist HPI DM HPI Details interpret slovenian The patient is a 44-year-old male presenting with management concerns for asthma and Type 2 Diabetes Mellitus. The patient was recently transitioned to a new asthma management plan using a combination inhaler, Symbicort, both as a maintenance and rescue inhaler. He has a history of using alternative inhalers with limited success due to insurance coverage issues. The patient reported no adverse effects with the use of Symbicort. For Type 2 Diabetes Mellitus, the patient previously experienced adverse symptoms with Trulicity, leading to its discontinuation approximately two months ago. He then commenced treatment with Ozempic, starting from a dosage of 0.5mg for the past two weeks, which he reports has been without complications. Current metabolic monitoring indicates stable electrolyte levels and renal function, wit h a noted A1c of 7, which is above the recommended target of less than 6.5. Additional review shows normal cholesterol levels and thyroid function tests, with negative proteinuria. The patient reports routine usage of CPAP for his obstructive sleep apnea and adherence to annual eye examination schedules, with the last examination occurring three months ago indicating no ocular hypertension or retinopathy. 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 Pharyngitis Migraine Vitamin B12 deficiency Obesity due to excess calories Peripheral neuropathy Obesity History of colon polyps Asthma Bronchitis Depression Back pain with sciatica Proteinuria Hemorrhoids SHERRI (obstructive sleep apnea) Hyperlipidemia LDL goal <100 Essential hypertension Vitamin D deficiency Surgical History Hx of colonoscopy History of esophagogastroduodenoscopy (EGD) Loculated pleural effusion Loculated empyema Family History Father Cirrhosis Diabetes Mother Colon cancer, Onset Age: 83 Brother Prostate cancer CVA (cerebral vascular accident) Social History Household Members: Family Housing: Apartment Are you a primary child care center administrator to a significant other at home: No Do you presently have visiting nurse or other home services: No Alcohol intake: never Patient Tobacco Use Status: Former Tobacco user Tobacco use type: Cigarette Years Smoked: 6- stopped 2016 e-Cigarette/Vaping Use: Never Used Second Hand Smoke Exposure: No service: No Current occupational status: disabled Cognitive needs: Yes (cane) Hearing needs: No Vision needs: Yes (glasses) Questionnaire PHQ-9 Over the last 2 weeks, how often have you been bothered by any of the following problems? 1. Little interest or pleasure in doing things: not at all 2. Feeling down, depressed, or hopeless: not at all 3. Trouble falling or staying asleep, or sleeping too much: not at all 4. Feeling tired or having little energy: not at all 5. Poor appetite or overeating: not at all 6. Feeling bad about yourself - or that you are a failure or have let yourself or your family down: not at all 7. Trouble concentrating on things, such as reading the newspaper or watching television: not at all 8. Moving or speaking so slowly that other people could have noticed. Or the opposite - being so fidgety or restless that you have been moving around a lot more than usual: not at all 9. Thoughts that you would be better off or of hurting yourself in some way: not at all Total score: 0 Source: Developed by Drs. Ambrosio Rivas, Lanette Escobedo, Vinayak Marks and colleagues, with an educational joselyn from [email or web address]. Thrive Questionnaire Date Thrive assessed: 07/15/24 I am a: Patient What is your living situation today?: I have a steady place to live Within the past 12 months, did the food you bought not last and you didn't have the money to get more?: Never true Within the past 12 months, did you worry whether your food would run out before you got money to buy more?: Never true Do you have trouble paying for medicines?: No Do you have trouble getting transportation to medical appointments?: No Do you have trouble paying your heating and electricity bill?: No Do you have trouble taking care of your child, family member or friend?: No Do you have trouble with day-to-day activities such as bathing, preparing meals, shopping, managing finances, etc.?: No Are you currently unemployed and looking for a job?: No Are you interested in more education?: No Please select the resources that you would like help with: None Currently or been in a relationship where the following occur: No concerns reported THRIVE Score: 0 AUDIT C Alcohol Use Questionnaire (AUDIT-C) 1. How often do you have a drink containing alcohol?: Never Total Score: 0 MARK ANTHONY-7 AMB Questionnaire MARK ANTHONY-7 Date MARK ANTHONY - 7 assessed: 07/15/24 Feeling nervous, anxious, or on edge: 0 = Not at all Not being able to stop or control worryin = Not at all Worrying too much about different things: 0 = Not at all Trouble relaxin = Not at all Being so restless that it is hard to sit still: 0 = Not at all Becoming easily annoyed or irritable: 0 = Not at all Feeling afraid as if something awful might happen: 0 = Not at all Total MARK ANTHONY-7 score (0-4 normal; 5-9 mild; 10-14 moderate; 15-21 severe): 0 Source: Developed by Drs. Ambrosio Rivas, Lanette Escobedo, Vinayak Marks and colleagues, with an educational joselyn from [email or web address]. Physical exam (Primary Care) Vital Signs: Last Vital Signs Pulse 95 07/15/24 15:54 BP 120/70 07/15/24 15:54 Pulse Ox 96 07/15/24 15:54 Oxygen Delivery Method Room Air 07/15/24 15:54 BMI result Body Mass Index 53.9 Tobacco/Smoking Status: Tobacco use Status Tobacco use date assessed 12/19/23 07/15/24 16:01 Patient Tobacco Use Status Former Tobacco user 07/15/24 16:01 Tobacco use type Cigarette 07/15/24 16:01 e-Cigarette/Vaping Use Never Used 07/15/24 16:01 PHQ-9: PHQ-9 Score PHQ-9: Total score 0 07/15/24 16:21 Thrive Assessment: Date of Thrive Assessment Date Thrive assessed 07/15/24 07/15/24 16:01 Currently or been in a relationship where the following occur: No concerns reported Const General: alert; No acute distress Eyes Conjunctivae: conjunctivae normal Resp Auscultation: clear to auscultation bilaterally Cardio Rate: regular rate Rhythm: regular rhythm GI Inspection: Yes normal to inspection Extrem General: Yes normal to inspection and No edema Coding Level of Care Code Est Pt Level 4 (81055) Complex EM visit Add On G2211 Diagnoses Type 2 diabetes mellitus with hyperglycemia E11.65 SHERRI (obstructive sleep apnea) G47.33 Moderate persistent asthma without complication J45.40 Asthma complication type: uncomplicated Asthma persistence: persistent Asthma severity: moderate Essential hypertension I10 Hyperlipidemia LDL goal <100 E78.5 Morbid obesity E66.01 GERD (gastroesophageal reflux disease) K21.9 Generalized anxiety disorder F41.1 Assessment & Plan Assessment & Plan (1) Type 2 diabetes mellitus with hyperglycemia: Comment: EYE and LASIK Code(s): E11.65 - Type 2 diabetes mellitus with hyperglycemia Category: Medical Plan: Decrease the amount of carbohydrate intake, pasta, bread, rice and potatoes are all sugar and that is aside from all the sweet stuff, remember that fruits are good but they are Sweet also. Hemoglobin A1c goal of less than 6.5 (2) SHERRI (obstructive sleep apnea): Comment: Continue with the CPAP every night and benefits from this more than 4 hours a night Code(s): G47.33 - Obstructive sleep apnea (adult) (pediatric) Category: Medical (3) Asthma: Comment: PFT restrictive March 2019 Code(s): J45.909 - Unspecified asthma, uncomplicated Category: Medical Qualifiers: Asthma complication type: uncomplicated Asthma persistence: persistent Asthma severity: moderate Qualified Code(s): J45.40 - Moderate persistent asthma, uncomplicated Plan: Continue to use the CPAP more than 4 hours a night and benefits from this. (4) Essential hypertension: Code(s): I10 - Essential (primary) hypertension Category: Medical Plan: Continue with blood pressure medication. Decrease salt intake and exercise (5) Hyperlipidemia LDL goal <100: Code(s): E78.5 - Hyperlipidemia, unspecified Category: Medical Plan: Avoid fried foods, chicken skin, eggs, butter margarine, pastries and meat. Be it pork or beef they have a lot of cholesterol LDL goal of less than 100 and triglyceride of less than 150 on atorvastatin 10 mg at bedtime (6) Morbid obesity: Code(s): E66.01 - Morbid (severe) obesity due to excess calories Category: Medical Plan: Diet and exercise (7) GERD (gastroesophageal reflux disease): Code(s): K21.9 - Gastro-esophageal reflux disease without esophagitis Category: Medical Plan: Avoid the foods that causes that usually spicy foods, tomato products, juices, coffee, soda and foods that your sensitive to. After eating do not lie down, allow 3-4 hours before in lie down. And keep the head of bed above 30 degrees to avoid the acid from going up. (8) Generalized anxiety disorder: Code(s): F41.1 - Generalized anxiety disorder Category: Medical Plan: Continue with present medication Plan 1. 5mg for Type 2 Diabetes Mellitus, with further review aimed at optimizing glycemic control and achieving an A1c below 6.5. Discuss the potential to increase to a maximum dose of 2mg if required: - Continue monitoring blood pressure with current management, given stable results. - Advise on maintaining consistent CPAP therapy each night for obstructive sleep apnea. - Routine follow-up in three months is planned to assess control of asthma and diabetes, with interim contact advised should any issues arise. - Discuss the need for ongoing preventive health measures, including up-to-date vaccinations and regular screening requirements for chronic conditions.
[2024-07-15 15:54] VITALS: BP 120/70; PULSE 95; O2SAT 96; BMI 53.9
== END 2024-07-15 16:31 | disposition home or self-care (01) ==
PROVIDERS: PCP Internal Medicine; Visit Provider Internal Medicine
DX: E11.65 Type 2 diabetes mellitus with hyperglycemia (principal); G47.33 Obstructive sleep apnea (adult) (pediatric); E66.01 Morbid (severe) obesity due to excess calories; Z68.43 Body mass index [BMI] 50.0-59.9, adult; J45.40 Moderate persistent asthma, uncomplicated; I10 Essential (primary) hypertension; E78.5 Hyperlipidemia, unspecified; K21.9 Gastro-esophageal reflux disease without esophagitis; F41.1 Generalized anxiety disorder

== ENCOUNTER → 2024-07-15 15:41 | Outpatient (BNVA) | payer OTHER, SELFPAY | PROVIDERS: PCP Internal Medicine; Visit Provider Internal Medicine | DX: E11.65 Type 2 diabetes mellitus with hyperglycemia (principal); G47.33 Obstructive sleep apnea (adult) (pediatric); J45.40 Moderate persistent asthma, uncomplicated; I10 Essential (primary) hypertension; E78.5 Hyperlipidemia, unspecified; E66.01 Morbid (severe) obesity due to excess calories; K21.9 Gastro-esophageal reflux disease without esophagitis; F41.1 Generalized anxiety disorder | CPT/HCPCS: 96127; 99212 ==

== ENCOUNTER 2024-07-30 15:11 | Outpatient (AMB) | payer OTHER, SELFPAY ==
--- NOTE | 2024-07-30 15:19 | A.OFFVIS_ITS ---
Vital Signs 07/30/24 15:22 Height 5 ft 9 in Weight 369 lb 11.443 oz BMI 54.6 BP 114/64 Blood Pressure Location Rt brachial Position Sitting Pulse 77 Pulse Source Pulse Oximeter Intake Visit Reasons: T2DM Intake Note: Patient present today for T2DM. Last Diabetic Eye exam: approx 3 months ago, [facility]. No problems has yearly appointments. Last Podiatry Visit: Does not see a Airplane Inspector Random Glucose: 120 mg/dl HgA1C: 6.7% 07/13/2024 Germination Testing Manager Required: Yes Germination Testing Manager Language: Restoration Ecologist Services: Germination Testing Manager Present Germination Testing Manager Name: Fatoumata [id number] Information Interpreted: non-clinical & clinical Accompanied by: Self / Same As Patient Allergies dulaglutide [From Trulicity] Adverse Reaction (Intermediate, Verified 07/30/24 15:25) Diarrhea Flexeril Adverse Reaction (Mild, Verified 07/30/24 15:25) nausea, sleepiness glipizide Adverse Reaction (Mild, Verified 07/30/24 15:25) hypoglycemia HPI Comments Details: This is a 44-year-old male with a past medical history of type 2 diabetes, vitamin B12 deficiency, hyperlipidemia, hypertension, asthma, psoriasis, GERD, morbid obesity and anxiety presenting for diabetic management. He was diagnosed with prediabetes in [place], and he was diagnosed with Type II diabetes about 7 years ago in the [place]. Hemoglobin a1c 6.7% 07/13/2024. 100% of glucose readings between July 16 and July 30 on his glucometer report are within range. Average glucose is 111 mg/dL. Patient feels traumatized by checking blood sugars at this point and is fearful of needles which is impacting his ability to monitor. He also endorses neuropathy in fingers which makes it difficult to check a fingerstick glucose. It causes errors on the machine, and then he has to start the process over again. This is to the point where he has paid for alejandro sensors out of pocket. Current medication regimen: Ozempic 0.5 mg weekly, metformin 1000 mg twice daily, Lantus 30 units at bedtime, Jardiance 25 mg q.a.m. Past medications: Glipizide discontinued due to hypoglycemia. Trulicity discontinued due to diarrhea. Compliance issues: None Diet: Breakfast- ham and cheese sandwich and coffee with milk Lunch-He brings lunch to work. It is usually rice, baked potato or other foods. He drinks juice. Dinner-Rice and beans, pork, chicken. Snacks/desserts: coffee with milk at night No alcohol Nonsmoker Exercise: None He was pursuing bariatric surgery, but he decided not to proceed with it because he was concerned about the risks of the procedure. He is still interested in losing weight. He has seen a medical electronic page makeup system operator in 2022. He did not start the right BMI margarita yet because he was in [place]. Hypoglycemia symptoms: None Hyperglycemia symptoms: None Eye exam: Up-to-date at [facility]. Microvascular complications: neuropathy Macrovascular complications: none Hypertension: treated with your irbesartan-hydrochlorothiazide 150-12.5 mg daily Hyperlipidemia: treated with atorvastatin 10 mg. ROS: Constitutional: No unexplained weight loss, fever, chills Eyes: No vision changes, blurry vision, double vision Cardiovascular: No chest pain, chest pressure or chest discomfort. No palpitations Gastrointestinal: No anorexia, nausea, vomiting or diarrhea. No abdominal pain or blood in stool. Neurologic: No headache, dizziness, syncope, unilateral weakness, ataxia, numbness or tingling in the extremities. Physical exam: Constitutional: Alert, in no distress. Head: Normocephalic. Neck: Supple, Full range of motion. No lymphadenopathy. No palpable thyroid masses. Respiratory: Clear to auscultation. Cardiovascular: S1 S2 regular. No murmurs. [facility] Medical History (Updated 07/30/24 @ 16:25 by JENNIFER Cooper) Diabetic neuropathy Type II diabetes with residential use of insulin Pharyngitis Migraine Vitamin B12 deficiency Obesity due to excess calories Peripheral neuropathy Obesity History of colon polyps Asthma Bronchitis Depression Back pain with sciatica Proteinuria Hemorrhoids SHERRI (obstructive sleep apnea) Hyperlipidemia LDL goal <100 Essential hypertension Vitamin D deficiency Surgical History Hx of colonoscopy History of esophagogastroduodenoscopy (EGD) Loculated pleural effusion Loculated empyema Family History Father Cirrhosis Diabetes Mother Colon cancer, Onset Age: 83 Brother Prostate cancer CVA (cerebral vascular accident) Social History Household Members: Family Housing: Apartment Are you a primary point of care technician to a significant other at home: No Do you presently have visiting nurse or other home services: No Alcohol intake: never Patient Tobacco Use Status: Former Tobacco user Tobacco use type: Cigarette Years Smoked: 6- stopped 2016 e-Cigarette/Vaping Use: Never Used Second Hand Smoke Exposure: No service: No Current occupational status: disabled Cognitive needs: Yes (cane) Hearing needs: No Vision needs: Yes (glasses) Physical Exam Vital Signs: Last Vital Signs Pulse 77 07/30/24 15:22 BP 114/64 07/30/24 15:22 BMI result Body Mass Index 54.6 Results Reviewed Results Reviewed: Laboratory Last Values Glucose (Clinic) 120 mg/dL (60-115) H 07/30/24 15:30 Laboratory Tests 07/13/24 06:18 Creatinine 0.77 Estimated GFR > 60 Hemoglobin A1c % 6.7 H AST 32 ALT 23 Triglycerides 131 Cholesterol 113 LDL Cholesterol, Calc 55 HDL Cholesterol 32 L Vitamin B12 302 TSH 1.71 Laboratory Tests 07/13/24 06:15 Urine Creatinine 112.87 Urine Microalbumin 24.0 Microalb/Creat Ratio 21.2 Assessment & Plan Assessment & Plan (1) Type II diabetes with residential use of insulin: Code(s): E11.9 - Type 2 diabetes mellitus without complications; Z79.4 - half-way (current) use of insulin Category: Medical (2) Morbid obesity: Code(s): E66.01 - Morbid (severe) obesity due to excess calories Category: Medical (3) Diabetic neuropathy: Code(s): E11.40 - Type 2 diabetes mellitus with diabetic neuropathy, unspecified Category: Medical Plan In summary this is a 44-year-old male with controlled type 2 diabetes and morbid obesity. He will increase Ozempic to 1 mg weekly and decrease Lantus to 25 units daily. Continue metformin 1000 mg twice daily. Continue Jardiance 25 mg daily. Discussed pathophysiology of Type II Diabetes Mellitus with the patient in detail.? I explained the residential risks and complications associated with uncontrolled diabetes including nephropathy, neuropathy, peripheral vascular disease, retinopathy, increased risk of heart disease and stroke.? Discussed lifestyle modification with the patient. I will appeal the insurance denial for his CGM. Follow up at the end of September for type 2 diabetes. Medications: New semaglutide (Ozempic) 1 mg (0.75 mL) subcut QWEEK 3 mL 3RF Discontinued semaglutide (Ozempic) Discontinued Reason: Doctor's Order 0.5 mg (0.736 mL) subcut QWEEK 3 mL 3RF Patient Instructions: Aumente Ozempic a 1 mg por semana. Comience esta dosis despu?s de burch ?ltima dosis de Ozempic. Disminuir Lantus a 25 unidades diarias. Coding Level of Care Code Est Pt Level 4 (77361) Complex EM visit Add On G2211 Diagnoses Type II diabetes with residential use of insulin E11.9; Z79.4 Morbid obesity E66.01 Diabetic neuropathy E11.40
[2024-07-30 15:22] VITALS: BP 114/64; PULSE 77; BMI 54.6
[2024-07-30 15:35] LABS: Glucose, Whole Blood 120 mg/dL (60-115)
== END 2024-07-30 16:14 | disposition home or self-care (01) ==
PROVIDERS: PCP Internal Medicine; Visit Provider Physician Assistant Medical
DX: E11.40 Type 2 diabetes mellitus with diabetic neuropathy, unspecified (principal); Z79.4 Long term (current) use of insulin; E66.01 Morbid (severe) obesity due to excess calories

== ENCOUNTER → 2024-07-30 15:11 | Outpatient (BNVA) | payer OTHER, SELFPAY | PROVIDERS: PCP Internal Medicine; Visit Provider Physician Assistant Medical | DX: E11.40 Type 2 diabetes mellitus with diabetic neuropathy, unspecified (principal); E66.01 Morbid (severe) obesity due to excess calories; Z79.4 Long term (current) use of insulin; Z68.43 Body mass index [BMI] 50.0-59.9, adult | CPT/HCPCS: 82947; 99212 ==

== ENCOUNTER 2024-08-18 14:27 | Outpatient (AMB) | payer OTHER, SELFPAY ==
--- NOTE | 2024-08-18 14:47 | MHC.OFFVIS ---
Vital Signs 08/18/24 14:48 Height 5 ft 9 in Weight 367 lb 1.114 oz BMI 54.2 BP 134/86 Blood Pressure Location Rt brachial Position Sitting Pulse 83 Pulse Source Pulse Oximeter Pulse Oximetry (%) 98 Oxygen Delivery Method Room Air Intake Visit Reasons: chronic cough Allergies dulaglutide [From Trulicity] Adverse Reaction (Intermediate, Verified 08/18/24 14:50) Diarrhea Flexeril Adverse Reaction (Mild, Verified 08/18/24 14:50) nausea, sleepiness glipizide Adverse Reaction (Mild, Verified 08/18/24 14:50) hypoglycemia HPI Comments Details: The patient is a 44-year-old gentleman known asthma in addition to obstructive sleep apnea on CPAP and morbid obesity. He states that he was in his usual state health until about 5 days ago when he started developing worsening cough and congestion. He went to see his primary care doctor with prescribed Augmentin. The patient has not been any better. He has complaints of shortness of breath and frequent coughing with mucus. He is concerned because he has been admitted in the past with pneumonia. He has not been using his nebulizer. He has been using his short-acting beta agonists MDI several times a day. It is only socially helpful. He denies any fevers or chills. No one else is sick at home. He starting to feel better. He is using his CPAP every night for more than 4 hours a night. The CPAP therapy is effective and beneficial. He needs to get new supplies. Will resend order to his [employer]. 11/10/2023 the patient is here for a pulmonary follow-up visit. He is feeling better. During the last visit he was sick and required prednisone antibiotics however he has not required any since the fall of 2022. the patient continues on his maintenance therapy with good adherence. He has not required his rescue. In addition to that he has been using his CPAP therapy. The CPAP therapy has been affecting beneficial. I do not have access to his machine since it is a dream Station 2. he can always take it to his [employer] company for download. In the meantime he has been sleeping well and therapy has been effective for him so at this point I do not think he needs to be adjusted. He does need to get new supplies I will send a script to his [employer] company at this time. Otherwise patient is without any other complaints. Will follow-up in 6 months. 11/25/2023 the patient is here for sick visit. Apparently took a trip down to [place] and he was exposed to a lot of people cancer. It was also call and he was not prepared for the temperature change. The patient is started developing some URI like symptoms and subsequently went into the chest and started developing a cough. Moderate severity hacky nature although he is bringing up some phlegm at times. The patient does have significant chest tightness and wheezing. He has been using the nebulizer every 6 hours. He did have 30 mg of prednisone available and he took yesterday did help. Therefore, I will send some prednisone for the pharmacy for an asthma exacerbation and also have him start a Z-Jamarcus. The patient also needs cough medication. If he has no better he will call the office but hopefully he feels better in the next few days. The patient has already a follow-up. Otherwise will call for further evaluation and recommendations. 02/12/2024 The patient is here for a pulmonary follow-up visit. Overall the patient is doing much better. He continues on his respiratory therapy with good effect. completed prednisone. Also had completed a couple course of antibiotics in the spring. But better now. Typically does not use his rescue inhaler more than twice a week. The patient feels that he is doing well on the AirDuo inhaler. In regards the CPAP the CPAP therapy continues to be affecting beneficial. He does uses CPAP the whole night more than 4 hours. He does feel rested in the morning. Cardiovascular alonso he is stable which is reassuring. He is also working on weight loss which is also helping his overall health. He is doing this with lifestyle changes. Will continue with current respiratory medications. 04/19/2024 the patient is here for a pulmonary follow-up visit. The patient overall has been doing okay. Unfortunately has not been able to get the maintenance inhaler, AirDuo. Will go ahead and send him generic Symbicort instead at this time. I think Symbicort is going to work better for him anyway. He has been feeling well from the asthma. He has not required his rescue inhaler often which is reassuring. He is concerned about the winter in the fall because that is when he would get colds and activate his asthma. We did talk about pre emptied therapy with vitamin-C and zinc and other herbal therapies. He is going to look into those. In the meantime he continues uses CPAP. CPAP therapy continues to be affecting beneficial. He does use it more than 4 hours. He was having issues with bills coming from the [employer]. We then he called them and he changed the insurance information that they had in now seems to be better. He will let us know if he runs into any more difficulties. Will follow-up in 4 months. 08/18/2024 the patient is here for a pulmonary follow-up visit. Overall the patient has been doing well he has been working and he has been very active with his job. He has been liking it a lot. 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 Therefore he is now exposed to more sick contacts. His mother also has the flu at this time. He is concerned over getting the flu. He is having some chest congestion at this time feels like sometimes bruising although has not completely developed. He continues uses CPAP. The CPAP therapy has been affecting beneficial. He does use it for more than 4 hours a night. 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 I am going to request a download from his CPAP and therefore then write him a letter. His oxygen levels are reassuring at this time within normal limits. Once I have the download I will write him a letter for the DOT. From an asthma standpoint the patient is doing well with the current respiratory therapy. If his symptoms worsen he may need to start prednisone. 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 Pharyngitis Migraine Vitamin B12 deficiency Obesity due to excess calories Peripheral neuropathy Obesity History of colon polyps Asthma Bronchitis Depression Back pain with sciatica Proteinuria Hemorrhoids SHERRI (obstructive sleep apnea) Hyperlipidemia LDL goal <100 Essential hypertension Vitamin D deficiency Surgical History Hx of colonoscopy History of esophagogastroduodenoscopy (EGD) Loculated pleural effusion Loculated empyema Family History Father Cirrhosis Diabetes Mother Colon cancer, Onset Age: 83 Brother Prostate cancer CVA (cerebral vascular accident) Social History Household Members: Family Housing: Apartment Are you a primary healthcare receptionist to a significant other at home: No Do you presently have visiting nurse or other home services: No Alcohol intake: never Patient Tobacco Use Status: Former Tobacco user Tobacco use type: Cigarette Years Smoked: 6- stopped 2016 e-Cigarette/Vaping Use: Never Used Second Hand Smoke Exposure: No service: No Current occupational status: disabled Cognitive needs: Yes (cane) Hearing needs: No Vision needs: Yes (glasses) Review of Systems Const Denies fatigue, Denies headache(s) and Reports weight loss Eyes Denies blurry vision ENT Reports Normal hearing present, Denies headache(s), Reports nasal congestion, Reports nasal discharge and Reports nasal obstruction Card Denies chest pain, Denies irregular heart rhythm, Denies dyspnea and Denies dyspnea on exertion Resp Denies chest congestion, Reports cough, Denies dyspnea, Denies dyspnea on exertion and Reports wheezing GI Denies constipation and Denies diarrhea Denies dysuria and Denies urinary frequency Musc Reports muscle cramps, Denies muscle weakness, Denies numbness and Denies tingling Neuro Reports Normal hearing present, Denies Abnormal speech present, Denies headache(s), Denies numbness and Denies tingling Psych Reports abnormal sleep pattern and Denies depression Endo Denies fatigue Gianfranco/Lymph Denies easy bruising Aller/Immun Reports wheezing Physical Exam Vital Signs: Last Vital Signs Pulse 83 08/18/24 14:48 BP 134/86 08/18/24 14:48 Pulse Ox 98 08/18/24 14:48 Oxygen Delivery Method Room Air 08/18/24 14:48 BMI result Body Mass Index 54.2 Const General: comfortable and no acute distress Orientation/consciousness: patient oriented x3 HEENT Head: Yes normal to inspection Ears: hearing grossly normal bilaterally Eyes Sclerae: sclerae normal Pupils: Equal, round and reactive pupils present Neck Neck: Yes normal visual inspection Chest Chest palpation & inspection: normal inspection of the chest Resp Effort & Inspection: normal respiratory effort Auscultation: clear to auscultation bilaterally, no crackles, no rales, no rhonchi and wheezes Cardio Palpation: normal PMI Rate: regular rate Rhythm: regular rhythm Heart sounds: S1 normal heart sound present, S2 normal heart sound present and no murmurs GI Palpation (GI): Soft to palpation, nontender and No hepatosplenomegaly present Auscultation: normal bowel sounds Rectal Exam - Male: Yes deferred Skin General skin exam: no rashes or lesions noted Neuro General: patient oriented x3, gait normal and moves all extremities Cranial nerves: Yes Equal, round and reactive pupils present and Yes Normal hearing present Speech: No Abnormal speech present Extrem General: No clubbing and No cyanosis Psych Appearance: grossly normal Mental Status: mental status grossly normal Assessment & Plan Assessment & Plan (1) Asthma: Comment: PFT restrictive March 2019 Code(s): J45.909 - Unspecified asthma, uncomplicated Category: Medical Qualifiers: Asthma complication type: uncomplicated Asthma persistence: persistent Asthma severity: moderate Qualified Code(s): J45.40 - Moderate persistent asthma, uncomplicated (2) SHERRI (obstructive sleep apnea): Comment: Continue with the CPAP every night and benefits from this more than 4 hours a night Code(s): G47.33 - Obstructive sleep apnea (adult) (pediatric) Category: Medical (3) Chronic rhinitis: Code(s): J31.0 - Chronic rhinitis Category: Medical Plan Symbicort continuen Daliresp 500mcg Continue APAP, p10. Has his new Respironics Dreamstation 2, adjusted APAP 7- (JL)12 requesting APAP download to write a letter to DOT for cerification Nasal rinsing Allergy therapy: singulair continue Fluticasone daily continue Astelin weight management F/U 4-6 months Medications: New oseltamivir (Tamiflu) 75 mg PO Q12H 10 caps 0RF 5 days azithromycin 500 mg PO DAILY 5 tabs 0RF 5 days benzonatate 200 mg PO BID PRN 60 caps 4RF cough 30 days prednisone PO daily; Take 2 tabs daily x 5 days, then 1 tablet daily x 5 days 15 tabs 0RF 10 days Coding Level of Care Code Est Pt Level 4 (17473) Diagnoses Moderate persistent asthma without complication J45.40 Asthma complication type: uncomplicated Asthma persistence: persistent Asthma severity: moderate SHERRI (obstructive sleep apnea) G47.33 Chronic rhinitis J31.0 Time Spent (min) 16
[2024-08-18 14:48] VITALS: BP 134/86; PULSE 83; O2SAT 98; BMI 54.2
== END 2024-08-18 15:18 | disposition home or self-care (01) ==
PROVIDERS: PCP Internal Medicine; Visit Provider Hospitalist
DX: J45.40 Moderate persistent asthma, uncomplicated (principal); G47.33 Obstructive sleep apnea (adult) (pediatric); J31.0 Chronic rhinitis
CPT/HCPCS: 99214

== ENCOUNTER → 2024-08-18 14:27 | Outpatient (BNVA) | payer OTHER, SELFPAY | PROVIDERS: PCP Internal Medicine; Visit Provider Hospitalist | DX: G47.33 Obstructive sleep apnea (adult) (pediatric) (principal); E66.01 Morbid (severe) obesity due to excess calories; J45.40 Moderate persistent asthma, uncomplicated; J31.0 Chronic rhinitis; Z68.43 Body mass index [BMI] 50.0-59.9, adult; Z99.89 Dependence on other enabling machines and devices | CPT/HCPCS: 99212 ==

== ENCOUNTER → 2024-08-25 08:19 | Outpatient (BNVA) | payer OTHER, SELFPAY | PROVIDERS: PCP Internal Medicine; Visit Provider Hospitalist | DX: J45.40 Moderate persistent asthma, uncomplicated (principal); G47.33 Obstructive sleep apnea (adult) (pediatric); J31.0 Chronic rhinitis | CPT/HCPCS: 99212 ==

== ENCOUNTER 2024-09-03 15:14 | Outpatient (AMB) | payer OTHER, SELFPAY ==
--- NOTE | 2024-09-03 15:18 | A.OFFVIS_ITS ---
Vital Signs 09/03/24 15:23 Height 5 ft 9 in Weight 368 lb 9.806 oz BMI 54.4 BP 110/68 Blood Pressure Location Rt brachial Position Sitting Pulse 102 H Pulse Source Pulse Oximeter Pulse Oximetry (%) 96 Oxygen Delivery Method Room Air Intake Visit Reasons: T2DM/DOT clearance-confirmed Intake Note: Patient present today to follow up on Type 2 Diabetes Mellitus. Last Diabetic Eye exam: approx 4 months ago, [facility]. No problems has yearly appointments. Last Podiatry Visit: Does not see a [facility] Random Glucose: 96 mg/dl HgA1C: 6.7% 07/13/2024 Janitor Custodian Required: Yes Janitor Custodian Language: Estate Planning Counselor Services: Janitor Custodian Present Janitor Custodian Name: Garland [id number] Information Interpreted: non-clinical & clinical Accompanied by: Self / Same As Patient Allergies dulaglutide [From Trulicity] Adverse Reaction (Intermediate, Verified 09/03/24 15:24) Diarrhea Flexeril Adverse Reaction (Mild, Verified 09/03/24 15:24) nausea, sleepiness glipizide Adverse Reaction (Mild, Verified 09/03/24 15:24) hypoglycemia HPI Comments Details: This is a 44-year-old male with a past medical history of type 2 diabetes, vitamin B12 deficiency, hyperlipidemia, hypertension, asthma, psoriasis, GERD, morbid obesity and anxiety presenting for diabetic management. He was diagnosed with prediabetes in [place], and he was diagnosed with Type II diabetes about 7 years ago in the [place]. Hemoglobin a1c 6.7% 07/13/2024. 98%% of glucose readings in the past 90 days are within target range on his CGM data on his phone. Average glucose is 118 mg/dL for the past 90 days. He pays out of pocket for libre3. Insurance denied [place] and appeal. Current medication regimen: Ozempic 0.5 mg weekly, metformin 1000 mg twice daily, Lantus 20 units at bedtime, Jardiance 25 mg q.a.m. He did not tolerate the higher dosage of Ozempic. Past medications: Glipizide discontinued due to hypoglycemia. Trulicity discontinued due to diarrhea. Compliance issues: None Hypoglycemia symptoms: Denies. Patient has never had a severe episode of hypoglycemia. Hyperglycemia symptoms: Denies Eye exam: Up-to-date at [facility]. Microvascular complications: mild peripheral neuropathy, cataracts Macrovascular complications: none Hypertension: treated with your irbesartan-hydrochlorothiazide 150-12.5 mg daily Hyperlipidemia: treated with atorvastatin 10 mg. ROS: Constitutional: No unexplained weight loss, fever, chills Eyes: No vision changes, blurry vision, double vision Cardiovascular: No chest pain, chest pressure or chest discomfort. No palpitations Gastrointestinal: No anorexia, nausea, vomiting or diarrhea. No abdominal pain or blood in stool. Neurologic: No headache, dizziness, syncope, unilateral weakness, ataxia, numbness or tingling in the extremities. Physical exam: Constitutional: Alert, in no distress. Neck: Supple, Full range of motion. No lymphadenopathy. Respiratory: Clear to auscultation. Cardiovascular: S1 S2 regular. No murmurs. Right foot: Warm and well perfused. No clubbing, cyanosis or edema. DP pulse palpable. Intact vibratory sensation. Left foot: Warm and well perfused. No clubbing, cyanosis or edema. DP pulse palpable. Intact vibratory sensation. Extremities: Intact vibratory and intact sensation to monofilament in the hands and feet. 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 Pharyngitis Migraine Vitamin B12 deficiency Obesity due to excess calories Peripheral neuropathy Obesity History of colon polyps Asthma Bronchitis Depression Back pain with sciatica Proteinuria Hemorrhoids SHERRI (obstructive sleep apnea) Hyperlipidemia LDL goal <100 Essential hypertension Vitamin D deficiency Surgical History Hx of colonoscopy History of esophagogastroduodenoscopy (EGD) Loculated pleural effusion Loculated empyema Family History Father Cirrhosis Diabetes Mother Colon cancer, Onset Age: 83 Brother Prostate cancer CVA (cerebral vascular accident) Social History Household Members: Family Housing: Apartment Are you a primary care technician to a significant other at home: No Do you presently have visiting nurse or other home services: No Alcohol intake: never Patient Tobacco Use Status: Former Tobacco user Tobacco use type: Cigarette Years Smoked: 6- stopped 2016 e-Cigarette/Vaping Use: Never Used Second Hand Smoke Exposure: No service: No Current occupational status: disabled Cognitive needs: Yes (cane) Hearing needs: No Vision needs: Yes (glasses) Physical Exam Vital Signs: Last Vital Signs Pulse 102 H 09/03/24 15:23 BP 110/68 09/03/24 15:23 Pulse Ox 96 09/03/24 15:23 Oxygen Delivery Method Room Air 09/03/24 15:23 BMI result Body Mass Index 54.4 Results Reviewed Results Reviewed: Laboratory Last Values Glucose (Clinic) 96 mg/dL (60-115) 09/03/24 15:34 Laboratory Tests 07/13/24 06:18 Creatinine 0.77 Estimated GFR > 60 Hemoglobin A1c % 6.7 H AST 32 ALT 23 Triglycerides 131 Cholesterol 113 LDL Cholesterol, Calc 55 HDL Cholesterol 32 L Vitamin B12 302 TSH 1.71 Laboratory Tests 07/13/24 06:15 Urine Creatinine 112.87 Urine Microalbumin 24.0 Microalb/Creat Ratio 21.2 Assessment & Plan Assessment & Plan (1) 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 Continue Ozempic 0.5 mg weekly. Continue Lantus 20 units daily. Continue metformin 1000 mg twice daily. Continue Jardiance 25 mg daily. Discussed pathophysiology of Type II Diabetes Mellitus with the patient in detail.? I explained the project manager entertainment and media risks and complications associated with uncontrolled diabetes including nephropathy, neuropathy, peripheral vascular disease, retinopathy, increased risk of heart disease and stroke.? Discussed lifestyle modification with the patient. If you experience low blood sugar, treat this by eating a chewable fruit candy like skittles or jelly beans (about 8 pieces), 4 ounces (1/2 cup) of fruit juice (not diet), 1 tablespoon of honey or 4 glucose tablets. If your blood sugar is under 55, take double the amount of one of the above. Recheck your blood sugar in 15 minutes. Patient advised not to drive if he does not have a reliable method of monitoring blood glucose or if he has symptoms of hypo or hyperglycemia. Advised patient to always carry his fingerstick glucometer with him as a backup to his sensor. He has a follow up scheduled with me in September. 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
[2024-09-03 15:23] VITALS: BP 110/68; PULSE 102; O2SAT 96; BMI 54.4
[2024-09-03 15:41] LABS: Glucose, Whole Blood 96 mg/dL (60-115)
== END 2024-09-03 16:21 | disposition home or self-care (01) ==
PROVIDERS: PCP Internal Medicine; Visit Provider Physician Assistant Medical
DX: E11.40 Type 2 diabetes mellitus with diabetic neuropathy, unspecified (principal); Z79.4 Long term (current) use of insulin

== ENCOUNTER → 2024-09-03 15:14 | Outpatient (BNVA) | payer OTHER, SELFPAY | PROVIDERS: PCP Internal Medicine; Visit Provider Physician Assistant Medical | DX: E11.40 Type 2 diabetes mellitus with diabetic neuropathy, unspecified (principal); Z79.4 Long term (current) use of insulin | CPT/HCPCS: 82947; 99212 ==

== ENCOUNTER 2024-09-07 13:14 | Outpatient (AMB) | payer OTHER, SELFPAY ==
--- NOTE | 2024-09-07 13:55 | A.OFFVIS_ITS ---
Vital Signs 09/07/24 13:56 Height 5 ft 9 in Weight 372 lb 9.299 oz BMI 55.0 BP 118/60 Blood Pressure Location Lt brachial Position Sitting Pulse 96 Pulse Source Pulse Oximeter Pulse Oximetry (%) 96 Oxygen Delivery Method Room Air Intake Visit Reasons: asthma exacerbation Allergies dulaglutide [From Trulicity] Adverse Reaction (Intermediate, Verified 09/07/24 14:01) Diarrhea Flexeril Adverse Reaction (Mild, Verified 09/07/24 14:01) nausea, sleepiness glipizide Adverse Reaction (Mild, Verified 09/07/24 14:01) hypoglycemia HPI Comments Details: The patient is a 44-year-old gentleman known asthma in addition to obstructive sleep apnea on CPAP and morbid obesity. He states that he was in his usual state health until about 5 days ago when he started developing worsening cough and congestion. He went to see his primary care doctor with prescribed Augmentin. The patient has not been any better. He has complaints of shortness of breath and frequent coughing with mucus. He is concerned because he has been admitted in the past with pneumonia. He has not been using his nebulizer. He has been using his short-acting beta agonists MDI several times a day. It is only socially helpful. He denies any fevers or chills. No one else is sick at home. He starting to feel better. He is using his CPAP every night for more than 4 hours a night. The CPAP therapy is effective and beneficial. He needs to get new supplies. Will resend order to his [employer]. 11/10/2023 the patient is here for a pulmonary follow-up visit. He is feeling better. During the last visit he was sick and required prednisone antibiotics however he has not required any since the fall of 2022. the patient continues on his maintenance therapy with good adherence. He has not required his rescue. In addition to that he has been using his CPAP therapy. The CPAP therapy has been affecting beneficial. I do not have access to his machine since it is a dream Station 2. he can always take it to his [employer] company for download. In the meantime he has been sleeping well and therapy has been effective for him so at this point I do not think he needs to be adjusted. He does need to get new supplies I will send a script to his [employer] company at this time. Otherwise patient is without any other complaints. Will follow-up in 6 months. 11/25/2023 the patient is here for sick visit. Apparently took a trip down to [place] and he was exposed to a lot of people cancer. It was also call and he was not prepared for the temperature change. The patient is started developing some URI like symptoms and subsequently went into the chest and started developing a cough. Moderate severity hacky nature although he is bringing up some phlegm at times. The patient does have significant chest tightness and wheezing. He has been using the nebulizer every 6 hours. He did have 30 mg of prednisone available and he took yesterday did help. Therefore, I will send some prednisone for the pharmacy for an asthma exacerbation and also have him start a Z-Jamarcus. The patient also needs cough medication. If he has no better he will call the office but hopefully he feels better in the next few days. The patient has already a follow-up. Otherwise will call for further evaluation and recommendations. 02/12/2024 The patient is here for a pulmonary follow-up visit. Overall the patient is doing much better. He continues on his respiratory therapy with good effect. completed prednisone. Also had completed a couple course of antibiotics in the spring. But better now. Typically does not use his rescue inhaler more than twice a week. The patient feels that he is doing well on the AirDuo inhaler. In regards the CPAP the CPAP therapy continues to be affecting beneficial. He does uses CPAP the whole night more than 4 hours. He does feel rested in the morning. Cardiovascular alonso he is stable which is reassuring. He is also working on weight loss which is also helping his overall health. He is doing this with lifestyle changes. Will continue with current respiratory medications. 04/19/2024 the patient is here for a pulmonary follow-up visit. The patient overall has been doing okay. Unfortunately has not been able to get the maintenance inhaler, AirDuo. Will go ahead and send him generic Symbicort instead at this time. I think Symbicort is going to work better for him anyway. He has been feeling well from the asthma. He has not required his rescue inhaler often which is reassuring. He is concerned about the winter in the fall because that is when he would get colds and activate his asthma. We did talk about pre emptied therapy with vitamin-C and zinc and other herbal therapies. He is going to look into those. In the meantime he continues uses CPAP. CPAP therapy continues to be affecting beneficial. He does use it more than 4 hours. He was having issues with bills coming from the [employer]. We then he called them and he changed the insurance information that they had in now seems to be better. He will let us know if he runs into any more difficulties. Will follow-up in 4 months. 08/18/2024 the patient is here for a pulmonary follow-up visit. Overall the patient has been doing well he has been working and he has been very active with his job. He has been liking it a lot. 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 Therefore he is now exposed to more sick contacts. His mother also has the flu at this time. He is concerned over getting the flu. He is having some chest congestion at this time feels like sometimes bruising although has not completely developed. He continues uses CPAP. The CPAP therapy has been affecting beneficial. He does use it for more than 4 hours a night. 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 I am going to request a download from his CPAP and therefore then write him a letter. His oxygen levels are reassuring at this time within normal limits. Once I have the download I will write him a letter for the DOT. From an asthma standpoint the patient is doing well with the current respiratory therapy. If his symptoms worsen he may need to start prednisone. 08/25/2024 the patient is here for a pulmonary follow-up visit. Overall he is doing well. Asthma seems to be in good control. He continues uses maintenance therapy. The patient has been using CPAP every night. CPAP therapy has been affecting beneficial. He is not working at a adult Care Center. 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 He needs DOT clearance. Does have a Respironics dream Station 2 machine. He did bring it in. The therapy has been affecting beneficial for many years. His average uses the last 30 days has been 9 hours and 26 minutes and his AHI is 4.5. His current settings are 5 to 12 cm of water. I did increasing to 6-14 cm of water. His current machine is not able to be downloaded since his Respironics machine that was provided after the recall. Therefore based on the need for reports on regular basis in the fact that is not providing any reports for his DOT I am going to request with a pacer machine at this time. Will work with his local [employer] company to prior pride him a replacement machine that can be downloaded easily. In the meantime he is going to continue with current respiratory therapy he will try the higher pressure he has not issues he will call the office earlier assessment. 09/07/2024 the patient is here for sick visit. He started getting sick about 3 days ago. 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 He has been using prednisone and also has been using his nebulized therapy. Will go ahead and send him a course of antibiotics. So likely viral but which is want to cover all the bases. The patient will monitor closely his blood sugars. He is going to split the prednisone to twice a day to minimize hyperglycemia. In the meantime he continues uses CPAP every night CPAP therapy continues to be affecting beneficial. Will go ahead and follow-up with his regular scheduled visit. If he has any issues before that he can always call for an earlier evaluation. Also to note he did go the DOT and they did accept the paperwork for his sleep apnea with the letter. He does need to get a DOT clearance at least from a pulmonary standpoint every 6 months. [facility] Medical History (Updated 07/30/24 @ 16:25 by JENNIFER Cooper) Diabetic neuropathy Type II diabetes with penitentiary use of insulin Pharyngitis Migraine Vitamin B12 deficiency Obesity due to excess calories Peripheral neuropathy Obesity History of colon polyps Asthma Bronchitis Depression Back pain with sciatica Proteinuria Hemorrhoids SHERRI (obstructive sleep apnea) Hyperlipidemia LDL goal <100 Essential hypertension Vitamin D deficiency Surgical History Hx of colonoscopy History of esophagogastroduodenoscopy (EGD) Loculated pleural effusion Loculated empyema Family History Father Cirrhosis Diabetes Mother Colon cancer, Onset Age: 83 Brother Prostate cancer CVA (cerebral vascular accident) Social History Household Members: Family Housing: Apartment Are you a primary resident care technician to a significant other at home: No Do you presently have visiting nurse or other home services: No Alcohol intake: never Patient Tobacco Use Status: Former Tobacco user Tobacco use type: Cigarette Years Smoked: 6- stopped 2016 e-Cigarette/Vaping Use: Never Used Second Hand Smoke Exposure: No service: No Current occupational status: disabled Cognitive needs: Yes (cane) Hearing needs: No Vision needs: Yes (glasses) Review of Systems Const Denies fatigue, Denies headache(s) and Reports weight loss Eyes Denies blurry vision ENT Reports Normal hearing present, Denies headache(s), Reports nasal congestion, Reports nasal discharge and Reports nasal obstruction Card Denies chest pain, Denies irregular heart rhythm, Denies dyspnea and Denies dyspnea on exertion Resp Reports chest congestion, Reports cough, Denies dyspnea, Denies dyspnea on exertion and Reports wheezing GI Denies constipation and Denies diarrhea Denies dysuria and Denies urinary frequency Musc Reports muscle cramps, Denies muscle weakness, Denies numbness and Denies tingling Neuro Reports Normal hearing present, Denies Abnormal speech present, Denies headache(s), Denies numbness and Denies tingling Psych Reports abnormal sleep pattern and Denies depression Endo Denies fatigue Gianfranco/Lymph Denies easy bruising Aller/Immun Reports wheezing Physical Exam Vital Signs: Last Vital Signs Pulse 96 09/07/24 13:56 BP 118/60 09/07/24 13:56 Pulse Ox 96 09/07/24 13:56 Oxygen Delivery Method Room Air 09/07/24 13:56 BMI result Body Mass Index 55.0 Const General: comfortable and no acute distress Orientation/consciousness: patient oriented x3 HEENT Head: Yes normal to inspection Ears: hearing grossly normal bilaterally Eyes Sclerae: sclerae normal Pupils: Equal, round and reactive pupils present Neck Neck: Yes normal visual inspection Chest Chest palpation & inspection: normal inspection of the chest Resp Effort & Inspection: normal respiratory effort Auscultation: clear to auscultation bilaterally, no crackles, no rales, no rhonchi and wheezes Cardio Palpation: normal PMI Rate: regular rate Rhythm: regular rhythm Heart sounds: S1 normal heart sound present, S2 normal heart sound present and no murmurs GI Palpation (GI): Soft to palpation, nontender and No hepatosplenomegaly present Auscultation: normal bowel sounds Rectal Exam - Male: Yes deferred Skin General skin exam: no rashes or lesions noted Neuro General: patient oriented x3, gait normal and moves all extremities Cranial nerves: Yes Equal, round and reactive pupils present and Yes Normal hearing present Speech: No Abnormal speech present Extrem General: No clubbing and No cyanosis Psych Appearance: grossly normal Mental Status: mental status grossly normal Assessment & Plan Assessment & Plan (1) Asthma: Comment: PFT restrictive March 2019 Code(s): J45.909 - Unspecified asthma, uncomplicated Category: Medical Qualifiers: Asthma complication type: uncomplicated Asthma persistence: persistent Asthma severity: moderate Qualified Code(s): J45.40 - Moderate persistent asthma, uncomplicated (2) SHERRI (obstructive sleep apnea): Comment: Continue with the CPAP every night and benefits from this more than 4 hours a night Code(s): G47.33 - Obstructive sleep apnea (adult) (pediatric) Category: Medical (3) Chronic rhinitis: Code(s): J31.0 - Chronic rhinitis Category: Medical Plan start Prednisone taper start Zpack Symbicort continuen Daliresp 500mcg Continue APAP, p10. Has his new Respironics Dreamstation 2, adjusted APAP 5-10 to 6-12 (JL) APAP download in the office and provided letter to DOT for cerification of usage Nasal rinsing Allergy therapy: singulair continue Fluticasone daily continue Astelin weight management F/U 4-6 months Medications: New azithromycin 500 mg PO DAILY 5 tabs 0RF 5 days prednisone PO daily; Take 4 tabs x 3 days, then 3 tabs x 3 days, then 2 tabs daily x 3 days, then 1 tab x 3 days to complete. 30 tabs 0RF 12 days Coding Level of Care Code Est Pt Level 4 (51098) Diagnoses Moderate persistent asthma without complication J45.40 Asthma complication type: uncomplicated Asthma persistence: persistent Asthma severity: moderate SHERRI (obstructive sleep apnea) G47.33 Chronic rhinitis J31.0 Time Spent (min) 16
[2024-09-07 13:56] VITALS: BP 118/60; PULSE 96; O2SAT 96; BMI 55.0
== END 2024-09-07 14:30 | disposition home or self-care (01) ==
PROVIDERS: PCP Internal Medicine; Visit Provider Hospitalist
DX: J45.40 Moderate persistent asthma, uncomplicated (principal); G47.33 Obstructive sleep apnea (adult) (pediatric); J31.0 Chronic rhinitis
CPT/HCPCS: 99214

== ENCOUNTER → 2024-09-07 13:14 | Outpatient (BNVA) | payer OTHER, SELFPAY | PROVIDERS: PCP Internal Medicine; Visit Provider Hospitalist | DX: J45.40 Moderate persistent asthma, uncomplicated (principal); J31.0 Chronic rhinitis; G47.33 Obstructive sleep apnea (adult) (pediatric); E66.01 Morbid (severe) obesity due to excess calories; Z68.43 Body mass index [BMI] 50.0-59.9, adult; Z99.89 Dependence on other enabling machines and devices; Z87.891 Personal history of nicotine dependence | CPT/HCPCS: 99212 ==

== ENCOUNTER 2024-09-24 11:01 | Outpatient (AMB) | payer OTHER, SELFPAY ==
[2024-09-24 11:35] VITALS: BP 126/78; PULSE 81; O2SAT 98; BMI 53.7
--- NOTE | 2024-09-24 11:35 | A.OFFVIS_ITS ---
Vital Signs 09/24/24 11:35 Height 5 ft 9 in Weight 363 lb 12.203 oz BMI 53.7 BP 126/78 Blood Pressure Location Lt brachial Position Sitting Pulse 81 Pulse Source Pulse Oximeter Pulse Oximetry (%) 98 Oxygen Delivery Method Room Air Intake Visit Reasons: asthma exacerbation Allergies dulaglutide [From Trulicity] Adverse Reaction (Intermediate, Verified 09/24/24 11:37) Diarrhea Flexeril Adverse Reaction (Mild, Verified 09/24/24 11:37) nausea, sleepiness glipizide Adverse Reaction (Mild, Verified 09/24/24 11:37) hypoglycemia HPI Comments Details: The patient is a 44-year-old gentleman known asthma in addition to obstructive sleep apnea on CPAP and morbid obesity. He states that he was in his usual state health until about 5 days ago when he started developing worsening cough and congestion. He went to see his primary care doctor with prescribed Augmentin. The patient has not been any better. He has complaints of shortness of breath and frequent coughing with mucus. He is concerned because he has been admitted in the past with pneumonia. He has not been using his nebulizer. He has been using his short-acting beta agonists MDI several times a day. It is only socially helpful. He denies any fevers or chills. No one else is sick at home. He starting to feel better. He is using his CPAP every night for more than 4 hours a night. The CPAP therapy is effective and beneficial. He needs to get new supplies. Will resend order to his DME. 04/19/2024 the patient is here for a pulmonary follow-up visit. The patient overall has been doing okay. Unfortunately has not been able to get the maintenance inhaler, AirDuo. Will go ahead and send him generic Symbicort instead at this time. I think Symbicort is going to work better for him anyway. He has been feeling well from the asthma. He has not required his rescue inhaler often which is reassuring. He is concerned about the winter in the fall because that is when he would get colds and activate his asthma. We did talk about pre emptied therapy with vitamin-C and zinc and other herbal therapies. He is going to look into those. In the meantime he continues uses CPAP. CPAP therapy continues to be affecting beneficial. He does use it more than 4 hours. He was having issues with bills coming from the [employer] company. We then he called them and he changed the insurance information that they had in now seems to be better. He will let us know if he runs into any more difficulties. Will follow-up in 4 months. 08/18/2024 the patient is here for a pulmonary follow-up visit. Overall the patient has been doing well he has been working and he has been very active with his job. He has been liking it a lot. 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 Therefore he is now exposed to more sick contacts. His mother also has the flu at this time. He is concerned over getting the flu. He is having some chest congestion at this time feels like sometimes bruising although has not completely developed. He continues uses CPAP. The CPAP therapy has been affecting beneficial. He does use it for more than 4 hours a night. 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 I am going to request a download from his CPAP and therefore then write him a letter. His oxygen levels are reassuring at this time within normal limits. Once I have the download I will write him a letter for the DOT. From an asthma standpoint the patient is doing well with the current respiratory therapy. If his symptoms worsen he may need to start prednisone. 08/25/2024 the patient is here for a pulmonary follow-up visit. Overall he is doing well. Asthma seems to be in good control. He continues uses maintenance therapy. The patient has been using CPAP every night. CPAP therapy has been affecting beneficial. He is not working at a adult Care Center. 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 He needs DOT clearance. Does have a Respironics dream Station 2 machine. He did bring it in. The therapy has been affecting beneficial for many years. His average uses the last 30 days has been 9 hours and 26 minutes and his AHI is 4.5. His current settings are 5 to 12 cm of water. I did increasing to 6-14 cm of water. His current machine is not able to be downloaded since his Respironics machine that was provided after the recall. Therefore based on the need for reports on regular basis in the fact that is not providing any reports for his DOT I am going to request with a pacer machine at this time. Will work with his local [employer] company to prior pride him a replacement machine that can be downloaded eas [employer]. In the meantime he is going to continue with current respiratory therapy he will try the higher pressure he has not issues he will call the office earlier assessment. 09/07/2024 the patient is here for sick visit. He started getting sick about 3 days ago. 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 He has been using prednisone and also has been using his nebulized therapy. Will go ahead and send him a course of antibiotics. So likely viral but which is want to cover all the bases. The patient will monitor closely his blood sugars. He is going to split the prednisone to twice a day to minimize hyperglycemia. In the meantime he continues uses CPAP every night CPAP therapy continues to be affecting beneficial. Will go ahead and follow-up with his regular scheduled visit. If he has any issues before that he can always call for an earlier evaluation. Also to note he did go the DOT and they did accept the paperwork for his sleep apnea with the letter. He does need to get a DOT clearance at least from a pulmonary standpoint every 6 months. 09/24/2024 the patient is here for pulmonary follow-up visit. He was initially feeling better and then started getting sick again. Chest congestion chest tightness. He had a prescription for prednisone but he lost. Therefore he never got it filled. He has been using his rescue therapy nebulizer more often. He does have some rhonchi and wheezing on exam. He just completed a course of azithromycin also Augmentin. Therefore based on the fact that he is not any better will start him on some doxycycline and he will have a prednisone taper that he can start. If he has any issues he will call for an earlier assessment. In the meantime he continues uses CPAP. He did get approved for the new APAP through his [employer] company that should be coming up soon. 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 use of insulin Pharyngitis Migraine Vitamin B12 deficiency Obesity due to excess calories Peripheral neuropathy Obesity History of colon polyps Asthma Bronchitis Depression Back pain with sciatica Proteinuria Hemorrhoids SHERRI (obstructive sleep apnea) Hyperlipidemia LDL goal <100 Essential hypertension Vitamin D deficiency Surgical History Hx of colonoscopy History of esophagogastroduodenoscopy (EGD) Loculated pleural effusion Loculated empyema Family History Father Cirrhosis Diabetes Mother Colon cancer, Onset Age: 83 Brother Prostate cancer CVA (cerebral vascular accident) Social History Household Members: Family Housing: Apartment Are you a primary auto care center manager to a significant other at home: No Do you presently have visiting nurse or other home services: No Alcohol intake: never Patient Tobacco Use Status: Former Tobacco user Tobacco use type: Cigarette Years Smoked: 6- stopped 2016 e-Cigarette/Vaping Use: Never Used Second Hand Smoke Exposure: No service: No Current occupational status: disabled Cognitive needs: Yes (cane) Hearing needs: No Vision needs: Yes (glasses) Review of Systems Const Denies fatigue, Denies headache(s) and Reports weight loss Eyes Denies blurry vision ENT Reports Normal hearing present, Denies headache(s), Reports nasal congestion, Re ports nasal discharge and Reports nasal obstruction Card Denies chest pain, Denies irregular heart rhythm, Denies dyspnea and Denies dyspnea on exertion Resp Reports chest congestion, Reports cough, Denies dyspnea, Denies dyspnea on exertion and Reports wheezing GI Denies constipation and Denies diarrhea Denies dysuria and Denies urinary frequency Musc Reports muscle cramps, Denies muscle weakness, Denies numbness and Denies tingling Neuro Reports Normal hearing present, Denies Abnormal speech present, Denies headache(s), Denies numbness and Denies tingling Psych Reports abnormal sleep pattern and Denies depression Endo Denies fatigue Gianfranco/Lymph Denies easy bruising Aller/Immun Reports wheezing Physical Exam Vital Signs: Last Vital Signs Pulse 81 09/24/24 11:35 BP 126/78 09/24/24 11:35 Pulse Ox 98 09/24/24 11:35 Oxygen Delivery Method Room Air 09/24/24 11:35 BMI result Body Mass Index 53.7 Const General: comfortable and no acute distress Orientation/consciousness: patient oriented x3 HEENT Head: Yes normal to inspection Ears: hearing grossly normal bilaterally Eyes Sclerae: sclerae normal Pupils: Equal, round and reactive pupils present Neck Neck: Yes normal visual inspection Chest Chest palpation & inspection: normal inspection of the chest Resp Effort & Inspection: normal respiratory effort Auscultation: clear to auscultation bilaterally, no crackles, no rales, no rhonchi and wheezes Cardio Palpation: normal PMI Rate: regular rate Rhythm: regular rhythm Heart sounds: S1 normal heart sound present, S2 normal heart sound present and no murmurs GI Palpation (GI): Soft to palpation, nontender and No hepatosplenomegaly present Auscultation: normal bowel sounds Rectal Exam - Male: Yes deferred Skin General skin exam: no rashes or lesions noted Neuro General: patient oriented x3, gait normal and moves all extremities Cranial nerves: Yes Equal, round and reactive pupils present and Yes Normal hearing present Speech: No Abnormal speech present Extrem General: No clubbing and No cyanosis Psych Appearance: grossly normal Mental Status: mental status grossly normal Assessment & Plan Assessment & Plan (1) Asthma: Comment: PFT restrictive March 2019 Code(s): J45.909 - Unspecified asthma, uncomplicated Category: Medical Qualifiers: Asthma complication type: uncomplicated Asthma persistence: persistent Asthma severity: moderate Qualified Code(s): J45.40 - Moderate persistent asthma, uncomplicated (2) SHERRI (obstructive sleep apnea): Comment: Continue with the CPAP every night and benefits from this more than 4 hours a night Code(s): G47.33 - Obstructive sleep apnea (adult) (pediatric) Category: Medical (3) Chronic rhinitis: Code(s): J31.0 - Chronic rhinitis Category: Medical Plan start Prednisone taper start Doxycycline cough medicine Symbicort continuen Daliresp 500mcg Continue APAP, p10. Has his new Respironics Dreamstation 2, adjusted APAP 5-10 to 6-12 (JL) APAP download in the office and provided letter to DOT for cerification of usage Nasal rinsing Allergy therapy: singulair continue Fluticasone daily continue Astelin weight management F/U 4-6 months Medications: New prednisone PO daily; Take 6 tabs daily x 3 days, then 5 tabs x 3 days, then 4 tabs x 3 days, then 3 tabs x 3 days, then 2 tabs daily x 3 days, then 1 tab x 3 days to complete. 63 tabs 0RF 18 days doxycycline hyclate 100 mg PO BID 20 caps 0RF 10 days codeine-guaifenesin 10-100 mg/5 mL 10 mL PO Q6H 10 days PRN 300 mL 0RF cough codeine-guaifenesin 10-100 mg/5 mL 10 mL PO Q6H PRN 300 mL 0RF cough 10 days Coding Level of Care Code Est Pt Level 4 (49606) Diagnoses Moderate persistent asthma without complication J45.40 Asthma complication type: uncomplicated Asthma persistence: persistent Asthma severity: moderate SHERRI (obstructive sleep apnea) G47.33 Chronic rhinitis J31.0 Time Spent (min) 16
--- OUTSIDE RECORDS SUMMARY | 2024-09-24 12:44 | XMS_ITS | Encounter Summary ---
Author Organization [facility] Address [address] [place] [address] Care Team Providers Care Defensive Driving Instructor Name Role Phone Nereida Llanos MD Primary Care Provider Unavailabl e Reason for Visit * Reason Comments E-prescribe Rx Request Encounter Details Date Type Department Care Team Description 03/08/2018 Refill Pulmonology - [place] [address] [facility] [address] [place] [address] Aiden Ambriz MD E-prescribe Rx Request Social History Tobacco Use Types Packs/Day Years Used Date Smoking Tobacco: Former Cigarettes 0.3 3 Sex Assigned at Date Recorded Not on file documented as of this encounter Miscellaneous Notes * Telephone Encounter - Lynne ShaggyVeekary - 03/09/2018 8:36 AM EDT Patient would like script to be: E-PRESCRIBED/FAXED TO PHARMACY WHEN WAS THE PATIENT'S LAST APPOINTMENT WITH THE PRESCRIBING PROVIDER? 01/30/18 Does patient have an upcoming appointment? Yes (THE MEDICATION REQUESTED IS ON THE MED LIST ABOVE) All of the medications requested were on the CURRENT MEDS list Did you check the Pharmacy information above?: YES Patient wants: 90 -day supply Is this a mail order prescription request ? NO Patients current insurance carrier is: Payor: [employer] / Plan: [facility] / Product Type: MEDICAID RISK documented in this encounter Plan of Treatment Not on file documented as of this encounter Visit Diagnoses Not on filedocumented in this encounter Care Teams Defensive Driving Instructor Relationship Specialty Start Date End Date Nereida Llanos MD PCP - General Internal Medicine 09/01/17 documented as of this encounter
--- OUTSIDE RECORDS SUMMARY | 2024-09-24 12:44 | XMS_ITS | Encounter Summary ---
Author Organization [facility] Address [address] [place] [address] Care Team Providers Care Retention Representative Name Role Phone Nereida Llanos MD Primary Care Provider Unavailabl e Reason for Visit * Reason Onset Date Comments Faxed Refill 07/16/2018 Encounter Details Date Type Department Care Team Description 07/16/2018 Refill Pulmonology - [place] [address] [facility] [address] [place] [address] Aiden Ambriz MD Faxed Refill Social History Tobacco Use Types Packs/Day Years Used Date Smoking Tobacco: Former Cigarettes 0.3 3 Sex Assigned at Date Recorded Not on file documented as of this encounter Miscellaneous Notes * Telephone Encounter - Aiden Ambriz MD - 07/16/2018 4:02 PM EST Sent symbicort * Telephone Encounter - Parvin James - 07/16/2018 3:34 PM EST Who is calling? A pharmacist: Pharmacy: [facility] Pharmacist Name: Fax Pharmacy Name of the medication Advair What is the specific problem or interaction? Not covered by insurance, need alternative If the patient is having a problem with taking the med - how long has the problem been going on? N/A documented in this encounter Plan of Treatment Not on file documented as of this encounter Visit Diagnoses Not on filedocumented in this encounter Care Teams Retention Representative Relationship Specialty Start Date End Date Nereida Llanos MD PCP - General Internal Medicine 09/01/17 documented as of this encounter
--- OUTSIDE RECORDS SUMMARY | 2024-09-24 12:44 | XMS_ITS | Encounter Summary ---
Author Organization [facility] Address [address] [place] [address] Care Team Providers Care Client Service Professional Name Role Phone Nereida Llanos MD Primary Care Provider Unavailabl e Reason for Visit * Reason Comments E-prescribe Rx Request Encounter Details Date Type Department Care Team Description 11/20/2017 Refill Pulmonology - [place] [address] [facility] [address] [place] [address] Aiden Ambriz MD E-prescribe Rx Request Social History Tobacco Use Types Packs/Day Years Used Date Smoking Tobacco: Former Cigarettes 0.3 3 Sex Assigned at Date Recorded Not on file documented as of this encounter Miscellaneous Notes * Telephone Encounter - Carmita Dias - 11/20/2017 8:45 AM EDT WHEN WAS THE PATIENTS LAST ANNUAL MANAGEMENT AND BUDGET ANALYST EXAM? NA Does patient have an upcoming appointment? Yes 01/30/2018 (THE MEDICATION IS NOT ON THE MED LIST AND IS IDENTIFIED BELOW): Med name: Montelukast Dosage: 10 mg # of tablets: 30 Local pharmacy with request for 30 -day supply Instructions: Take 1 tab QD int he eveing Did you check the pharmacy information above?: YES Indicate how soon the patient needs the script: BY THE END OF THE DAY Patient would like script to be: E-PRESCRIBED/FAXED TO PHARMACY Is the doctor here today?: YES Can the message wait until the doctor returns?: YES Has the pateint been told the prescription will not be filled until the end of the day? NO Payor: [facility] [employer] / Plan: [facility] [employer] / Product Type: MEDICAID RISK documented in this encounter Plan of Treatment Not on file documented as of this encounter Visit Diagnoses Not on filedocumented in this encounter Care Teams Client Service Professional Relationship Specialty Start Date End Date Nereida Llanos MD PCP - General Internal Medicine 09/01/17 documented as of this encounter
--- OUTSIDE RECORDS SUMMARY | 2024-09-24 12:44 | XMS_ITS | Encounter Summary ---
Author Organization [facility] Address [address] [place] [address] Care Team Providers Care High School Counselor Name Role Phone Nereida Llanos MD Primary Care Provider Unavailabl e Reason for Visit * Reason Onset Date Comments medication problems 07/15/2018 Encounter Details Date Type Department Care Team Description 07/15/2018 Telephone Internal Medicine - [place] [address] [facility] [place] [address] Charles Mcallister PA-C [address] [facility] [address] [place] [address] medication problems Social History Tobacco Use Types Packs/Day Years Used Date Smoking Tobacco: Former Cigarettes 0.3 3 Sex Assigned at Date Recorded Not on file documented as of this encounter Miscellaneous Notes * Telephone Encounter - Charles Mcallister PA-C - 07/16/2018 1:21 PM EST Sent symbicort * Telephone Encounter - Corinna Jara M.A. - 07/16/2018 11:31 AM EST Please send in alternative RX can try Breo or symbicort * Telephone Encounter - Hermila De Souza - 07/15/2018 10:40 AM EST Who is calling? The patient Name of the medication advair What is the specific problem or interaction? Patient states this medication isn't covered under herinsurance plan and its $640.00 patient would like to see if you can call in something else that would be covered please advise If the patient is having a problem with taking the med - how long has the problem been going on? N/A documented in this encounter Plan of Treatment Not on file documented as of this encounter Visit Diagnoses Not on filedocumented in this encounter Care Teams High School Counselor Relationship Specialty Start Date End Date Nereida Llanos MD PCP - General Internal Medicine 09/01/17 documented as of this encounter
--- OUTSIDE RECORDS SUMMARY | 2024-09-24 12:44 | XMS_ITS | Encounter Summary ---
Author Organization [facility] Address [address] [place] [address] Care Team Providers Care Restaurant Host/Hostess Name Role Phone Nereida Llanos MD Primary Care Provider Unavailabl e Encounter Details Date Type Department Care Team Description 09/14/2018 Release of Information Medical Records [address] [place] [id number] Abstract, Provider Social History Tobacco Use Types Packs/Day Years Used Date Smoking Tobacco: Former Cigarettes 0.3 3 Sex Assigned at Date Recorded Not on file documented as of this encounter Plan of Treatment Not on file documented as of this encounter Visit Diagnoses Not on filedocumented in this encounter Care Teams Restaurant Host/Hostess Relationship Specialty Start Date End Date Nereida Llanos MD PCP - General Internal Medicine 09/01/17 documented as of this encounter
--- OUTSIDE RECORDS SUMMARY | 2024-09-24 12:44 | XMS_ITS | Encounter Summary ---
Author Organization [facility] Address [address] [place] [address] Care Team Providers Care Associate Veterinarian Name Role Phone Nereida Llanos MD Primary Care Provider Unavailabl e Reason for Visit * Reason Comments E-prescribe Rx Request Encounter Details Date Type Department Care Team Description 09/14/2018 Refill Pulmonology - [place] [address] [facility] [address] [place] [address] Aiden Ambriz MD E-prescribe Rx Request Social History Tobacco Use Types Packs/Day Years Used Date Smoking Tobacco: Former Cigarettes 0.3 3 Sex Assigned at Date Recorded Not on file documented as of this encounter Miscellaneous Notes * Telephone Encounter - Parvin James - 09/14/2018 11:23 AM EST Does not need at this time. documented in this encounter Plan of Treatment Not on file documented as of this encounter Visit Diagnoses Not on filedocumented in this encounter Care Teams Associate Veterinarian Relationship Specialty Start Date End Date Nereida Llanos MD PCP - General Internal Medicine 09/01/17 documented as of this encounter
== END 2024-09-24 11:59 | disposition home or self-care (01) ==
PROVIDERS: PCP Internal Medicine; Visit Provider Hospitalist
DX: J45.40 Moderate persistent asthma, uncomplicated (principal); G47.33 Obstructive sleep apnea (adult) (pediatric); J31.0 Chronic rhinitis
CPT/HCPCS: 99214

== ENCOUNTER → 2024-09-24 11:01 | Outpatient (BNVA) | payer OTHER, SELFPAY | PROVIDERS: PCP Internal Medicine; Visit Provider Hospitalist | DX: G47.33 Obstructive sleep apnea (adult) (pediatric) (principal); E66.01 Morbid (severe) obesity due to excess calories; J45.40 Moderate persistent asthma, uncomplicated; J31.0 Chronic rhinitis; Z87.891 Personal history of nicotine dependence; Z99.89 Dependence on other enabling machines and devices | CPT/HCPCS: 99212 ==

== ENCOUNTER 2024-09-27 11:13 | Outpatient (REF) | payer OTHER, SELFPAY ==
--- NOTE | ~2024-09-27 | XR_ITS ---
EXAMINATION: XR CHEST 2 VIEWS HISTORY: J40 - Bronchitis, not specified as acute or chronic COMPARISON: Comparison is made with the prior examination dated 03/13/2022. FINDINGS: PA and lateral views of the chest are submitted. The lungs are expanded and clear. There is slight blunting of the left lateral costophrenic angle without change, consistent with pleural thickening. There is no pleural effusion, pneumothorax, or pulmonary vascular congestion. The heart is normal in size. The bones are intact. XR/XR chest 2V IMPRESSION: No acute cardiopulmonary abnormality. Electronically signed by: Ambrosio Mueller MD 09/28/2024 09:19 AM EDT
--- OUTSIDE RECORDS SUMMARY | 2024-09-27 12:50 | XMS_ITS | Encounter Summary ---
Author Organization [facility] Address [address] [place] [address] Care Team Providers Care Vegetable Handler Name Role Phone Nereida Llanos MD Primary Care Provider Unavailabl e Reason for Visit * Reason Onset Date Comments er follow up 07/09/2018 Encounter Details Date Type Department Care Team Description 07/09/2018 Telephone Pulmonology - [place] [address] [facility] [address] [place] [address] Aiden Ambriz MD er follow up Social History Tobacco Use Types Packs/Day Years Used Date Smoking Tobacco: Former Cigarettes 0.3 3 Sex Assigned at Date Recorded Not on file documented as of this encounter Miscellaneous Notes * Telephone Encounter - Grace Kincaid M.A. - 07/09/2018 2:29 PM EST Spoke to patient. Scheduled f/u with Erik 07/13/18 .FYI * Telephone Encounter - Parvin James - 07/09/2018 2:11 PM EST EMERGENCY DEPARTMENT FOLLOW-UP CONTACT: Did they go to the ER? : Yes Which ER did they go to? : [facility] Was the patient admitted? : No. How is the patient feeling? : no change in health status Disposition? : unable to schedule ER Follow up, no available appointments Comments: while in ER, they took x-rays and gave him Prednisone and Antibiotics. documented in this encounter Plan of Treatment Not on file documented as of this encounter Visit Diagnoses Not on filedocumented in this encounter Care Teams Vegetable Handler Relationship Specialty Start Date End Date Nereida Llanos MD PCP - General Internal Medicine 09/01/17 documented as of this encounter
--- OUTSIDE RECORDS SUMMARY | 2024-09-27 12:50 | XMS_ITS | Encounter Summary ---
Author Organization [facility] Address [address] [place] [address] Care Team Providers Care Gear And Spline Grinder Name Role Phone Nereida Llanos MD Primary Care Provider Unavailabl e Encounter Details Date Type Department Care Team Description 10/13/2018 Telephone Pulmonology - [place] [address] [facility] [address] [place] [id number] Aiden Ambriz MD Social History Tobacco Use Types Packs/Day Years Used Date Smoking Tobacco: Former Cigarettes 0.3 3 Smokeless Tobacco: Never Sex Assigned at Date Recorded Not on file documented as of this encounter Miscellaneous Notes * Telephone Encounter - Eloina Mayer - 10/13/2018 2:13 PM EDT Spoke to patient and scheduled a follow up for 10/16/18. * Telephone Encounter - Nette Santoro M.A. - 10/13/2018 1:56 PM EDT I called patient to make f/U for Paperwork per Dr. Ambriz. When patient calls back please make next available f/u appt. documented in this encounter Plan of Treatment Not on file documented as of this encounter Visit Diagnoses Not on filedocumented in this encounter Care Teams Gear And Spline Grinder Relationship Specialty Start Date End Date Nereida Llnaos MD PCP - General Internal Medicine 09/01/17 documented as of this encounter
--- OUTSIDE RECORDS SUMMARY | 2024-09-27 12:50 | XMS_ITS | Encounter Summary ---
Author Organization [facility] Address [address] [place] [address] Care Team Providers Care Rehab Rn Name Role Phone Nereida Llanos MD Primary Care Provider Unavailabl e Reason for Visit * Reason Comments E-prescribe Rx Request Encounter Details Date Type Department Care Team Description 09/14/2018 Refill Pulmonology - [place] [address] [facility] [address] [place] [address] Aiden Ambriz MD E-prescribe Rx [...] on filedocumented in this encounter Care Teams Rehab Rn Relationship Specialty Start Date End Date Nereida Llanos MD PCP - General Internal Medicine 09/01/17 documented as of this encounter
--- OUTSIDE RECORDS SUMMARY | 2024-09-27 12:50 | XMS_ITS | Encounter Summary ---
Author Organization [facility] Address [address] [place] [address] Care Team Providers Care Water Valve Repairer Name Role Phone Nereida Llanos MD Primary Care Provider Unavailabl e Reason for Visit * Reason Onset Date Comments Faxed Refill 07/16/2018 Encounter Details Date Type Department Care Team Description 07/16/2018 Refill Pulmonology - [place] [address] [facility] [address] [place] [address] Aiden Ambriz MD Faxed Refill [...] EST Who is calling? A pharmacist: Pharmacy: [facility] Pharmacist Name: Fax Pharmacy Name of the [...] on filedocumented in this encounter Care Teams Water Valve Repairer Relationship Specialty Start Date End Date Nereida Llanos MD PCP - General Internal Medicine 09/01/17 documented as of this encounter
== END 2024-09-27 11:14 | disposition home or self-care (01) ==
LOC: HO.XRAY 11:13
PROVIDERS: PCP Internal Medicine; Visit Provider Hospitalist
DX: J40 Bronchitis, not specified as acute or chronic (principal)
CPT/HCPCS: 71046

== ENCOUNTER → 2024-09-27 11:18 | Outpatient (BNV) | payer OTHER, SELFPAY | PROVIDERS: PCP Internal Medicine; Visit Provider Radiology Diagnostic Radiology | DX: J18.9 Pneumonia, unspecified organism (principal); R91.8 Other nonspecific abnormal finding of lung field | CPT/HCPCS: 71046 ==

== ENCOUNTER 2024-10-02 14:41 | Emergency (ER) | payer OTHER, SELFPAY ==
--- NOTE | ~2024-10-02 | XR_ITS ---
CLINICAL HISTORY: cough Two views of the chest. COMPARISON: XR chest dated 09/27/24 at 11:29 EDT FINDINGS: Normal heart and mediastinal contours. Hazy right basilar opacities. No pleural effusion or pneumothorax. No fracture identified. IMPRESSION: 1. Hazy right basilar opacities favored to represent overlying breast/adipose tissue. Developing pneumonia however could look similar. This document has been electronically signed by: Helder Reddy MD on 10/02/2024 15:37:51
--- NOTE | 2024-10-02 14:47 | ED.GENADULT ---
HPI - General Adult General Chief complaint: Upper Respiratory Symptoms Stated complaint: asthma Time Seen by Provider: 10/02/24 15:10 Source: patient and old records reviewed Mode of arrival: ambulatory Limitations: no limitations History of Present Illness ED Provider: DR. Patel HPI narrative: 44-year-old gentleman known history of asthma, SHERRI on CPAP, morbid obesity came in for evaluation of cough, wheezing, SOB for the past to weeks, seen by his PCP prescribed Augmentin with no relief of his symptoms then patient was seen by his forest landscape ecology professor Dr. Ambriz who prescribed him another course of doxycycline and prednisone patient is still taking his medication with no relief of his coughing. Patient returned to the ED for persistent coughing and shortness of breath and wheezing. 2 family members with a upper respiratory symptoms that patient was exposed to. Related Data Home Medications ?Medication ?Instructions ?Recorded ?Confirmed lancets 28 gauge #100 ea 05/09/20 12/19/23 nebulizers 11/25/23 12/19/23 Previous Rx's ?Medication ?Instructions ?Recorded cpap #1 ea 11/27/20 Shower Chair #1 ea 12/07/20 detachable shower Head #1 ea 12/07/20 flash glucose scanning reader #1 ea 01/31/21 (FreeStyle Spenser 2 Upton) cane #1 ea 03/07/21 Quad cane #1 ea 03/09/21 insulin glargine 100 unit/mL (3 30 unit (0.3 mL) subcut QPM #15 mL 09/26/23 mL) subcutaneous pen (Lantus Solostar U-100 Insulin) gabapentin 300 mg capsule 600 mg (2 x 300 mg) PO BEDTIME 10/08/23 #180 caps flash glucose sensor (FreeStyle #2 ea 10/13/23 Spenser 2 Sensor kit) alprazolam 0.25 mg tablet 0.25 - 0.5 mg (1 - 2 x 0.25 mg) PO 10/20/23 .COMPLEX 1 day #4 tabs clonazepam 0.5 mg tablet 0.5 mg PO DAILY #14 tabs 10/22/23 omeprazole 20 mg capsule,delayed 20 mg PO DAILY 60 days #60 caps 12/04/23 release ibuprofen 600 mg tablet 600 mg PO TID PRN pain #20 tabs 01/05/24 pen needle, diabetic 32 gauge x 1 ea subcut DAILY #30 ea 02/14/24 5/32 (BD Ultra-Fine Yanely Pen Needle) fluticasone propionate 50 2 spray intranasal DAILY 30 days 02/20/24 mcg/actuation nasal #15.8 mL spray,suspension atorvastatin 10 mg tablet 10 mg PO BEDTIME #90 tabs 03/31/24 empagliflozin 25 mg tablet 25 mg PO QAM #90 tabs 04/01/24 (Jardiance) budesonide-formoterol HFA 160 2 puff inhalation BID 30 days 04/19/24 mcg-4.5 mcg/actuation aerosol #10.2 grams inhaler blood sugar diagnostic (FreeStyle #300 ea 04/28/24 Lite Strips) blood-glucose meter (FreeStyle #1 ea 04/28/24 Lite Meter kit) lancets 28 gauge (FreeStyle #300 ea 04/28/24 Lancets) irbesartan 150 1 tab PO DAILY #90 tabs 05/18/24 mg-hydrochlorothiazide 12.5 mg tablet blood-glucose meter,continuous #1 ea 06/29/24 (FreeStyle Spenser 3 Upton) blood-glucose sensor (FreeStyle #2 ea 06/29/24 Spenser 3 Sensor device) cholecalciferol (vitamin D3) 25 25 mcg PO DAILY #90 tabs 06/30/24 mcg (1,000 unit) tablet semaglutide 0.25 mg or 0.5 mg (2 0.5 mg (0.736 mL) subcut QWEEK #3 08/16/24 mg/3 mL) subcutaneous pen injector mL (Ozempic) benzonatate 200 mg capsule 200 mg PO BID PRN cough 30 days 08/18/24 #60 caps betamethasone dipropionate 0.05 % 1 appl topical BID PRN skin 08/21/24 topical ointment irritation #45 grams tramadol 50 mg tablet 50 mg PO Q8H PRN pain 30 days #90 09/21/24 tabs codeine 10 mg-guaifenesin 100 mg/5 10 ml PO Q6H PRN cough 10 days 09/24/24 mL oral liquid #300 mL doxycycline hyclate 100 mg capsule 100 mg PO BID 10 days #20 caps 09/24/24 prednisone 10 mg tablet See Rx Instructions PO DAILY 18 09/24/24 days #63 tabs montelukast 10 mg tablet 10 mg PO BEDTIME #90 tabs 09/27/24 albuterol sulfate 2.5 mg/3 mL 2.5 mg (3 mL) inhalation Q8H PRN 09/28/24 (0.083 %) solution for nebulization for wheezing #180 mL amoxicillin 875 mg-potassium 1 tab PO BID 10 days #20 tabs 09/28/24 clavulanate 125 mg tablet metformin 500 mg tablet 1,000 mg (2 x 500 mg) PO BID #360 09/30/24 tabs Allergies Allergy/AdvReac Type Severity Reaction Status Date / Time dulaglutide [From [facility]] AdvReac Intermediate Diarrhea Verified 10/02/24 14:52 Flexeril AdvReac Mild nausea, Verified 10/02/24 14:52 sleepiness glipizide AdvReac Mild hypoglycemi Verified 10/02/24 14:52 a Review of Systems Review of Systems: All other systems are reviewed and are negative Constitutional: Reports as per HPI and Reports no additional constitutional complaints Eyes: Reports as per HPI and Reports no additional eye complaints Reports system reviewed and no additional complaints, except as documented Cardiovascular: Reports as per HPI and Reports no additional cardiovascular complaints Respiratory: Reports as per HPI and Reports no additional respiratory complaints Gastrointestinal: Reports as per HPI and Reports no additional gastrointestinal complaints Genitourinary: Reports no additional female genitourinary complaints Musculoskeletal: Reports no additional musculoskeletal complaints Skin/Breast: Reports system reviewed and no additional complaints, except as docu Psychiatric: Reports no additional psychiatric complaints Endocrine: Reports no additional endocrine complaints Hematologic/Lymphatic: Reports no additional hematologic/lymphatic complaints Allergic/Immunologic: Reports no additional allergic/immunologic complaints Reports system reviewed and no additional complaints, except as documented and Reports Abnormal speech present [facility] Past Medical History Medical History Bronchitis Diabetic neuropathy Type II diabetes 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 of insulin Pharyngitis Migraine Vitamin B12 deficiency Obesity due to excess calories Peripheral neuropathy Obesity History of colon polyps Asthma Depression Back pain with sciatica Proteinuria Hemorrhoids SHERRI (obstructive sleep apnea) Hyperlipidemia LDL goal <100 Essential hypertension Vitamin D deficiency Surgical History Hx of colonoscopy History of esophagogastroduodenoscopy (EGD) Loculated pleural effusion Loculated empyema Family History Family History Father Cirrhosis Diabetes Mother Colon cancer, Onset Age: 83 Brother Prostate cancer CVA (cerebral vascular accident) Social History Social History Household Members: Family Housing: Apartment Are you a primary customer care representative to a significant other at home: No Do you presently have visiting nurse or other home services: No Alcohol intake: never Patient Tobacco Use Status: Former Tobacco user Tobacco use type: Cigarette Years Smoked: 6- stopped 2016 e-Cigarette/Vaping Use: Never Used Second Hand Smoke Exposure: No Advance Directives: No Advance Directives Information Provided: Yes service: No Current occupational status: disabled Cognitive needs: Yes (cane) Hearing needs: No Vision needs: Yes (glasses) Physical Exam ED Vital Signs: Vital Signs - 24 hr 10/02/24 14:48 10/02/24 15:42 Temperature 98.3 F Pulse Rate 115 H 110 H Respiratory Rate 18 18 Blood Pressure 119/77 Pulse Oximetry 96 Oxygen Delivery Method Room Air BMI result Body Mass Index 55.6 Vital signs have been reviewed and appear to be correct. Blood pressure elevated. Heart rate normal. Respiratory rate normal. Temperature normal. Oxygen saturation normal. Appearance: Alert. Oriented X3. No acute distress. Head: Normal external exam. Normocephalic. Atraumatic. No Maldonado signs noted. No raccoon eyes noted Eyes: PERRLA. EOMI. Conjunctiva and sclera normal. Eyelids normal. ENT: TM's Normal. Pharynx normal. Uvula midline. Moist mucous membranes. No trismus noted. No drooling noted. No muffled voice noted. Neck: Normal inspection. Neck supple. FROM. No adenopathy. Thyroid Normal. No meningeal signs. No neck mass noted. CVS: Normal heart rate and rhythm. Heart sound normal. No murmurs noted. Pulses normal throughout. Respiratory: No respiratory distress. Diffuse expiratory wheezing with prolonged expiration, diminished breathing sounds bilaterally. Abdomen: Soft and nontender. Bowel sounds normal in all 4 quadrants. No distention noted. No organomegaly noted. No visible injury noted. Back: No CVA tenderness. Full range of motion noted. Skin: Skin warm and dry. Normal skin color. Normal skin turgor. No rashes/lesions/lacerations noted. Extremities: No lower extremity edema. Extremities exhibit normal range of motion. Extremities nontender. Neuro: Oriented X 3. Cranial nerve exam: II-XII are grossly intact No motor deficit. No sensory deficit. Reflexes normal. Course Course Course Narrative: RME performed by Breanna Liao PA-C. Patient is a 44 year old assigned male at presenting to the emergency department with a cough. Patient states he has had a cough for the last few days and he has been around someone RSV positive. Detailed physical exam and review of systems are deferred to the primary care sales representative. Imaging and swabs ordered. Patient placed back in the waiting room pending room availability and results. Reevaluation(s) Reevaluation #1: 44-year-old male with asthma, on CPAP at home for SHERRI, history of multiple hospitalization for asthma exacerbation seen by his PCP and his forest landscape ecology professor last week with prescribed 2 different courses of antibiotic, 2 courses of steroids. Patient feels better in the emergency department after was given IV steroids and bronchodilator, codeine for coughing. WBCs is elevated from steroids. . +RSV. no sepsis. Patient requesting to go home Time: 15:54 Medications Administered Generic Name Dose Route Start Last Admin Trade Name Freq PRN Reason Stop Dose Admin Magnesium Sulfate 2 gm in 50 mls @ 25 mls/hr 10/02/24 15:21 10/02/24 15:36 Magnesium Sulfate/H2o IV 10/02/24 17:20 25 mls/hr ONCE ONE Administration Doxycycline Hyclate 100 mg/ 250 mls @ 166.67 mls/hr 10/02/24 15:41 10/02/24 15:51 Sodium Chloride IV 10/02/24 17:10 166.67 mls/hr ONCE ONE Administration Discontinued Medications Generic Name Dose Route Start Last Admin Trade Name Freq PRN Reason Stop Dose Admin Albuterol/Ipratropium 3 ml 10/02/24 15:38 10/02/24 15:42 Albuterol/Iprat 2.5/0.5mg 3 Ml Ampul.Neb INHALE 10/02/24 15:39 3 ml ONCE ONE Administration Guaifenesin/Codeine Phosphate 10 ml 10/02/24 15:23 03/15/25 15:45 Guaifen/Codeine Sf 200/20/10ml 10 Ml Liquid PO 10/02/24 15:24 10 ml ONCE ONE Administration Methylprednisolone Sodium Succinate 125 mg 10/02/24 15:21 10/02/24 15:36 Methylprednisolone Sod Succ 125 Mg/2 Ml Vial IVPUSH 10/02/24 15:22 125 mg ONCE ONE Administration Medical Decision Making Differential Diagnosis Differential Diagnoses: The differential diagnosis associated with the presentation includes ( pneumothorax, pleural effusion, CHF, ACS, leukocytosis scrub steroid use, severe anemia, electrolyte derangement.) Admission/Observation Consideration of admission/observation: Escalation of care including admission/observation considered Consult Healthcare Provider Management of the patient was discussed with: Hospitalist ( Dr. Rowe) Lab Data MDM Lab Attestation statement: I reviewed the patient's lab results. 10/02/24 15:34 10/02/24 15:34 Labs: Lab Results 10/02/24 10/02/24 Range/Units 15:08 15:34 WBC 12.7 H (4.8-10.8) X10*3/uL RBC 5.33 (4.60-5.80) X10*6/uL Hgb 13.9 L (14.0-18.0) g/dl Hct 42.2 (42.0-52.0) % MCV 79.2 L (80.0-98.0) fL MCH 26.1 L (27.0-33.0) pg MCHC 32.9 (31.0-36.0) g/dl RDW 13.7 (11.0-16.0) % Plt Count 344 D (160-400) X10*3/uL MPV 9.6 (9.4-12.4) fL Immature Gran % (Auto) 0.6 H (0.0-0.4) % Neut % (Auto) 62.0 (45-73) % Lymph % (Auto) 30.0 (20-40) % Piatt % (Auto) 6.2 (2-11) % Eos % (Auto) 1.0 (0-4) % Baso % (Auto) 0.2 (0-2) % Lymph # (Auto) 3.8 (1.2-4.9) X10*3/uL Piatt # (Auto) 0.8 (0.1-1.2) X10*3/uL Eos # (Auto) 0.1 (0.0-0.4) X10*3/uL Baso # (Auto) 0.0 (0.0-0.2) X10*3/uL Abs Immat Gran (auto) 0.08 H (0.00-0.03) X10*3/uL Absolute Neuts (auto) 7.9 (2.0-8.3) x10*3/uL Absolute Nucleated RBC 0.000 (0.0-0.012) X10*3/uL Nucleated RBC % (auto) 0.0 (0.0-0.2) /100WBC Troponin I High Sens < 2.7 (<3.5-35.0) ng/L B-Natriuretic Peptide < 10 (<100) pg/mL Influenza Type A (PCR) NEGATIVE (Negative) Influenza Type B (PCR) NEGATIVE (Negative) RSV RNA Qual (PCR) POSITIVE A (Negative) SARS-CoV-2 RNA (RT-PCR) NEGATIVE (Negative) ABG Data Attestation ABG: I personally reviewed and interpreted this ABG as follows: Independent Interpretation I performed an independent interpretation of an: Plain X-Ray ( chest:1. Hazy right basilar opacities favored to represent overlying breast/adipose tissue. Developing pneumonia however could look similar.) Radiology Impression Discussion of test interpretation with radiology: I have reviewed the radiologist's reading. Discharge Plan Discharge Clinical Impression: Asthma exacerbation, RSV infection Patient Disposition: Still a Patient Instructions: Asthma (ED) Prescriptions: No Action (DME) Shower Chair Misc See Rx Instructions .ROUTE .MEDSUPPLY Qty: 1 0RF Rx Instructions: As directed (DME) detachable shower Head See Rx Instructions .Route .MEDSUPPLY Qty: 1 0RF Rx Instructions: As directed (DME) cane Device See Rx Instructions .ROUTE .MEDSUPPLY Qty: 1 0RF Rx Instructions: As directed HEAVY DUTY (DME) Quad cane See Rx Instructions .Route .MEDSUPPLY Qty: 1 0RF Rx Instructions: As directed insulin glargine [Lantus Solostar U-100 Insulin] 100 unit/mL (3 mL) insulin pen 30 unit subcut QPM Qty: 15 11RF Rx Instructions: Further refills to pcp. gabapentin 300 mg capsule 600 mg PO BEDTIME Qty: 180 2RF (DME) FreeStyle Spenser 2 Sensor Kit See Rx Instructions .ROUTE .MEDSUPPLY Qty: 2 11RF Rx Instructions: every 2 weeks clonazepam 0.5 mg tablet 0.5 mg PO DAILY Qty: 14 0RF Rx Instructions: psychiatry is giving rx pen needle, diabetic [BD Ultra-Fine Yanely Pen Needle] 32 gauge x 5/32 needle 1 ea subcut DAILY Qty: 30 3RF fluticasone propionate 50 mcg/actuation spray,suspension 2 spray intranasal DAILY 30 Days Qty: 15.8 1RF atorvastatin 10 mg tablet 10 mg PO BEDTIME Qty: 90 2RF Jardiance 25 mg tablet 25 mg PO QAM Qty: 90 3RF Rx Instructions: Further refills to pcp. (DME) lancets [FreeStyle Lancets] 28 gauge misc See Rx Instructions .ROUTE .MEDSUPPLY Qty: 300 3RF Rx Instructions: As directed check blood sugar 3 times a day (DME) blood-glucose meter [FreeStyle Lite Meter] Kit See Rx Instructions .ROUTE .MEDSUPPLY Qty: 1 0RF Rx Instructions: As directed check the blood sugar 3 times a day (DME) FreeStyle Lite Strips Strip See Rx Instructions .ROUTE .MEDSUPPLY Qty: 300 3RF Rx Instructions: As directed check the BS TID irbesartan-hydrochlorothiazide 150-12.5 mg tablet 1 tab PO DAILY Qty: 90 3RF cholecalciferol (vitamin D3) 25 mcg (1,000 unit) tablet 25 mcg PO DAILY Qty: 90 1RF Ozempic 0.25 mg or 0.5 mg (2 mg/3 mL) pen injector 0.5 mg subcut QWEEK Qty: 3 3RF Rx Instructions: for 4 weeks betamethasone dipropionate 0.05 % ointment 1 appl topical BID PRN (Reason: skin irritation) Qty: 45 0RF tramadol 50 mg tablet 50 mg PO Q8H PRN (Reason: pain) 30 Days Qty: 90 1RF montelukast 10 mg tablet 10 mg PO BEDTIME Qty: 90 3RF albuterol sulfate 2.5 mg /3 mL (0.083 %) solution for nebulization 2.5 mg inhalation Q8H PRN (Reason: for wheezing) Qty: 180 9RF amoxicillin-pot clavulanate 875-125 mg tablet 1 tab PO BID 10 Days Qty: 20 0RF metformin 500 mg tablet 1,000 mg PO BID Qty: 360 1RF (DME) cpap See Rx Instructions .Route .MEDSUPPLY Qty: 1 0RF Rx Instructions: As directed ibuprofen 600 mg tablet 600 mg PO TID PRN (Reason: pain) Qty: 20 0RF (DME) lancets 28 gauge misc See Rx Instructions topical TID-QID Qty: 100 Rx Instructions: As directed (DME) FreeStyle Spenser 2 Upton Misc See Rx Instructions .ROUTE .MEDSUPPLY Qty: 1 0RF Rx Instructions: As directed omeprazole 20 mg capsule,delayed release(DR/EC) 20 mg PO DAILY 60 Days Qty: 60 3RF alprazolam 0.25 mg tablet 0.25 - 0.5 mg PO .COMPLEX 1 Days Qty: 4 0RF Rx Instructions: 0.25 - 0.5 mg orally 1 tab 30 minutes prior to MRI, may repeat ix's 1; (DME) nebulizers [facility] See Rx Instructions .Route Rx Instructions: As directed budesonide-formoterol 160-4.5 mcg/actuation HFA aerosol inhaler 2 puff inhalation BID 30 Days Qty: 10.2 11RF (DME) FreeStyle Spenser 3 Upton Misc See Rx Instructions .ROUTE .MEDSUPPLY Qty: 1 0RF Rx Instructions: Use daily to monitor blood glucose levels continuously. (DME) FreeStyle Spenser 3 Sensor Device See Rx Instructions .ROUTE .MEDSUPPLY Qty: 2 11RF Rx Instructions: apply new sensor every 14 days benzonatate 200 mg capsule 200 mg PO BID PRN (Reason: cough) 30 Days Qty: 60 4RF doxycycline hyclate 100 mg capsule 100 mg PO BID 10 Days Qty: 20 0RF prednisone 10 mg tablet See Rx Instructions PO DAILY 18 Days Qty: 63 0RF Rx Instructions: PO daily; Take 6 tabs daily x 3 days, then 5 tabs x 3 days, then 4 tabs x 3 days, then 3 tabs x 3 days, then 2 tabs daily x 3 days, then 1 tab x 3 days to complete. codeine-guaifenesin 10-100 mg/5 mL liquid 10 ml PO Q6H PRN (Reason: cough) 10 Days Qty: 300 0RF Referrals: Po,Nereida Frazier MD [Primary Care Provider] - Print Language: Kittitian
[2024-10-02 14:48] VITALS: BP 119/77; PULSE 115; RESP 18; TEMP 36.8; O2SAT 96; BMI 55.6
[2024-10-02] MEDS: Magnesium Sulfate/H2O 2 GM/50 ML PIGGYBACK IV (15:36)
[2024-10-02] MEDS: methylPREDNISolone Sod Succ 125 MG/2 ML VIAL IVPUSH (15:36)
[2024-10-02 15:39] LABS: MANUAL DIFF FLAG NO
[2024-10-02 15:40] LABS: Basophils Percent Auto 0.2 % (0-2); Eosinophils Absolute Auto 0.1 X10*3/uL (0.0-0.4); Hematocrit 42.2 % (42.0-52.0); Hemoglobin 13.9 g/dl (14.0-18.0); Imm Gran Abs Auto 0.08 X10*3/uL (0.00-0.03); Imm Gran Pct Auto 0.6 % (0.0-0.4); Lymphocytes Absolute Auto 3.8 X10*3/uL (1.2-4.9); Mean Corpuscular HGB Conc 32.9 g/dl (31.0-36.0); Mean Corpuscular Hemoglobin 26.1 pg (27.0-33.0); Mean Corpuscular Volume 79.2 fL (80.0-98.0); Mean Platelet Volume 9.6 fL (9.4-12.4); Monocytes Absolute Auto 0.8 X10*3/uL (0.1-1.2); Monocytes Percent Auto 6.2 % (2-11); Neutrophils Absolute Auto 7.9 x10*3/uL (2.0-8.3); Platelet Count 344 X10*3/uL (160-400); Red Blood Count 5.33 X10*6/uL (4.60-5.80); Red Cell Distribution Width 13.7 % (11.0-16.0); White Blood Count 12.7 X10*3/uL (4.8-10.8)
[2024-10-02 15:42] VITALS: PULSE 110; RESP 18; O2SAT 95
[2024-10-02] MEDS: Albuterol/Iprat 2.5/0.5MG 3 ML AMPUL.NEB INHALE (15:42)
[2024-10-02] MEDS: guaiFEN/Codeine SF 200/20/10ML 10 ML LIQUID PO (15:45)
[2024-10-02] MEDS: Doxycycline Hyclate 100 MG in 0.9 % Sodium Chloride 250 ML 166.67 MG IV (15:51)
[2024-10-02 15:57] LABS: Influenza A PCR NEGATIVE (Negative); Influenza B PCR NEGATIVE (Negative); Resp Syncy Virus RNA Qual PCR POSITIVE (Negative); SARS COV2 PCR INHOUSE NEGATIVE (Negative)
[2024-10-02 16:00] LABS: Troponin-I High Sensitivity < 2.7 ng/L (<3.5-35.0)
[2024-10-02 16:07] LABS: B Type Natriuretic Peptide < 10 pg/mL (<100)
[2024-10-02 18:01] LABS: Anion Gap 14 (12-20); Blood Urea Nitrogen 21 mg/dL (9-16); Calcium 8.7 mg/dL (8.4-10.2); Carbon Dioxide 22 mmol/L (22-29); Chloride 109 mmol/L (96-108); Creatinine Clr Calc Pharmacy 215.7; Estimated Glomerular Filt Rate > 60; Glucose Random 129 mg/dL (60-115); Potassium 4.5 mmol/L (3.3-5.1); Sodium 140 mmol/L (135-145)
--- NOTE | 2024-10-02 18:20 | PHA.MEDREC ---
Pharmacy Consult ? Medication Reconciliation Pharmacy has completed the medication reconciliation. Spoke to patient (via tool maintenance worker) to confirm medication list. Patient confirmed he is still taking the augmentin (has 3 days left) and prednisone (current dose is 20 mg bid). He also confirmed that he takes lantus 30 units at bedtime, he injects ozempic 0.5 mg every friday and he takes metformin 1000 mg ONCE a day. He took the augmentin and prednisone's dose this morning but he last took all the other meds yesterday.
[2024-10-02 19:00] VITALS: BP 110/70; PULSE 110; RESP 18; TEMP 36.7; O2SAT 96
== END 2024-10-02 19:02 | disposition home or self-care (01) ==
PROVIDERS: Physician Assistant Medical; Emergency Provider Emergency Medicine; PCP Internal Medicine
DX: J45.901 Unspecified asthma with (acute) exacerbation (principal); B97.4 Respiratory syncytial virus as the cause of diseases classified elsewhere; R06.02 Shortness of breath; E11.9 Type 2 diabetes mellitus without complications; Z79.4 Long term (current) use of insulin; I10 Essential (primary) hypertension; E78.5 Hyperlipidemia, unspecified; Z87.891 Personal history of nicotine dependence; Z03.818 Encounter for observation for suspected exposure to other biological agents ruled out; Z79.02 Long term (current) use of antithrombotics/antiplatelets; Z79.899 Other long term (current) drug therapy; Z79.84 Long term (current) use of oral hypoglycemic drugs
CPT/HCPCS: 0241U; 36415; 71046; 80048; 83880; 84484; 85025; 94640; 96365; 96366; 96375; 99283; 99284; J2919; J3475

== ENCOUNTER → 2024-10-02 14:48 | Outpatient (BNV) | payer OTHER, SELFPAY | PROVIDERS: Emergency Provider Emergency Medicine; PCP Internal Medicine; Visit Provider Radiology Diagnostic Radiology | DX: R91.8 Other nonspecific abnormal finding of lung field (principal) | CPT/HCPCS: 71046 ==

== ENCOUNTER 2024-10-15 15:37 | Outpatient (AMB) | payer OTHER, SELFPAY ==
[2024-10-15 15:58] VITALS: BP 112/60; PULSE 74; TEMP 36.4; O2SAT 94; BMI 55.7
--- NOTE | 2024-10-15 15:58 | MHC.PC.OV ---
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: No Accompanied by: Self / Same As Patient Allergies dulaglutide [From [facility]] Adverse Reaction (Intermediate, Verified 10/15/24 16:03) Diarrhea Flexeril Adverse Reaction (Mild, Verified 10/15/24 16:03) nausea, sleepiness glipizide Adverse Reaction (Mild, Verified 10/15/24 16:03) hypoglycemia Tobacco use date assessed: 10/15/24 Dental Screening Dental Screen Date: 10/15/24 Did you have a dental visit in the last 12 months?: Yes Did you have a dental problem in the last 6 months where you did not have access to dental care?: No Was dental information given to patient?: Patient has dentist [facility] Medical History Bronchitis Diabetic neuropathy Type II diabetes with penitentiary use of insulin Pharyngitis Migraine Vitamin B12 deficiency Obesity due to excess calories Peripheral neuropathy Obesity History of colon polyps Asthma Depression Back pain with sciatica Proteinuria Hemorrhoids SHERRI (obstructive sleep apnea) Hyperlipidemia LDL goal <100 Essential hypertension Vitamin D deficiency Surgical History Hx of colonoscopy History of esophagogastroduodenoscopy (EGD) Loculated pleural effusion Loculated empyema Family History Father Cirrhosis Diabetes Mother Colon cancer, Onset Age: 83 Brother Prostate cancer CVA (cerebral vascular accident) Social History Household Members: Family Housing: Apartment Are you a primary caregivers homecare to a significant other at home: No Do you presently have visiting nurse or other home services: No Alcohol intake: never Patient Tobacco Use Status: Former Tobacco user Tobacco use type: Cigarette Years Smoked: 6- stopped 2016 e-Cigarette/Vaping Use: Never Used Second Hand Smoke Exposure: No service: No Current occupational status: disabled Cognitive needs: Yes (cane) Hearing needs: No Vision needs: Yes (glasses) Questionnaire PHQ-9 Over the last 2 weeks, how often have you been bothered by any of the following problems? 1. Little interest or pleasure in doing things: not at all 2. Feeling down, depressed, or hopeless: not at all 3. Trouble falling or staying asleep, or sleeping too much: not at all 4. Feeling tired or having little energy: not at all 5. Poor appetite or overeating: not at all 6. Feeling bad about yourself - or that you are a failure or have let yourself or your family down: not at all 7. Trouble concentrating on things, such as reading the newspaper or watching television: not at all 8. Moving or speaking so slowly that other people could have noticed. Or the opposite - being so fidgety or restless that you have been moving around a lot more than usual: not at all 9. Thoughts that you would be better off or of hurting yourself in some way: not at all Total score: 0 Depression Screening Interpretation: Negative Depression Screening Done: Yes 88166 - PHQ-9 Billing: Yes Source: Developed by Drs. Ambrosio Rivas, Lanette Escobedo, Vinayak Marks and colleagues, with an educational joselyn from [employer]. Thrive Questionnaire Date Thrive assessed: 10/15/24 I am a: Patient What is your living situation today?: I have a steady place to live Within the past 12 months, did the food you bought not last and you didn't have the money to get more?: Never true Within the past 12 months, did you worry whether your food would run out before you got money to buy more?: Never true Do you have trouble paying for medicines?: No Do you have trouble getting transportation to medical appointments?: No Do you have trouble paying your heating and electricity bill?: No Do you have trouble taking care of your child, family member or friend?: No Do you have trouble with day-to-day activities such as bathing, preparing meals, shopping, managing finances, etc.?: No Are you currently unemployed and looking for a job?: No Are you interested in more education?: No Please select the resources that you would like help with: None Currently or been in a relationship where the following occur: No concerns reported THRIVE Score: 0 MARK ANTHONY-7 AMB Questionnaire MARK ANTHONY-7 Date MARK ANTHONY - 7 assessed: 07/15/24 Source: Developed by Drs. Ambrosio Rivas, Lanette Escobedo, Vinayak Marks and colleagues, with an educational joselyn from [employer]. Physical exam (Primary Care) Vital Signs: Last Vital Signs Temp 97.5 F 10/15/24 15:58 Pulse 74 10/15/24 15:58 BP 112/60 10/15/24 15:58 Pulse Ox 94 10/15/24 15:58 Oxygen Delivery Method Room Air 10/15/24 15:58 BMI result Body Mass Index 55.7 Tobacco/Smoking Status: Tobacco use Status Tobacco use date assessed 10/15/24 10/15/24 16:06 Patient Tobacco Use Status Former Tobacco user 10/15/24 16:06 Tobacco use type Cigarette 10/15/24 16:06 e-Cigarette/Vaping Use Never Used 10/15/24 16:06 PHQ-9: PHQ-9 Score PHQ-9: Total score 0 10/15/24 16:43 Depression Screening Interpretation: Negative Thrive Assessment: Date of Thrive Assessment Date Thrive assessed 10/15/24 10/15/24 16:06 Currently or been in a relationship where the following occur: No concerns reported Const General: alert; No acute distress Eyes Conjunctivae: conjunctivae normal Resp Auscultation: clear to auscultation bilaterally Cardio Rate: regular rate Rhythm: regular rhythm GI Inspection: Yes normal to inspection Extrem General: Yes normal to inspection and No edema Results AMB Hemoglobin A1c AMB Hemoglobin A1c 6.4 % Last Edit by RAMBO Meadows on 10/15/24 16:43 Results Reviewed Results Reviewed: Laboratory Last Values Hgb A1c (Clinic) 6.4 % (4.0-6.0) H 10/15/24 15:41 Coding Level of Care Code Est Pt Level 4 (79728) Complex EM visit Add On G2211 Diagnoses Type 2 diabetes mellitus with hyperglycemia E11.65 Moderate persistent asthma without complication J45.40 Asthma complication type: uncomplicated Asthma persistence: persistent Asthma severity: moderate Hyperlipidemia LDL goal <100 E78.5 Essential hypertension I10 SHERRI (obstructive sleep apnea) G47.33 Generalized anxiety disorder F41.1 GERD (gastroesophageal reflux disease) K21.9 Additional Codes PHQ-9 - 73967 - PHQ-9 Billing: Yes ([id number]) Assessment & Plan Assessment & Plan (1) Type 2 diabetes mellitus with hyperglycemia: Comment: [facility] Code(s): E11.65 - Type 2 diabetes mellitus with hyperglycemia Category: Medical Plan: Decrease the amount of carbohydrate intake, pasta, bread, rice and potatoes are all sugar and that is aside from all the sweet stuff, remember that fruits are good but they are Sweet also. Hemoglobin A1c goal of less than 6.5 patient on Jardiance 25 mg once a day Lantus 30 units once a day metformin a 1000 mg once a day semaglutide (2) Asthma: Comment: PFT restrictive March 2019 Code(s): J45.909 - Unspecified asthma, uncomplicated Category: Medical Qualifiers: Asthma complication type: uncomplicated Asthma persistence: persistent Asthma severity: moderate Qualified Code(s): J45.40 - Moderate persistent asthma, uncomplicated Plan: Patient follows up with Pulmonary on Singulair Flonase budesonide/formoterol inhaler (3) Hyperlipidemia LDL goal <100: Code(s): E78.5 - Hyperlipidemia, unspecified Category: Medical Plan: Avoid fried foods, chicken skin, eggs, butter margarine, pastries and meat. Be it pork or beef they have a lot of cholesterol on atorvastatin Mikey blood work at goal (4) Essential hypertension: Code(s): I10 - Essential (primary) hypertension Category: Medical Plan: Continue with blood pressure medication. Decrease salt intake and exercise takes irbesartan hydrochlorothiazide (5) SHERRI (obstructive sleep apnea): Comment: Continue with the CPAP every night and benefits from this more than 4 hours a night Code(s): G47.33 - Obstructive sleep apnea (adult) (pediatric) Category: Medical Plan: Continue to use the CPAP more than 4 hours a night and benefits from this. (6) Generalized anxiety disorder: Code(s): F41.1 - Generalized anxiety disorder Category: Medical Plan: On clonazepam as needed (7) GERD (gastroesophageal reflux disease): Code(s): K21.9 - Gastro-esophageal reflux disease without esophagitis Category: Medical Plan: Avoid the foods that causes that usually spicy foods, tomato products, juices, coffee, soda and foods that your sensitive to. After eating do not lie down, allow 3-4 hours before in lie down. And keep the head of bed above 30 degrees to avoid the acid from going up. Plan History of Present Illness The patient is a 44-year-old male presenting for follow-up management of chronic medical conditions. The systemic lupus erythematosus and obesity are of particular concern due to their impact on overall health. The patient's asthma, previously exacerbated by RSV infection, is managed with multiple medications and CPAP use. Diabetes is under control with medication, as indicated by recent good control of Hemoglobin A1c levels. Cholesterol level management is effective, as LDL levels are stable. Blood pressure is being managed with antihypertensive medications. The patient reported recent mild anemia, an area of ongoing monitoring. Health Maintenance - Colonoscopy last performed July 2019, advised repeat every 3-4 years following March 2023 colonoscopy findings. - Diabetes management includes A1c target <6.5%. - Weight management efforts with medications including Semaglutide. - Continued use of CPAP for obstructive sleep apnea. 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 - Adherence to CPAP therapy and proactive in managing weight. Review of Systems - Respiratory: Reports previous RSV infection leading to asthma exacerbation. - Endocrine: Reports stable diabetes management with an A1c of 6.4%. Physical Exam Results - Labs: Hemoglobin 13.9 g/dL indicating mild anemia, LDL 55 mg/dL from June 2024, blood sugar 129 mg/dL. - Tests: Negative chest x-ray on September 27. Plan Current management for asthma will continue with CPAP, prednisone, doxycycline, and relevant inhalers, ensuring asthma and sleep apnea are well-controlled. Diabetes treatment includes a targeted lifestyle plan with medications like Jardiance, Lantus, Metformin, and Semaglutide focusing on weight reduction. Hypertension management with current antihypertensives will persist amidst monitoring anemia. Cholesterol goals are being met due to Atorvastatin, requiring no immediate changes. Follow-up blood work is planned for in three months, focusing on anemia monitoring, and continued adherence to CPAP is recommended for sleep apnea management. Patient was informed and verbally consented to the use of an ambient scribe for clinic note documentation during this visit. Discussion Notes I discussed the patient's ongoing medical conditions and current treatment strategies, emphasizing the importance of weight management to improve overall health outcomes with the patient. We reviewed the effectiveness of medications in controlling diabetes and cholesterol and affirmed the importance of CPAP use more than four hours nightly for sleep apnea. The patient's recent episode of anemia was noted for further follow-up and observation. I advised on potential side effects from medications and the necessity of continued medication adherence. Plans for follow-up include further blood tests in three months to monitor anemia and continued oversight of chronic conditions through ongoing medication and lifestyle strategies. Patient Instructions - Continue current medications for diabetes, hypertension, and cholesterol as prescribed. - Utilize CPAP for more than 4 hours per night for sleep apnea management. - Observe for symptoms of anemia and follow up in three months for repeat blood work. - Engage in weight management strategies, including dietary and physical activity adjustments. - Contact the office with any new respiratory symptoms or concerns regarding medication side effects. 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 Panel 3 Months D50.8 - Other iron deficiency anemias Ferritin 3 Months D50.8 - Other iron deficiency anemias Reticulocyte Count 3 Months D50.8 - Other iron deficiency anemias Vitamin B12 and Folate 3 Months D50.8 - Other iron deficiency anemias
== END 2024-10-15 16:44 | disposition home or self-care (01) ==
LOC: HO.HMCH 15:37
PROVIDERS: PCP Internal Medicine; Visit Provider Internal Medicine
DX: E11.65 Type 2 diabetes mellitus with hyperglycemia (principal); J45.40 Moderate persistent asthma, uncomplicated; E78.5 Hyperlipidemia, unspecified; I10 Essential (primary) hypertension; G47.33 Obstructive sleep apnea (adult) (pediatric); F41.1 Generalized anxiety disorder; K21.9 Gastro-esophageal reflux disease without esophagitis; E11.9 Type 2 diabetes mellitus without complications; Z79.4 Long term (current) use of insulin

== ENCOUNTER → 2024-10-15 15:37 | Outpatient (BNVA) | payer OTHER, SELFPAY | PROVIDERS: PCP Internal Medicine; Visit Provider Internal Medicine | DX: E11.65 Type 2 diabetes mellitus with hyperglycemia (principal); J45.40 Moderate persistent asthma, uncomplicated; E78.5 Hyperlipidemia, unspecified; I10 Essential (primary) hypertension; K21.9 Gastro-esophageal reflux disease without esophagitis; F41.1 Generalized anxiety disorder; G47.33 Obstructive sleep apnea (adult) (pediatric) | CPT/HCPCS: 83036; 96127; 99212 ==

== ENCOUNTER 2024-10-26 15:38 | Outpatient (AMB) | payer OTHER, SELFPAY ==
[2024-10-26 15:42] VITALS: BP 120/70; PULSE 78; O2SAT 98; BMI 55.7
--- NOTE | 2024-10-26 15:42 | MHC.OFFVIS ---
Vital Signs 10/26/24 15:42 Height 5 ft 8 in Weight 366 lb 6.532 oz BMI 55.7 BP 120/70 Blood Pressure Location Lt brachial Position Sitting Pulse 78 Pulse Source Pulse Oximeter Pulse Oximetry (%) 98 Oxygen Delivery Method Room Air Intake Visit Reasons: T2DM Intake Note: Patient present today to follow up on Type 2 Diabetes Mellitus. 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 not see a Flight Data Technician Random Glucose: mg/dl HgA1C: 6.4% 10/15/2024 Garment Patternmaker Required: Yes Garment Patternmaker Services: Garment Patternmaker Present Garment Patternmaker Name: [id number] Jevon Allergies dulaglutide [From Trulicity] Adverse Reaction (Intermediate, Verified 10/26/24 15:48) Diarrhea Flexeril Adverse Reaction (Mild, Verified 10/26/24 15:48) nausea, sleepiness glipizide Adverse Reaction (Mild, Verified 10/26/24 15:48) hypoglycemia HPI Comments Details: This is a 44-year-old male with a past medical history of type 2 diabetes, vitamin B12 deficiency, hyperlipidemia, hypertension, asthma, psoriasis, GERD, morbid obesity and anxiety presenting for diabetic management. He was diagnosed [place] in [place], and he was diagnosed with Type II diabetes about 7 years ago in the [place]. Reviewed 14 day CGM data on his phone Hemoglobin a1c 6.4% 10/15/2024. 82%% of glucose readings in the past 14 days are within target range 1% very high 17% high 0% low Average glucose is 157 mg/dL He pays out of pocket for [employer]. Insurance denied [place] and appeal. Patient was sick with RSV and had to be on prednisone. Blood sugars increased. His average glucose the last 7 days has improved to 142 mg/dL. Current medication regimen: Ozempic 0.5 mg weekly, metformin 1000 mg twice daily, Lantus 30 units at bedtime, Jardiance 25 mg q.a.m. He did not tolerate the higher dosage of Ozempic. He experienced diarrhea, nausea and flatus. Past medications: Glipizide discontinued due to hypoglycemia. Trulicity discontinued due to diarrhea. Compliance issues: None Hypoglycemia symptoms: Denies. Hyperglycemia symptoms: Denies Eye exam: Up-to-date at [facility]. Microvascular complications: mild peripheral neuropathy, cataracts Macrovascular complications: none Hypertension: treated with your irbesartan-hydrochlorothiazide 150-12.5 mg daily Hyperlipidemia: treated with atorvastatin 10 mg. ROS: Constitutional: No unexplained weight loss, fever, chills Eyes: No vision changes, blurry vision, double vision Cardiovascular: No chest pain, chest pressure or chest discomfort. No palpitations Gastrointestinal: No anorexia, nausea, vomiting or diarrhea. No abdominal pain or blood in stool. Neurologic: No headache, dizziness, syncope, unilateral weakness, ataxia, numbness or tingling in the extremities. Physical exam: Constitutional: Alert, in no distress. Neck: Supple, Full range of motion. No lymphadenopathy. Respiratory: Clear to auscultation. Cardiovascular: S1 S2 regular. No murmurs. [facility] Medical History Bronchitis Diabetic neuropathy Type II diabetes with halfway use of insulin Pharyngitis Migraine Vitamin B12 deficiency Obesity due to excess calories Peripheral neuropathy Obesity History of colon polyps Asthma Depression Back pain with sciatica Proteinuria Hemorrhoids SHERRI (obstructive sleep apnea) Hyperlipidemia LDL goal <100 Essential hypertension Vitamin D deficiency Surgical History Hx of colonoscopy History of esophagogastroduodenoscopy (EGD) Loculated pleural effusion Loculated empyema Family History Father Cirrhosis Diabetes Mother Colon cancer, Onset Age: 83 Brother Prostate cancer CVA (cerebral vascular accident) Social History Household Members: Family Housing: Apartment Are you a primary medication care manager to a significant other at home: No Do you presently have visiting nurse or other home services: No Alcohol intake: never Patient Tobacco Use Status: Former Tobacco user Tobacco use type: Cigarette Years Smoked: 6- stopped 2017 e-Cigarette/Vaping Use: Never Used Second Hand Smoke Exposure: No service: No Current occupational status: disabled Cognitive needs: Yes (cane) Hearing needs: No Vision needs: Yes (glasses) Physical Exam Vital Signs: Last Vital Signs Pulse 78 10/26/24 15:42 BP 120/70 10/26/24 15:42 Pulse Ox 98 10/26/24 15:42 Oxygen Delivery Method Room Air 10/26/24 15:42 BMI result Body Mass Index 55.7 Results Reviewed Results Reviewed: Laboratory Tests 07/13/24 07/13/24 10/02/24 06:15 06:18 15:34 Plt Count 344 D Sodium 138 Potassium 4.0 Chloride 104 Carbon Dioxide 24 Anion Gap 14 BUN 15 Creatinine Estimated GFR Random Glucose 100 Estimat Average Glucose 146 Hgb A1c (Clinic) Hemoglobin A1c % 6.7 H Uric Acid 4.6 Calcium 9.3 Total Bilirubin 0.4 AST 32 ALT 23 Alkaline Phosphatase 68 Total Protein 7.6 B-Natriuretic Peptide < 10 Albumin 4.0 Triglycerides 131 Cholesterol 113 LDL Cholesterol, Calc 55 HDL Cholesterol 32 L Vitamin B12 302 Folate 10.8 TSH 1.71 Free T4 0.81 Urine Creatinine 112.87 Urine Microalbumin 24.0 Microalb/Creat Ratio 21.2 10/02/24 10/15/24 17:39 15:41 Plt Count Sodium Potassium Chloride Carbon Dioxide Anion Gap BUN Creatinine 0.65 Estimated GFR > 60 Random Glucose Estimat Average Glucose Hgb A1c (Clinic) 6.4 H Hemoglobin A1c % Uric Acid Calcium Total Bilirubin AST ALT Alkaline Phosphatase Total Protein B-Natriuretic Peptide Albumin Triglycerides Cholesterol LDL Cholesterol, Calc HDL Cholesterol Vitamin B12 Folate TSH Free T4 Urine Creatinine Urine Microalbumin Microalb/Creat Ratio Assessment & Plan Assessment & Plan (1) 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 He continues to struggle with his weight. He was unable to tolerate higher dose of Ozempic. Stop Ozempic and start Mounjaro 2.5 mg weekly. Continue Lantus 30 mg daily. If your fasting blood sugars are over 145 or blood sugars are over 180 after eating increase Lantus to 34 units daily. Continue metformin 1000 mg twice daily. Continue Jardiance 25 mg daily. Discussed pathophysiology of Type II Diabetes Mellitus with the patient in detail.? I explained the halfway risks and complications associated with uncontrolled diabetes including nephropathy, neuropathy, peripheral vascular disease, retinopathy, increased risk of heart disease and stroke.? Discussed lifestyle modification with the patient. If you experience low blood sugar, treat this by eating a chewable fruit candy like skittles or jelly beans (about 8 pieces), 4 ounces (1/2 cup) of fruit juice (not diet), 1 tablespoon of honey or 4 glucose tablets. If your blood sugar is under 55, take double the amount of one of the above. Recheck your blood sugar in 15 minutes. Patient advised not to drive if he does not have a reliable method of monitoring blood glucose or if he has symptoms of hypo or hyperglycemia. Advised patient to always carry his fingerstick glucometer with him as a backup to his sensor. Follow up in 3 weeks. Medications: New tirzepatide (Mounjaro) for 4 weeks 2.5 mg (0.5 mL) subcut QWEEK 2 mL 0RF Patient Instructions: Stop Ozempic and start Mounjaro 2.5 mg this Friday. Continue Lantus 30 mg daily. If your fasting blood sugars are over 145 or blood sugars are over 180 after eating increase Lantus to 34 units daily. Continue metformin 1000 mg twice daily. Continue Jardiance 25 mg daily. If you experience low blood sugar, treat this by eating a chewable fruit candy like skittles or jelly beans (about 8 pieces), 4 ounces (1/2 cup) of fruit juice (not diet), 1 tablespoon of honey or 4 glucose tablets. If your blood sugar is under 55, take double the amount of one of the above. Recheck your blood sugar in 15 minutes. Suspenda Ozempic y comience Mounjaro 2.5 mg keanu . Contin?e con Lantus 30 mg al d?a. Si burch nivel de az?car en candice en ayunas es superior a 145 o superior a 180 despu?s de comer, aumente la dosis de Lantus a 34 unidades al d?a. Contin?e con metformina 1000 mg dos veces al d?a. Contin?e con Jardiance 25 mg al d?a. Si experimenta un nivel bajo de az?car en candice, tr?telo con un caramelo masticable de fruta pete Skittles o Jelly Beans (aproximadamente 8 piezas), 113 ml (1/2 taza) de jugo de fruta (no diet?michelle), 1 cucharada de miel o 4 tabletas de glucosa. Si burch nivel de az?car en candice es inferior a 55, tome el doble de la dosis de jean de los anteriores. Vuelva a medir burch nivel de az?car en candice en 15 minutos. Coding Level of Care Code Est Pt Level 4 (04148) Complex EM visit Add On G2211 Diagnoses Type 2 diabetes mellitus with diabetic mononeuropathy, with long-term current use of insulin E11.41; Z79.4 Diabetes mellitus complication status: with neurologic complications Diabetes mellitus complication detail: with mononeuropathy
[2024-10-26 16:06] LABS: Glucose, Whole Blood 160 mg/dL (60-115)
== END 2024-10-26 16:26 | disposition home or self-care (01) ==
LOC: HO.ENCR 15:39
PROVIDERS: PCP Internal Medicine; Visit Provider Physician Assistant Medical
DX: E11.41 Type 2 diabetes mellitus with diabetic mononeuropathy (principal); Z79.4 Long term (current) use of insulin

== ENCOUNTER → 2024-10-26 15:38 | Outpatient (BNVA) | payer OTHER, SELFPAY | PROVIDERS: PCP Internal Medicine; Visit Provider Physician Assistant Medical | DX: E11.41 Type 2 diabetes mellitus with diabetic mononeuropathy (principal); Z79.4 Long term (current) use of insulin | CPT/HCPCS: 82947; 99212 ==

== ENCOUNTER 2024-11-01 15:55 | Outpatient (AMB) | payer OTHER, SELFPAY ==
[2024-11-01 15:59] VITALS: BP 128/74; PULSE 89; TEMP 36.3; O2SAT 97; BMI 54.6
--- NOTE | 2024-11-01 15:59 | MHC.PC.OV ---
Vital Signs 11/01/24 15:59 Height 5 ft 8 in Weight 359 lb 2 oz BMI 54.6 BP 128/74 Blood Pressure Location Lt brachial Position Sitting Pulse 89 Pulse Source Pulse Oximeter Temp 97.3 F Temp Source Temporal Artery Scan Pulse Oximetry (%) 97 Oxygen Delivery Method Room Air Intake Visit Reasons: PE Adult Services Librarian Required: Yes Adult Services Librarian Language: Lithuanian Accompanied by: Self / Same As Patient Allergies dulaglutide [From Trulicity] Adverse Reaction (Intermediate, Verified 11/01/24 16:02) Diarrhea Flexeril Adverse Reaction (Mild, Verified 11/01/24 16:02) nausea, sleepiness glipizide Adverse Reaction (Mild, Verified 11/01/24 16:02) hypoglycemia Medication List - Last Reconciled 11/01/24 by Nereida Llanos MD albuterol sulfate 2.5 mg (3 mL) inhalation Q8H PRN atorvastatin 10 mg PO BEDTIME betamethasone dipropionate 0.05% 1 appl topical BID PRN blood sugar diagnostic (FreeStyle Lite Strips) As directed check the BS TID blood-glucose meter (FreeStyle Lite Meter kit) As directed check the blood sugar 3 times a day blood-glucose sensor (FreeStyle Spenser 3 Sensor device) apply new sensor every 14 days blood-glucose,director perioperative,cont (FreeStyle Spenser 3 [place]) Use daily to monitor blood glucose levels continuously. budesonide-formoterol 160-4.5 mcg/actuation 2 puffs inhalation BID PRN cane As directed HEAVY DUTY cholecalciferol (vitamin D3) 25 mcg PO DAILY clonazepam 0.5 mg PO DAILY PRN [cpap As directed] [detachable shower Head As directed] empagliflozin (Jardiance) 25 mg PO DAILY flash glucose scanning reader (FreeStyle Spenser 2 [place]) As directed flash glucose sensor (FreeStyle Spenser 2 Sensor kit) every 2 weeks fluticasone propionate 50 mcg/actuation 2 sprays intranasal DAILY PRN insulin glargine (Lantus Solostar U-100 Insulin) 30 units subcut BEDTIME irbesartan-hydrochlorothiazide 150-12.5 mg 1 tab PO DAILY lancets As directed lancets (FreeStyle Lancets) As directed check blood sugar 3 times a day metformin 1,000 mg PO DAILY montelukast 10 mg PO BEDTIME nebulizers As directed omeprazole 20 mg PO DAILY@0630 [Quad cane As directed] Shower Chair As directed tirzepatide (Mounjaro) 2.5 mg (0.5 mL) subcut QWEEK tramadol 50 mg PO Q8H PRN 30 days Tobacco use date assessed: 10/15/24 Dental Screening Dental Screen Date: 10/15/24 Did you have a dental visit in the last 12 months?: Yes Did you have a dental problem in the last 6 months where you did not have access to dental care?: No Was dental information given to patient?: Patient has dentist HPI PE HPI Details Daryn [id number] interpret had fever friday with sore throat PFS Medical History Bronchitis Diabetic neuropathy Type II diabetes with fdc use of insulin Pharyngitis Migraine Vitamin B12 deficiency Obesity due to excess calories Peripheral neuropathy Obesity History of colon polyps Asthma Depression Back pain with sciatica Proteinuria Hemorrhoids SHERRI (obstructive sleep apnea) Hyperlipidemia LDL goal <100 Essential hypertension Vitamin D deficiency Surgical History Hx of colonoscopy History of esophagogastroduodenoscopy (EGD) Loculated pleural effusion Loculated empyema Family History (Updated 11/01/24 @ 16:32 by Nereida Llanos MD) Father Cirrhosis Diabetes Mother Colon cancer, Onset Age: 83 Skin cancer Brother Prostate cancer CVA (cerebral vascular accident) Social History Household Members: Family Housing: Apartment Are you a primary patient care to a significant other at home: No Do you presently have visiting nurse or other home services: No Alcohol intake: never Patient Tobacco Use Status: Former Tobacco user Tobacco use type: Cigarette Years Smoked: 6- stopped 2016 e-Cigarette/Vaping Use: Never Used Second Hand Smoke Exposure: No service: No Current occupational status: disabled Cognitive needs: Yes (cane) Hearing needs: No Vision needs: Yes (glasses) Questionnaire PHQ-9 Over the last 2 weeks, how often have you been bothered by any of the following problems? 1. Little interest or pleasure in doing things: not at all 2. Feeling down, depressed, or hopeless: not at all 3. Trouble falling or staying asleep, or sleeping too much: not at all 4. Feeling tired or having little energy: not at all 5. Poor appetite or overeating: not at all 6. Feeling bad about yourself - or that you are a failure or have let yourself or your family down: not at all 7. Trouble concentrating on things, such as reading the newspaper or watching television: not at all 8. Moving or speaking so slowly that other people could have noticed. Or the opposite - being so fidgety or restless that you have been moving around a lot more than usual: not at all 9. Thoughts that you would be better off or of hurting yourself in some way: not at all Total score: 0 Depression Screening Interpretation: Negative Depression Screening Done: Yes Source: Developed by Drs. Ambrosio Rivas, Lanette Escobedo, Vinayak Marks and colleagues, with an educational joselyn from [employer]. Thrive Questionnaire Date Thrive assessed: 10/15/24 I am a: Patient What is your living situation today?: I have a steady place to live Within the past 12 months, did the food you bought not last and you didn't have the money to get more?: Never true Within the past 12 months, did you worry whether your food would run out before you got money to buy more?: Never true Do you have trouble paying for medicines?: No Do you have trouble getting transportation to medical appointments?: No Do you have trouble paying your heating and electricity bill?: No Do you have trouble taking care of your child, family member or friend?: No Do you have trouble with day-to-day activities such as bathing, preparing meals, shopping, managing finances, etc.?: No Are you currently unemployed and looking for a job?: No Are you interested in more education?: No Please select the resources that you would like help with: None Currently or been in a relationship where the following occur: No concerns reported THRIVE Score: 0 AUDIT C Alcohol Use Questionnaire (AUDIT-C) 1. How often do you have a drink containing alcohol?: Never 3. How often do you have six or more drinks on one occasion?: Never Total Score: 0 MARK ANTHONY-7 AMB Questionnaire MARK ANTHONY-7 Date MARK ANTHONY - 7 assessed: 11/01/24 Feeling nervous, anxious, or on edge: 0 = Not at all Not being able to stop or control worryin = Not at all Worrying too much about different things: 0 = Not at all Trouble relaxin = Not at all Being so restless that it is hard to sit still: 0 = Not at all Becoming easily annoyed or irritable: 0 = Not at all Feeling afraid as if something awful might happen: 0 = Not at all Total MARK ANTHONY-7 score (0-4 normal; 5-9 mild; 10-14 moderate; 15-21 severe): 0 Source: Developed by Drs. Ambrosio Rivas, Lanette Escobedo, Vinayak Marks and colleagues, with an educational joselyn from [employer]. Review of Systems Const Denies poor appetite and Denies weakness Eyes Denies no additional complaints ENT Reports Normal hearing present, Denies dizziness, Denies nasal congestion, Denies tinnitus and Denies sore throat Card Denies chest pain, Denies syncope, Denies rapid heart rate and Denies dyspnea Resp Denies cough and Denies dyspnea GI Denies change in stool character, Reports constipation, Denies diarrhea, Denies nausea and Denies vomiting Denies dysuria and Denies urinary frequency Neuro Reports Normal hearing present, Denies confusion, Denies dizziness, Denies syncope and Denies weakness Psych Denies confusion Physical exam (Primary Care) Vital Signs: Last Vital Signs Temp 97.3 F 11/01/24 15:59 Pulse 89 11/01/24 15:59 BP 128/74 11/01/24 15:59 Pulse Ox 97 11/01/24 15:59 Oxygen Delivery Method Room Air 11/01/24 15:59 BMI result Body Mass Index 54.6 Tobacco/Smoking Status: Tobacco use Status Tobacco use date assessed 10/15/24 11/01/24 16:04 Patient Tobacco Use Status Former Tobacco user 11/01/24 16:04 Tobacco use type Cigarette 11/01/24 16:04 e-Cigarette/Vaping Use Never Used 11/01/24 16:04 PHQ-9: PHQ-9 Score PHQ-9: Total score 0 11/01/24 16:04 Depression Screening Interpretation: Negative Thrive Assessment: Date of Thrive Assessment Date Thrive assessed 10/15/24 11/01/24 16:04 Currently or been in a relationship where the following occur: No concerns reported Const General: No confusion Orientation/consciousness: No confusion HENMT Head: Yes normocephalic Ears: external ears normal and TM's normal bilaterally Face and sinus: Yes normal facial exam Mouth: moist mucous membranes Throat: Yes tonsils normal Eyes Conjunctivae: conjunctivae normal Pupils: Equal, round and reactive pupils present and Pupil accommodation reflex normal Direct Ophthalmoscopy: normal light reflex Neck Neck: No lymphadenopathy Thyroid: Thyroid normal Chest Chest palpation & inspection: normal inspection of the chest Resp Effort & Inspection: normal respiratory effort and no audible wheezes Auscultation: clear to auscultation bilaterally, no crackles, no wheezes and lung sounds not diminished Cardio Rate: regular rate Rhythm: regular rhythm Peripheral pulses: radial pulses present and dorsalis pedis present GI Other: visual negative rectal Palpation (GI): no masses Auscultation: normal bowel sounds and normoactive bowel sounds Other: noted interdigital rash toes bilateral Male General Exam: Yes normal external exam Skin General skin exam: no rashes or lesions noted Rashes: no rashes Neuro General: No confusion Cranial nerves: Yes Equal, round and reactive pupils present and Yes Normal hearing present Cognition (Neuro): normal cognition Gait exam (Neuro): Normal gait present Motor exam (neuro): 5/5 motor strength present throughout Deep tendon reflexes (DTR's): Right brachioradialis reflex intensity grade: 2+, Left brachioradialis reflex intensity grade: 2+, Right patellar reflex intensity grade: 2+ and Left patellar reflex intensity grade: 2+ Extrem General: No edema Coding Level of Care Code Est Pt Prev Care 40-64y(99453) Diagnoses Annual physical exam Z00.00 Morbid obesity E66.01 Type 2 diabetes mellitus with hyperglycemia E11.65 Essential hypertension I10 Hyperlipidemia LDL goal <100 E78.5 Moderate persistent asthma without complication J45.40 Asthma severity: moderate Asthma persistence: persistent Asthma complication type: uncomplicated SHERRI (obstructive sleep apnea) G47.33 Generalized anxiety disorder F41.1 GERD (gastroesophageal reflux disease) K21.9 Assessment & Plan Assessment & Plan (1) Annual physical exam: Code(s): Z00.00 - Encounter for general adult medical examination without abnormal findings Category: Medical Plan: Patient is advised to eat healthy, keep well hydrated, keep active and have adequate sleep. (2) Morbid obesity: Code(s): E66.01 - Morbid (severe) obesity due to excess calories Category: Medical Plan: Diet and exercise diabetes medication was changed to Mounjaro (3) Type 2 diabetes mellitus with hyperglycemia: Comment: EYE and LASIK Code(s): E11.65 - Type 2 diabetes mellitus with hyperglycemia Category: Medical Plan: Decrease the amount of carbohydrate intake, pasta, bread, rice and potatoes are all sugar and that is aside from all the sweet stuff, remember that fruits are good but they are Sweet also. Diabetes medication change to Mounjaro, continuing with metformin Jardiance and adjustment of insulin. Continue with Ophthalmology evaluation and recommended podiatry (4) Essential hypertension: Code(s): I10 - Essential (primary) hypertension Category: Medical Plan: Continue with blood pressure medication. Decrease salt intake and exercise patient takes irbesartan hydrochlorothiazide (5) Hyperlipidemia LDL goal <100: Code(s): E78.5 - Hyperlipidemia, unspecified Category: Medical Plan: Avoid fried foods, chicken skin, eggs, butter margarine, pastries and meat. Be it pork or beef they have a lot of cholesterol on atorvastatin 10 mg once a day June blood work LDL goal of less than 100. Triglyceride of less than 150 (6) Asthma: Comment: PFT restrictive March 2019 Code(s): J45.909 - Unspecified asthma, uncomplicated Category: Medical Qualifiers: Asthma severity: moderate Asthma persistence: persistent Asthma complication type: uncomplicated Qualified Code(s): J45.40 - Moderate persistent asthma, uncomplicated Plan: Patient follows up for Pulmonary on albuterol and budesonide/formoterol (7) SHERRI (obstructive sleep apnea): Comment: Continue with the CPAP every night and benefits from this more than 4 hours a night Code(s): G47.33 - Obstructive sleep apnea (adult) (pediatric) Category: Medical Plan: Continue to use the CPAP more than 4 hours a night and benefits from this. (8) Generalized anxiety disorder: Code(s): F41.1 - Generalized anxiety disorder Category: Medical Plan: Continue with current medication and discussed about counseling and therapy (9) GERD (gastroesophageal reflux disease): Code(s): K21.9 - Gastro-esophageal reflux disease without esophagitis Category: Medical Plan: Avoid the foods that causes that usually spicy foods, tomato products, juices, coffee, soda and foods that your sensitive to. After eating do not lie down, allow 3-4 hours before in lie down. And keep the head of bed above 30 degrees to avoid the acid from going up. Plan History of Present Illness The patient is a 44-year-old male presenting for an annual physical examination. He reports a seven-pound weight loss and has a medical history of diabetes mellitus, hypercholesterolemia, essential hypertension, asthma, obstructive sleep apnea using CPAP, generalized anxiety disorder, and GERD. His diabetes medication regimen includes Mounjaro, Lantus, Metformin, and Jardiance. Last month, his HbA1c level was 6.4. October 02 lab results showed mild anemia with a hemoglobin level of 13.9 and microcytosis, while renal and electrolyte functions were normal. His cholesterol level was measured at 55 in June 2024. The patient was advised to repeat his 2022 colonoscopy within 3 to 4 years. Health Maintenance - Recommended colonoscopy was conducted in 2022; advised for repeat in 3 to 4 years. - Discussed weight management strategies related to unintended weight loss. - Diabetes management reviewed; currently on Mounjaro, Lantus, Metformin, and Jardiance. - Recent hemoglobin A1c noted at 6.4%. - Last cholesterol testing done in June 2024 with a level of 55. Social History Review of Systems - Constitutional: Reports unintended weight loss of 7 pounds. - Respiratory: No new symptoms of asthma reported. - Endocrine: Reports diabetes management with current medication regimen. - Psychiatric: Reports generalized anxiety disorder; no new symptoms reported. - Gastrointestinal: History of GERD; no new symptoms reported. Physical Exam General: Cooperative, healthy appearing, comfortable, no acute distress and well developed Orientation: Patient oriented x3 Limitations: No limitations Head: Normal to inspection Ears: Hearing grossly normal bilaterally Nose: Normal external nose present Face and sinus: Normal facial exam Eyes: Appearance normal, both eyes and all related structures Neck: Normal visual inspection and Yes full ROM Respiratory: Normal respiratory effort and able to speak in complete sentences. Clear to auscultation bilaterally Cardiovascular: Regular rate and rhythm. Normal S1 and S2 GI: Normal to inspection. Soft to palpation and nontender Skin: No rashes or lesions noted Neuro: Patient oriented x3 Extremities: Normal to inspection Results - Labs: Mild anemia with hemoglobin of 13.9 and microcytosis as of October 02. - Diabetes: Hemoglobin A1c of 6.4% as of last month. - Lipid panel: Cholesterol level of 55 as tested in June 2024. Plan 1. 4%, focusing on maintaining glucose levels and monitoring for hypoglycemia and kidney function. We will address mild anemia, likely due to microcytosis, through follow-up testing to investigate potential causes, including iron levels. The patient's hypertension and hypercholesterolemia are well-controlled, without needs for immediate changes in management. Asthma appears stable under the current regimen, and obstructive sleep apnea remains managed with CPAP. Ongoing GERD management is to be continued. We discussed the timing for the next colonoscopy, advising it be repeated in 1 to 2 years.: Patient was informed and verbally consented to the use of an ambient scribe for clinic note documentation during this visit. Discussion Notes I discussed with the patient the overall stability of his chronic conditions, focusing on the importance of continued adherence to prescribed medication regimens, particularly for diabetes management. We reviewed the potential cause of the mild anemia observed in recent blood tests, suggesting a follow-up assessment for iron deficiency if anemia persists. The patient was informed of the importance of monitoring blood sugar levels effectively, exploiting the benefits of controlled diabetes against risks of complications. In regard to preventative measures, I emphasized the importance of repeating his colonoscopy in the advised timeline and maintaining routine monitoring of other conditions, such as hypertension and lipid levels. I advised the patient to continue current lifestyle modifications for overall cardiovascular health. The patient expressed understanding of the discussed plans and had no additional questions. Patient Instructions - Continue current medications for diabetes, including Mounjaro, Lantus, Metformin, and Jardiance. - Monitor blood glucose levels regularly and report any hypoglycemia. - Schedule follow-up for anemia evaluation if symptoms persist. - Maintain current management for hypertension, hypercholesterolemia, asthma, and GERD. - Plan for the repeat colonoscopy in 1 to 2 years as advised. - Continue using CPAP for obstructive sleep apnea. - Follow a heart-healthy lifestyle, focusing on diet and exercise. - Report any new or worsening symptoms immediately. Orders: Referrals Podiatry Referral E11.65 - Type 2 diabetes mellitus with hyperglycemia Dermatology Referral L20.84 - Intrinsic (allergic) eczema
--- OUTSIDE RECORDS SUMMARY | 2024-11-01 18:13 | XMS_ITS | Encounter Summary ---
Author Organization [facility] Address [address] [place] [address] Care Team Providers Care Misdraw Hand Name Role Phone Nereida Llanos MD Primary Care Provider Unavailabl e Reason for Visit * Reason Onset Date Comments medication problems 07/15/2018 Encounter Details Date Type Department Care Team Description 07/15/2018 Telephone Internal Medicine - [place] [address] [facility], [address] [place] [address] Charles Mcallister PA-C [address] [facility] [address] [place] [address] medication problems Social History Tobacco Use Types Packs/Day Years Used Date Smoking Tobacco: Former Cigarettes 0.3 3 Sex Assigned at Date Recorded Not on file documented as of this encounter Miscellaneous Notes * Telephone Encounter - Charles Mcallister PA-C - 07/16/2018 1:21 PM EST Sent symbicort * Telephone Encounter - Corinna Jaar M.A. - 07/16/2018 11:31 AM EST Please [...] on filedocumented in this encounter Care Teams Misdraw Hand Relationship Specialty Start Date End Date Nereida Llanos MD PCP - General Internal Medicine 09/01/17 documented as of this encounter
--- OUTSIDE RECORDS SUMMARY | 2024-11-01 18:13 | XMS_ITS | Clinical Summary ---
Author Organization [facility] Address [address] [place] [address] Care Team Providers Care Manager Technical Name Role Phone Nereida Llanos MD Primary Care Provider Unavailabl e Allergies Active Allergy Reactions Severity Noted Date Comments Cyclobenzaprine 10/23/2017 Glipizide 10/23/2017 Metformin 10/23/2017 Medications Medication Sig Dispensed Refills Start Date End Date Status Insulin Degludec 100 UNIT/ML Solution Pen-injector Inject into the skin. 0 Active tramadol (ULTRAM) 50 MG tablet Take 50 mg by mouth every 6 hours as needed. 0 Active simvastatin (ZOCOR) 5 MG tablet Take 5 mg by mouth at bedtime. 0 Active fluticasone (FLOVENT HFA) 110 MCG/ACT inhaler Inhale 1 Puff into the lungs 2 times daily. 0 Active losartan-hydrochlor othiazide (HYZAAR) 100-25 MG per tablet Take 1 tablet by mouth daily. 0 Active albuterol (PROVENTIL) (2.5 MG/3ML) 0.083% nebulizer solution Take 1 Vial by nebulization every 4 hours as needed. 0 Active ALBUTEROL SULFATE 108 (90 BASE) MCG/ACT Aero Soln Inhale 2 Puffs into the lungs every 4 hours as needed. 0 Active Aspirin (ASPIR-81 OR) Take by mouth. 0 Active hydrOXYzine (ATARAX) 50 MG tablet Take 50 mg by mouth 3 times daily as needed. 0 Active gabapentin (NEURONTIN) 100 MG capsule Take 2 Caps by mouth daily for 30 days. 60 Cap 3 10/23/2017 Active predniSONE (DELTASONE) 20 MG tabletIndications:M oderate persistent asthma without complication,SHERRI (obstructive sleep apnea),Morbid obesity with BMI of 50.0-59.9, adult (HCC) 40mg PO QD for 4 days, then 20mg PO QD x 3 days 11 Tab 0 07/13/2018 Active montelukast (SINGULAIR) 10 MG tablet TAKE 1 TABLET BY MOUTH EVERYDAY AT BEDTIME 30 Tab 6 09/17/2018 Active ferrous sulfate 325 (65 FE) MG tablet Take 1 tablet by mouth 2 times daily. 0 Active fluticasone-salmete rol (ADVAIR HFA) 230-21 MCG/ACT inhaler Inhale 2 Puffs into the lungs 2 times daily for 90 days. This medication has inhaler steroid: Rinse mouth with water and expectorate after each dose to prevent oral/esophageal candidiasis or fungal infection. 1 Inhaler 5 09/15/2018 Active montelukast (SINGULAIR) 10 MG tablet Take 1 Tab by mouth at bedtime for 30 days. 30 Tab 11 09/15/2018 Active ANORO ELLIPTA 62.5-25 MCG/INH AEROSOL POWDER,BREATH ACTIVATEDIndication s:Moderate persistent asthma without complication INHALE 62.5 MCG INTO THE LUNGS DAILY FOR 90 DAYS. 1 Each 2 02/22/2019 Active Active Problems Problem Noted Date Diabetes mellitus type 2 with neurologic al manifestations 12/16/2017 Hyperlipidemia 12/16/2017 Morbid obesity with BMI of 50.0-59.9, ad ult 12/16/2017 Peripheral neuropathy 12/16/2017 DM (diabetes mellitus), type 2 with horace l complications 12/16/2017 Proteinuria 12/16/2017 Sciatica 12/16/2017 Depression 12/16/2017 Hypertension 12/16/2017 Asthma 10/23/2017 History of pneumonia 10/23/2017 SHERRI (obstructive sleep apnea) 10/23/2017 Immunizations Name Administration Dates Next Due Pneumoccoccal(Adult) Polysaccharide PPSV23 06/04 Social History Tobacco Use Types Packs/Day Years Used Date Smoking Tobacco: Former Cigarettes 0.3 3 Smokeless Tobacco: Never Sex Assigned at Date Recorded Not on file Last Filed Vital Signs Vital Sign Reading Time Taken Comments Blood Pressure 130/74 10/16/2018 10:13 AM EDT Pulse 100 10/16/2018 10:13 AM EDT Temperature - - Respiratory Rate 18 10/16/2018 10:13 AM EDT Oxygen Saturation 95% 10/16/2018 10:13 AM EDT Inhaled Oxygen Concentration - - Weight 187.8 kg (414 lb) 10/16/2018 10:13 AM EDT Height 172.7 cm (5' 8 ) 09/15/2018 11:10 AM EST Body Mass Index 62.95 09/15/2018 11:10 AM EST Plan of Treatment Health Maintenance Due Date Last Done Comments Covid-19 Vaccine (#1) 1978 DIABETES/HEART DISEASE: MARY[place] CHOLESTEROL (LDL) 02/05/1996 DIABETES: ANNUAL EYE EXAM 02/05/1996 DIABETES: ANNUAL FOOT EXAM 02/05/1996 DIABETES: ANNUAL URINE PROTE IN TEST (MICROALBUMIN) 02/05/1996 DIABETES: BLOOD SUGAR CONTRO L TEST (HGBA1C) 02/05/1996 DTAP/TDAP/TD (1 - Tdap) 1997 BASELINE HEALTH EXAM 40-64 2018 BMI CHECK/ADVISE 07/21/2024 10/16/2018, , 07/13/2018, Additional history exists DEPRESSION SCREENING/FOLLOWUP 07/21/2024 12/16/2017 SOCIAL NEEDS SCREENING 07/21/2024 INFLUENZA (Season Ended) 2025 PNEUMOCOCCAL VACCINE FOR HIG H RISK PATIENTS (#2) 2043 06/04/2017 Care Teams Manager Technical Relationship Specialty Start Date End Date Nereida Llanos MD PCP - General Internal Medicine 09/01/17
--- OUTSIDE RECORDS SUMMARY | 2024-11-01 18:13 | XMS_ITS | Encounter Summary ---
Author Organization [facility] Address [address] [place] [address] Care Team Providers Care Edge Cutter Name Role Phone Nereida Llanos MD Primary Care Provider Unavailabl e Reason for Visit * Reason Comments E-prescribe Rx Request Encounter Details Date Type Department Care Team Description 03/08/2018 Refill Pulmonology - [place] [address] [facility] [address] [place] [address] Aiden Ambriz MD E-prescribe Rx [...] [facility] FFS / Plan: [facility] / Product Type: MEDICAID RISK documented in this encounter Plan of Treatment Not on file documented as of this encounter Visit Diagnoses Not on filedocumented in this encounter Care Teams Edge Cutter Relationship Specialty Start Date End Date Nereida Llanos MD PCP - General Internal Medicine 09/01/17 documented as of this encounter
--- OUTSIDE RECORDS SUMMARY | 2024-11-01 18:13 | XMS_ITS | Encounter Summary ---
Author Organization [facility] Address [address] [place] [address] Care Team Providers Care Drawing Press Operator Name Role Phone Nereida Llanos MD Primary Care Provider Unavailabl e Reason for Visit * Reason Onset Date Comments er follow up 07/09/2018 Encounter Details Date Type Department Care Team Description 07/09/2018 Telephone Pulmonology - [place] [address] [facility] [address] [place] [address] Aiden Ambriz MD er follow [...] Which ER did they go to? : [facility] Was the patient admitted? : No. [...] on filedocumented in this encounter Care Teams Drawing Press Operator Relationship Specialty Start Date End Date Nereida Llanos MD PCP - General Internal Medicine 09/01/17 documented as of this encounter
--- OUTSIDE RECORDS SUMMARY | 2024-11-01 18:13 | XMS_ITS | Encounter Summary ---
Author Organization [facility] Address [address] [place] [address] Care Team Providers Care Irrigation Supervisor Name Role Phone Nereida Llanos MD Primary Care Provider Unavailabl e Encounter Details Date Type Department Care Team Description 10/13/2018 Telephone Pulmonology - [place] [address] [facility] [address] [place] [id number] Aiden Ambriz MD Social History Tobacco Use [...] on filedocumented in this encounter Care Teams Irrigation Supervisor Relationship Specialty Start Date End Date Nereida Llanos MD PCP - General Internal Medicine 09/01/17 documented as of this encounter
--- OUTSIDE RECORDS SUMMARY | 2024-11-01 18:13 | XMS_ITS | Encounter Summary ---
Author Organization [facility] Address [address] [place] [address] Care Team Providers Care Surveyor Geodetic Name Role Phone Nereida Llanos MD Primary Care Provider Unavailabl e Reason for Visit * Reason Comments E-prescribe Rx Request Encounter Details Date Type Department Care Team Description 02/20/2019 Refill Pulmonology - [facility] [address] [facility] [address] [place] [address] Charles Mcallister PA-C [address] [facility] [address] [place] [address] E-prescribe Rx Request Social History Tobacco Use Types Packs/Day Years Used Date Smoking Tobacco: Former Cigarettes 0.3 3 Smokeless Tobacco: Never Sex Assigned at Date Recorded Not on file documented as of this encounter Miscellaneous Notes * Telephone Encounter - Yohana ArtisShiraz - 02/22/2019 8:53 AM EDT Patient would like script to be: E-PRESCRIBED/FAXED TO PHARMACY WHEN WAS THE PATIENT'S LAST APPOINTMENT WITH THE PRESCRIBING PROVIDER? 07/13/2018 Does patient have an upcoming appointment? No-unable to reach left [facility] to call for appointment due to refill request. Appt due (THE MEDICATION REQUESTED IS ON THE MED LIST ABOVE) All of the medications requested were on the CURRENT MEDS list Did you check the Pharmacy information above?: YES Patient wants: 30 -day supply Is this a mail order prescription request ? NO Patients current insurance carrier is: Payor: [employer] FFS / Plan: [employer] [facility] / Product Type: MEDICAID RISK documented in this encounter Plan of Treatment Not on file documented as of this encounter Visit Diagnoses Diagnosis Moderate persistent asthma without complication Unspecified asthma documented in this encounter Care Teams Surveyor Geodetic Relationship Specialty Start Date End Date Nereida Llanos MD PCP - General Internal Medicine 09/01/17 documented as of this encounter
== END 2024-11-01 16:49 | disposition home or self-care (01) ==
LOC: HO.HMCH 15:55
PROVIDERS: PCP Internal Medicine; Visit Provider Internal Medicine
DX: Z00.00 Encounter for general adult medical examination without abnormal findings (principal); E66.01 Morbid (severe) obesity due to excess calories; E11.65 Type 2 diabetes mellitus with hyperglycemia; Z68.43 Body mass index [BMI] 50.0-59.9, adult; I10 Essential (primary) hypertension; E78.5 Hyperlipidemia, unspecified; J45.40 Moderate persistent asthma, uncomplicated; G47.33 Obstructive sleep apnea (adult) (pediatric); F41.1 Generalized anxiety disorder; K21.9 Gastro-esophageal reflux disease without esophagitis

== ENCOUNTER → 2024-11-01 15:55 | Outpatient (BNVA) | payer OTHER, SELFPAY | PROVIDERS: PCP Internal Medicine; Visit Provider Internal Medicine | DX: Z00.00 Encounter for general adult medical examination without abnormal findings (principal); E11.65 Type 2 diabetes mellitus with hyperglycemia; E66.01 Morbid (severe) obesity due to excess calories; I10 Essential (primary) hypertension; E78.00 Pure hypercholesterolemia, unspecified; J45.40 Moderate persistent asthma, uncomplicated; G47.33 Obstructive sleep apnea (adult) (pediatric); F41.1 Generalized anxiety disorder; K21.9 Gastro-esophageal reflux disease without esophagitis; J45.909 Unspecified asthma, uncomplicated; L20.84 Intrinsic (allergic) eczema; Z99.89 Dependence on other enabling machines and devices; Z79.4 Long term (current) use of insulin; Z79.899 Other long term (current) drug therapy | CPT/HCPCS: 99396 ==

== ENCOUNTER 2024-12-14 15:24 | Outpatient (AMB) | payer OTHER, SELFPAY ==
[2024-12-14 15:35] VITALS: BP 118/62; PULSE 81; O2SAT 98; BMI 54.3
--- NOTE | 2024-12-14 15:35 | A.OFFVIS_ITS ---
Vital Signs 12/14/24 15:35 Height 5 ft 8 in Weight 357 lb 2.382 oz BMI 54.3 BP 118/62 Blood Pressure Location Rt brachial Position Sitting Pulse 81 Pulse Source Pulse Oximeter Pulse Oximetry (%) 98 Oxygen Delivery Method Room Air Intake Visit Reasons: SHERRI/Cough Allergies dulaglutide [From Trulicity] Adverse Reaction (Intermediate, Verified 12/14/24 15:37) Diarrhea Flexeril Adverse Reaction (Mild, Verified 12/14/24 15:37) nausea, sleepiness glipizide Adverse Reaction (Mild, Verified 12/14/24 15:37) hypoglycemia HPI Comments Details: The patient is a 44-year-old gentleman known asthma in addition to obstructive sleep apnea on CPAP and morbid obesity. He states that he was in his usual state health until about 5 days ago when he started developing worsening cough and congestion. He went to see his primary care doctor with prescribed Augmentin. The patient has not been any better. He has complaints of shortness of breath and frequent coughing with mucus. He is concerned because he has been admitted in the past with pneumonia. He has not been using his nebulizer. He has been using his short-acting beta agonists MDI several times a day. It is only socially helpful. He denies any fevers or chills. No one else is sick at home. He starting to feel better. He is using his CPAP every night for more than 4 hours a night. The CPAP therapy is effective and beneficial. He needs to get new supplies. Will resend order to his DME. 04/19/2024 the patient is here for a pulmonary follow-up visit. The patient katherine katz has been doing okay. Unfortunately has not been able to get the maintenance inhaler, AirDuo. Will go ahead and send him generic Symbicort instead at this time. I think Symbicort is going to work better for him anyway. He has been feeling well from the asthma. He has not required his rescue inhaler often which is reassuring. He is concerned about the winter in the fall because that is when he would get colds and activate his asthma. We did talk about pre emptied therapy with vitamin-C and zinc and other herbal therapies. He is going to look into those. In the meantime he continues uses CPAP. CPAP therapy continues to be affecting beneficial. He does use it more than 4 hours. He was having issues with bills coming from the [employer]. We then he called them and he changed the insurance information that they had in now seems to be better. He will let us know if he runs into any more difficulties. Will follow-up in 4 months. 08/18/2024 the patient is here for a pulmonary follow-up visit. Overall the patient has been doing well he has been working and he has been very active with his job. He has been liking it a lot. 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 Therefore he is now exposed to more sick contacts. His mother also has the flu at this time. He is concerned over getting the flu. He is having some chest congestion at this time feels like sometimes bruising although has not completely developed. He continues uses CPAP. The CPAP therapy has been affecting beneficial. He does use it for more than 4 hours a night. 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 I am going to request a download from his CPAP and therefore then write him a letter. His oxygen levels are reassuring at this time within normal limits. Once I have the download I will write him a letter for the DOT. From an asthma standpoint the patient is doing well with the current respiratory therapy. If his symptoms worsen he may need to start prednisone. 08/25/2024 the patient is here for a pulmonary follow-up visit. Overall he is doing well. Asthma seems to be in good control. He continues uses maintenance therapy. The patient has been using CPAP every night. CPAP therapy has been affecting beneficial. He is not working at a adult Care Center. 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 He needs DOT clearance. Does have a Respironics dream Station 2 machine. He did bring it in. The therapy has been affecting beneficial for many years. His average uses the last 30 days has been 9 hours and 26 minutes and his AHI is 4.5. His current settings are 5 to 12 cm of water. I did increasing to 6-14 cm of water. His current machine is not able to be downloaded since his Respironics machine that was provided after the recall. Therefore based on the need for reports on regular basis in the fact that is not providing any reports for his DOT I am going to request with a pacer machine at this time. Will work with his local [employer] company to prior pride him a replacement machine that can be downloaded easily. In the meantime he is going to continue with current respiratory therapy he will try the higher pressure he has not issues he will call the office earlier assessment. 09/07/2024 the patient is here for sick visit. He started getting sick about 3 days ago. 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 He has been using prednisone and also has been using his nebulized therapy. Will go ahead and send him a course of antibiotics. So likely viral but which is want to cover all the bases. The patient will monitor closely his blood sugars. He is going to split the prednisone to twice a day to minimize hyperglycemia. In the meantime he continues uses CPAP every night CPAP therapy continues to be affecting beneficial. Will go ahead and follow-up with his regular scheduled visit. If he has any issues before that he can always call for an earlier evaluation. Also to note he did go the DOT and they did accept the paperwork for his sleep apnea with the letter. He does need to get a DOT clearance at least from a pulmonary standpoint every 6 months. 09/24/2024 the patient is here for pulmonary follow-up visit. He was initially feeling better and then started getting sick again. Chest congestion chest tightness. He had a prescription for prednisone but he lost. Therefore he never got it filled. He has been using his rescue therapy nebulizer more often. He does have some rhonchi and wheezing on exam. He just completed a course of azithromycin also Augmentin. Therefore based on the fact that he is not any better will start him on some doxycycline and he will have a prednisone taper that he can start. If he has any issues he will call for an earlier assessment. In the meantime he continues uses CPAP. He did get approved for the new APAP through his [employer] company that should be coming up soon. 12/14/2024 the patient is here for a pulmonary follow-up visit. Overall he is doing well. He did get his new CPAP. The CPAP therapy has been affecting beneficial. His AHI is down to 1. He does use it for more than 4 hours a night. His mask fitting is good. Overall the patient seems to be doing okay. Unfortunately he has been getting the wrong supplies from the [employer]. I did call them in order for them to rectify. He has any issues will call us back. From an asthma standpoint seems to be stable this time. He did require a short course of prednisone antibiotics for recent illness but no back to baseline. He is trying to stay away completely from prednisone because of his weight gain and other comorbidities. At this point will continue his current respiratory therapy. He will continue with CPAP. 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 Pharyngitis Migraine Vitamin B12 deficiency Obesity due to excess calories Peripheral neuropathy Obesity History of colon polyps Asthma Depression Back pain with sciatica Proteinuria Hemorrhoids SHERRI (obstructive sleep apnea) Hyperlipidemia LDL goal <100 Essential hypertension Vitamin D deficiency Surgical History Hx of colonoscopy History of esophagogastroduodenoscopy (EGD) Loculated pleural effusion Loculated empyema Family History (Updated 11/01/24 @ 16:32 by Nereida Llanos MD) Father Cirrhosis Diabetes Mother Colon cancer, Onset Age: 83 Skin cancer Brother Prostate cancer CVA (cerebral vascular accident) Social History Household Members: Family Housing: Apartment Are you a primary day care home mother to a significant other at home: No Do you presently have visiting nurse or other home services: No Alcohol intake: never Patient Tobacco Use Status: Former Tobacco user Tobacco use type: Cigarette Years Smoked: 6- stopped 2016 e-Cigarette/Vaping Use: Never Used Second Hand Smoke Exposure: No service: No Current occupational status: disabled Cognitive needs: Yes (cane) Hearing needs: No Vision needs: Yes (glasses) Review of Systems Const Denies fatigue, Denies headache(s) and Reports weight loss Eyes Denies blurry vision ENT Reports Normal hearing present, Denies headache(s), Reports nasal congestion, Reports nasal discharge and Reports nasal obstruction Card Denies chest pain, Denies irregular heart rhythm, Denies dyspnea and Denies dyspnea on exertion Resp Reports chest congestion, Reports cough, Denies dyspnea, Denies dyspnea on exertion and Reports wheezing GI Denies constipation and Denies diarrhea Denies dysuria and Denies urinary frequency Musc Reports muscle cramps, Denies muscle weakness, Denies numbness and Denies tingling Neuro Reports Normal hearing present, Denies Abnormal speech present, Denies headache(s), Denies numbness and Denies tingling Psych Reports abnormal sleep pattern and Denies depression Endo Denies fatigue Gianfranco/Lymph Denies easy bruising Aller/Immun Reports wheezing Physical Exam Vital Signs: Last Vital Signs Pulse 81 12/14/24 15:35 BP 118/62 12/14/24 15:35 Pulse Ox 98 12/14/24 15:35 Oxygen Delivery Method Room Air 12/14/24 15:35 BMI result Body Mass Index 54.3 Const General: comfortable and no acute distress Orientation/consciousness: patient oriented x3 HEENT Head: Yes normal to inspection Ears: hearing grossly normal bilaterally Eyes Sclerae: sclerae normal Pupils: Equal, round and reactive pupils present Neck Neck: Yes normal visual inspection Chest Chest palpation & inspection: normal inspection of the chest Resp Effort & Inspection: normal respiratory effort Auscultation: clear to auscultation bilaterally, no crackles, no rales, no rhonchi and no wheezes Cardio Palpation: normal PMI Rate: regular rate Rhythm: regular rhythm Heart sounds: S1 normal heart sound present, S2 normal heart sound present and no murmurs GI Palpation (GI): Soft to palpation, nontender and No hepatosplenomegaly present Auscultation: normal bowel sounds Rectal Exam - Male: Yes deferred Skin General skin exam: no rashes or lesions noted Neuro General: patient oriented x3, gait normal and moves all extremities Cranial nerves: Yes Equal, round and reactive pupils present and Yes Normal hearing present Speech: No Abnormal speech present Extrem General: No clubbing and No cyanosis Psych Appearance: grossly normal Mental Status: mental status grossly normal Assessment & Plan Assessment & Plan (1) Asthma: Comment: PFT restrictive March 2019 Code(s): J45.909 - Unspecified asthma, uncomplicated Category: Medical Qualifiers: Asthma complication type: uncomplicated Asthma persistence: persistent Asthma severity: moderate Qualified Code(s): J45.40 - Moderate persistent asthma, uncomplicated (2) SHERRI (obstructive sleep apnea): Comment: Continue with the CPAP every night and benefits from this more than 4 hours a night Code(s): G47.33 - Obstructive sleep apnea (adult) (pediatric) Category: Medical (3) Chronic rhinitis: Code(s): J31.0 - Chronic rhinitis Category: Medical Plan Symbicort continuen Daliresp 500mcg Continue APAP, p10. Airsense 11 APAP 6-12 (JL) Nasal rinsing Allergy therapy: singulair continue Fluticasone daily continue Astelin weight management F/U 4-6 months Coding Level of Care Code Est Pt Level 4 (04197) Diagnoses Moderate persistent asthma without complication J45.40 Asthma complication type: uncomplicated Asthma persistence: persistent Asthma severity: moderate SHERRI (obstructive sleep apnea) G47.33 Chronic rhinitis J31.0 Time Spent (min) 16
== END 2024-12-14 16:06 | disposition home or self-care (01) ==
LOC: HO.HPS 15:25
PROVIDERS: PCP Internal Medicine; Visit Provider Hospitalist
DX: J45.40 Moderate persistent asthma, uncomplicated (principal); G47.33 Obstructive sleep apnea (adult) (pediatric); J31.0 Chronic rhinitis
CPT/HCPCS: 99214

== ENCOUNTER → 2024-12-14 15:24 | Outpatient (BNVA) | payer OTHER, SELFPAY | PROVIDERS: PCP Internal Medicine; Visit Provider Hospitalist | DX: J45.40 Moderate persistent asthma, uncomplicated (principal); J31.0 Chronic rhinitis; G47.33 Obstructive sleep apnea (adult) (pediatric) | CPT/HCPCS: 99212 ==

== ENCOUNTER 2025-01-11 15:17 | Outpatient (AMB) | payer OTHER, SELFPAY ==
--- NOTE | 2025-01-11 15:29 | A.OFFVIS_ITS ---
Vital Signs 01/11/25 15:32 Height 5 ft 8 in Weight 357 lb 12.964 oz BMI 54.4 BP 108/66 Blood Pressure Location Lt brachial Position Sitting Pulse 68 Pulse Source Pulse Oximeter Pulse Oximetry (%) 97 Oxygen Delivery Method Room Air Intake Visit Reasons: T2DM Intake Note: Patient present today to follow up on Type 2 Diabetes Mellitus. Last Diabetic Eye exam: 05/19/2024 [facility] Last Podiatry Visit: Does not see a Quality Control Auditor Random Glucose: 92 mg/dl HgA1C: 6.2% Automobile Drivers Required: Yes Automobile Drivers Language: Hydrochloric Area Supervisor Services: Automobile Drivers Present Automobile Drivers Name: Aruna [id number] Information Interpreted: non-clinical & clinical Accompanied by: Self / Same As Patient Allergies dulaglutide (From [facility]) Adverse Reaction (Intermediate, Verified 01/11/25 15:34) Diarrhea Flexeril Adverse Reaction (Mild, Verified 01/11/25 15:34) nausea, sleepiness glipizide Adverse Reaction (Mild, Verified 01/11/25 15:34) hypoglycemia Medication List - Last Reconciled 01/11/25 by JENNIFER Cooper albuterol sulfate 2.5 mg (3 mL) inhalation Q8H PRN atorvastatin 10 mg PO BEDTIME betamethasone dipropionate 0.05% 1 appl topical BID PRN blood sugar diagnostic (FreeStyle Lite Strips) As directed check the BS TID blood-glucose meter (FreeStyle Lite Meter kit) As directed check the blood sugar 3 times a day blood-glucose sensor (FreeStyle Spenser 3 Plus Sensor device) Apply 1 new sensor every 15 days as directed to monitor blood glucose continuously. blood-glucose,pig caster,cont (FreeStyle Spenser 3 Gardner) Use daily to monitor blood glucose levels continuously. budesonide-formoterol 160-4.5 mcg/actuation 2 puffs inhalation BID PRN cane As directed HEAVY DUTY cholecalciferol (vitamin D3) 25 mcg PO DAILY clonazepam 0.5 mg PO DAILY PRN [cpap As directed] [detachable shower Head As directed] empagliflozin (Jardiance) 25 mg PO DAILY fluticasone propionate 50 mcg/actuation 2 sprays intranasal DAILY PRN insulin glargine (Lantus Solostar U-100 Insulin) 15 units subcut BEDTIME irbesartan-hydrochlorothiazide 150-12.5 mg 1 tab PO DAILY lancets As directed lancets (FreeStyle Lancets) As directed check blood sugar 3 times a day metformin 1,000 mg PO DAILY montelukast 10 mg PO BEDTIME nebulizers As directed omeprazole 20 mg PO DAILY@0630 [Quad cane As directed] Shower Chair As directed tramadol 50 mg PO Q8H PRN 30 days HPI Comments Details: This is a 44-year-old male with a past medical history of type 2 diabetes, vitamin B12 deficiency, hyperlipidemia, hypertension, asthma, psoriasis, GERD, morbid obesity and anxiety presenting for diabetic management. He was diagnosed with prediabetes in [place], and he was diagnosed with Type II diabetes about 7 years ago in the [place]. Reviewed [employer] 3+ download CGM active 99% Average glucose 109 G HI 5.9% Glucose variability 14.6% 100% of readings are within target range throughout 24 hours. Current medication regimen: Mounjaro 5 mg weekly, metformin 1000 mg once daily, Lantus 30 units at bedtime, Jardiance 25 mg q.a.m. Past medications: Glipizide discontinued due to hypoglycemia. Trulicity discontinued due to diarrhea. Ozempic caused diarrhea, nausea and flatus on higher dosages. Compliance issues: None Hypoglycemia symptoms: He has experienced 3 episodes of hypoglycemia. Blood sugar was in the 60s. He felt shaky and treated with candy. Hyperglycemia symptoms: Denies Eye exam: Up-to-date at [facility]. Microvascular complications: mild peripheral neuropathy, cataracts Macrovascular complications: none Hypertension: treated with your irbesartan-hydrochlorothiazide 150-12.5 mg daily Hyperlipidemia: treated with atorvastatin 10 mg. ROS: Constitutional: No unexplained weight loss, fever, chills Eyes: No vision changes, blurry vision, double vision Cardiovascular: No chest pain, chest pressure or chest discomfort. No palpitations Gastrointestinal: No anorexia, nausea, vomiting or diarrhea. No abdominal pain or blood in stool. Neurologic: No headache, dizziness, syncope, unilateral weakness, ataxia, numbness or tingling in the extremities. Physical exam: Constitutional: Alert, in no distress. Neck: Supple, Full range of motion. No lymphadenopathy. Respiratory: Clear to auscultation. Cardiovascular: S1 S2 regular. No murmurs. [facility] Medical History Bronchitis Diabetic neuropathy Type II diabetes with [facility] use of insulin Pharyngitis Migraine Vitamin B12 deficiency Obesity due to excess calories Peripheral neuropathy Obesity History of colon polyps Asthma Depression Back pain with sciatica Proteinuria Hemorrhoids SHERRI (obstructive sleep apnea) Hyperlipidemia LDL goal <100 Essential hypertension Vitamin D deficiency Surgical History Hx of colonoscopy History of esophagogastroduodenoscopy (EGD) Loculated pleural effusion Loculated empyema Family History Father Cirrhosis Diabetes Mother Colon cancer, Onset Age: 83 Skin cancer Brother Prostate cancer CVA (cerebral vascular accident) Social History Household Members: Family Housing: Apartment Are you a primary home health care provider to a significant other at home: No Do you presently have visiting nurse or other home services: No Alcohol intake: never Patient Tobacco Use Status: Former Tobacco user Tobacco use type: Cigarette Years Smoked: 6- stopped 2016 e-Cigarette/Vaping Use: Never Used Second Hand Smoke Exposure: No service: No Current occupational status: disabled Cognitive needs: Yes (cane) Hearing needs: No Vision needs: Yes (glasses) Physical Exam Vital Signs: Last Vital Signs Pulse 68 01/11/25 15:32 BP 108/66 01/11/25 15:32 Pulse Ox 97 01/11/25 15:32 Oxygen Delivery Method Room Air 01/11/25 15:32 BMI result Body Mass Index 54.4 Office Procedures Glucose Monitoring Details Details: see [facility] [address] - Glucose monitoring, continuous-physician I&R Procedure code (CPT) selection complete Results AMB Hemoglobin A1c AMB Hemoglobin A1c 6.2 % Last Edit by CHEO Leal on 01/11/25 15:47 Results Reviewed Results Reviewed: Laboratory Last Values Glucose (Clinic) 92 mg/dL (60-115) 01/11/25 15:36 Laboratory Tests 07/13/24 07/13/24 10/02/24 06:15 06:18 15:34 Plt Count 344 D Sodium 138 Potassium 4.0 Chloride 104 Carbon Dioxide 24 Anion Gap 14 BUN 15 Creatinine Estimated GFR Random Glucose 100 Estimat Average Glucose 146 Hgb A1c (Clinic) Hemoglobin A1c % 6.7 H Uric Acid 4.6 Calcium 9.3 Total Bilirubin 0.4 AST 32 ALT 23 Alkaline Phosphatase 68 Total Protein 7.6 B-Natriuretic Peptide < 10 Albumin 4.0 Triglycerides 131 Cholesterol 113 LDL Cholesterol, Calc 55 HDL Cholesterol 32 L Vitamin B12 302 Folate 10.8 TSH 1.71 Free T4 0.81 Urine Creatinine 112.87 Urine Microalbumin 24.0 Microalb/Creat Ratio 21.2 10/02/24 10/15/24 17:39 15:41 Plt Count Sodium Potassium Chloride Carbon Dioxide Anion Gap BUN Creatinine 0.65 Estimated GFR > 60 Random Glucose Estimat Average Glucose Hgb A1c (Clinic) 6.4 H Hemoglobin A1c % Uric Acid Calcium Total Bilirubin AST ALT Alkaline Phosphatase Total Protein B-Natriuretic Peptide Albumin Triglycerides Cholesterol LDL Cholesterol, Calc HDL Cholesterol Vitamin B12 Folate TSH Free T4 Urine Creatinine Urine Microalbumin Microalb/Creat Ratio Assessment & Plan Assessment & Plan (1) Type II diabetes with [place] use of insulin: Code(s): E11.9 - Type 2 diabetes mellitus without complications; Z79.4 - intermediate (current) use of insulin Category: Medical Qualifiers: Diabetes mellitus complication detail: with mononeuropathy Diabetes mellitus complication status: with neurologic complications Qualified Code(s): E11.41 - Type 2 diabetes mellitus with diabetic mononeuropathy; Z79.4 - intermediate teacher (current) use of insulin Plan In summary this is a 44-year-old male with controlled type 2 diabetes. He has lost 9 lb so far on Mounjaro. Given weight loss, current GMI and reported hypoglycemia decrease Lantus to 15 units daily. If low blood sugars continue decrease to 10 units daily. Increase Mounjaro to 7.5 mg weekly. Continue metformin 1000 mg once daily. Continue Jardiance 25 mg daily. Patient is on insulin and reports more frequent bouts of hypoglycemia. A CGM is medically necessary for the patient. Prescribed Spenser 3 Plus. Discussed pathophysiology of Type II Diabetes Mellitus with the patient in [facility].? 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 Discussed lifestyle modification with the patient. If you experience low blood sugar, treat this by eating a chewable fruit candy like skittles or jelly beans (about 8 pieces), 4 ounces (1/2 cup) of fruit juice (not diet), 1 tablespoon of honey or 4 glucose tablets. If your blood sugar is under 55, take double the amount of one of the above. Recheck your blood sugar in 15 minutes. Patient advised not to drive if he does not have a reliable method of monitoring blood glucose or if he has symptoms of hypo or hyperglycemia. Advised patient to always carry his fingerstick glucometer with him as a backup to his sensor. He will have lab work done prior to his next visit. Follow up in 4 weeks. Orders: Orders AMB Hemoglobin A1c Today JENNIFER Cooper E11.65 - Type 2 diabetes mellitus with hyperglycemia, Z13.9 - Encounter for screening, unspecified AMB Glucose Monitoring Today JENNIFER Cooper E11.9 - Type 2 diabetes mellitus without complications Referrals Podiatry Referral JENNIFER Cooper E11.65 - Type 2 diabetes mellitus with hyperglycemia Medications: New blood-glucose sensor (FreeStyle Spenser 3 Plus Sensor device) Apply 1 new sensor every 15 days as directed to monitor blood glucose continuously. 2 ea 11RF JENNIFER Cooper tirzepatide (Mounjaro) 7.5 mg (0.5 mL) subcut QWEEK 2 mL 1RF JENNIFER Cooper Changed From insulin glargine (Lantus Solostar U-100 Insulin) Further refills to pcp. 30 units (0.3 mL) subcut BEDTIME 15 mL 12RF E11.65 - Type 2 diabetes mellitus with hyperglycemia To insulin glargine (Lantus Solostar U-100 Insulin) Further refills to pcp. 15 units subcut BEDTIME E11.65 - Type 2 diabetes mellitus with hyperglycemia Nereida Llanos MD Discontinued 2 flash glucose sensor (FreeStyle Spenser 2 Sensor kit) Discontinued Reason: Doctor's Order every 2 weeks 2 ea 11RF E11.9 - Type 2 diabetes mellitus without complications, Z79.4 - intermediate teacher (current) use of insulin flash glucose scanning reader (FreeStyle Spenser 2 Gardner) Discontinued Reason: Doctor's Order As directed 1 ea 0RF E11.9 - Type 2 diabetes mellitus without complications, Z79.4 - intermediate (current) use of insulin tirzepatide (Mounjaro) Discontinued Reason: Doctor's Order 5 mg (0.5 mL) subcut QWEEK 2 mL 3RF blood-glucose sensor (FreeStyle Spenser 3 Sensor device) Discontinued Reason: Doctor's Order apply new sensor every 14 days 2 ea 11RF E11.9 - Type 2 diabetes mellitus without complications, Z79.4 - intermediate (current) use of insulin Patient Instructions: Increase Mounjaro to 7.5 mg weekly. Decrease Lantus to 15 units daily. If you have continued low blood sugars, decrease to 10 units daily. Continue Metformin 1000 mg daily. Continue Jardiance 25 mg daily. If you experience low blood sugar, treat this by eating a chewable fruit candy like skittles or jelly beans (about 8 pieces), 4 ounces (1/2 cup) of fruit juice (not diet), 1 tablespoon of honey or 4 glucose tablets. If your blood sugar is under 55, take double the amount of one of the above. Recheck your blood sugar in 15 minutes. Aumente la dosis de Mounjaro a 7.5 mg semanales. Disminuya la dosis de Lantus a 15 unidades diarias. Si lisandra niveles de az?car en candice persisten, reduzca la dosis a 10 unidades diarias. Contin?e con Metformina 1000 mg al d?a. Contin?e con Jardiance 25 mg al d?a. Si experimenta niveles bajos de az?car en candice, tr?telo con un caramelo masticable de fruta pete Skittles o Jelly Beans (aproximadamente 8 piezas), 113 ml (1/2 taza) de jugo de fruta (no light), 1 cucharada de miel o 4 tabletas de glucosa. Si burch nivel de az?car en candice es inferior a 55, tome el doble de la dosis de jean de los medicamentos mencionados anteriormente. Vuelva a medir burch nivel de az?car en candice en 15 minutos. Coding Level of Care Code Est Pt Level 4 (99856) Diagnoses Type 2 diabetes mellitus with diabetic mononeuropathy, with long-term current use of insulin E11.41; Z79.4 Diabetes mellitus complication detail: with mononeuropathy Diabetes mellitus complication status: with neurologic complications CPT Codes Details - CPT: 04373 - Glucose monitoring, continuous-physician I&R ([id number])
[2025-01-11 15:32] VITALS: BP 108/66; PULSE 68; O2SAT 97; BMI 54.4
[2025-01-11 15:41] LABS: Glucose, Whole Blood 92 mg/dL (60-115)
== END 2025-01-11 16:10 | disposition home or self-care (01) ==
LOC: HO.ENCR 15:18
PROVIDERS: PCP Internal Medicine; Visit Provider Physician Assistant Medical
DX: Z13.9 Encounter for screening, unspecified (principal); E11.65 Type 2 diabetes mellitus with hyperglycemia; E11.41 Type 2 diabetes mellitus with diabetic mononeuropathy; Z79.4 Long term (current) use of insulin

== ENCOUNTER → 2025-01-11 15:17 | Outpatient (BNVA) | payer OTHER, SELFPAY | PROVIDERS: PCP Internal Medicine; Visit Provider Physician Assistant Medical | DX: E11.41 Type 2 diabetes mellitus with diabetic mononeuropathy (principal); E11.65 Type 2 diabetes mellitus with hyperglycemia; Z79.4 Long term (current) use of insulin | CPT/HCPCS: 82947; 83036; 99212 ==

== ENCOUNTER 2025-02-04 15:14 | Outpatient (AMB) | payer OTHER, SELFPAY ==
--- NOTE | 2025-02-04 15:16 | A.OFFVIS_ITS ---
Vital Signs 02/04/25 15:18 Height 5 ft 8 in Weight 355 lb 2.635 oz BMI 54.0 BP 116/68 Blood Pressure Location Rt radial Position Sitting Pulse 82 Pulse Source Pulse Oximeter Pulse Oximetry (%) 97 Oxygen Delivery Method Room Air Intake Visit Reasons: Type II diabetes Intake Note: Patient present today to follow up on Type 2 Diabetes Mellitus. Last Diabetic Eye exam: 05/19/2024 [facility] Last Podiatry Visit: Does not see a Baller Tender Random Glucose: 99 mg/dl HgA1C: 6.2% 01/11/2025 Engineering Operations Leader Required: Yes Engineering Operations Leader Language: Cocoa Butter Filter Operator Services: Engineering Operations Leader Present Engineering Operations Leader Name: Bob [id number] Information Interpreted: non-clinical & clinical Accompanied by: Self / Same As Patient Allergies dulaglutide (From Trulicity) Adverse Reaction (Intermediate, Verified 02/04/25 15:19) Diarrhea Flexeril Adverse Reaction (Mild, Verified 02/04/25 15:19) nausea, sleepiness glipizide Adverse Reaction (Mild, Verified 02/04/25 15:19) hypoglycemia HPI Comments Details: This is a 44-year-old male with a past medical history of type 2 diabetes, vitamin B12 deficiency, hyperlipidemia, hypertension, asthma, psoriasis, GERD, morbid obesity and anxiety presenting for diabetic management. He was diagnosed with Type II diabetes about 7 years ago in the [facility]. Reviewed Spenser 3+ download for January 22 to February 04 CGM active 89% G ME 6% Very high 0% High 1% Target range 98% Low 1% The majority of his readings are within target. He has hypoglycemia in the afternoon and evening. Current medication regimen: Mounjaro 7.5 mg weekly, metformin 1000 mg once daily, Tresiba 15 units at bedtime, Jardiance 25 mg q.a.m. Past medications: Glipizide discontinued due to hypoglycemia. Trulicity discontinued due to diarrhea. Ozempic caused diarrhea, nausea and flatus on higher dosages. Compliance issues: None Hypoglycemia symptoms: He has experienced 3 episodes of hypoglycemia. Blood sugar was in the 60s. He felt shaky and treated with juice. Hyperglycemia symptoms: Denies Eye exam: Up-to-date at [facility]. He was contacted by Podiatry to set up his visit. Microvascular complications: mild peripheral neuropathy, cataracts Macrovascular complications: none Hypertension: treated with your irbesartan-hydrochlorothiazide 150-12.5 mg daily Hyperlipidemia: treated with atorvastatin 10 mg. ROS: Constitutional: No unexplained weight loss, fever, chills Eyes: No vision changes, blurry vision, double vision Cardiovascular: No chest pain, chest pressure or chest discomfort. No palpitations Gastrointestinal: No anorexia, nausea, vomiting or diarrhea. No abdominal pain or blood in stool. Neurologic: No headache, dizziness, syncope, unilateral weakness, ataxia, numb ness or tingling in the extremities. Physical exam: Constitutional: Alert, in no distress. Neck: Supple, Full range of motion. No lymphadenopathy. Respiratory: Clear to auscultation. Cardiovascular: S1 S2 regular. No murmurs. [facility] Medical History Bronchitis Diabetic neuropathy Type II diabetes with detention use of insulin Pharyngitis Migraine Vitamin B12 deficiency Obesity due to excess calories Peripheral neuropathy Obesity History of colon polyps Asthma Depression Back pain with sciatica Proteinuria Hemorrhoids SHERRI (obstructive sleep apnea) Hyperlipidemia LDL goal <100 Essential hypertension Vitamin D deficiency Surgical History Hx of colonoscopy History of esophagogastroduodenoscopy (EGD) Loculated pleural effusion Loculated empyema Family History Father Cirrhosis Diabetes Mother Colon cancer, Onset Age: 83 Skin cancer Brother Prostate cancer CVA (cerebral vascular accident) Social History Household Members: Family Housing: Apartment Are you a primary clinical care leader to a significant other at home: No Do you presently have visiting nurse or other home services: No Alcohol intake: never Patient Tobacco Use Status: Former Tobacco user Tobacco use type: Cigarette Years Smoked: 6- stopped 2016 e-Cigarette/Vaping Use: Never Used Second Hand Smoke Exposure: No service: No Current occupational status: disabled Cognitive needs: Yes (cane) Hearing needs: No Vision needs: Yes (glasses) Physical Exam Vital Signs: Last Vital Signs Pulse 82 02/04/25 15:18 BP 116/68 02/04/25 15:18 Pulse Ox 97 02/04/25 15:18 Oxygen Delivery Method Room Air 02/04/25 15:18 BMI result Body Mass Index 54.0 Office Procedures Glucose Monitoring Details Details: [place] HPI 68256 - Glucose monitoring, continuous-physician I&R Procedure code (CPT) selection complete Results Reviewed Results Reviewed: Laboratory Last Values Glucose (Clinic) 99 mg/dL (60-115) 02/04/25 15:24 Laboratory Tests 07/13/24 07/13/24 10/02/24 06:15 06:18 15:34 Plt Count 344 D Sodium 138 Potassium 4.0 Chloride 104 Carbon Dioxide 24 Anion Gap 14 BUN 15 Creatinine Estimated GFR Random Glucose 100 Estimat Average Glucose 146 Hgb A1c (Clinic) Hemoglobin A1c % 6.7 H Uric Acid 4.6 Calcium 9.3 Total Bilirubin 0.4 AST 32 ALT 23 Alkaline Phosphatase 68 Total Protein 7.6 B-Natriuretic Peptide < 10 Albumin 4.0 Triglycerides 131 Cholesterol 113 LDL Cholesterol, Calc 55 HDL Cholesterol 32 L Vitamin B12 302 Folate 10.8 TSH 1.71 Free T4 0.81 Urine Creatinine 112.87 Urine Microalbumin 24.0 Microalb/Creat Ratio 21.2 10/02/24 10/15/24 17:39 15:41 Plt Count Sodium Potassium Chloride Carbon Dioxide Anion Gap BUN Creatinine 0.65 Estimated GFR > 60 Random Glucose Estimat Average Glucose Hgb A1c (Clinic) 6.4 H Hemoglobin A1c % Uric Acid Calcium Total Bilirubin AST ALT Alkaline Phosphatase Total Protein B-Natriuretic Peptide Albumin Triglycerides Cholesterol LDL Cholesterol, Calc HDL Cholesterol Vitamin B12 Folate TSH Free T4 Urine Creatinine Urine Microalbumin Microalb/Creat Ratio Assessment & Plan Assessment & Plan (1) Type II diabetes with detention use of insulin: Code(s): E11.9 - Type 2 diabetes mellitus without complications; Z79.4 - long term care phlebotomist (current) use of insulin Category: Medical Qualifiers: Diabetes mellitus complication status: with neurologic complications Diabetes mellitus complication detail: with mononeuropathy Qualified Code(s): E11.41 - Type 2 diabetes mellitus with diabetic mononeuropathy; Z79.4 - correction (current) use of insulin Plan In summary this is a 44-year-old male with controlled type 2 diabetes. He has lost 11 lb so far on Mounjaro. Given weight loss, current GMI and reported hypoglycemia stop Tresiba insulin. Increase Mounjaro to 10 mg weekly to continue to promote weight loss. Continue metformin 1000 mg once daily. If he has continued low blood sugars he was instructed to call so we can reduce the dose of metformin. Continue Jardiance 25 mg daily. Discussed pathophysiology of Type II Diabetes Mellitus with the patient in detail.? I explained the long term care phlebotomist risks and complications associated with uncontrolled diabetes including nephropathy, neuropathy, peripheral vascular disease, retinopathy, increased risk of heart disease and stroke.? Discussed lifestyle modification with the patient. If you experience low blood sugar, treat this by eating a chewable fruit candy like skittles or jelly beans (about 8 pieces), 4 ounces (1/2 cup) of fruit juice (not diet), 1 tablespoon of honey or 4 glucose tablets. If your blood sugar is under 55, take double the amount of one of the above. Recheck your blood sugar in 15 minutes. Patient advised not to drive if he does not have a reliable method of monitoring blood glucose or if he has symptoms of hypo or hyperglycemia. Advised patient to always carry his fingerstick glucometer with him as a backup to his sensor. Follow up in 6 weeks. He will have his blood work done prior to his next visit. Orders: Orders AMB Glucose Monitoring Today E11.9 - Type 2 diabetes mellitus without complications Medications: Discontinued Tresiba FlexTouch U-100 (insulin degludec) Discontinued Reason: Doctor's Order 15 units (0.15 mL) subcut BEDTIME 15 mL 5RF NS Patient Instructions: Stop Lantus Increase Mounjaro to 10 mg once weekly. Continue Jardiance 25 mg daily Continue Metformin 1000 mg once daily. If you continue to have low blood sugars after stopping insulin, call the office, and I will send a prescription for a lower dose of Metformin. If you experience low blood sugar, treat this by eating a chewable fruit candy like skittles or jelly beans (about 8 pieces), 4 ounces (1/2 cup) of fruit juice (not diet), 1 tablespoon of honey or 4 glucose tablets. If your blood sugar is under 55, take double the amount of one of the above. Recheck your blood sugar in 15 minutes. Deje de marbella Lantus. Aumente la dosis de Mounjaro a 10 mg catalina vez a la semana. Contin?e con Jardiance 25 mg al d?a. Contin?e con Metformina 1000 mg catalina vez al d?a. Si contin?a con niveles bajos de az?car en candice despu?s de dejar de marbella insulina, llame a la consulta y le enviar? catalina receta para catalina dosis m?s baja de metformina. Si experimenta niveles bajos de az?car en candice, tr?telo comiendo un caramelo masticable de fruta pete Skittles o Jelly Beans (aproximadamente 8 piezas), 113 ml (1/2 taza) de jugo de fruta (no light), 1 cucharada de miel o 4 tabletas de glucosa. Si burch nivel de az?car en candice es inferior a 55, tome el doble de la dosis de jean de los medicamentos mencionados. Vuelva a medir burch nivel de az?car en candice en 15 minutos. Coding Level of Care Code Est Pt Level 4 (85852) Diagnoses Type 2 diabetes mellitus with diabetic mononeuropathy, with long-term current use of insulin E11.41; Z79.4 Diabetes mellitus complication status: with neurologic complications Diabetes mellitus complication detail: with mononeuropathy CPT Codes Details - CPT: 28226 - Glucose monitoring, continuous-physician I&R ([id number])
--- OUTSIDE RECORDS SUMMARY | 2025-02-04 15:16 | XMS_ITS | Clinical Summary ---
Author Organization [address] [place] [address] [place] [id number] Phone Care Team Providers Care Cash Controller Name Role Phone Nereida Llanos MD Primary Care Provider [phone] Surgical History Surgery Date Site/Laterality Comments OTHER SURGICAL HISTORY PROCEDURE: INSERTION OF CHEST TUBE Medical History Medical History Date Comments Asthma 10/23/2017 DX:Asthma History of pneumonia 10/23/2017 DX:History of pneumonia SHERRI (obstructive sleep apnea) 10/23/2017 DX :SHERRI (obstructive sleep apnea) Hyperlipidemia 12/16/2017 DX:Hyperlipidemi a Morbid obesity with BMI of 5 0.0-59.9, adult ([facility] V24, [facility] V28) 12/16/2017 DX:Morbid obesity wit h BMI of 50.0-59.9, adult ([facility]) Diabetes mellitus type 2 wit h neurological manifestations ([facility] V24, [facility] V28) 12/16/2017 DX:Diabetes mellitus type 2 with neurological manifestations ([facility]) Peripheral neuropathy 12/16/2017 DX:Periphe ral neuropathy DM (diabetes mellitus), type 2 with renal complications ([facility] V24, [facility] V28) 12/16/2017 DX:DM (diabetes mellitus), t ype 2 with renal complications ([facility]) Proteinuria 12/16/2017 DX:Proteinuria Sciatica 12/16/2017 DX:Sciatica Depression 12/16/2017 DX:Depression Hypertension 12/16/2017 DX:Hypertension Social History Tobacco Use Types Packs/Day Years Used Date Smoking Tobacco: Former Cigarettes Smokeless Tobacco: Never Sex and Gender Information Value Date Recorded Sex Assigned at Not on file Legal Sex Male 9:58 AM EDT Gender Identity Not on file Sexual Orientation Not on file Obstetrics History Plan of Treatment Upcoming Encounters Date Type Department Care Team (Late st Contact Info) Description 04/12/2025 3:00 PM EDT Consult Orthopedic Surgery - [place] [address] [facility] 250 [place] [address] Gerald Snell, DPPatricia 175 [facility] 250 [place] [address] Health Maintenance Due Date Last Done Comments Diabetes: Annual GFR (Glomer ular Filtration Rate) 1978 Diabetes: Annual Foot Exam 02/05/1988 Diabetes: Annual Retina Eye Exam 02/05/1988 DTaP,Tdap,and Td Vaccines (1 - Tdap) 1997 Hepatitis B Vaccines (1 of 3 - 19+ 3-dose series) 1997 Pneumococcal Vaccine: Pediat rics (0 to 5 Years) and At-Risk Patients (6 to 49 Years) (2 of 2 - PCV) 06/04/2018 06/04/2017 COVID-19 Vaccine (1 - 2023-2 5 season) 2024 Depression Screening 07/21/2024 Cholesterol Screening (Lipid Panel) 01/17/2025 Colorectal Cancer Screening: Colonoscopy 01/17/2025 Diabetes: Annual Urine Albumin-Creatinine Ratio (uACR) 01/17/2025 Diabetes: Blood Sugar Contro l Test (HGBA1C) 01/17/2025 HIV Screening 01/17/2025 Hepatitis C Screening 01/17/2025 Hypertension/CHF/CAD Annual BMP Blood Test 01/17/2025 Social Influencers of Health Screening 01/17/2025 Influenza Vaccine (#1) 2025 HIB Vaccines Aged Out No longer eligi ble based on patient's age to complete this topic HPV Vaccines Aged Out No longer eligi ble based on patient's age to complete this topic Hepatitis A Vaccines Aged Out No long er eligible based on patient's age to complete this topic IPV Vaccines Aged Out No longer eligi ble based on patient's age to complete this topic MMR Vaccines Aged Out No longer eligi ble based on patient's age to complete this topic Meningococcal ACWY Vaccine Aged Out N o longer eligible based on patient's age to complete this topic Meningococcal B Vaccine Aged Out No l onger eligible based on patient's age to complete this topic RSV Immunization Patients Un elpidio 20 months Aged Out No longer eligible b ased on patient's age to complete this topic Varicella Vaccines Aged Out No longer eligible based on patient's age to complete this topic [place] [address] [place] [address] PLAN Care Teams Cash Controller Relationship Specialty Start Date End Date Nereida Llanos MD [address] [place] [address] [address] [facility] [place] [address] PCP - General Internal Medicine 02/04/18
[2025-02-04 15:18] VITALS: BP 116/68; PULSE 82; O2SAT 97; BMI 54.0
[2025-02-04 15:29] LABS: Glucose, Whole Blood 99 mg/dL (60-115)
== END 2025-02-04 15:52 | disposition home or self-care (01) ==
LOC: HO.ENCR 15:14
PROVIDERS: PCP Internal Medicine; Visit Provider Physician Assistant Medical
DX: E11.41 Type 2 diabetes mellitus with diabetic mononeuropathy (principal); Z79.4 Long term (current) use of insulin

== ENCOUNTER → 2025-02-04 15:14 | Outpatient (BNVA) | payer OTHER, SELFPAY | PROVIDERS: PCP Internal Medicine; Visit Provider Physician Assistant Medical | DX: E11.9 Type 2 diabetes mellitus without complications (principal); Z79.4 Long term (current) use of insulin; I10 Essential (primary) hypertension; E78.5 Hyperlipidemia, unspecified | CPT/HCPCS: 82947; 99212 ==

== ENCOUNTER 2025-03-07 05:57 | Outpatient (REF) | payer OTHER, SELFPAY ==
[2025-03-07 06:23] LABS: MANUAL DIFF FLAG NO
[2025-03-07 07:20] LABS: Hematocrit 43.1 % (42.0-52.0); Hemoglobin 13.7 g/dl (14.0-18.0); Imm Gran Abs Auto 0.02 X10*3/uL (0.00-0.03); Imm Gran Pct Auto 0.3 % (0.0-0.4); Lymphocytes Absolute Auto 2.6 X10*3/uL (1.2-4.9); Mean Corpuscular HGB Conc 31.8 g/dl (31.0-36.0); Mean Corpuscular Hemoglobin 25.8 pg (27.0-33.0); Mean Corpuscular Volume 81.0 fL (80.0-98.0); NRBC Abs Auto 0.000 X10*3/uL (0.0-0.012); NRBC Pct Auto 0.0 /100WBC (0.0-0.2); Platelet Count 294 X10*3/uL (160-400); Red Blood Count 5.32 X10*6/uL (4.60-5.80); Reticulocytes Absolute 0.082 X10*6/uL (0.026-0.095); White Blood Count 7.9 X10*3/uL (4.8-10.8)
[2025-03-07 08:06] LABS: Hemoglobin A1C 160.4314 umol/L; Total Hemoglobin (HGBA1C) 3641.4122 umol/L
[2025-03-07 08:08] LABS: Alanine Aminotransferase 18 U/L (0-40); Albumin Level 4.1 g/dL (3.5-5.0); Alkaline Phosphatase 72 U/L (39-117); Anion Gap 13 (12-20); Aspartate Amino Transferase 18 U/L (5-37); Blood Urea Nitrogen 17 mg/dL (9-16); Calcium 9.4 mg/dL (8.4-10.2); Carbon Dioxide 27 mmol/L (22-29); Chloride 105 mmol/L (96-108); Estimated Glomerular Filt Rate > 60; Iron 51 mcg/dL (45-160); Percent Iron Saturation 19 % (15-50); Potassium 4.3 mmol/L (3.3-5.1); Sodium 141 mmol/L (135-145); Total Iron Binding Capacity 274 mcg/dL (228-428); Total Protein 7.2 g/dL (6.5-8.0); Unsaturated Iron Binding 223 ug/dL
[2025-03-07 08:28] LABS: Ferritin 202 ng/mL (20-250); Free T4 (Free Thyroxine) 0.88 ng/dL (0.71-1.85); Thyroid Stimulating Hormone 1.02 uIU/mL (0.32-4.0)
[2025-03-07 08:31] LABS: Folate 7.7 ng/mL (> or = 4.0); Vitamin B12 344 pg/mL (200-900)
== END 2025-03-07 05:58 | disposition home or self-care (01) ==
LOC: HO.LAB 05:57
PROVIDERS: Absent Provider Physician Assistant Medical; PCP Internal Medicine; Visit Provider Internal Medicine
DX: E11.65 Type 2 diabetes mellitus with hyperglycemia (principal); D50.8 Other iron deficiency anemias; Z79.4 Long term (current) use of insulin
CPT/HCPCS: 36415; 80053; 82570; 82607; 82728; 82746; 83036; 83540; 84439; 84443; 85025; 85045

== ENCOUNTER 2025-03-08 15:15 | Outpatient (AMB) | payer OTHER, SELFPAY ==
[2025-03-08 15:22] VITALS: BP 120/72; PULSE 72; O2SAT 98; BMI 53.4
--- NOTE | 2025-03-08 15:22 | A.OFFPC_ITS ---
Vital Signs 03/08/25 15:22 Height 5 ft 8 in Weight 351 lb BMI 53.4 BP 120/72 Blood Pressure Location Lt brachial Position Sitting Pulse 72 Pulse Source Pulse Oximeter Pulse Oximetry (%) 98 Oxygen Delivery Method Room Air Intake Visit Reasons: DM Allergies dulaglutide (From Trulicity) Adverse Reaction (Intermediate, Verified 03/08/25 15:22) Diarrhea Flexeril Adverse Reaction (Mild, Verified 03/08/25 15:22) nausea, sleepiness glipizide Adverse Reaction (Mild, Verified 03/08/25 15:22) hypoglycemia Tobacco use date assessed: 10/15/24 Dental Screening Dental Screen Date: 10/15/24 HPI DM HPI Details milagros [id number] congolese. . for the asthma- controlled seldom use the albuterol [facility] Medical History Bronchitis Diabetic neuropathy Type II diabetes with shelter use of insulin Pharyngitis Migraine Vitamin B12 deficiency Obesity due to excess calories Peripheral neuropathy Obesity History of colon polyps Asthma Depression Back pain with sciatica Proteinuria Hemorrhoids SHERRI (obstructive sleep apnea) Hyperlipidemia LDL goal <100 Essential hypertension Vitamin D deficiency Surgical History Hx of colonoscopy History of esophagogastroduodenoscopy (EGD) Loculated pleural effusion Loculated empyema Family History Father Cirrhosis Diabetes Mother Colon cancer, Onset Age: 83 Skin cancer Brother Prostate cancer CVA (cerebral vascular accident) Social History Household Members: Family Housing: Apartment Are you a primary rn primary care to a significant other at home: No Do you presently have visiting nurse or other home services: No Alcohol intake: never Patient Tobacco Use Status: Former Tobacco user Tobacco use type: Cigarette Years Smoked: 6- stopped 2016 e-Cigarette/Vaping Use: Never Used Second Hand Smoke Exposure: No service: No Current occupational status: disabled Cognitive needs: Yes (cane) Hearing needs: No Vision needs: Yes (glasses) Questionnaire PHQ-9 Over the last 2 weeks, how often have you been bothered by any of the following problems? 1. Little interest or pleasure in doing things: not at all 2. Feeling down, depressed, or hopeless: not at all 3. Trouble falling or staying asleep, or sleeping too much: not at all 4. Feeling tired or having little energy: not at all 5. Poor appetite or overeating: not at all 6. Feeling bad about yourself - or that you are a failure or have let yourself or your family down: not at all 7. Trouble concentrating on things, such as reading the newspaper or watching television: not at all 8. Moving or speaking so slowly that other people could have noticed. Or the opposite - being so fidgety or restless that you have been moving around a lot more than usual: not at all 9. Thoughts that you would be better off or of hurting yourself in some way: not at all Total score: 0 Depression Screening Interpretation: Negative Depression Screening Done: Yes Source: Developed by Drs. Ambrosio Rivas, Lanette Escobedo, Vinayak Marks and colleagues, with an educational joselyn from [employer]. Thrive Questionnaire Date Thrive assessed: 10/15/24 I am a: Patient What is your living situation today?: I have a steady place to live Within the past 12 months, did the food you bought not last and you didn't have the money to get more?: I choose not to answer this question Within the past 12 months, did you worry whether your food would run out before you got money to buy more?: I choose not to answer this question Do you have trouble paying for medicines?: I choose not to answer this question Do you have trouble getting transportation to medical appointments?: No Do you have trouble paying your heating and electricity bill?: No Do you have trouble taking care of your child, family member or friend?: No Do you have trouble with day-to-day activities such as bathing, preparing meals, shopping, managing finances, etc.?: No Are you currently unemployed and looking for a job?: No Are you interested in more education?: No Please select the resources that you would like help with: None Currently or been in a relationship where the following occur: I choose not to answer THRIVE Score: 0 AUDIT C Alcohol Use Questionnaire (AUDIT-C) 1. How often do you have a drink containing alcohol?: Never 3. How often do you have six or more drinks on one occasion?: Never Total Score: 0 MARK ANTHONY-7 AMB Questionnaire MARK ANTHONY-7 Date MARK ANTHONY - 7 assessed: 11/01/24 Feeling nervous, anxious, or on edge: 0 = Not at all Not being able to stop or control worryin = Not at all Worrying too much about different things: 0 = Not at all Trouble relaxin = Not at all Being so restless that it is hard to sit still: 0 = Not at all Becoming easily annoyed or irritable: 0 = Not at all Feeling afraid as if something awful might happen: 0 = Not at all Total MARK ANTHONY-7 score (0-4 normal; 5-9 mild; 10-14 moderate; 15-21 severe): 0 Source: Developed by Drs. Ambrosio Rivas, Lanette Escobedo, Vinayak Marks and colleagues, with an educational joselyn from [employer]. Physical exam (Primary Care) Vital Signs: Last Vital Signs Pulse 72 03/08/25 15:22 BP 120/72 03/08/25 15:22 Pulse Ox 98 03/08/25 15:22 Oxygen Delivery Method Room Air 03/08/25 15:22 BMI result Body Mass Index 53.4 Tobacco/Smoking Status: Tobacco use Status Tobacco use date assessed 10/15/24 03/08/25 15:23 Patient Tobacco Use Status Former Tobacco user 03/08/25 15:23 Tobacco use type Cigarette 03/08/25 15:23 e-Cigarette/Vaping Use Never Used 03/08/25 15:23 PHQ-9: PHQ-9 Score PHQ-9: Total score 0 03/08/25 15:23 Depression Screening Interpretation: Negative Thrive Assessment: Date of Thrive Assessment Date Thrive assessed 10/15/24 03/08/25 15:23 Currently or been in a relationship where the following occur: I choose not to answer Const General: alert; No acute distress Eyes Conjunctivae: conjunctivae normal Resp Auscultation: clear to auscultation bilaterally Cardio Rate: regular rate Rhythm: regular rhythm GI Inspection: Yes normal to inspection Extrem General: Yes normal to inspection and No edema Coding Level of Care Code Est Pt Level 4 (13189) Complex EM visit Add On G2211 Diagnoses Type 2 diabetes mellitus with hyperglycemia E11.65 Essential hypertension I10 Hyperlipidemia LDL goal <100 E78.5 Morbid obesity E66.01 GERD (gastroesophageal reflux disease) K21.9 Moderate persistent asthma without complication J45.40 Asthma severity: moderate Asthma persistence: persistent Asthma complication type: uncomplicated SHERRI (obstructive sleep apnea) G47.33 Assessment & Plan Assessment & Plan (1) Type 2 diabetes mellitus with hyperglycemia: Comment: EYE and LASIK Code(s): E11.65 - Type 2 diabetes mellitus with hyperglycemia Category: Medical Plan: Decrease the amount of carbohydrate intake, pasta, bread, rice and potatoes are all sugar and that is aside from all the sweet stuff, remember that fruits are g ood but they are Sweet also. Hemoglobin A1c goal of less than 6.5. Patient is using Mounjaro 7.5 mg once a week and patient follows up with endocrinology (2) Essential hypertension: Code(s): I10 - Essential (primary) hypertension Category: Medical Plan: Continue with blood pressure medication. Decrease salt intake and exercise patient on irbesartan hydrochlorothiazide 150/12.5 mg once a day (3) Hyperlipidemia LDL goal <100: Code(s): E78.5 - Hyperlipidemia, unspecified Category: Medical Plan: Avoid fried foods, chicken skin, eggs, butter margarine, pastries and meat. Be it pork or beef they have a lot of cholesterol on atorvastatin 10 mg at bedtime (4) Morbid obesity: Code(s): E66.01 - Morbid (severe) obesity due to excess calories Category: Medical Plan: Continue with the Mounjaro continue with being active (5) GERD (gastroesophageal reflux disease): Code(s): K21.9 - Gastro-esophageal reflux disease without esophagitis Category: Medical Plan: Avoid the foods that causes that usually spicy foods, tomato products, juices, coffee, soda and foods that your sensitive to. After eating do not lie down, allow 3-4 hours before in lie down. And keep the head of bed above 30 degrees to avoid the acid from going up. (6) Asthma: Comment: PFT restrictive March 2019 Code(s): J45.909 - Unspecified asthma, uncomplicated Category: Medical Qualifiers: Asthma severity: moderate Asthma persistence: persistent Asthma complication type: uncomplicated Qualified Code(s): J45.40 - Moderate persistent asthma, uncomplicated Plan: Patient follows up with Pulmonary using montelukast albuterol Symbicort Daliresp (7) SHERRI (obstructive sleep apnea): Comment: Continue with the CPAP every night and benefits from this more than 4 hours a night Code(s): G47.33 - Obstructive sleep apnea (adult) (pediatric) Category: Medical Plan: Continue to use the CPAP more than 4 hours a night and benefits from this. Plan History of Present Illness The patient is a 45-year-old male presenting for a follow-up visit. He has a history of morbid obesity with a BMI of 53 and has recently achieved a weight loss of 4 pounds. The patient has been diagnosed with hypertension, hypercholesterolemia, asthma, obstructive sleep apnea, diabetes mellitus, psoriasis, generalized anxiety disorder, and gastroesophageal reflux disease (GERD). The patient follows up with endocrinology and uses a continuous glucose monitor to manage his diabetes, which is currently controlled with a hemoglobin A1c of 6.2. He is on Mounjaro 7.5 mg once a week and has been advised to maintain a hemoglobin A1c goal of less than 6.5. The patient has been taken off insulin due to stable blood sugar levels. For hypertension, the patient is on irbesartan hydrochlorothiazide 150/12.5 mg once a day. His cholesterol is managed with atorvastatin 10 mg at bedtime, with the last LDL recorded at 55 mg/dL. The patient has obstructive sleep apnea and uses a CPAP machine for more than 4 hours a night, which he finds beneficial. He follows up with pulmonary specialists and uses montelukast, albuterol, and Symbicort for asthma management. Recent blood work showed mild anemia with a hemoglobin level of 13.7, but electrolytes, renal function, and liver function are normal. The patient is up to date with his colonoscopy, last performed in March 2023. Health Maintenance - Colonoscopy up to date, last performed in March 2023 - Regular follow-up with endocrinology for diabetes management - Regular follow-up with pulmonary specialists for obstructive sleep apnea and asthma management Social History - Patient drinks flavored water without sugar Review of Systems - General: Reports weight loss of 4 pounds - Respiratory: Reports using CPAP more than 4 hours a night, benefits from this - Endocrine: Reports diabetes mellitus controlled with hemoglobin A1c of 6.2 Physical Exam Results - Labs: Hemoglobin 13.7 indicating mild anemia - Labs: Hemoglobin A1c 6.2 indicating controlled diabetes - Labs: LDL 55 mg/dL from last cholesterol test Plan The patient will continue to manage diabetes with Mounjaro 7.5 mg weekly and maintain a hemoglobin A1c goal of less than 6.5. He will follow up with endocrinology and continue using a continuous glucose monitor. For hypertension, the patient will remain on irbesartan hydrochlorothiazide 150/12.5 mg daily. Cholesterol management will continue with atorvastatin 10 mg at bedtime. The patient will maintain regular follow-ups with pulmonary specialists for obstructive sleep apnea and asthma management, using CPAP, montelukast, albutero l, and Symbicort as prescribed. No immediate need for additional blood work was identified, but future tests will be considered during the next visit. Patient was informed and verbally consented to the use of an ambient scribe for clinic note documentation during this visit. Discussion Notes I discussed with the patient the importance of maintaining his current diabetes management plan, including the use of Mounjaro and regular endocrinology follow- ups. We reviewed his hypertension and cholesterol management, emphasizing adherence to prescribed medications. The patient was advised to continue using CPAP for obstructive sleep apnea and to follow up with pulmonary specialists for asthma management. We agreed that no immediate blood work is necessary, but future tests will be planned for the next visit. Patient Instructions - Continue taking Mounjaro 7.5 mg weekly for diabetes management. - Follow up with endocrinology and use continuous glucose monitor regularly. - Take irbesartan hydrochlorothiazide 150/12.5 mg daily for hypertension. - Continue atorvastatin 10 mg at bedtime for cholesterol management. - Use CPAP for more than 4 hours nightly for obstructive sleep apnea. - Follow up with pulmonary specialists for asthma management and use prescribed medications. - No immediate blood work needed; plan for future tests at next visit.
--- OUTSIDE RECORDS SUMMARY | 2025-03-08 16:31 | XMS_ITS | Encounter Summary ---
Author Organization [facility] Address [address] [place] [address] Care Team Providers Care Police Patrol Lieutenant Name Role Phone Nereida Llanos MD Primary Care Provider Unavailabl e Reason for Visit * Reason Onset Date Comments DME Request 10/19/2018 Order for CPAP s upplies faxed to [facility]. Encounter Details Date Type Department Care Team Description 10/19/2018 Telephone Pulmonology - [place] 175 [facility] [address] [place] [address] Aiden Ambriz MD DME Request (Order for CPAP supplies faxed to [facility].) Social History Tobacco Use Types Packs/Day Years Used Date Smoking Tobacco: Former Cigarettes 0.3 3 Smokeless Tobacco: Never Sex Assigned at Date Recorded Not on file documented as of this encounter Plan of Treatment Not on file documented as of this encounter Visit Diagnoses Not on filedocumented in this encounter Care Teams Police Patrol Lieutenant Relationship Specialty Start Date End Date Nereida Llanos MD PCP - General Internal Medicine 09/01/17 documented as of this encounter
--- OUTSIDE RECORDS SUMMARY | 2025-03-08 16:31 | XMS_ITS | Clinical Summary ---
Author Organization [address] [place] [address] [place] [phone] Phone Care Team Providers Care Door Cutter Name Role Phone Nereida Llanos MD Primary Care Provider [phone] Surgical History Surgery Date Site/Laterality Comments OTHER SURGICAL HISTORY PROCEDURE: INSERTION OF CHEST TUBE Medical History Medical History Date Comments Asthma 10/23/2017 DX:Asthma History of pneumonia 10/23/2017 DX:History of pneumonia SHERRI (obstructive sleep apnea) 10/23/2017 DX :SHERRI (obstructive sleep apnea) Hyperlipidemia 12/16/2017 DX:Hyperlipidemi a Morbid obesity with BMI of 5 0.0-59.9, adult ([facility] V24, [facility] V28) 12/16/2017 DX:Morbid obesity wit h BMI of 50.0-59.9, adult ([facility]) Diabetes mellitus type 2 wit h neurological manifestations ([facility] V24, [facility] V28) 12/16/2017 DX:Diabetes mellitus type 2 with neurological manifestations ([facility]) Peripheral neuropathy 12/16/2017 DX:Periphe ral neuropathy DM (diabetes mellitus), type 2 with renal complications ([facility] V24, [facility] V28) 12/16/2017 DX:DM (diabetes mellitus), t ype 2 with renal complications ([facility]) Proteinuria 12/16/2017 DX:Proteinuria Sciatica 12/16/2017 [...] 3:00 PM EDT Consult Orthopedic Surgery - [place] [address] 175 [facility] 250 [place] [address] Gerald Snell, DPPatricia 175 [facility] [address] [place] [address] Health Maintenance Due Date Last Done Comments [...] patient's age to complete this topic Insurance [place] [address] PLAN Care Teams Door Cutter Relationship Specialty Start Date End Date Nereida Llanos MD [address] [place] [address] [address] [facility] [place] [address] PCP - General Internal Medicine 02/04/18
== END 2025-03-08 16:08 | disposition home or self-care (01) ==
LOC: HO.HMCH 15:16
PROVIDERS: PCP Internal Medicine; Visit Provider Internal Medicine
DX: E11.65 Type 2 diabetes mellitus with hyperglycemia (principal); E66.01 Morbid (severe) obesity due to excess calories; Z68.43 Body mass index [BMI] 50.0-59.9, adult; I10 Essential (primary) hypertension; E78.5 Hyperlipidemia, unspecified; K21.9 Gastro-esophageal reflux disease without esophagitis; J45.40 Moderate persistent asthma, uncomplicated; G47.33 Obstructive sleep apnea (adult) (pediatric)

== ENCOUNTER → 2025-03-08 15:15 | Outpatient (BNVA) | payer OTHER, SELFPAY | PROVIDERS: PCP Internal Medicine; Visit Provider Internal Medicine | DX: E11.65 Type 2 diabetes mellitus with hyperglycemia (principal); I10 Essential (primary) hypertension; E66.01 Morbid (severe) obesity due to excess calories; K21.9 Gastro-esophageal reflux disease without esophagitis; J45.40 Moderate persistent asthma, uncomplicated; G47.33 Obstructive sleep apnea (adult) (pediatric); E78.00 Pure hypercholesterolemia, unspecified; J45.909 Unspecified asthma, uncomplicated; F41.1 Generalized anxiety disorder; Z99.89 Dependence on other enabling machines and devices; Z68.43 Body mass index [BMI] 50.0-59.9, adult | CPT/HCPCS: 99212 ==

== ENCOUNTER 2025-03-18 14:50 | Outpatient (AMB) | payer OTHER, SELFPAY ==
--- NOTE | 2025-03-18 14:52 | A.OFFVIS_ITS ---
Vital Signs 03/18/25 15:03 Height 5 ft 8 in Weight 351 lb 10.197 oz BMI 53.5 BP 110/72 Blood Pressure Location Rt brachial Position Sitting Pulse 94 Pulse Source Pulse Oximeter Pulse Oximetry (%) 94 Oxygen Delivery Method Room Air Intake Visit Reasons: Type II diabetes Intake Note: Patient present today to follow up on Type 2 Diabetes Mellitus. Last Diabetic Eye exam: 05/19/2024 [facility] Last Podiatry Visit: Does not see a Wellness Ambassador Random Glucose: 126 mg/dl HgA1C: 6.2% 03/07/2024 [employer] Ass[employer] Craft Crewman Required: Yes [employer] Craft Crewman Language: Web Site Designer Services: [employer] Craft Crewman Present [employer] Craft Crewman Name: Mike [id number] Information Interpreted: non-clinical & clinical Accompanied by: Self / Same As Patient Allergies dulaglutide (From [facility]) Adverse Reaction (Intermediate, Verified 03/18/25 15:01) Diarrhea Flexeril Adverse Reaction (Mild, Verified 03/18/25 15:01) nausea, sleepiness glipizide Adverse Reaction (Mild, Verified 03/18/25 15:01) hypoglycemia Medication List - Last Reconciled 03/18/25 by JENNIFER Cooper albuterol sulfate 2.5 mg (3 mL) inhalation Q8H PRN atorvastatin 10 mg PO BEDTIME betamethasone dipropionate 0.05% 1 appl topical BID PRN blood sugar diagnostic (FreeStyle Lite Strips) As directed check the BS TID blood-glucose meter (FreeStyle Lite Meter kit) As directed check the blood sugar 3 times a day blood-glucose sensor (FreeStyle Spenser 3 Plus Sensor device) Apply 1 new sensor every 15 days as directed to monitor blood glucose continuously. blood-glucose,library supervisor,cont (FreeStyle Spenser 3 [place]) Use daily to monitor blood glucose levels continuously. budesonide-formoterol 160-4.5 mcg/actuation 2 puffs inhalation BID PRN cane As directed HEAVY DUTY cholecalciferol (vitamin D3) 25 mcg PO DAILY clonazepam 0.5 mg PO DAILY PRN [cpap As directed] [detachable shower Head As directed] fluticasone propionate 50 mcg/actuation 2 sprays intranasal DAILY PRN irbesartan-hydrochlorothiazide 150-12.5 mg 1 tab PO DAILY lancets As directed lancets (FreeStyle Lancets) As directed check blood sugar 3 times a day montelukast 10 mg PO BEDTIME nebulizers As directed omeprazole 20 mg PO DAILY@0630 [Quad cane As directed] Shower Chair As directed tirzepatide (Mounjaro) 7.5 mg (0.5 mL) subcut QWEEK tramadol 50 mg PO Q8H PRN 30 days HPI Comments Details: This is a 44-year-old male with a past medical history of type 2 diabetes, vitamin B12 deficiency, hyperlipidemia, hypertension, asthma, psoriasis, GERD, morbid obesity and anxiety presenting for diabetic management. He was diagnosed with Type II diabetes about 7 years ago in the [facility]. Reviewed Spenser 3 data for the past 2 weeks GMI 6.1% 100% of readings are in target range. Current medication regimen: Mounjaro 7.5 mg weekly He stopped drinking soda and eating bread. Past medications: Glipizide discontinued due to hypoglycemia. Trulicity discontinued due to diarrhea. Ozempic caused diarrhea, nausea and flatus on higher dosages. Tresiba, Metformin and Jardiance discontinued due to improved glycemic control. Compliance issues: None Hypoglycemia symptoms: He had 1 or 2 episodes shortly after discontinuing Jardiance and metformin. Hyperglycemia symptoms: Denies Eye exam: Up-to-date at [facility]. He was contacted by Podiatry to set up his visit. He has an appointment in March. Microvascular complications: mild peripheral neuropathy, cataracts Macrovascular complications: none Hypertension: treated with your irbesartan-hydrochlorothiazide 150-12.5 mg daily Hyperlipidemia: treated with atorvastatin 10 mg. ROS: Constitutional: No unexplained weight loss, fever, chills Eyes: No vision changes, blurry vision, double vision Cardiovascular: No chest pain, chest pressure or chest discomfort. No palpitations Gastrointestinal: No anorexia, nausea, vomiting or diarrhea. No abdominal pain or blood in stool. Neurologic: No headache, dizziness, syncope, unilateral weakness, ataxia, numbness or tingling in the extremities. Physical exam: Constitutional: Alert, in no distress. Neck: Supple, Full range of motion. No lymphadenopathy. Respiratory: Clear to auscultation. Cardiovascular: S1 S2 regular. No murmurs. [facility] Medical History Bronchitis Diabetic neuropathy Type II diabetes with correction use of insulin Pharyngitis Migraine Vitamin B12 deficiency Obesity due to excess calories Peripheral neuropathy Obesity History of colon polyps Asthma Depression Back pain with sciatica Proteinuria Hemorrhoids SHERRI (obstructive sleep apnea) Hyperlipidemia LDL goal <100 Essential hypertension Vitamin D deficiency Surgical History Hx of colonoscopy History of esophagogastroduodenoscopy (EGD) Loculated pleural effusion Loculated empyema Family History Father Cirrhosis Diabetes Mother Colon cancer, Onset Age: 83 Skin cancer Brother Prostate cancer CVA (cerebral vascular accident) Social History Household Members: Family Housing: Apartment Are you a primary hearing care professional to a significant other at home: No Do you presently have visiting nurse or other home services: No Alcohol intake: never Patient Tobacco Use Status: Former Tobacco user Tobacco use type: Cigarette Years Smoked: 6- stopped 2016 e-Cigarette/Vaping Use: Never Used Second Hand Smoke Exposure: No service: No Current occupational status: disabled Cognitive needs: Yes (cane) Hearing needs: No Vision needs: Yes (glasses) Physical Exam Vital Signs: Last Vital Signs Pulse 94 03/18/25 15:03 BP 110/72 03/18/25 15:03 Pulse Ox 94 03/18/25 15:03 Oxygen Delivery Method Room Air 03/18/25 15:03 BMI result Body Mass Index 53.5 Office Procedures Glucose Monitoring Details Details: see HPI 10168 - Glucose monitoring, continuous-physician I&R Procedure code (CPT) selection complete Results Reviewed Results Reviewed: Laboratory Last Values Glucose (Clinic) 126 mg/dL (60-115) H 03/18/25 15:05 Laboratory Tests 07/13/24 03/07/25 03/07/25 06:15 06:15 06:21 Plt Count 294 Creatinine 0.73 Estimated GFR > 60 Hemoglobin A1c % 6.2 H AST 18 ALT 18 TSH 1.02 Free T4 0.88 Urine Creatinine 128.60 Urine Microalbumin 24.0 Microalb/Creat Ratio 21.2 Assessment & Plan Assessment & Plan (1) Type II diabetes with correction use of insulin: Code(s): E11.9 - Type 2 diabetes mellitus without complications; Z79.4 - half-way (current) use of insulin Category: Medical Qualifiers: Diabetes mellitus complication detail: with mononeuropathy Diabetes mellitus complication status: with neurologic complications Qualified Code(s): E11.41 - Type 2 diabetes mellitus with diabetic mononeuropathy; Z79.4 - half-way (current) use of insulin Plan In summary this is a 44-year-old male with controlled type 2 diabetes. Continue Mounjaro 7.5 mg weekly. Discussed pathophysiology of Type II Diabetes Mellitus with the patient in detail.? I explained the correction risks and complications associated with uncontrolled diabetes including nephropathy, neuropathy, peripheral vascular disease, retinopathy, increased risk of heart disease and stroke.? Discussed lifestyle modification with the patient. Follow up in 3 months. Orders: Orders AMB Glucose Monitoring Today E11.9 - Type 2 diabetes mellitus without complications Coding Level of Care Code Est Pt Level 4 (76652) Diagnoses Type 2 diabetes mellitus with diabetic mononeuropathy, with long-term current use of insulin E11.41; Z79.4 Diabetes mellitus complication detail: with mononeuropathy Diabetes mellitus complication status: with neurologic complications CPT Codes Details - CPT: 12548 - Glucose monitoring, continuous-physician I&R ([id number])
--- OUTSIDE RECORDS SUMMARY | 2025-03-18 14:53 | XMS_ITS | Clinical Summary ---
Author Organization [address] [place] [address] [place] [phone] Phone Care Team Providers Care Laborer Prestressed Concrete Name Role Phone Nereida Llanos MD Primary Care Provider [phone] Surgical History Surgery Date Site/Laterality Comments OTHER SURGICAL HISTORY PROCEDURE: INSERTION OF CHEST TUBE Medical History Medical History Date Comments Asthma 10/23/2017 DX:Asthma History of pneumonia 10/23/2017 DX:History of pneumonia SHERRI (obstructive sleep apnea) 10/23/2017 DX :SHERRI (obstructive sleep apnea) Hyperlipidemia 12/16/2017 DX:Hyperlipidemi a Morbid obesity with BMI of 5 0.0-59.9, adult ([facility] V24, [facility] V28) 12/16/2017 DX:Morbid obesity wit h BMI of 50.0-59.9, adult ([facility]) Diabetes mellitus type 2 wit h neurological manifestations ([facility] V24, [facility] V28) 12/16/2017 DX:Diabetes mellitus type 2 with neurological manifestations ([facility]) Peripheral neuropathy 12/16/2017 DX:Periphe ral neuropathy DM (diabetes mellitus), type 2 with renal complications ([facility] V24, [facility] V28) 12/16/2017 DX:DM (diabetes mellitus), t ype 2 with renal complications ([facility]) Proteinuria 12/16/2017 DX:Proteinuria Sciatica 12/16/2017 [...] 3:00 PM EDT Consult Orthopedic Surgery - [place] [address] [place] [id number] Gerald Snell DPM [address] [place] [address] Health Maintenance Due Date Last Done Comments [...] 2 - PCV) 06/04/2018 06/04/2017 COVID-19 Vaccine (2023-2 5 season) 2024 Depression Screening 07/21/2024 Cholesterol [...] patient's age to complete this topic Insurance [facility] Care Teams Laborer Prestressed Concrete Relationship Specialty Start Date End Date Nereida Llanos MD [address] [place] [address] [address] [facility] [place] [address] PCP - General Internal Medicine 02/04/18
[2025-03-18 15:03] VITALS: BP 110/72; PULSE 94; O2SAT 94; BMI 53.5
[2025-03-18 15:11] LABS: Glucose, Whole Blood 126 mg/dL (60-115)
== END 2025-03-18 15:30 | disposition home or self-care (01) ==
LOC: HO.ENCR 14:51
PROVIDERS: PCP Internal Medicine; Visit Provider Physician Assistant Medical
DX: E11.41 Type 2 diabetes mellitus with diabetic mononeuropathy (principal); Z79.4 Long term (current) use of insulin

== ENCOUNTER → 2025-03-18 14:50 | Outpatient (BNVA) | payer OTHER, SELFPAY | PROVIDERS: PCP Internal Medicine; Visit Provider Physician Assistant Medical | DX: E11.41 Type 2 diabetes mellitus with diabetic mononeuropathy (principal); Z79.4 Long term (current) use of insulin | CPT/HCPCS: 82947; 99212 ==

== ENCOUNTER 2025-05-17 15:09 | Outpatient (AMB) | payer OTHER, SELFPAY ==
[2025-05-17 15:11] VITALS: BP 102/72; PULSE 83; O2SAT 97; BMI 54.4
--- NOTE | 2025-05-17 15:11 | A.OFFVIS_ITS ---
Vital Signs 05/17/25 15:11 Height 5 ft 8 in Weight 358 lb 0.491 oz BMI 54.4 BP 102/72 Blood Pressure Location Lt brachial Position Sitting Pulse 83 Pulse Source Pulse Oximeter Pulse Oximetry (%) 97 Oxygen Delivery Method Room Air Intake Visit Reasons: DMT2 Follow-up Intake Note: Patient present today to follow up on Type 2 Diabetes Mellitus. Last Diabetic Eye exam: Has upcoming appt on 05/19/25 [facility] Last Podiatry Visit: Last visit was on 03/2025 Random Glucose: 99 mg/dl HgA1C: 6.2% 03/07/2025 Baked Goods Stock Clerk Required: Yes Baked Goods Stock Clerk Language: [place] Applier Services: Baked Goods Stock Clerk Present Baked Goods Stock Clerk Name: Ronald [id number] Information Interpreted: non-clinical & clinical Accompanied by: Self / Same As Patient Allergies dulaglutide (From [facility]) Adverse Reaction (Intermediate, Verified 05/17/25 15:17) Diarrhea Flexeril Adverse Reaction (Mild, Verified 05/17/25 15:17) nausea, sleepiness glipizide Adverse Reaction (Mild, Verified 05/17/25 15:17) hypoglycemia Medication List - Last Reconciled 05/17/25 by JENNIFER Cooper albuterol sulfate 2.5 mg (3 mL) inhalation Q8H PRN atorvastatin 10 mg PO BEDTIME betamethasone dipropionate 0.05% 1 appl topical BID PRN blood sugar diagnostic (FreeStyle Lite Strips) As directed check the BS TID blood-glucose meter (FreeStyle Lite Meter kit) As directed check the blood sugar 3 times a day blood-glucose sensor (FreeStyle Spenser 3 Plus Sensor device) Apply 1 new sensor every 15 days as directed to monitor blood glucose continuously. blood-glucose,gravity meter observer,cont (FreeStyle Spenser 3 [place]) Use daily to monitor blood glucose levels continuously. budesonide-formoterol 160-4.5 mcg/actuation 2 puffs inhalation BID PRN cane As directed HEAVY DUTY cholecalciferol (vitamin D3) 25 mcg PO DAILY clonazepam 0.5 mg PO DAILY PRN [cpap As directed] [detachable shower Head As directed] fluticasone propionate 50 mcg/actuation 2 sprays intranasal DAILY PRN irbesartan-hydrochlorothiazide 150-12.5 mg 1 tab PO DAILY lancets As directed lancets (FreeStyle Lancets) As directed check blood sugar 3 times a day montelukast 10 mg PO BEDTIME nebulizers As directed omeprazole 20 mg PO DAILY@0630 [Quad cane As directed] Shower Chair As directed tirzepatide (Mounjaro) 7.5 mg (0.5 mL) subcut QWEEK tramadol 50 mg PO Q8H PRN 30 days HPI Comments Details: This is a 44-year-old male with a past medical history of type 2 diabetes, vitamin B12 deficiency, hyperlipidemia, hypertension, asthma, psoriasis, GERD, morbid obesity and anxiety presenting to discuss his diabetic medication. He was diagnosed with Type II diabetes about 7 years ago [place] the [place]. Hemoglobin A1c 6.2%. Reviewed CGM data G [place] 6.2% CGM active 83% Glucose variability 15.1% Very high 0% High 1% Target range 99% Low 0% My interpretation is the patient has excellent glycemic control throughout 24 hours. He called to report potential dizziness after administering Mounjaro. Patient says this happened after 2 injections. He felt dizzy and off-balance the day after. He has been on it for 2 months. He did not have side effects to the last 2 doses. He says he was also using a different cologne, and he thought that might be related so he has stopped using it. He checked his blood sugar when he was dizzy, and it was normal. Denies ear pain/difficulty hearing, CP, SOB, heart palpitatiosn, headaches, fevers, chills. Past medications: Glipizide discontinued due to hypoglycemia. Trulicity discontinued due to diarrhea. Ozempic caused diarrhea, nausea and flatus on higher dosages. Tresiba, Metformin and Jardiance discontinued due to improved glycemic control. Compliance issues: None Hypoglycemia symptoms: Denies Hyperglycemia symptoms: Denies Eye exam: Up-to-date at [facility]. He was contacted by Podiatry to set up his visit. He has an appointment in March. Microvascular complications: mild peripheral neuropathy, cataracts Macrovascular complications: none Hypertension: treated with your irbesartan-hydrochlorothiazide 150-12.5 mg daily Hyperlipidemia: treated with atorvastatin 10 mg. ROS: Constitutional: No unexplained weight loss, fever, chills Eyes: No vision changes, blurry vision, double vision Cardiovascular: No chest pain, chest pressure or chest discomfort. No palpitations Gastrointestinal: No anorexia, nausea, vomiting or diarrhea. No abdominal pain or blood in stool. Neurologic: No headache, syncope, unilateral weakness, ataxia, numbness or tingling in the extremities. Physical exam: Constitutional: Alert, in no distress. Ears: Clear external auditory canals. TMs hamilton and pearly Neck: Supple, Full range of motion. No lymphadenopathy. Respiratory: Clear to auscultation. Cardiovascular: S1 S2 regular. No murmurs. Extremities: No edema PFSH Medical History (Updated 05/17/25 @ 15:48 by JENNIFER Cooper) Dizziness Low HDL (under 40) Controlled type 2 diabetes mellitus Bronchitis Diabetic neuropathy Type II diabetes with long term care phlebotomist use of insulin Pharyngitis Migraine Vitamin B12 deficiency Obesity due to excess calories Peripheral neuropathy Obesity History of colon polyps Asthma Depression Back pain with sciatica Proteinuria Hemorrhoids SHERRI (obstructive sleep apnea) Hyperlipidemia LDL goal <100 Essential hypertension Vitamin D deficiency Surgical History Hx of colonoscopy History of esophagogastroduodenoscopy (EGD) Loculated pleural effusion Loculated empyema Family History Father Cirrhosis Diabetes Mother Colon cancer, Onset Age: 83 Skin cancer Brother Prostate cancer CVA (cerebral vascular accident) Social History Household Members: Family Housing: Apartment Are you a primary personal care home administrator to a significant other at home: No Do you presently have visiting nurse or other home services: No Alcohol intake: never Patient Tobacco Use Status: Former Tobacco user Tobacco use type: Cigarette Years Smoked: 6- stopped 2016 e-Cigarette/Vaping Use: Never Used Second Hand Smoke Exposure: No service: No Current occupational status: disabled Cognitive needs: Yes (cane) Hearing needs: No Vision needs: Yes (glasses) Physical Exam Vital Signs: Last Vital Signs Pulse 83 05/17/25 15:11 BP 102/72 05/17/25 15:11 Pulse Ox 97 05/17/25 15:11 Oxygen Delivery Method Room Air 05/17/25 15:11 BMI result Body Mass Index 54.4 Office Procedures Glucose Monitoring Details Details: see [facility] [address] - Glucose monitoring, continuous-physician I&R Procedure code (CPT) selection complete Results Reviewed Results Reviewed: Laboratory Last Values Glucose (Clinic) 99 mg/dL (60-115) 05/17/25 15:18 Laboratory Tests 07/13/24 03/07/25 03/07/25 06:15 06:15 06:21 Plt Count 294 Creatinine 0.73 Estimated GFR > 60 Hemoglobin A1c % 6.2 H AST 18 ALT 18 TSH 1.02 Free T4 0.88 Urine Creatinine 128.60 Urine Microalbumin 24.0 Microalb/Creat Ratio 21.2 Assessment & Plan Assessment & Plan (1) Controlled type 2 diabetes mellitus: Code(s): E11.9 - Type 2 diabetes mellitus without complications Category: Medical (2) Hyperlipidemia LDL goal <100: Code(s): E78.5 - Hyperlipidemia, unspecified Category: Medical (3) Low HDL (under 40): Code(s): E78.6 - Lipoprotein deficiency Category: Medical (4) Dizziness: Code(s): R42 - Dizziness and giddiness Category: Medical Plan In summary this is a 45-year-old male with controlled type 2 diabetes. He had 2 episodes of dizziness which she thought could be related to Mounjaro, but he has not had side effects with the last 2 doses. He will monitor for recurrent symptoms. If this returns we will reduce the dose to 5 mg weekly to see if side effect resolves. He will return for fasting lab work in 3 weeks when he is due for a hemoglobin A1c. Continue atorvastatin. Recommended low-cholesterol diet. Increase exercise and increase lean proteins, fish, nuts. Follow up in 3 months. Orders: Orders Hemoglobin A1c Today R73.9 - Hyperglycemia, unspecified Lipid Panel Today E78.5 - Hyperlipidemia, unspecified Aspartate Amino Transferase Today E11.65 - Type 2 diabetes mellitus with hyperg lycemia, E78.5 - Hyperlipidemia, unspecified, I10 - Essential (primary) hypertension Creatinine Today E11.9 - Type 2 diabetes mellitus without complications Alanine Aminotransferase Today E11.65 - Type 2 diabetes mellitus with hyperglycemia, E78.5 - Hyperlipidemia, unspecified, I10 - Essential (primary) hypertension AMB Glucose Monitoring Today E11.9 - Type 2 diabetes mellitus without complications Coding Level of Care Code Est Pt Level 4 (48791) Diagnoses Controlled type 2 diabetes mellitus E11.9 Hyperlipidemia LDL goal <100 E78.5 Low HDL (under 40) E78.6 Dizziness R42 CPT Codes Details - CPT: 07629 - Glucose monitoring, continuous-physician I&R ([id number])
[2025-05-17 15:23] LABS: Glucose, Whole Blood 99 mg/dL (60-115)
--- OUTSIDE RECORDS SUMMARY | 2025-05-17 19:35 | XMS_ITS | Encounter Summary ---
Author Organization [facility] Address [address] [place] [address] Care Team Providers Care Forestry Worker Name Role Phone Nereida Llanos MD Primary Care Provider Unavailabl e Reason for Visit * Reason Onset Date Comments Faxed Refill 07/16/2018 Encounter Details Date Type Department Care Team Description 07/16/2018 Refill Pulmonology - [place] [address] [facility] [address] [place] [address] Aiden Ambriz MD Faxed Refill [...] EST Who is calling? A pharmacist: Pharmacy: [facility] Pharmacist Name: Fax Pharmacy Name of [...] on filedocumented in this encounter Care Teams Forestry Worker Relationship Specialty Start Date End Date Nereida Llanos MD PCP - General Internal Medicine 09/01/17 documented as of this encounter
--- OUTSIDE RECORDS SUMMARY | 2025-05-17 19:35 | XMS_ITS | Encounter Summary ---
Author Organization [facility] Address [address] [place] [address] Care Team Providers Care Bilingual Inside Sales Representative Name Role Phone Nereida Llanos MD Primary Care Provider Unavailabl e Reason for Visit * Reason Comments E-prescribe Rx Request Encounter Details Date Type Department Care Team Description 11/20/2017 Refill Pulmonology - [place] [address] [facility] [address] [place] [address] Aiden Ambriz MD E-prescribe Rx Request Social History Tobacco Use Types Packs/Day Years Used Date Smoking Tobacco: Former Cigarettes 0.3 3 Sex Assigned at Date Recorded Not on file documented as of this encounter Miscellaneous Notes * Telephone Encounter - Carmita Dias - 11/20/2017 8:45 AM EDT WHEN WAS THE PATIENTS LAST ANNUAL ARTIFICIAL INSEMINATION TECHNICIAN EXAM? NA Does patient have an upcoming [...] the end of the day? NO Payor: [facility] [employer] / Plan: [facility] [employer] / Product Type: MEDICAID RISK documented in this encounter Plan of Treatment Not on file documented as of this encounter Visit Diagnoses Not on filedocumented in this encounter Care Teams Bilingual Inside Sales Representative Relationship Specialty Start Date End Date Nereida Llanos MD PCP - General Internal Medicine 09/01/17 documented as of this encounter
--- OUTSIDE RECORDS SUMMARY | 2025-05-17 19:35 | XMS_ITS | Clinical Summary ---
Author Organization [facility] Address [address] [place] [address] Care Team Providers Care Shackler Name Role Phone Nereida Llanos MD Primary [...] 07/21/2024 12/16/2017 SOCIAL NEEDS SCREENING 07/21/2024 INFLUENZA (#1) 2025 PNEUMOCOCCAL VACCINE FOR HIG H RISK PATIENTS (#2) 2043 06/04/2017 Care Teams Shackler Relationship Specialty Start Date End Date Nereida Llanos MD PCP - General Internal Medicine 09/01/17
--- OUTSIDE RECORDS SUMMARY | 2025-05-17 19:35 | XMS_ITS | Encounter Summary ---
Author Organization [facility] Address [address] [place] [address] Care Team Providers Care Tarper Name Role Phone Nereida Llanos MD Primary Care Provider Unavailabl e Reason for Visit * Reason Onset Date Comments DME Request 10/19/2018 Order for CPAP s upplies faxed to [facility]. Encounter Details Date Type Department Care Team Description 10/19/2018 Telephone Pulmonology - [place] [address] [facility] [address] [place] [address] Aiden Ambriz MD DME Request (Order for CPAP supplies faxed to [facility].) Social History Tobacco Use Types Packs/Day Years Used Date Smoking Tobacco: Former Cigarettes 0.3 3 Smokeless Tobacco: Never Sex Assigned at Date Recorded Not on file documented as of this encounter Plan of Treatment Not on file documented as of this encounter Visit Diagnoses Not on filedocumented in this encounter Care Teams Tarper Relationship Specialty Start Date End Date Nereida Llanos MD PCP - General Internal Medicine 09/01/17 documented as of this encounter
--- OUTSIDE RECORDS SUMMARY | 2025-05-17 19:35 | XMS_ITS | Clinical Summary ---
Author Organization [address] [place] [address] [place] [phone] Phone Care Team Providers Care Weigh Machine Operator Name Role Phone Nereida Llanos MD Primary Care Provider [phone] Allergies Active Allergy Reactions Criticality Noted Date Comments Cyclobenzaprine 10/23/2017 Glipizide 10/23/2017 Metformin 10/23/2017 Medications No known medications Encounters Date Type Department Care Team Description 04/12/2025 3:00 PM EDT Consult Orthopedic Surgery [facility] [address] [phone] Gerald Snell DPM Type 2 diabetes mellitus with hyperglycemia, without long-term current use of insulin ([facility] V24, [facility] V28) (Primary Dx); Pain in toes of both feet; Pes planus of both feet from Last 3 Months Surgical History Surgery Date Site/Laterality Comments OTHER SURGICAL HISTORY PROCEDURE: INSERTION OF CHEST TUBE Medical History Medical History Date Comments Asthma 10/23/2017 DX:Asthma History of pneumonia 10/23/2017 DX:History of pneumonia SHERRI (obstructive sleep apnea) 10/23/2017 DX :SHERRI (obstructive sleep apnea) Hyperlipidemia 12/16/2017 DX:Hyperlipidemi a Morbid obesity with BMI of 5 0.0-59.9, adult ([facility] V24, [facility] V28) 12/16/2017 DX:Morbid obesity wit h BMI of 50.0-59.9, adult ([facility]) Diabetes mellitus type 2 wit h neurological manifestations ([facility] V24, [facility] V28) 12/16/2017 DX:Diabetes mellitus type 2 with neurological manifestations ([facility]) Peripheral neuropathy 12/16/2017 DX:Periphe ral neuropathy DM (diabetes mellitus), type 2 with renal complications (CMS/HCC V24, CMS/HCC V28) 12/16/2017 DX:DM (diabetes mellitus), t ype 2 with renal complications (HCC) Proteinuria 12/16/2017 DX:Proteinuria Sciatica 12/16/2017 DX:Sciatica Depression [...] Care Team (Late st Contact Info) Description 07/12/2025 3:00 PM EST Office Visit Orthopedic Surgery - [address] [phone] Gerald Snell DPM [address] [place] [phone] Health Maintenance Due Date Last Done Comments Colorectal Cancer Screening: Colonoscopy 1978 Diabetes: Annual GFR (Glomerular Filtration Rate) 1978 Diabetes: Annual Foot Exam 02/05/1988 Diabetes: Annual Retina Eye Exam 02/05/1988 Hepatitis B Vaccines (1 of 3 - 19+ 3-dose series) 1997 Depression Screening 07/21/2024 Cholesterol Screening (Lipid Panel) 01/17/2025 Diabetes: Annual Urine Albumin-Creatinine Ratio (uACR) 01/17/2025 Diabetes: Blood Sugar Control Test (HGBA1C) 01/17/2025 HIV Screening 01/17/2025 Hepatitis C Screening 01/17/2025 Hypertension/CHF/CAD Annual BMP Blood Test 01/17/2025 Social Influencers of Health Screening 01/17/2025 Influenza Vaccine (#1) 2025 4, 04/16/2023, 05/06/2022, Additional history exists DTaP,Tdap,and Td Vaccines (2 - Td or Tdap) 10/29/2028 10/29/2018 RSV Immunization Adult Patients (1 - 1-dose 75+ series) 2053 Pneumococcal Vaccine: Pediatrics (0 to 5 Years) and At-Risk Patients (6 to 49 Years) Completed 02/12/2024, 06/04/2017 COVID-19 Vaccine Completed 04/12/2024, 04/2023, 06/23/2022, Additional history exists HIB Vaccines Aged Out No longer eligi [...] to complete this topic RSV Immunization Patients Under 20 months Aged Out No longer eligible based on patient's age to complete this topic Varicella Vaccines Aged Out No longer eligible based on patient's age to complete this topic Insurance [facility] Care Teams Weigh Machine Operator Relationship Specialty Start Date End Date Nereida Llanos MD [address] [place] [address] [address] [facility] [place] [address] PCP - General Internal Medicine 02/04/18
--- OUTSIDE RECORDS SUMMARY | 2025-05-17 19:35 | XMS_ITS | Encounter Summary ---
Author Organization [facility] Address [address] [place] [address] Care Team Providers Care Heel Seat Laster Name Role Phone Nereida Llanos MD Primary Care Provider Unavailabl e Reason for Visit * Reason Onset Date Comments er follow up 07/09/2018 Encounter Details Date Type Department Care Team Description 07/09/2018 Telephone Pulmonology - [place] 175 [facility] [address] [place] [address] Aiden Ambriz MD er follow [...] on filedocumented in this encounter Care Teams Heel Seat Laster Relationship Specialty Start Date End Date Nereida Llanos MD PCP - General Internal Medicine 09/01/17 documented as of this encounter
--- OUTSIDE RECORDS SUMMARY | 2025-05-17 19:35 | XMS_ITS | Encounter Summary ---
Author Organization [facility] Address [address] [place] [address] Care Team Providers Care Ebd Special Education Teacher Name Role Phone Nereida Llanos MD Primary Care Provider Unavailabl e Encounter Details Date Type Department Care Team Description 10/13/2018 Telephone Pulmonology - [place] 175 [facility] [address] [place] [phone] Aiden Ambriz MD Social History Tobacco Use [...] on filedocumented in this encounter Care Teams Ebd Special Education Teacher Relationship Specialty Start Date End Date Nereida Llanos MD PCP - General Internal Medicine 09/01/17 documented as of this encounter
--- OUTSIDE RECORDS SUMMARY | 2025-05-17 19:35 | XMS_ITS | Encounter Summary ---
Author Organization [facility] Address [address] [place] [address] Care Team Providers Care Rumper Name Role Phone Nereida Llanos MD Primary Care Provider Unavailabl e Reason for Visit * Reason Onset Date Comments medication problems 07/15/2018 Encounter Details Date Type Department Care Team Description 07/15/2018 Telephone Internal Medicine - [place] 175 [facility], [address] [place] [address] Charles Mcallister PA-C [address] [facility] [address] [place] [address] medication problems Social History Tobacco Use Types [...] on filedocumented in this encounter Care Teams Rumper Relationship Specialty Start Date End Date Nereida Llanos MD PCP - General Internal Medicine 09/01/17 documented as of this encounter
--- OUTSIDE RECORDS SUMMARY | 2025-05-17 19:35 | XMS_ITS | Encounter Summary ---
Author Organization [facility] Address [address] [place] [address] Care Team Providers Care Veneer Glue Spreader Name Role Phone Nereida Llanos MD Primary Care Provider Unavailabl e Reason for Visit * Reason Comments E-prescribe Rx Request Encounter Details Date Type Department Care Team Description 09/14/2018 Refill Pulmonology - [place] [address] [facility] [address] [place] [address] Aiden Ambriz MD E-prescribe Rx [...] on filedocumented in this encounter Care Teams Veneer Glue Spreader Relationship Specialty Start Date End Date Nereida Llanos MD PCP - General Internal Medicine 09/01/17 documented as of this encounter
--- OUTSIDE RECORDS SUMMARY | 2025-05-17 19:35 | XMS_ITS | Encounter Summary ---
Author Organization [facility] Address [address] [place] [address] Care Team Providers Care Director Of Physical Education Name Role Phone Nereida Llanos MD Primary Care Provider Unavailabl e Encounter Details Date Type Department Care Team Description 05/06/2018 Release of Information Medical Records [address] [place] [id number] Abstract, Provider Social History Tobacco Use Types Packs/Day Years Used Date Smoking Tobacco: Former Cigarettes 0.3 3 Sex Assigned at Date Recorded Not on file documented as of this encounter Plan of Treatment Not on file documented as of this encounter Visit Diagnoses Not on filedocumented in this encounter Care Teams Director Of Physical Education Relationship Specialty Start Date End Date Nereida Llanos MD PCP - General Internal Medicine 09/01/17 documented as of this encounter
--- OUTSIDE RECORDS SUMMARY | 2025-05-17 19:35 | XMS_ITS | Encounter Summary ---
Author Organization [facility] Address [address] [place] [address] Care Team Providers Care Filler In Name Role Phone Nereida Llanos MD Primary Care Provider Unavailabl e Reason for Visit * Reason Comments E-prescribe Rx Request Encounter Details Date Type Department Care Team Description 02/20/2019 Refill Pulmonology - [place] 175 [facility] [address] [place] [address] Charles Mcallister PA-C [address] [facility] [address] [place] [address] E-prescribe Rx Request Social History [...] an upcoming appointment? No-unable to reach left [facility] to call for appointment due to refill request. Appt due (THE MEDICATION REQUESTED IS ON THE MED LIST ABOVE) All of the medications requested were on the CURRENT MEDS list Did you check the Pharmacy information above?: YES Patient wants: 30 -day supply Is this a mail order prescription request ? NO Patients current insurance carrier is: Payor: [employer] FFS / Plan: [facility] / Product Type: MEDICAID RISK documented in this encounter Plan of Treatment Not on file documented as of this encounter Visit Diagnoses Diagnosis Moderate persistent asthma without complication Unspecified asthma documented in this encounter Care Teams Filler In Relationship Specialty Start Date End Date Nereida Llanos MD PCP - General Internal Medicine 09/01/17 documented as of this encounter
== END 2025-05-17 15:45 | disposition home or self-care (01) ==
LOC: HO.ENCR 15:10
PROVIDERS: PCP Internal Medicine; Visit Provider Physician Assistant Medical
DX: E11.9 Type 2 diabetes mellitus without complications (principal); E78.5 Hyperlipidemia, unspecified; E78.6 Lipoprotein deficiency; R42 Dizziness and giddiness

== ENCOUNTER → 2025-05-17 15:09 | Outpatient (BNVA) | payer OTHER, SELFPAY | PROVIDERS: PCP Internal Medicine; Visit Provider Physician Assistant Medical | DX: E11.40 Type 2 diabetes mellitus with diabetic neuropathy, unspecified (principal); E11.36 Type 2 diabetes mellitus with diabetic cataract; H26.9 Unspecified cataract; E78.5 Hyperlipidemia, unspecified; E78.6 Lipoprotein deficiency; Z79.4 Long term (current) use of insulin | CPT/HCPCS: 82947; 99212 ==

== ENCOUNTER 2025-06-06 15:31 | Outpatient (AMB) | payer OTHER, SELFPAY ==
[2025-06-06 15:33] VITALS: BP 118/72; PULSE 82; O2SAT 97; BMI 53.5
--- NOTE | 2025-06-06 15:33 | MHC.OFFVIS ---
Vital Signs 06/06/25 15:33 Height 5 ft 8 in Weight 351 lb 10.197 oz BMI 53.5 BP 118/72 Blood Pressure Location Lt radial Position Sitting Pulse 82 Pulse Source Pulse Oximeter Pulse Oximetry (%) 97 Oxygen Delivery Method Room Air Intake Visit Reasons: SHERRI/Cough Compliance Counsel Required: No Accompanied by: Self / Same As Patient Allergies dulaglutide (From [facility]) Adverse Reaction (Intermediate, Verified 06/06/25 15:37) Diarrhea Flexeril Adverse Reaction (Mild, Verified 06/06/25 15:37) nausea, sleepiness glipizide Adverse Reaction (Mild, Verified 06/06/25 15:37) hypoglycemia HPI Comments Details: The patient is a 45-year-old gentleman known asthma in addition to obstructive sleep apnea on CPAP and morbid obesity. He states that he was in his usual state health until about 5 days ago when he started developing worsening cough and congestion. He went to see his primary care doctor with prescribed Augmentin. The patient has not been any better. He has complaints of shortness of breath and frequent coughing with mucus. He is concerned because he has been admitted in the past with pneumonia. He has not been using his nebulizer. He has been using his short-acting beta agonists MDI several times a day. It is only socially helpful. He denies any fevers or chills. No one else is sick at home. He starting to feel better. He is using his CPAP every night for more than 4 hours a night. The CPAP therapy is effective and beneficial. He needs to get new supplies. Will resend order to his DME. 04/19/2024 the patient is here for a pulmonary follow-up visit. The patient overall has been doing okay. Unfortunately has not been able to get the maintenance inhaler, AirDuo. Will go ahead and send him generic Symbicort instead at this time. I think Symbicort is going to work better for him anyway. He has been feeling well from the asthma. He has not required his rescue inhaler often which is reassuring. He is concerned about the winter in the fall because that is when he would get colds and activate his asthma. We did talk about pre emptied therapy with vitamin-C and zinc and other herbal therapies. He is going to look into those. In the meantime he continues uses CPAP. CPAP therapy continues to be affecting beneficial. He does use it more than 4 hours. He was having issues with bills coming from the [employer]. We then he called them and he changed the insurance information that they had in now seems to be better. He will let us know if he runs into any more difficulties. Will follow-up in 4 months. 08/18/2024 the patient is here for a pulmonary follow-up visit. Overall the patient has been doing well he has been working and he has been very active with his job. He has been liking it a lot. 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 Therefore he is now exposed to more sick contacts. His mother also has the flu at this time. He is concerned over getting the flu. He is having some chest congestion at this time feels like sometimes bruising although has not completely developed. He continues uses CPAP. The CPAP therapy has been affecting beneficial. He does use it for more than 4 hours a night. 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 I am going to request a download from his CPAP and therefore then write him a letter. His oxygen levels are reassuring at this time within normal limits. Once I have the download I will write him a letter for the DOT. From an asthma standpoint the patient is doing well with the current respiratory therapy. If his symptoms worsen he may need to start prednisone. 08/25/2024 the patient is here for a pulmonary follow-up visit. Overall he is doing well. Asthma seems to be in good control. He continues uses maintenance therapy. The patient has been using CPAP every night. CPAP therapy has been affecting beneficial. He is not working at a adult Care Center. 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 He needs DOT clearance. Does have a Respironics dream Station 2 machine. He did bring it in. The therapy has been affecting beneficial for many years. His average uses the last 30 days has been 9 hours and 26 minutes and his AHI is 4.5. His current settings are 5 to 12 cm of water. I did increasing to 6-14 cm of water. His current machine is not able to be downloaded since his Respironics machine that was provided after the recall. Therefore based on the need for reports on regular basis in the fact that is not providing any reports for his DOT I am going to request with a pacer machine at this time. Will work with his local [employer] company to prior pride him a replacement machine that can be downloaded easily. In the meantime he is going to continue with current respiratory therapy he will try the higher pressure he has not issues he will call the office earlier assessment. 09/07/2024 the patient is here for sick visit. He started getting sick about 3 days ago. 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 He has been using prednisone and also has been using his nebulized therapy. Will go ahead and send him a course of antibiotics. So likely viral but which is want to cover all the bases. The patient will monitor closely his blood sugars. He is going to split the prednisone to twice a day to minimize hyperglycemia. In the meantime he continues uses CPAP every night CPAP therapy continues to be affecting beneficial. Will go ahead and follow-up with his regular scheduled visit. If he has any issues before that he can always call for an earlier evaluation. Also to note he did go the DOT and they did accept the paperwork for his sleep apnea with the letter. He does need to get a DOT clearance at least from a pulmonary standpoint every 6 months. 09/24/2024 the patient is here for pulmonary follow-up visit. He was initially feeling better and then started getting sick again. Chest congestion chest tightness. He had a prescription for prednisone but he lost. Therefore he never got it filled. He has been using his rescue therapy nebulizer more often. He does have some rhonchi and wheezing on exam. He just completed a course of azithromycin also Augmentin. Therefore based on the fact that he is not any better will start him on some doxycycline and he will have a prednisone taper that he can start. If he has any issues he will call for an earlier assessment. In the meantime he continues uses CPAP. He did get approved for the new APAP through his [employer] company that should be coming up soon. 12/14/2024 the patient is here for a pulmonary follow-up visit. Overall he is doing well. He did get his new CPAP. The CPAP therapy has been affecting beneficial. His AHI is down to 1. He does use it for more than 4 hours a night. His mask fitting is good. Overall the patient seems to be doing okay. Unfortunately he has been getting the wrong supplies from the [employer]. I did call them in order for them to rectify. He has any issues will call us back. From an asthma standpoint seems to be stable this time. He did require a short course of prednisone antibiotics for recent illness but no back to baseline. He is trying to stay away completely from prednisone because of his weight gain and other comorbidities. At this point will continue his current respiratory therapy. He will continue with CPAP. 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 06/06/2025 the patient is here for pulmonary follow-up visit. The patient overall has been doing okay although for the last few days he started developing an upper respiratory illness. He typically goes into his lungs. I will make sure to give him some medications in case he gets worse. But for now he will continue with the current respiratory therapy and affb-pkh-dknurdk medications. The patient has been using his inhalers with good effect. No significant wheezing right now. In addition to that he continues uses CPAP every night. CPAP therapy has been affecting beneficial. He is very happy with the CPAP and he does use it for more than 4 hours. He recently stopped the insulin since currently taking non-insulin GLP 1 inhibitors for his diabetes and he is losing weight which is reassuring. This should help both his sleep apnea in his asthma. The patient will follow-up in 4 months if he has any issues prior to this she can always call for an earlier assessment and recommendations. [facility] Medical History (Updated 05/17/25 @ 15:48 by JENNIFER Cooper) Dizziness Low HDL (under 40) Controlled type 2 diabetes mellitus Bronchitis Diabetic neuropathy Type II diabetes with senior living use of insulin Pharyngitis Migraine Vitamin B12 deficiency Obesity due to excess calories Peripheral neuropathy Obesity History of colon polyps Asthma Depression Back pain with sciatica Proteinuria Hemorrhoids SHERRI (obstructive sleep apnea) Hyperlipidemia LDL goal <100 Essential hypertension Vitamin D deficiency Surgical History Hx of colonoscopy History of esophagogastroduodenoscopy (EGD) Loculated pleural effusion Loculated empyema Family History Father Cirrhosis Diabetes Mother Colon cancer, Onset Age: 83 Skin cancer Brother Prostate cancer CVA (cerebral vascular accident) Social History Household Members: Family Housing: Apartment Are you a primary emergency care attendant to a significant other at home: No Do you presently have visiting nurse or other home services: No Alcohol intake: never Patient Tobacco Use Status: Former Tobacco user Tobacco use type: Cigarette Years Smoked: 6- stopped 2016 e-Cigarette/Vaping Use: Never Used Second Hand Smoke Exposure: No service: No Current occupational status: disabled Cognitive needs: Yes (cane) Hearing needs: No Vision needs: Yes (glasses) Review of Systems Const Denies fatigue, Denies headache(s) and Reports weight loss Eyes Denies blurry vision ENT Reports Normal hearing present, Denies headache(s), Reports nasal congestion, Reports nasal discharge and Reports nasal obstruction Card Denies chest pain, Denies irregular heart rhythm, Denies dyspnea and Denies dyspnea on exertion Resp Reports chest congestion, Reports cough, Denies dyspnea, Denies dyspnea on exertion and Reports wheezing GI Denies constipation and Denies diarrhea Denies dysuria and Denies urinary frequency Musc Reports muscle cramps, Denies muscle weakness, Denies numbness and Denies tingling Neuro Reports Normal hearing present, Denies Abnormal speech present, Denies headache(s), Denies numbness and Denies tingling Psych Reports abnormal sleep pattern and Denies depression Endo Denies fatigue Gianfranco/Lymph Denies easy bruising Aller/Immun Reports wheezing Physical Exam Vital Signs: Last Vital Signs Pulse 82 06/06/25 15:33 BP 118/72 06/06/25 15:33 Pulse Ox 97 06/06/25 15:33 Oxygen Delivery Method Room Air 06/06/25 15:33 BMI result Body Mass Index 53.5 Const General: comfortable and no acute distress Orientation/consciousness: patient oriented x3 HEENT Head: Yes normal to inspection Ears: hearing grossly normal bilaterally Eyes Sclerae: sclerae normal Pupils: Equal, round and reactive pupils present Neck Neck: Yes normal visual inspection Chest Chest palpation & inspection: normal inspection of the chest Resp Effort & Inspection: normal respiratory effort Auscultation: clear to auscultation bilaterally, no crackles, no rales, no rhonchi and no wheezes Cardio Palpation: normal PMI Rate: regular rate Rhythm: regular rhythm Heart sounds: S1 normal heart sound present, S2 normal heart sound present and no murmurs GI Palpation (GI): Soft to palpation, nontender and No hepatosplenomegaly present Auscultation: normal bowel sounds Rectal Exam - Male: Yes deferred Skin General skin exam: no rashes or lesions noted Neuro General: patient oriented x3, gait normal and moves all extremities Cranial nerves: Yes Equal, round and reactive pupils present and Yes Normal hearing present Speech: No Abnormal speech present Extrem General: No clubbing and No cyanosis Psych Appearance: grossly normal Mental Status: mental status grossly normal Assessment & Plan Assessment & Plan (1) Asthma: Comment: PFT restrictive March 2019 Code(s): J45.909 - Unspecified asthma, uncomplicated Category: Medical Qualifiers: Asthma complication type: uncomplicated Asthma persistence: persistent Asthma severity: moderate Qualified Code(s): J45.40 - Moderate persistent asthma, uncomplicated (2) SHERRI (obstructive sleep apnea): Comment: Continue with the CPAP every night and benefits from this more than 4 hours a night Code(s): G47.33 - Obstructive sleep apnea (adult) (pediatric) Category: Medical (3) URI (upper respiratory infection): Code(s): J06.9 - Acute upper respiratory infection, unspecified Category: Medical (4) Chronic rhinitis: Code(s): J31.0 - Chronic rhinitis Category: Medical Plan Symbicort continuen Daliresp 500mcg Continue APAP, p10. Airsense 11 APAP 6-12 (JL) Nasal rinsing Allergy therapy: singulair continue Fluticasone daily continue Astelin weight management F/U 4-6 months Medications: New azithromycin 500 mg PO DAILY 5 tabs 0RF 5 days methylprednisolone (Medrol (Jamarcus)) PO PER PKG DIR 21 ea 0RF 6 days Coding Level of Care Code Est Pt Level 4 (55004) Diagnoses Moderate persistent asthma without complication J45.40 Asthma complication type: uncomplicated Asthma persistence: persistent Asthma severity: moderate SHERRI (obstructive sleep apnea) G47.33 URI (upper respiratory infection) J06.9 Chronic rhinitis J31.0 Time Spent (min) 16
== END 2025-06-06 15:55 | disposition home or self-care (01) ==
PROVIDERS: PCP Internal Medicine; Visit Provider Hospitalist
DX: J45.40 Moderate persistent asthma, uncomplicated (principal); G47.33 Obstructive sleep apnea (adult) (pediatric); J06.9 Acute upper respiratory infection, unspecified; J31.0 Chronic rhinitis
CPT/HCPCS: 99214

== ENCOUNTER → 2025-06-06 15:31 | Outpatient (BNVA) | payer OTHER, SELFPAY | PROVIDERS: PCP Internal Medicine; Visit Provider Hospitalist | DX: J45.40 Moderate persistent asthma, uncomplicated (principal); G47.33 Obstructive sleep apnea (adult) (pediatric); Z99.89 Dependence on other enabling machines and devices; J06.9 Acute upper respiratory infection, unspecified; J31.0 Chronic rhinitis | CPT/HCPCS: 99212 ==